=== PATIENT | female | born 1970 | race Caucasian/White ===

== ENCOUNTER 2023-04-10 09:03 | Outpatient (OUT) | payer MEDICAID, SELFPAY ==
[2023-04-10 12:31] LABS: Basophils Percent Auto 0.4 % (0.2-2.0); Eosinophils Absolute Auto 0.3 10^3/uL (0.0-0.7); Eosinophils Percent Auto 3.5 % (0.9-7.0); Hematocrit 39.8 % (36.0-48.0); Hemoglobin 13.4 g/dL (12.0-16.0); Immature Granulocytes Abs Auto 0.01 10^3/uL (0.00-0.03); Immature Granulocytes Pct Auto 0.1 % (0.0-0.5); Lymphocytes Absolute Auto 2.8 10^3/uL (1.2-3.8); Lymphocytes Percent Auto 34.2 % (20.5-60.0); Mean Corpuscular HGB Conc 33.7 g/dL (29.9-35.2); Mean Corpuscular Hemoglobin 29.6 pg (26.7-34.0); Mean Corpuscular Volume 88.1 fL (81.0-99.0); Mean Platelet Volume 9.5 fL (9.5-13.5); Monocytes Absolute Auto 0.5 10^3/uL (0.3-0.8); Monocytes Percent Auto 6.1 % (1.7-12.0); Neutrophils Absolute Auto 4.5 10^3/uL (1.4-6.5); Neutrophils Percent Auto 55.7 % (43.0-75.0); Platelet Count 262 10^3/uL (150-450); Red Blood Count 4.52 10^6/uL (4.20-5.40); Red Cell Distribution Width 13.5 % (11.0-15.0)
[2023-04-10 12:53] LABS: Bilirubin Urine NEGATIVE (NEGATIVE); Blood Urine NEGATIVE (NEGATIVE); Clarity Urine CLEAR (CLEAR); Color Urine LT. YELLOW (YELLOW); Glucose Urine UA NEGATIVE (NEGATIVE); Ketones Urine NEGATIVE (NEGATIVE); Leukocyte Esterase Urine NEGATIVE (NEGATIVE); Nitrite Urine NEGATIVE (NEGATIVE); Protein Urine NEGATIVE (NEG/TRACE); Urobilinogen Urine 0.2 EU/dL (0.2-1.0); pH Urine 6.5 (5.0-9.0)
[2023-04-10 13:17] LABS: Bacteria Urine TRACE #/HPF (NONE SEEN); Cast Seen? NONE SEEN #/LPF (NONE SEEN); Crystals Seen? None Seen #/HPF (None Seen); Mucus Urine NONE SEEN (NONE SEEN); RBC Urine NONE SEEN #/HPF (0-2); Squamous Epithelial Cell Urine MODERATE #/LPF (NONE/RARE); WBC Urine 0-2 #/HPF (NONE SEEN)
[2023-04-10 13:37] LABS: Alanine Aminotransferase 39 U/L (14-59); Albumin Globulin Ratio 1.3; Albumin Level 4.3 g/dL (3.4-5.0); Alkaline Phosphatase 61 U/L (46-116); Anion Gap 10.5; Aspartate Amino Transferase 38 U/L (15-37); BUN Creatinine Ratio 13.5; Bilirubin Total 0.4 mg/dL (0.2-1.0); Calcium 9.9 mg/dL (8.5-10.1); Carbon Dioxide 29.9 mmol/L (21.0-32.0); Chloride 101 mmol/L (98-107); Chol HDL Ratio 1.7; Cholesterol 148 mg/dL (<=200); Estimated GFR (African America >60 (>=60); Estimated GFR (Non-African Ame >60 (>=60); Globulin 3.2 g/dL; Glucose 84 mg/dL (74-106); HDL Cholesterol 87 mg/dL (40-60); Potassium 3.4 mmol/L (3.5-5.1); Sodium 138 mmol/L (136-145); Total Protein 7.5 g/dL (6.4-8.2); Triglycerides 92 mg/dL (<=150); VLDL CHOLESTEROL 18.4 mg/dL
[2023-04-11 04:07] LABS: Vitamin B12 564 pg/mL (232-1245)
== END 2023-04-10 09:04 ==
LOC: LAB 04-16 09:04
PROVIDERS: PCP Family Medicine; Visit Provider Family Medicine
DX: E55.9 Vitamin D deficiency, unspecified (principal); D72.829 Elevated white blood cell count, unspecified; E83.52 Hypercalcemia; E53.8 Deficiency of other specified B group vitamins; R35.1 Nocturia; K76.0 Fatty (change of) liver, not elsewhere classified
CPT/HCPCS: 36415; 80053; 80061; 81001; 82306; 82607; 82746; 85025; 87086

== ENCOUNTER 2023-04-17 13:48 | Outpatient (OUT) | payer MEDICAID, SELFPAY ==
[2023-04-17 14:17] LABS: BUN Creatinine Ratio 15.5; Calcium 9.3 mg/dL (8.5-10.1); Carbon Dioxide 31.5 mmol/L (21.0-32.0); Chloride 102 mmol/L (98-107); Estimated GFR (African America >60 (>=60); Estimated GFR (Non-African Ame >60 (>=60); Glucose 89 mg/dL (74-106); Potassium 3.5 mmol/L (3.5-5.1); Sodium 140 mmol/L (136-145)
== END 2023-04-17 13:49 | disposition home or self-care (01) ==
LOC: LAB 13:49
PROVIDERS: PCP Family Medicine; Visit Provider Family Medicine
DX: E87.6 Hypokalemia (principal)
CPT/HCPCS: 36415; 80048

== ENCOUNTER 2023-05-29 17:00 | Emergency (ER) | payer MEDICAID, SELFPAY ==
[2023-05-29 17:06] VITALS: BP 149/93; PULSE 74; RESP 18; TEMP 36.4; O2SAT 97; BMI 20.8
--- NOTE | 2023-05-29 17:14 | ED.LOWEXI1 ---
HPI - Extremity Injury (Lower) General Chief Complaint: Extremity Injury, Lower Stated Complaint: Lower Extremity Pain Time Seen by Provider: 05/29/23 17:14 Source: patient Mode of arrival: walk-in Limitations: no limitations History of Present Illness HPI Narrative: Patient process the emergency department complaining of left foot pain. Patient states the last couple of days having pain over the dorsum of the foot. She states at times feels hot and at times feels cold. She states when she put her foot down to notice it becoming swollen. She describes her primary care doctor and since she had a blood clot in the past concerned about it. She does not take blood thinners currently. She denies any trauma. She denies any recent surgery. The patient is a smoker. She denies any chest pain, or shortness of breath. Eyes any fever, chills, or cough. She denies mila calf pain or cramping. She has not taken anything at home for pain. Related Data Allergies Allergy/AdvReac Type Severity Reaction Status Date / Time No Known Drug Allergies Allergy Verified 05/29/23 17:12 Review of Systems ROS Status of ROS 10 or more systems reviewed and unremarkable except as noted in history and below Exam Narrative Exam Narrative: Nurses notes and vital signs reviewed and patient is not hypoxic. General: Nontoxic, Well-appearing and in no apparent distress. Skin: Warm, dry, no pallor noted. No Rash Head: Normocephalic, atraumatic. Neck: Supple, non-tender. Eye: Pupils are equal, round and EOMI. No scleral icterus. Ears, Nose, Mouth, and Throat: TM clear, no posterior oropharynx erythema or nasal mucosal hypertrophy, uvula is mid-line Oral mucosa is moist Cardiovascular: Regular Rate and Rhythm without murmur, gallop or rub. Respiratory: No accessory muscle use or respiratory distress. Lungs are clear to auscultation, no wheezing, rales or rhonchi Chest Wall: no tenderness Back: No midline thoracic or lumbar vertebral tenderness. No CVA tenderness Musculoskeletal: normal ROM, no calf or popliteal tenderness, no lower extremity edema/swelling, No calf asymmetry, DP +2, PT +2, capillary refill is brisk. Negative Homans sign. No erythema or ecchymosis, signs of trauma, or infection. There are no hyperesthesias. No cooling, cyanosis or pale discoloration of the foot. GI: Abdomen is soft, non-distended. Normal bowel sounds. No tenderness to palpation. No rebound, guarding, or rigidity noted. Neurological: A&O x4. No cranial nerve dysfunction observed. No truncal ataxia. Moves all extremities. Sensation intact. Psychiatric: Cooperative and interactive. Normal mood and affect. Constitutional Vital Signs, click to edit/add: Last Vital Signs Temp 97.6 F 05/29/23 17:06 Pulse 74 05/29/23 17:06 Resp 18 05/29/23 17:06 BP 149/93 H 05/29/23 17:06 Pulse Ox 97 05/29/23 17:06 O2 Del Method Room Air 05/29/23 17:06 Course Vital Signs Vital signs: Vital Signs Temperature 97.6 F 05/29/23 17:06 Pulse Rate 74 05/29/23 17:06 Respiratory Rate 18 05/29/23 17:06 Blood Pressure 149/93 H 05/29/23 17:06 Pulse Oximetry 97 05/29/23 17:06 Oxygen Delivery Method Room Air 05/29/23 17:06 Temperature 97.6 F 05/29/23 17:06 Pulse Rate 74 05/29/23 17:06 Respiratory Rate 18 05/29/23 17:06 Blood Pressure 149/93 H 05/29/23 17:06 Pulse Oximetry 97 05/29/23 17:06 Oxygen Delivery Method Room Air 05/29/23 17:06 MDM - Extremity Injury (Lower) MDM Narrative Medical decision making narrative: Venous Doppler of lower extremity was done which does not show any deep vein thrombosis. Results discussed with patient. Patient advised to stop smoking. She is advised follow-up with primary care doctor for further testing. There are no signs of acute vascular occlusion. pt is advised to take Tylenol Motrin in the meantime. At this time the patient is without objective evidence of an acute process requiring hospitalization or inpatient management. The patient has remained hemodynamically stable. No additional indication for emergent studies at this time. I answered all questions. Discussed discharge instructions including standard anticipatory guidance and what should prompt a return to the emergency department, including if they get worse are not getting better or develops any new or concerning symptoms. I've given them specific time frame in which to follow-up, and who to follow-up with. The patient demonstrates understanding. Patient is nontoxic and stable for discharge with outpatient follow-up. This note was created with the assistance of a speech recognition program. Although the intention is to generate documents that actually reflects the content of the visit, no guarantees can be provided that every mistake has been identified and corrected by editing. Discharge Plan Discharge Chief Complaint: Extremity Injury, Lower Clinical Impression: Foot pain, left Patient Disposition: Home, Self-Care Time of Disposition Decision: 18:22 Condition: Good Mode of Transportation: Private Vehicle Additional Instructions: Follow-up with Dr. Cruz in the morning. Return to emergency department with a possible source discussed. cut down on smoking Stand Alone Forms: Portal Instructions Referrals: PAULINE ROMERO [Primary Care Provider] - 1 week
--- NOTE | 2023-05-29 17:18 | US_ITS ---
The [address] [address] Patient Name: JOSSY GUZMÁN MRN: [id number] date: 1970 Sex: F Assigned Patient Location: ER Current Patient Location: ER Accession/Order Number: [id number] Exam Date: 05/29/2023 17:20 Report Date: 05/29/2023 17:52 At the request of: ROBB FOX Procedure: US venous doppler LE LT EXAM: US venous doppler LE LT HISTORY: foot pain the past 3 days per COMPARISON: None. TECHNIQUE: Multiple sonographic images of the deep veins of the left lower extremity were obtained, supplemented with Doppler. FINDINGS: The deep veins of the left lower extremity are fairly well-visualized the groin to the mid calf. No filling defect is identified to indicate a thrombus. There is normal compression augmentation of flow throughout. US/US venous doppler LE LT IMPRESSION: There is no direct or indirect evidence of deep vein thrombosis in the left lower extremity at this time. Electronically authenticated by: DEVON HORTON Date: 05/29/2023 17:52
== END 2023-05-29 18:38 | disposition home or self-care (01) ==
PROVIDERS: Emergency Provider Emergency Medicine; PCP Family Medicine
DX: M79.672 Pain in left foot (principal)
CPT/HCPCS: 93971; 99284

== ENCOUNTER 2023-05-31 10:07 | Outpatient (OUT) | payer MEDICAID, SELFPAY ==
--- NOTE | 2023-05-31 10:10 | XR_ITS ---
The [address] [address] Patient Name: JOSSY GUZMÁN MRN: [id number] date: 1970 Sex: F Assigned Patient Location: [facility] Current Patient Location: [facility] Accession/Order Number: [id number] Exam Date: 05/31/2023 10:18 Report Date: 05/31/2023 10:49 At the request of: PAULINE ROMERO Procedure: XR foot LT min 3V PROCEDURE: XR foot LT min 3V HISTORY: Pain In Left Foot M79.672 COMPARISON: None. FINDINGS: BONES:No fracture, acute abnormality, or significant arthropathy. SOFT TISSUES:No visible soft tissue swelling. EFFUSION:None visible. OTHER: Negative. XR/XR foot LT min 3V IMPRESSION: 1. No acute bone abnormality or significant degenerative joint disease. 2. No suspicious soft tissue findings. Electronically authenticated by: LORRAINE MORIN Date: 05/31/2023 10:49
== END 2023-05-31 10:08 | disposition home or self-care (01) ==
PROVIDERS: PCP Family Medicine; Visit Provider Family Medicine
DX: M79.672 Pain in left foot (principal)
CPT/HCPCS: 73630

== ENCOUNTER 2023-08-06 14:55 | Outpatient (OUT) | payer MEDICAID, SELFPAY ==
--- NOTE | 2023-08-06 15:04 | MM_ITS ---
Patient: JOSSY GUZMÁN Exam Date: 08/06/2023 : 1970 Gender:F Ordering : DR CHINTAN ROMERO Admission #: [id number] Family : Order #: [id number] CLICK HERE TO VIEW EXAM RADIOLOGY REPORT PROCEDURE: MM TOMOSYNTHESIS SCREENING BI COMPARISON: MG MAMM SCREEN 3D TROY CAD, 12/27/2021. MG MAMM DX 3D LT CAD, 09/13/2022. MAMMO POST BIOPSY LEFT, 01/15/2022. INDICATIONS: Screening Calculator Name NCI Breast Cancer Risk Assessment Tool 5 Year Breast Cancer Risk 1.80% Lifetime Breast Cancer Risk 13.80% Personal Breast Cancer No Personal Ovarian Cancer No Treatments None Family Cancers None LOCATION: [facility] BREAST COMPOSITION: Heterogeneously dense,which may obscure small masses. FINDINGS: DIAGNOSTIC CATEGORY 2--BENIGN FINDING. NO CHANGE FROM COMPARISON. Scattered benign-appearing calcifications are present. Scattered benign-appearing lymph nodes are present. RIGHT BREAST: No significant suspicious finding. LEFT BREAST: No significant suspicious finding. Stable micro clip marker upper outer quadrant RECOMMENDATIONS: ROUTINE MAMMOGRAM AND CLINICAL EVALUATION IN 12 MONTHS. PLEASE NOTE: A NORMAL MAMMOGRAM DOES NOT EXCLUDE THE POSSIBILITY OF BREAST CANCER. A CLINICALLY SUSPICIOUS PALPABLE LUMP SHOULD BE BIOPSIED. Dictated by: Chintan Casanova MD on 08/07/2023 at 09:51 Approved by: Chintan Casanova MD on 08/07/2023 at 09:53
== END 2023-08-06 14:56 | disposition home or self-care (01) ==
LOC: MAMMO 14:55
PROVIDERS: PCP Family Medicine; Visit Provider Family Medicine
DX: Z12.31 Encounter for screening mammogram for malignant neoplasm of breast (principal)
CPT/HCPCS: 77063; 77067

== ENCOUNTER 2023-08-06 14:56 | Outpatient (OUT) | payer MEDICAID, SELFPAY ==
--- NOTE | 2023-08-06 15:17 | XR_ITS ---
[address] [address] Patient Name: JOSSY GUZMÁN MRN: [id number] date: 1970 Sex: F Assigned Patient Location: [facility] Current Patient Location: [facility] Accession/Order Number: [id number] Exam Date: 08/06/2023 15:08 Report Date: 08/06/2023 20:59 At the request of: NINA Gambino APLFABRICIO Procedure: XR DEXA axial skeleton EXAMINATION: XR DEXA axial skeleton, 08/06/2023 3:08 PM EDT HISTORY: Osteopenia M85.80 COMPARISON: 2020 TECHNIQUE: Dual-energy X-ray absorptiometry (DEXA) bone density study performed for the axial skeleton. HISTORY: Osteopenia M85.80 FINDINGS: Bone mineral density of the distal femurs is 0.803 g percent meters squared. T score -1.6. WHO classification: Osteopenia Lowest bone mineral density left femoral trochanter measures 0.613 g/sq cm. T score -2.1. WHO classification: Osteopenia XR/XR DEXA axial skeleton IMPRESSION: Osteopenia. Moderate fracture risk Electronically authenticated by: PAULINE NEGRETE Date: 08/06/2023 20:59
== END 2023-08-06 14:57 | disposition home or self-care (01) ==
LOC: RAD 14:56
PROVIDERS: PCP Family Medicine; Visit Provider Nurse Practitioner Family
DX: M85.80 Other specified disorders of bone density and structure, unspecified site (principal); M85.89 Other specified disorders of bone density and structure, multiple sites; Z12.31 Encounter for screening mammogram for malignant neoplasm of breast
CPT/HCPCS: 77063; 77067; 77080

== ENCOUNTER 2023-08-14 12:45 | Outpatient (OUT) | payer MEDICAID, SELFPAY ==
[2023-08-14 13:22] LABS: Basophils Percent Auto 0.4 % (0.2-2.0); Eosinophils Absolute Auto 0.1 10^3/uL (0.0-0.7); Eosinophils Percent Auto 1.4 % (0.9-7.0); Hematocrit 38.8 % (36.0-48.0); Hemoglobin 13.2 g/dL (12.0-16.0); Immature Granulocytes Abs Auto 0.03 10^3/uL (0.00-0.03); Immature Granulocytes Pct Auto 0.3 % (0.0-0.5); Lymphocytes Absolute Auto 3.2 10^3/uL (1.2-3.8); Lymphocytes Percent Auto 33.8 % (20.5-60.0); Mean Corpuscular Hemoglobin 29.7 pg (26.7-34.0); Mean Corpuscular Volume 87.4 fL (81.0-99.0); Mean Platelet Volume 9.6 fL (9.5-13.5); Monocytes Absolute Auto 0.6 10^3/uL (0.3-0.8); Monocytes Percent Auto 6.6 % (1.7-12.0); Neutrophils Absolute Auto 5.5 10^3/uL (1.4-6.5); Neutrophils Percent Auto 57.5 % (43.0-75.0); Platelet Count 307 10^3/uL (150-450); Red Blood Count 4.44 10^6/uL (4.20-5.40); Red Cell Distribution Width 13.5 % (11.0-15.0); White Blood Count 9.5 10^3/uL (4.0-11.0)
[2023-08-14 13:41] LABS: Alanine Aminotransferase 52 U/L (14-59); Albumin Globulin Ratio 1.3; Alkaline Phosphatase 64 U/L (46-116); Anion Gap 8.4; Aspartate Amino Transferase 52 U/L (15-37); Bilirubin Total 0.5 mg/dL (0.2-1.0); Calcium 9.3 mg/dL (8.5-10.1); Carbon Dioxide 30.3 mmol/L (21.0-32.0); Chloride 100 mmol/L (98-107); Estimated GFR (African America >60 (>=60); Estimated GFR (Non-African Ame >60 (>=60); Globulin 3.1 g/dL; Glucose 78 mg/dL (74-106); Potassium 3.7 mmol/L (3.5-5.1); Sodium 135 mmol/L (136-145); Thyroid Stimulating Hormone 1.365 uIU/mL (0.358-3.740); Total Protein 7.1 g/dL (6.4-8.2)
[2023-08-15 12:12] LABS: PTH, Intact 23 pg/mL (15-65)
--- OUTSIDE RECORDS SUMMARY | 2023-09-24 14:25 | XMS_ITS | CCD ---
Author Name Unknown Address [address] [place] [address] Organization [facility] Care Team Providers Care Dope Pourer Name Role Phone PHYSICIAN, DEFAULT Unavailable Unavailable PHYSICIAN, DEFAULT Unavailable Unavailable EBRAHEIM, HEBERT Unavailable Unavailable EBRAHEIM, HEBERT Unavailable Unavailable SELF, REFERRED Unavailable Unavailable SELF, REFERRED Unavailable Unavailable DEXTER, JONAH Unavailable Unavailable DEXTER, JONAH Unavailable Unavailable UNKNOWN, PHYSICIAN Unavailable Unavailable UNKNOWN, PHYSICIAN Unavailable Unavailable DEXTER, JONAH Unavailable Unavailable DEXTER, JONAH Unavailable Unavailable UNKNOWN, PHYSICIAN Unavailable Unavailable UNKNOWN, PHYSICIAN Unavailable Unavailable DEXTER, JONAH Unavailable Unavailable DEXTER, JONAH Unavailable Unavailable UNKNOWN, PHYSICIAN Unavailable Unavailable UNKNOWN, PHYSICIAN Unavailable Unavailable Pauline Romero Unavailable Lia Oswald Unavailable DO Pauline Romero Primary Care Provider [phone] JOSE Guidry Attending Provider Araceli Joseph Unavailable DR PAULINE ROMERO Consulting Unavailable NICK, DR CARPENTER Primary Care Unavailable NICK, DR CARPENTER Admitting Unavailable NICK, DR CARPENTER Attending Unavailable SAMSA ., PONCE Admitting Unavailable SAMSA ., PONCE Attending Unavailable SAMSA ., PONCE Consulting Unavailable NICK, DR CARPENTER Primary Care Unavailable NICK, DR CARPENTER Attending Unavailable NICK, DR CARPENTER Consulting Unavailable NICK, DR CARPENTER Primary Care Unavailable NICK, DR CARPENTER Admitting Unavailable ELIESER DILLON Consulting Unavailable DIAB ., ALTAGRACIA Admitting Unavailable DIAB ., ALTAGRACIA Attending Unavailable NICK, DR CARPENTER Primary Care Unavailable DIAB ., ALTAGRACIA Consulting Unavailable DOMINIQUE ., ROBB Admitting Unavailable DOMINIQUE ., ROBB Attending Unavailable DOMINIQUE ., ROBB Consulting Unavailable NICK, DR CARPENTER Primary Care Unavailable WALTER RAMOS Consulting Unavailable NETTIE MARTÍNEZ Consulting Unavailable DR BLAISE MACK Admitting Unavailmisael MACK, DR BLAISE Mohamud Attending Unavailabl e MARTINA, DR BLAISE Mohamud Consulting Unavailmisael ROMERO, DR CARPENTER Primary Care Unavailable GIRVIN, DR CARPENTER Attending Unavailable GIRVIN, DR CARPENTER Consulting Unavailable GIRVIN, DR CARPENTER Primary Care Unavailable GIRVIN, DR CARPENTER Admitting Unavailable GIRVIN, DR CARPENTER Attending Unavailable GIRVIN, DR CARPENTER Consulting Unavailable GIRVIN, DR CARPENTER Primary Care Unavailable GIRVIN, DR CARPENTER Admitting Unavailable ZIEBER, DR LORRAINE Mace Consulting Unavailable GIRVIN, DR CARPENTER Primary Care Unavailable GIRVIN, DR CARPENTER Consulting Unavailable GIRVIN, DR CARPENTER Admitting Unavailable GIRVIN, DR CARPENTER Attending Unavailable DO Pauline Romero Primary Care Provider MD Elieser Rowe II Attending Provider [phone] Pauline Romero Primary Care Unavailable Elieser Rowe II Attending UnavailElieser De La Rosa II Admitting UnavailAntonina Finch Admitting Unavailable Nick, Pauline Primary Care Unavailable Antonina Guidry Attending Unavailable Elieser Rowe II Unavailable [phone] Pauline Romero Primary Care Physician Tobi Borrego Unavailable Princess Sibley Unavailable LORI BRIONES Attending Unavailable PAULINE ROMERO Primary Care Unavailable Devon Garcia Attending Unavailable Devon Garcia Referring Unavailable DO Devon Garcia Admitting UnavailMabel Mccall Attending Unavailable Pauline Romero Referring Unavailable JOSE Berumen Admitting UnavailDevon Joyner Attending Unavailable DO Devon Garcia Admitting UnavailOSVALDO Cortez Referring Unavailable Allergies Allergy Classification Reported Allergen(s) Allergy Type Date of Onset Reaction(s) Facility (20 sources) Lisinopril Drug Allergy 07-30-2018 [facility] (1 source) Lisinopril Drug Allergy 07-30-2018 [facility] Repository Medications Current Medications Medication Drug Class(es) Dates Sig (Normalized) Sig (Original) acetaminophen 500 mg oral tablet (20 sources) Start: 03-13-2023 take 2 tablets by mouth every eight hours as needed for pain Tylenol Extra Strength 500 mg oral tablet 1,000 mg = 2 tab(s), Oral, q8hr, PRN as needed for pain, Refills(s) 0 Start Date: 07/04/23 Status: Ordered Start: 11-24-2020 take 2 tablets by mo [facility] three times daily Acetaminophen 500 MG 2 tablets Orally up to three times a day Nov, Active acetaminophen 325 mg / HYDROcodone bitartrate 5 mg oral tablet (2 sources) Opioid Agonist Start: 11-27-2017 take 1 tablet by mouth twice daily Hydrocodone-Acetaminophen Active 1 TAB PO Twice daily November 27, 2017 1:00am [id number] actuat albuterol 0.09 mg/actuat metered dose inhaler (20 sources) beta2-Adrene rgic Agonist Start: 11-19-2022 Albuterol Sulfate HFA 108 (9 0 Base) MCG/ACT 2 inhalations Inhalation every 4 hrs Nov, Active Start: 11-19-2022 Albuterol Sulf ate HFA 108 (90 Base) MCG/ACT 2 inhalations Inhalation every 4 hrs Nov, Active Start: 11-19-2022 Albuterol Sulf ate HFA 108 (90 Base) MCG/ACT 2 inhalations Inhalation every 4 hrs Nov, Active alendronic acid 70 mg effervescent oral tablet (20 sources) Bisphosphonate Start: 07-04-2023 take 1 tablet by mouth once daily alendronate 70 mg oral tablet, effervescent See Instructions, 1 tablet 30 mintues prior to any food, drink or medicine with plain water once a day, Refills(s) 0 Start Date: 07/04/23 Status: Ordered take 1 tablet by mouth every wee k Fosamax 70 MG 1 tablet Orally once a week for 28 Active ALPRAZolam 0.25 mg oral tablet (20 sources) Benzodiazepine Start: 07-04-2023 take 1 tablet by mouth twice daily alprazolam 0.25 mg Tab 0.25 mg = 1 tab(s), Oral, BID, Refills(s) 0 Start Date: 07/04/23 Status: Ordered Start: 09-25-2021 [facility] Xanax 0.25 MG 1 tablet Orally every day as needed for 24 days Sep, Active ascorbic acid 500 mg oral capsule (1 source) Vitamin C take 1 capsule by mouth every twenty-four hours Vitamin C 500 MG 1 Capsule Once a day Active B-12 1000 MCG (20 sources) B-12 1000 MCG 1 tablet under the tongue and allow to dissolve Sublingual Sat, Sat and Saturday Active Calcium (20 sources) Phosphate Binder, Calcium Calcium Active calcium carbonate 1250 mg oral tablet (2 sources) Start: 11-27-19 Calcium Carbonate (Calcium 500) 500 mg calcium (1,250 mg) Tablet Active 1 TAB PO As Directed November 27, 2017 1:00am diclofenac sodium 0.01 mg/mg topical gel (10 sources) Nonsteroidal Anti-inflammatory Drug Start: 07-04-20 Voltaren Gel 1% Gel 1 [place], Topical, QID for pain, 100 gram, Refill(s) 0 Start Date: 07/04/23 Status: Ordered Start: 03-13-2023 Voltaren 1 % A pply 1-2 grams to the affected area Externally 4-5 times a day Mar, Active DULoxetine 30 mg oral tablet (14 sources) Serotonin and Norepinephrine Reuptake Inhibitor take 1 capsule by mouth once daily DULoxetine HCl 30 MG 1 capsule Orally Once a day Active take 1 capsule by mouth once haris ly DULoxetine HCl 60 MG 1 capsule Orally Once a day Active ergocalciferol 1.25 mg oral capsule (20 sources) Provitamin D2 Compound take 1 capsule by mouth every twelve hours Vitamin D (Ergocalciferol) 14932 UNIT 1 capsule Orally twice a day Active take 1 capsule by mo uth every twelve hours Vitamin D (Ergocalciferol) 89452 UNIT 1 capsule Orally twice a day Active formoterol / glycopyrronium (20 sources) beta2-Adrenergic Agonist Bevespi Active gabapentin 600 mg oral tablet (20 sources) Anti-epileptic Agent Start: 11-27-19 take 1 capsule by mouth three times daily Gabapentin Active 1 CAP PO Three times daily November 27, 2017 1:00am take 1 tablet by mouth three alvino es daily Gabapentin 800 MG take 1 tablet by mouth three times a day Active ibuprofen 800 mg oral tablet (20 sources) Nonsteroidal Anti-inflammatory Drug Start: 07-04-2023 take 1 tablet by mouth twice daily as needed for pain ibuprofen 800 mg Tab 800 mg = 1 tab(s), Oral, BID, PRN as needed for pain, Refills(s) 0 Start Date: 07/04/23 Status: Ordered irbesartan 300 mg oral tablet (20 sources) Angiotensin 2 Receptor Dona Start: 07-04-2023 take 1 tablet by mouth once daily irbesartan 300 mg Tab 300 mg = 1 tab(s), Oral, Daily, # 30 tab(s), Refills(s) 0 Start Date: 07/04/23 Status: Ordered Start: 05-28-2018 End: 07-30-2018 take 1 tablet by mouth once daily Irbesartan (Avapro) 300 mg Tablet Discontinued 1 MG PO Daily July 30, 2018 12:00am July 30, 2018 9:30am take 1 tablet by evonne th once daily Irbesartan 150 MG take 1 tablet by mouth once daily Active 1 ml medroxyPROGESTERone acetate 150 mg/ml injection (4 sources) Progestin Start: 07-30-2018 Medroxyprogest erone (Depo-Provera) 150 mg/mL Suspension Active 1 MG IM EVERY 12 WEEKS July 30, 2018 12:00am Start: 11-27-2017 End: 09-02-2018 Medroxyprogesterone Disconti nued 1 UNIT IM As Directed November 27, 2017 1:00am September 02, 2018 4:45pm meloxicam 7.5 mg oral tablet (2 sources) Nonsteroidal Anti-inflammatory Drug Start: 11-27-2017 take 1 tablet by mouth once daily Meloxicam Active 1 TAB PO Daily November 27, 2017 1:00am Multivitamin-Iro n-Folic Acid (Centrum Women) 18-400 mg-mcg Tablet (2 sources) Start: 11-27-2017 take 1 tablet by mouth once daily Multivitamin-Ir on-Folic Acid (Centrum Women) 18-400 mg-mcg Tablet Active 1 TAB PO Daily November 27, 2017 1:00am Start: 11-27-2017 take 1 tablet by evonne th once daily Dnbsvoceeepr-Yqof-Wkfkw Acid (Centrum Women) 18-400 mg-mcg Tablet Active 1 TAB PO Daily November 27, 2017 12:00am ofloxacin 3 mg/ml ophthalmic solution (20 sources) Quinolone Antimicrobial Start: 01-31-2023 Ofloxa ariana 0.3 % 10 drops into affected ear Otic Once a day for 7 day(s) Jan, Active Start: 01-20-2021 Ofloxacin 0.3 % 10 drops into affected ear Otic Once a day for 7 day(s) Jan, Not-Taking Start: 01-20-2021 Ofloxacin 0.3 % 10 drops into affected ear Otic Once a day for 7 day(s) Jan, Not-Taking 24 hr oxybutynin chloride 15 mg extended release oral tablet (20 sources) Cholinergic Muscarinic Antagonist Start: 11-27-2017 take 1 tablet by mouth once daily oxybutynin 15 mg ER Tab 15 mg = 1 tab(s), Oral, Daily, # 30 tab(s), Refills(s) 0 Start Date: 07/04/23 Status: Ordered pregabalin 225 mg oral capsule (20 sources) Start: 09-13-2023 take 1 capsule by mouth twice daily pregabalin 225 mg oral capsule 225 mg = 1 cap(s), Oral, BID, # 60 cap(s), Refills(s) 1, Pharmacy: [facility] [id number], 180, cm, 09/13/23 12:45:00 EST, Height/Length Dosing, 67.1, kg, 09/13/23 12:45:00 EST, Weight Dosing Start Date: 09/13/23 Status: Ordered Start: 07-08-2023 End: 10-06-2023 take 1 capsule by mouth twice daily Lyrica 150 mg Cap 150 mg = 1 cap(s), Oral, BID, X 30 day(s), # 60 cap(s), Refills(s) 2, Pharmacy: [facility] #[id number], 180.3, cm, 07/04/23 8:41:00 EDT, Height/Length Dosing, 69, kg, 07/04/23 14:13:00 EDT, Weight Dosing Start Date: 07/08/23 Stop Date: 10/06/23 Status: Ordered take 1 capsule by [facility] every twenty-four hours Pregabalin 150 MG 1 capsule Orally Once a day Not-Taking traZODone hydrochloride 50 mg oral tablet (20 sources) Serotonin Reuptake Inhibitor Start: 07-04-2023 take 1 tablet by mouth once daily at bedtime traZODONE 50 mg Tab 50 mg = 1 tab(s), Oral, Once a day (at bedtime), # 30 tab(s), Refills(s) 0 Start Date: 07/04/23 Status: Ordered Start: 10-12-2022 take 0.5 tablet by [facility] once daily at bedtime traZODone HCl 50 MG 1/2 tablet Orally qd hs Oct, Active Trelegy Ellipta (20 sources) Trelegy Ellipta Active Trelegy Ellipta 200 mcg-62.5 mcg-25 mcg/inh inhalation powder (3 sources) Start: 07-04-20 take 1 puff(s) by inhalation once daily Trelegy Ellipta 200 mcg-62.5 mcg-25 mcg/inh inhalation powder 1 puff(s), Inhalation, Daily, Refill(s) 0 Start Date: 07/04/23 Status: Ordered 7 actuat umeclidinium 0.0625 mg/actuat / vilanterol 0.025 mg/actuat dry powder inhaler (19 sources) Anticholinergic, beta2-Adrenergic Agonist Start: 11-30-19 take 1 puff(s) by inhalation once daily Anoro Ellipta 62.5-25 MCG/ACT 1 puff Inhalation Once a day Nov, Active 24 hr venlafaxine 150 mg extended release oral capsule (20 sources) Serotonin and Norepinephrine Reuptake Inhibitor Start: 07-04-20 take 1 capsule by mouth once daily venlafaxine 150 mg Cap-ER 150 mg = 1 cap(s), Oral, Daily, # 30 cap(s), Refills(s) 0 Start Date: 07/04/23 Status: Ordered Start: 11-24-2020 take 1 capsule by [facility] every twenty-four hours Effexor XR 75 MG 1 capsule with food Orally Once a day for 30 day(s) Nov, Active Start: 11-24-2020 take 1 capsule by [facility] every twenty-four hours Effexor XR 37.5 MG 1 capsule with food Orally Once a day Nov, Active Vitamin B-12 5000 mcg sublingual tablet (3 sources) Start: 07-04-2023 take 1 tablet under the tongue once daily Vitamin B-12 5000 mcg sublingual tablet 5,000 mcg = 1 tab(s), SubLingual, Daily, Refills(s) 0 Start Date: 07/04/23 Status: Ordered vitamin b12 0.1 mg oral tablet (3 sources) Vitamin B12 Start: 11-27-2017 Cyanocobalamin (Vitamin B-12) Active 1 TAB PO As Directed November 27, 2017 1:00am B-12 1000 MCG 1 tablet under the tongue and allow to dissolve Sublingual Sat, Sat and Saturday Active Vitamin B12 1000 MCG (13 sources) take 1 tablet by evonne th once daily, then take 2 tablets by mouth once daily Vitamin B12 1000 MCG 1 tab on odd days of the month Orally and take 2 tabs on even days of the month Active Vitamin C 500 MG (20 sources) Vitamin C 500 MG 1 Capsule Once a day Active Vitamin D (Ergocalciferol) 11872 UNIT (12 sources) take 1 capsule by mo uth twice daily Vitamin D (Ergocalciferol) 99749 UNIT 1 capsule Orally twice a day Active take 1 capsule by mouth twice da kyung Vitamin D-3 1000 UNIT (20 sources) take 1 capsule by mo uth once daily Vitamin D-3 1000 UNIT 1 capsule Orally Once a day Active Zinc (20 sources) Start: 07-04-2023 Zinc See Instructions, with Vitamin C Daily, Refills(s) 0 Start Date: 07/04/23 Status: Ordered take 1 tablet by mouth once tomás y Zinc 30 MG 1 tablet Orally Once a day for 30 day(s) Active zinc gluconate 30 mg oral tablet (1 source) take 1 tablet by evonne th every twenty-four hours Zinc 30 MG 1 tablet Orally Once a day for 30 day(s) Active Completed/Discontinued Medications Medication Drug Class(es) Dates Sig (Normalized) Sig (Original) amoxicillin 875 mg / clavulanate 125 mg oral tablet (17 sources) Penicillin-class Antibacterial Start: 09-07-2022 take 1 tablet by mouth twice daily at mealtime Amoxicillin-Pot Clavulanate 875-125 MG 1 tablet Orally bid with food for 10 day(s) Sep, Not-Taking B-12 - up to 1000 mcg (20 sources) Start: 06-10-2014 B-12 - up to 1000 mcg Jun, 1 mL Start: 05-12-2014 B-12 - up to 1 000 mcg May, 1 mL Start: 04-06-2014 B-12 - up to 1 000 mcg Apr, 1 mL Start: 01-05-2014 B-12 - up to 1 000 mcg Jan, 1 cc Start: 12-04-2013 B-12 - up to 1 000 mcg Nov, 1 cc Start: 11-05-2013 B-12 - up to 1 000 mcg Oct, 1 mL Start: 10-06-2013 B-12 - up to 1 000 mcg Sep, 1 cc hydroCHLOROthiazide 25 mg / valsartan 320 mg oral tablet (2 sources) Thiazide Diuretic, Angiotensin 2 Receptor Dona Start: 11-27-2017 End: 05-28-2018 Valsartan-Hydrochlorothiazid e Discontinued TABLET November 27, 2017 1:00am May 28, 2018 7:57am Ketorolac (20 sources) Nonsteroidal Anti-inflammatory Drug, Cyclooxygenase Inhibitor Start: 02-11-2014 Toradol per 15 mg February, 14 60 mg methylPREDNISolone 4 mg oral tablet (20 sources) Corticosteroid Start: 07-03-2022 methylPREDNISolone 4 MG as directed Orally Once a day for 6 days Jun, Not-Taking Start: 10-14-2018 Depo-Medrol 40 mg Oct, 1 mL Start: 09-26-2016 Depo-Medrol 40 mg Sep, 1 mL mupirocin 0.02 mg/mg topical ointment (3 sources) RNA Synthetase Inhibitor Antibacterial Start: 07-03-2022 Mupirocin 2 % 1 application to affected area Externally once per day for 7 days Jun, Not-Taking Nicotine (13 sources) Cholinergic Nicotinic Agonist Nicorette Not-Taking Nicorette Active triamcinolone acetonide 40 mg/ml injectable suspension (4 sources) Corticosteroid Start: 07-25-2023 Kenalog-40 Jul, 120 mg Problems Active Problems Problem Classification Problem Date Documented Date Episodic/Chronic Abdominal pain (4 sources) Pelvic and perineal pain; Translations: [PELVIC AND PERINEAL PAIN] Onset: 11-11-2017 Administrative/social admission (2 sources) Disappearance and of family member; Translations: [Encounter for issue of repeat prescription] Onset: 09-25-2021 Resolved: 09-25-2021 Episodic Anxiety disorders (20 sources) Anxiety; Translations: [Anxiety disorder, unspecified] Onset: 09-25-2021 Resolved: 06-14-2022 Chronic Chronic obstructive pulmonary disease and bronchiectasis (20 sources) Acute exacerbation of chronic obstructive airways disease; Translations: [Chronic obstructive pulmonary disease with (acute) exacerbation] Onset: 06-12-2022 Chronic Diseases of white blood cells (20 sources) Increased blood leukocyte number; Translations: [Elevated white blood cell count, unspecified] Onset: 10-18-2022 Chronic Essential hypertension (20 sources) Hypertensive disorder; Translations: [Essential (primary) hypertension] Onset: 09-05-2021 Resolved: 06-14-2022 Chronic Fluid and electrolyte disorders (2 sources) Hypo-osmolality and hyponatremia; Translations: [Hypokalemia] Onset: 09-05-2021 Resolved: 09-05-2021 Episodic Genitourinary symptoms and ill-defined conditions (20 sources) Urinary incontinence; Translations: [Unspecified urinary incontinence] Chronic Genitourinary symptoms and ill-defined conditions (6 sources) Frequency of micturition; Translations: [Hematuria, unspecified] Onset: 09-05-2021 Resolved: 06-14-2022 Episodic Headache; including migraine (1 source) Headache; including migraine; Translations: [Headache, unspecified] Onset: 09-13-2023 Hepatitis (20 sources) Nonalcoholic steatohepatitis; Translations: [Nonalcoholic steatohepatitis (GAXIOLA)] Chronic Malaise and fatigue (8 sources) Other fatigue; Translations: [Fatigue] Onset: 11-19-2022 Episodic Mood disorders (20 sources) Major depressive disorder, single episode, unspecified; Translations: [Depression] Onset: 09-05-2021 Resolved: 06-14-2022 Chronic Nonspecific chest pain (2 sources) Other chest pain; Translations: [OTHER CHEST PAIN] Onset: 11-23-2022 Episodic Nutritional deficiencies (20 sources) Vitamin D deficiency; Translations: [Vitamin D deficiency, unspecified] Onset: 09-05-2021 Resolved: 03-12-2022 Chronic Nutritional deficiencies (9 sources) Deficiency of other specified B group vitamins; Translations: [DEFICIENCY SPEC B GROUP VITAMINS] Onset: 09-05-2021 Resolved: 06-14-2022 Episodic Osteoarthritis (20 sources) Arthropathy of left hip joint; Translations: [Unilateral primary osteoarthritis, left hip] Chronic Osteoporosis (1 source) Age-related osteoporosis without current pathological fracture; Translations: [AGE-RELATED OSTEOPOROSIS W/O CURRENT PATHOLOGICAL FRACTURE] Onset: 12-23-2017 Chronic Other aftercare (9 sources) Other half-way (current) drug therapy; Translations: [OTH COMMERCIAL ACCOUNT OFFICER CURRENT DRUG THERAPY] Onset: 09-05-2021 Resolved: 03-12-2022 Episodic Other bone disease and musculoskeletal deformities (1 source) Other specified disorders of bone density and structure, unspecified site Episodic Other bone disease and musculoskeletal deformities (1 source) Other specified disorders of bone density and structure, multiple sites Episodic Other connective tissue disease (20 sources) Bursitis of hip; Translations: [Other bursitis of hip, left hip] Episodic Other connective tissue disease (20 sources) Enthesopathy of hip region; Translations: [Trochanteric bursitis, left hip] Episodic Other connective tissue disease (20 sources) Trochanteric bursitis of left hip; Translations: [Trochanteric bursitis, left hip] Episodic Other connective tissue disease (3 sources) Pain in left foot Episodic Other ear and sense organ disorders (20 sources) Malignant otitis externa; Translations: [Malignant otitis externa, left ear] Chronic Other ear and sense organ disorders (2 sources) Impacted cerumen, left ear Episodic Other ear and sense organ disorders (1 source) Unspecified acute noninfective otitis externa, left ear Episodic Other fractures (1 source) Fracture of other parts of pelvis, subsequent encounter for fracture with routine healing; Translations: [FRACTURE OF OTH PARTS OF PELVIS, SUBS FOR FX W ROUTN HEAL] Onset: 06-03-2018 Episodic Other fractures (20 sources) Fracture of pelvis; Translations: [Fracture of unspecified parts of lumbosacral spine and pelvis, initial encounter for closed fracture] Episodic Other liver diseases (20 sources) Liver cyst; Translations: [Other specified diseases of liver] Chronic Other liver diseases (20 sources) Non-alcoholic fatty liver; Translations: [Fatty (change of) liver, not elsewhere classified] Chronic Other liver diseases (4 sources) Fatty (change of) liver, not elsewhere classified; Translations: [FATTY CHANGE LIVER NEC] Onset: 09-05-2021 Resolved: 03-12-2022 Chronic Other liver diseases (20 sources) Steatosis of liver; Translations: [Fatty (change of) liver, not elsewhere classified] Chronic Other lower respiratory disease (4 sources) Shortness of breath; Translations: [SHORTNESS OF BREATH] Onset: 01-17-2023 Episodic Other lower respiratory disease (3 sources) Dyspnea, unspecified; Translations: [DYSPNEA UNSPECIFIED] Onset: 11-10-2022 Episodic Other nervous system disorders (20 sources) Chronic pain; Translations: [Other chronic pain] Chronic Other non-traumatic joint disorders (20 sources) Pain in right hip joint; Translations: [Pain in right hip] Episodic Other non-traumatic joint disorders (20 sources) Hip pain; Translations: [Pain in left hip] Episodic Other non-traumatic joint disorders (2 sources) Pain in left knee Episodic Other nutritional; endocrine; and metabolic disorders (20 sources) Hypercalcemia; Translations: [Hypercalcemia] Onset: 10-16-2022 Chronic Other nutritional; endocrine; and metabolic disorders (3 sources) Hypercalcemia; Translations: [HYPERCALCEMIA] Onset: 10-18-2022 Chronic Other nutritional; endocrine; and metabolic disorders (4 sources) Abnormal weight gain; Translations: [ABNORMAL WEIGHT GAIN] Onset: 09-05-2021 Resolved: 03-12-2022 Episodic Other screening for suspected conditions (not mental disorders or infectious disease) (20 sources) Encounter for screening mammogram for malignant neoplasm of breast; Translations: [Encounter for screening for malignant neoplasm of colon] Onset: 09-05-2021 Resolved: 03-12-2022 Episodic Other upper respiratory infections (1 source) Acute sinusitis, unspecified Episodic Poisoning by nonmedicinal substances (1 source) Toxic effect of venom of bees, undetermined, initial encounter Episodic Residual codes; unclassified (20 sources) Insomnia; Translations: [Insomnia, unspecified] Episodic Residual codes; unclassified (4 sources) Insomnia, unspecified Episodic Residual codes; unclassified (1 source) Asymptomatic menopausal state Episodic Spondylosis; intervertebral disc disorders; other back problems (20 sources) Post-laminectomy syndrome; Translations: [Postlaminectomy syndrome, not elsewhere classified] Onset: 09-05-2021 Resolved: 03-27-2022 Chronic Spondylosis; intervertebral disc disorders; other back problems (20 sources) Low back pain; Translations: [Low back pain] Onset: 12-01-2022 07-04-2023 Episodic Substance-related disorders (20 sources) Procedure needed; Translations: [Nicotine dependence, unspecified, uncomplicated] Onset: 01-21-2023 07-04-2023 Chronic Comment on above: Added secondary to d ocumentation in Social History. Unclassified (2 sources) Unknown / UNK(Unknown) Onset: 11-11-2017 Unclassified (1 source) CONTACT W/AND (SUSP) EXPOS COVID-19; Translations: [CONTACT W/AND (SUSP) EXPOS COVID-19] Onset: 11-13-2022 Unclassified (1 source) Pain in left knee; Translations: [Pain i n left knee] Onset: 03-13-2023 Past or Other Problems Problem Classification Problem Date Documented Date Episodic/Chronic E Codes: Fall (1 source) Unspecified fall, initial encounter; Translations: [UNSPECIFIED FALL INITIAL ENCOUNTER] Onset: 06-12-2022 Episodic Fracture of upper limb (1 source) Displaced fracture of head of right radius, initial encounter for closed fracture; Translations: [DSPL FX HEAD RT RADIUS INIT CLOS FX] Onset: 06-12-2022 Episodic Nonmalignant breast conditions (1 source) Mammographic calcification found on diagnostic imaging of breast Onset: 01-02-2022 Resolved: 01-02-2022 Episodic Other fractures (4 sources) Fracture of other parts of pelvis, subsequent encounter for fracture with nonunion; Translations: [FRACTURE OF OTH PARTS OF PELVIS, SUBS FOR FX W NONUNION] Onset: 12-23-2017 Episodic Other fractures (4 sources) Fracture of superior rim of left pubis, subsequent encounter for fracture with nonunion; Translations: [FX SUPERIOR RIM OF LEFT PUBIS, SUBS FOR FX W NONUNION] Onset: 03-04-2018 Episodic Other fractures (1 source) Other specified fracture of left pubis, subsequent encounter for fracture with nonunion; Translations: [OTH FRACTURE OF LEFT PUBIS, SUBS FOR FX W NONUNION] Onset: 03-04-2018 Episodic Other non-traumatic joint disorders (3 sources) Pain in right elbow; Translations: [PAIN IN RIGHT ELBOW] Onset: 06-10-2022 Episodic Unclassified (1 source) Cough R05.9 Results Test Name Value Interpretation Reference Range Facil ity Insurance Correspondence Off iceon 09-19-2023 Insurance Correspondence Office [id number]#[id number] Normal [facility] Basic Metabolic Panel w/ Ref rory Mgon 09-13-2023 Calcium [Mass/Vol] 9.0 mg/dL Normal 8.4-10.2 [facility] Comment on above: Performed By: #### B MPWR, TNI #### [address] [address] Ph. [phone] Chloride [Moles/Vol] 102 mmol/L Normal 98-107 [facility] Comment on above: Performed By: #### B MPWR, TNI #### [address] [address] Ph. [phone] CO2 [Moles/Vol] 29 mmol/L Normal 22-32 [facility] Comment on above: Performed By: #### B MPWR, TNI #### [place] [id number] Ph. [phone] Creatinine [Mass/Vol] 0.55 mg/dL Normal 0.52-1.04 [facility] Comment on above: Performed By: #### B MPWR, TNI #### [place] [id number] Ph. [phone] GFR/1.73 sq M.predicted among non-blacks MDRD (S/P/Bld) [Vol rate/Area] 109 mL/min/{1.73_m2} Normal >60 [facility] Comment on above: Result Comment: GFR calculated using CKD-EPI (2020) formula.\X0D0A\Stage 1 Kidney damage (e.g., protein in the urine) with normal GFR >=90\X0D0A\Stage 2 Kidney damage with mild decrease in GFR 60-89\X0D0A\Stage 3a Moderate decrease in GFR 45-59\X0D0A\Stage 3b Moderate decrease in GFR 30-44\X0D0A\Stage 4 Severe reduction in GFR 15-29\X0D0A\Stage 5 Kidney failure <15 Performed By: #### B MPWR, TNI #### [address] [address] Ph. [phone] Glucose [Mass/Vol] 83 mg/dL Normal 65-100 [facility] Comment on above: Performed By: #### B MPWR, TNI #### [place] [id number] Ph. [phone] Potassium [Moles/Vol] 3.7 mmol/L Normal 3.6-5.0 [facility] Comment on above: Performed By: #### B MPWR, TNI #### [place] [address] Ph. [phone] Sodium [Moles/Vol] 137 mmol/L Normal 135-145 [facility] Comment on above: Performed By: #### B MPWR, TNI #### [address] [address] Ph. [phone] Urea nitrogen [Mass/Vol] 13 mg/dL Normal 7-17 [facility] Comment on above: Performed By: #### B MPWR, TNI #### [place] [address] Ph. [phone] CT HEAD WO CONTRASTon 2022 CT HEAD WO CONTRAST RADRPT EXAMINATION: CT HEAD WO CONTRAST STROKE HISTORY: Headache for one week, unlike the past headache. TECHNIQUE: Axial CT scans through the head were obtained without IV contrast administration. Dose reduction techniques were achieved by using: automated exposure control and/or adjustment of mA and /or kV according to patient size and/or use of iterative reconstruction technique. COMPARISON: None. FINDINGS: The cerebral hemispheres have normal white and guan matter and corticomedullary differentiation. Likely prominent perivascular spaces in the bases of the basal ganglia bilaterally. To the limit of CT, the posterior fossa appears unremarkable. The ventricular system and cortical sulci are normal for the patient's age. No area of abnormal mass-effect or edema or intracranial hemorrhage. The visualized orbits show no abnormal mass. The visualized paranasal sinuses show no air-fluid level. Mastoid air cells are clear. Report electronically signed by: Dr. Dudley Muñoz IMPRESSION: No acute intracranial process. headache x1 week worse on left, unlike past headaches Interpreted by: Dudley Muñoz MD Signed by: Dudley Muñoz MD 09/13/23 Final result Normal [facility] Complete Blood Count with Au to Diffon 09-13-2023 Basophils (Bld) [#/Vol] 0.1 10*3/uL Normal 0.0-0.1 [facility] Comment on above: Performed By: #### C BCAD #### [place] [address] Ph. [phone] Basophils/100 WBC (Bld) 1 % Normal 0-1 [facility] Comment on above: Performed By: #### C BCAD #### [place] [address] Ph. [phone] Eosinophils (Bld) [#/Vol] 0.1 10*3/uL Normal 0.0-0.5 [facility] Comment on above: Performed By: #### C BCAD #### [place] [address] Ph. [phone] Eosinophils/100 WBC (Bld) 2 % Normal 0-5 [facility] Comment on above: Performed By: #### C BCAD #### [place] [address] Ph. [phone] Erythrocyte distribution wid th (RBC) [Ratio] 14.3 % Normal 11.5-14.5 [facility] Comment on above: Performed By: #### C BCAD #### [place] [address] Ph. [phone] Hematocrit (Bld) [Volume fraction] 42.6 % Normal 3 6.0-47.0 [facility] Comment on above: Performed By: #### C BCAD #### [place] [address] Ph. [phone] Hemoglobin (Bld) [Mass/Vol] 14.3 g/dL Normal 12.0-16. 0 [facility] Comment on above: Performed By: #### C BCAD #### [address] [address] Ph. [phone] Lymphocytes (Bld) [#/Vol] 3.1 10*3/uL Normal 1.0-4.0 [facility] Comment on above: Performed By: #### C BCAD #### [address] [address] Ph. [phone] Lymphocytes/100 WBC (Bld) 45 % High 20-40 [facility] Comment on above: Performed By: #### C BCAD #### [place] [id number] Ph. [phone] MCH (RBC) [Entitic mass] 29.8 pg Normal 27.0-35.0 [facility] Comment on above: Performed By: #### C BCAD #### [address] [address] Ph. [phone] MCHC (RBC) [Mass/Vol] 33.6 g/dL Normal 32.0-36.0 [facility] Comment on above: Performed By: #### C BCAD #### [address] [address] Ph. [phone] MCV (RBC) [Entitic vol] 88.8 fL Normal 80.0-100.0 [facility] Comment on above: Performed By: #### C BCAD #### [address] [address] Ph. [phone] Monocytes (Bld) [#/Vol] 0.4 10*3/uL Normal 0.3-1.0 [facility] Comment on above: Performed By: #### C BCAD #### [address] [address] Ph. [phone] Monocytes/100 WBC (Bld) 6 % Normal 1-15 [facility] Comment on above: Performed By: #### C BCAD #### [address] [address] Ph. [phone] Neutrophils (Bld) [#/Vol] 3.2 10*3/uL Normal 1.8-7.7 [facility] Comment on above: Performed By: #### C BCAD #### [address] [address] Ph. [phone] Neutrophils/100 WBC (Bld) 46 % Low 50-70 [facility] Comment on above: Performed By: #### C BCAD #### [address] [address] Ph. [phone] Platelet mean volume (Bld) [ Entitic vol] 9.7 fL Normal 9.4-12.3 [facility] Comment on above: Performed By: #### C BCAD #### [address] [address] Ph. [phone] Platelets (Bld) [#/Vol] 286 10*3/uL Normal 150-450 [facility] Comment on above: Performed By: #### C BCAD #### [address] [address] Ph. [phone] RBC (Bld) [#/Vol] 4.8 10*6/uL Normal 4.20-5.40 [facility] Comment on above: Performed By: #### C BCAD #### [address] [address] Ph. [phone] WBC (Bld) [#/Vol] 6.8 10*3/uL Normal 3.7-11.0 [facility] Comment on above: Performed By: #### C BCAD #### [address] [address] Ph. [phone] Consent for Treatmenton 120 Consent for Treatment [id number]#1.00TIFF Normal [facility] Consultation Noteon 09-13-20 Consultation Note Patient: ZACARIAS GUZMÁN Age: 53 years Sex: Female : 1970 Associated Diagnoses: None Author: Mabel Berumen PA-C Subjective Chief complaint 09/13/2023 12:39 EST low back pain . Patient is a 53-year-old female. She presents today after undergoing a caudal epidural steroid injection. This was done on 08/21/2023 and she states unfortunate, has not given her any relief. She continues have lower back pain with left radiating leg pain that goes down to her foot. She rates it a 10/10. She is using Lyrica 150 mg twice daily and states that it does help her but unfortunate, she does not feel that it is enough. She wonders if there is something else she can take for the pain. She states that her quality of life and her activities are significantly diminished because of the pain and she just wants to get feeling better. She also able to walk further and stand longer. She cannot do either of these things because of the discomfort that she is experiencing Previous physical therapy did not help. Anti-inflammatory medications do not give her any long-term relief. The Lyrica does help but not enough. Health Status Allergies: Allergic Reactions (Selected) No Known Allergies, Allergies (1) Active Reaction No Known Allergies None Documented Current medications: (Selected) Prescriptions Prescribed Lyrica 150 mg Cap: 150 mg = 1 cap(s), Oral, BID, X 30 day(s), # 60 cap(s), Refills(s) 2, Pharmacy: [facility] #[id number], 180.3, cm, 07/04/23 8:41:00 EDT, Height/Length Dosing, 69, kg, 07/04/23 14:13:00 EDT, Weight Dosing pregabalin 225 mg oral capsule: 225 mg = 1 cap(s), Oral, BID, # 60 cap(s), Refills(s) 1, Pharmacy: [id number], 180, cm, 09/13/23 12:45:00 EST, Height/Length Dosing, 67.1, kg, 09/13/23 12:45:00 EST, Weight Dosing Documented Medications Documented Trelegy Ellipta 200 mcg-62.5 mcg-25 mcg/inh inhalation powder: 1 puff(s), Inhalation, Daily, Refill(s) 0 Tylenol Extra Strength 500 mg oral tablet: 1,000 mg = 2 tab(s), Oral, q8hr, PRN as needed for pain, Refills(s) 0 Vitamin B-12 5000 mcg sublingual tablet: 5,000 mcg = 1 tab(s), SubLingual, Daily, Refills(s) 0 Voltaren Gel 1% Gel: 1 winston, Topical, QID for pain, 100 gram, Refill(s) 0 Zinc: See Instructions, with Vitamin C Daily, Refills(s) 0 alprazolam 0.25 mg Tab: 0.25 mg = 1 tab(s), Oral, BID, Refills(s) 0 ibuprofen 800 mg Tab: 800 mg = 1 tab(s), Oral, BID, PRN as needed for pain, Refills(s) 0 irbesartan 300 mg Tab: 300 mg = 1 tab(s), Oral, Daily, # 30 tab(s), Refills(s) 0 oxybutynin 15 mg ER Tab: 15 mg = 1 tab(s), Oral, Daily, # 30 tab(s), Refills(s) 0 traZODONE 50 mg Tab: 50 mg = 1 tab(s), Oral, Once a day (at bedtime), # 30 tab(s), Refills(s) 0 venlafaxine 150 mg Cap-ER: 150 mg = 1 cap(s), Oral, Daily, # 30 cap(s), Refills(s) 0 Problem list: All Problems Degenerative disc disease, lumbar / SNOMED CT 83060063 / Confirmed COPD (chronic obstructive pulmonary disease) / SNOMED CT 21408353 / Confirmed Depression / SNOMED CT 0930336688 / Confirmed Radiculopathy of lumbosacral region / SNOMED CT 5500399 / Confirmed Fatigue / SNOMED CT 246761458 / Confirmed Smoker / SNOMED CT 688568219 / Confirmed Added secondary to documentation in Social History. Objective Vital Signs 09/13/2023 12:39 EST Peripheral Pulse Rate 86 bpm Respiratory Rate 16 br/min Systolic Blood Pressure 139 mmHg Diastolic Blood Pressure 90 mmHg HI Mean Arterial Pressure, Cuff 106 mmHg General: Alert and oriented, No acute distress. Thin Eye: Normal conjunctiva. HENT: Normocephalic, Normal hearing. Cardiovascular: No edema. Musculoskeletal Normal range of motion. Normal strength. 5/5 lower extremity strength other than left hip flexion, ADF and EHL 5 -/5 Integumentary: Warm, Dry, [place]. Neurologic: Alert, Oriented. Psychiatric: Cooperative, Appropriate mood & affect. Results Review Lumbar MRI. 12/02/2022. L3-4 disc bulge with facet hypertrophy. L4-5 disc bulge with facet hypertrophy. L5-S1 disc bulge with facet hypertrophy and left-sided neuroforaminal narrowing. Moderate. Impression and Plan Patient is a 53-year-old female with a past medical history significant for lumbar stenosis and lumbar neuritis. Unfortunate, recent caudal epidural steroid injection did not give her the relief she was looking for. She continues to have lower back pain with left radiating leg pain. This affects her ambulatory status. This affects her quality life. This affects her activities and affects her ability to do things she wants to do. We once again reviewed her MRI. Based on her MRI findings, her pain pattern and her failure to improve with previous conservative treatments as well as the significant pain that she is experiencing I recommended to patient a left-sided L5-S1 transforaminal epidural steroid injection under fluoroscopy. Procedure was discussed. Risk and benefits were discussed. Patient is agreeable. She will follow-up 2 weeks after the injection for (more content not included)... Normal [facility] Comment on above: Result Comment: Elec tronically Signed By: Mabel Berumen PA-C\.br\Date and Time Signed: 09/13/23 12:54 EST\.br\Electronically Co-Signed By: Devon Garcia DO.br\Date and Time Co-Signed: 09/19/23 21:42 EST Office/Clinic Note-Physician on 09-13-2023 Office/Clinic Note-Physician [id number]#1.00TIFF Valerie [facility] Patient Correspondenceon Patient Correspondence [id number]#1.00TIFF Normal [facility] Patient Correspondence [id number]#1.00TIFF Normal [facility] Patient History Officeon Patient History Office [id number]#1.00TIFF Normal [facility] Troponin Ion 09-13-2023 TNI <0.012 Normal 0.000-0.034 [facility] Comment on above: Result Comment: Limi t of Detection: <0.012 ng/mL\X0D0A\At Risk of Myocardial Damage: 0.012-0.034 ng/mL\X0D0A\Probable Myocardial Damage: >0.034 ng/mL Performed By: #### B MPWR, TNI #### [address] [phone] Consent for Procedure/Surger yon 08-21-2023 Consent for Procedure/Surgery [id number]#1.00TIFF Normal [facility] Consent for Treatmenton 08-07 Consent for Treatment [id number]#1.00TIFF Normal [facility] Discharge Instructionson Discharge Instructions [id number]#1.00TIFF Normal [facility] IntraOperative Documentson 1 10-21-2022 IntraOperative Documents [id number]#1.00TIFF Normal [facility] Main OR Intraoperative Recor don 08-21-2023 Main OR Intraoperative Record IntraOp Document Type [facility] Summary Primary Physician: Devon Garcia DO Finalized Date/Time: 08/21/23 15:54:17 Pt. Name: NAYE GUZMÁN/Sex: 1970 Female Med Rec #: [id number] Physician: Devon Garcia DO Financial #: [id number] Pt. Type: P Room/Bed: / Admit/Disch: 08/21/23 14:08:31 - Institution: Case Times FTPM Entry 1 Patient Times In Room 08/21/23 15:47:00 Out Room 08/21/23 15:55:00 Procedure Times Start 08/21/23 15:50:00 Stop 08/21/23 15:54:00 Anesthesia Times Last Modified By: Paradise Bermeo RN 08/21/23 15:54:12 Case Attendance FTPM Entry 1 Entry 2 Entry 3 Case Attendee Devon Garcia DO, RN, Paradise Mazariegos RN, Yuki Lindsay Role Performed Surgeon - Primary Envelope Sealer - Primary Scrub - Primary Time In 08/21/23 15:47:00 08/21/23 15:47:00 08/21/23 15:47:00 Time Out 08/21/23 15:55:00 08/21/23 15:55:00 08/21/23 15:55:00 Procedure CAUDAL EPIDURAL STEROID CAUDAL EPIDURAL STEROID CAUDAL EPIDURAL STEROID INJECTION(.) INJECTION(.) INJECTION(.) Comments Last Modified By: Jean-Claude BRANTLEY, Paradise Bermeo RN, Paradise Quesada RN 08/21/23 15:54:13 08/21/23 15:54:13 08/21/23 15:54:13 Entry 4 Case Attendee Domenica Welch Role Performed Human Resources Assistant Time In 08/21/23 15:47:00 Time Out 08/21/23 15:55:00 Procedure CAUDAL EPIDURAL STEROID INJECTION(.) Comments Last Modified By: Paradise Bermeo RN 08/21/23 15:54:13 Perioperative Protocols FTPM Pre-Care Text: Implements protective measures prior to operative or invasive procedure, confirms identity before the operative or invasive procedure, verifies operative procedure, surgical site, and laterality Entry 1 Procedure(s) CAUDAL EPIDURAL STEROID Patient Identity Birthday, ID Band INJECTION(.) Verified (select at Check, Patient least 2): Participation Consents / H and P HandP, Surgery/Procedure Operative Site Present Verified Consent Marking Verified Surgical Site Yes Laterality Verified Yes Verified Procedure Verified Yes Correct Patient Yes Position Verified Availability Equipment, Medication, Prep Dry Yes Verified (If X-ray Applicable) PreOp Antibiotic No Time Out Paradise Bermeo RN, Nitesh Mazariegos RN, Yuki Lindsay, Devon Garcia DO, Domenica Welch Time Out Complete 08/21/23 15:47:00 Outcomes Met? Yes Last Modified By: Paradise Bermeo RN 08/21/23 15:48:09 Post-Care Text: The patient is free from signs and symptoms of injury caused by extraneous objects Allergy Information FTPM Pre-Care Text: Verifies allergies Entry 1 Allergies Reviewed? Yes Allergies Reviewed Self/Patient With Outcomes Met? Yes Last Modified By: Paradise Bermeo RN 08/21/23 15:47:07 Post-Care Text: The patient received appropriate medication(s) safely administered during the perioperative period Surgical Procedures FTPM Entry 1 Procedure Description Procedure CAUDAL EPIDURAL STEROID Modifiers . INJECTION Surgeon Description CAUDAL BETZAIDA W/ FLUORO Primary Procedure Yes Primary Surgeon Devon Garcia DO Start 08/21/23 15:50:00 Stop 08/21/23 15:54:00 Anesthesia Type None Surgical Service Pain Management Wound Class 1 - Clean Last Modified By: Paradise Bermeo RN 08/21/23 15:54:15 General Case Data FTPM Pre-Care Text: Classifies surgical wound, implements aseptic technique, initiates traffic control Entry 1 Case Information OR Pain Proc Room Case Level Level 2 Wound Class 1 - Clean Specialty Pain Management Preop Diagnosis M96.1 Postop Same As Preop Yes Postop Diagnosis M96.1 Outcomes Met? Yes Last Modified By: Paradise Bermeo RN 08/21/23 15:48:22 Post-Care Text: The patient is free from signs and symptoms of infection Skin Assessment (Pre Procedure) FTPM Pre-Care Text: Implements protective measures to prevent skin/ tissue injury due to thermal or mechanical sources Evaluates for signs and symptoms of physical injury to skin and tissue Entry 1 Skin Integrity Intact, [place]an[place], Warm, and Skin Abnormality No Dry Outcomes Met? Yes Last Modified By: Paradise Bermeo RN 08/21/23 15:47:13 Post-Care Text: The patient is free from signs and symptoms of injury caused by extraneous objects Patient Positioning FTPM Pre-Care Text: Identifies physical alterations that require additional precautions for procedure-specific positioning, verifies presence of prosthetics or corrective devices, positions the patient, evaluates the patient for signs and symptoms of injury as a result of positioning Entry 1 Procedure CAUDAL EPIDURAL STEROID Body Position Prone INJECTION(.) Feet Uncrossed? Yes Left Arm Position Resting at Side Right Arm Position Resting at Side Left Leg Position Extended Right Leg Position Extended Positioning Device Pillow Under Head Large, Safety Strap, Pillow Large Under Knees Press Points Checked Yes By Paradise Bermeo RN Outcomes Met? Yes Last Modified By: Paradise Bermeo RN 08/07 (more content not included)... Normal [facility] Main OR Preoperative Recordo n 08-21-2023 Main OR Preoperative Record Holding Area Document Type FTPM Summary Primary Physician: Devon Garcia DO Finalized Date/Time: 08/21/23 14:45:55 Pt. Name: NAYE GUZMÁN.O.B./Sex: 1970 Female Med Rec #: [id number] Physician: Devon Garcia DO Financial #: [id number] Pt. Type: P Room/Bed: / Admit/Disch: 08/21/23 14:08:31 - Institution: Case Times Holding FTPM Pre-Care Text: Verifies consent for planned procedure, identifies individual values and wishes concerning care, includes family members in perioperative teaching Secures patient's records' belongings, and valuables, maintains patient's dignity and privacy, and maintains patient confidentiality Entry 1 In Holding 08/21/23 14:42:00 Outcomes Met? Yes Last Modified By: Carla Mena RN 08/21/23 14:42:55 Post-Care Text: The patient participates in decisions affecting his or her perioperative plan of care The patient's right to privacy is maintained Surgery Checklist FTPM Entry 1 Patient Birthday, ID Band Procedure History and Physical, Identification: Check, Patient Verification: Surgical Consent, With Participation Patient NPO after Midnight: No Date/Time: 08/21/23 14:43:00 Results Reviewed 0900 2 cups of coffee Personal Items: Jewelry Comments: Personal Items Pt. wearing a necklace Complaints of Pain: Yes Comment: Pain Comment: 07/16 lower back pain Operative Site Yes Marking: Marked By: Dr. Garcia Location: caudal Availability Equipment, X-Ray Verified: Does Patient Smoke Yes If Yes to Smoking. 7 cigarettes per day Cigars or Cigarettes. How much per day? Patient states Yes Comment - Adult Rambo-boyfriend postop adult Supervision supervision available Case Cancelled in No Holding Area see comments below for reason Last Modified By: Carla Mena RN 08/21/23 14:45:53 Finalized By: Carla Mena RN Document Signatures Signed By: Carla Mena RN 08/21/23 14:[address] [facility] Patient Correspondenceon Patient Correspondence [id number]#1.00TIFF [facility] Insurance Correspondence Off iceon 07-24-2023 Insurance Correspondence Office [id number]#2.00TIFF [facility] Consent for Treatmenton 06-08 Consent for Treatment [id number]#[id number]:127 [facility] Consultation Noteon 07-04-20 Consultation Note Patient: ZACARIAS GUZMÁN Age: 53 years Sex: Female : 1970 Associated Diagnoses: None Author: Devon Garcia DO Chief Complaint 07/04/2023 8:23 EDT low back pain, radiated down left leg History of Present Illness Patient is presenting with complaints of pain that is rated as a 10 out of 10 in nature. She states that her low back pain radiates down the left leg/thigh into the left foot. The pain radiates anteriorly and posteriorly to her foot and to the bottom of her foot. She states that she has had this pain for several years and had a recent MRI. We will work on obtaining this MRI. She states that the pain is worse with any standing or walking or ambulation. Tried home stretching and strengthening exercise without any significant relief. She also gets slight weakness in her leg when she walks for greater than 10 to 15 minutes. She states that she has also had surgery back [place] [address] Zavala. She has been taking Lyrica in the past and feels that this is significantly helpful for her pain. GLADYS Score: 54% PHQ-2: 4 Patient denies any symptoms of progressively worsening upper/lower extremity weakness, progressively worsening gait abnormality, new onset bowel/bladder incontinence/ urinary retention, or saddle anesthesia. No new or worsening symptoms of fever, chills, night sweats. Health Status Allergies: Allergic Reactions (All) No Known Allergies, Allergies (1) Active Reaction No Known Allergies None Documented Current medications: Home Medications (13) Active alendronate 70 mg oral tablet, effervescent See Instructions alprazolam 0.25 mg Tab 0.25 mg = 1 tab(s), Oral, BID ibuprofen 800 mg Tab 800 mg = 1 tab(s), PRN, Oral, BID irbesartan 300 mg Tab 300 mg = 1 tab(s), Oral, Daily Lyrica 150 mg Cap 150 mg = 1 cap(s), Oral, BID oxybutynin 15 mg ER Tab 15 mg = 1 tab(s), Oral, Daily traZODONE 50 mg Tab 50 mg = 1 tab(s), Oral, Once a day (at bedtime) Trelegy Ellipta 200 mcg-62.5 mcg-25 mcg/inh inhalation powder 1 puff(s), Inhalation, Daily Tylenol Extra Strength 500 mg oral tablet 1,000 mg = 2 tab(s), PRN, Oral, q8hr venlafaxine 150 mg Cap-ER 150 mg = 1 cap(s), Oral, Daily Vitamin B-12 5000 mcg sublingual tablet 5,000 mcg = 1 tab(s), SubLingual, Daily Voltaren Gel 1% Gel 1 [place], PRN, Topical, QID Zinc See Instructions , No qualifying data available Histories Past Medical History: No active or resolved past medical history items have been selected or recorded. Family History: No family history items have been selected or recorded. Procedure history: None ([id number]). History of lumbar spine surgery ([id number]). Comments: 07/04/2023 13:54 JENNYT - Jean-Claude BRANTLEY, [place] Harry [address] Dr. Haque Social History Social & Psychosocial Habits Alcohol 07/04/2023 Use: Current Frequency: 1-2 times per week 07/04/2023 Risk Assessment: Low Risk Substance Abuse 07/04/2023 Risk Assessment: Denies Substance Abuse Tobacco 07/04/2023 Tobacco Use: 4 or less cigarettes(less 07/04/2023 Risk Assessment: Low Risk . Physical Examination Vital Signs (last 24 hrs) Last Charted Heart Rate Peripheral 86 bpm (JUL 04 08:23) SBP 126 mmHg (JUL 04:) DBP H 90mmHg (JUL 04 08:) Weight 68.95 kg (JUL 04:) BMI 21.2 (JUL 04:) General: No acute distress. Patient appears well-nourished. HEENT: Head is normocephalic and external ears are normal in appearance. Cardiovascular: No signs of poor perfusion and no peripheral edema Pulmonary: Nonlabored breathing, symmetric chest movement. GI: Abdomen nondistended Integumentary: No lesions Musculoskeletal: Mild tenderness palpation lumbar paraspinal musculature predominantly on the left side. Neurologic: Alert, oriented x3. 5/5 strength grossly in the bilateral upper extremities. 5/5 strength grossly in the bilateral lower extremities. Sensation intact to light touch in the bilateral lower extremities. Special Testing: Negative Celso sign bilaterally, seated straight leg raise test did reproduce mild radicular symptoms on the left only, 2+ patellar reflexes bilaterally. Impression and Plan History, physical examination, and personal review of pertinent imaging results indicate a diagnosis of: -Lumbar radiculopathy -Lumbar postlaminectomy pain syndrome Plan: -Based on the patient's history of previous spine surgery we will plan for caudal epidural steroid injection under fluoroscopic guidance we discussed that we will work on obtaining her MRI and if we need to adjust location of the injection based on her symptomatology and imaging we can do so prior to the procedure -We also discussed that we can continue her Lyrica prescription if we are managing her care, we discussed obtaining a urine drug screen as well as regular scheduled follow-up and patient was agreeable to this plan Patient was counseled on the above diagnosis and treatment, all questions were answered and pa (more content not included)... Normal [facility] Comment on above: Result Comment: Elec tronically Signed By: Devon Garcia DO.br\Date and Time Signed: 07/04/23 14:59 EDT HIPAA Forms Officeon 023 HIPAA Forms Office [id number]#1.00CD:[address] [facility] Legal Correspondence Officeo n 07-04-2023 Legal Correspondence Office [id number]#1.00CD:[address] [facility] Legal Correspondence Office [id number]#1.00CD:[address] [facility] Office/Clinic Note-Physician on 07-04-2023 Office/Clinic Note-Physician [id number]#1.00CD:[address] [facility] Patient Correspondenceon Patient Correspondence [id number]#1.00CD:[address] [facility] Patient Correspondence [id number]#1.00CD:[address] [facility] Patient Correspondence [id number]#1.00CD:[address] [facility] Patient Correspondence [id number]#1.00CD:[address] [facility] Patient Correspondence [id number]#1.00CD:[address] [facility] Patient Correspondence [id number]#1.00CD:[address] [facility] Patient History Officeon Patient History Office [id number]#1.00CD:[address] [facility] Radiology Outside Office On Air Announcer yon 07-04-2023 Radiology Outside Office Copy [id number]#1.00CD:[address] [facility] Outside Records Officeon Outside Records Office [id number]#1.00CD:[address] [facility] Referrals Officeon 3 Referrals Office [id number]#1.00CD:[address] [facility] XR knee LT 4V*on 03-13-2023 XR knee LT 4V* [facility] [place] [address] XRay Report Signed Patient: Naye Guzmán MR#: [id number] 3 : 1970 Acct:[id number] Age/Sex: 52 / F ADM Date: 03/13/23 [place] [facility]: Type: [facility] Attending Dr: Elieser Rowe II, MD Copies to: Elieser Rowe MD Ordering Provider: Elieser Rowe MD Date of Service: 03/13/23 XR/XR knee LT 4V*: Acute pain of left knee ([id number]) XR/XR pelvis 1-2V: Acute pain of left knee CLINICAL DATA: Generalized left knee pain. No injury. AP WEIGHTBEARING PELVIS COMPARISON: None There is subtle deformity at the right pubic rami right could relate to old fracture. No acute fracture, dislocation or bony destruction is seen. The hip joint spaces are symmetric. There is no significant arthritic change. The SI joints are intact. There are no soft tissue abnormalities. XR/XR pelvis 1-2V IMPRESSION: NO DEFINITE ACUTE BONY FINDINGS. LEFT KNEE - 4 views COMPARISON: 02/11/2014 Standing AP, lateral, skiers and patellar views were obtained. There is no acute fracture or dislocation. No patellar subluxation is seen. There is minimal narrowing of the tibiofemoral joint compartments. There is minor marginal spurring. A tiny enthesophyte is seen at the insertion of the quadriceps tendon. There is a small knee effusion. No focal soft tissue swelling is noted. IMPRESSION: MILD DEGENERATIVE CHANGE. Impression dictated by: Nettie Anaya M.D.03/13/2023 5:40 PM Dictation Location: [place] [address] Transcribed By: [facility] 03/13/23 5998 Dictated By: Nettie Anaya MD 03/13/23 1735 Signed By: 03/13/23 1740 Normal [facility] XR knee LT 4V* [facility] [employer] Other XR knee LT 4V* [facility] [employer] Other XR knee LT 4V* [address] [facility] [employer] Other XR knee LT 4V* [place] [address] No rt [employer] Other XR knee LT 4V* XRay Report [employer] Other XR knee LT 4V* Signed [employer] Other XR knee LT 4V* Patient: Naye Guzmán MR#: [id number] [facility] [employer] Other XR knee LT 4V* 3 [employer] Other XR knee LT 4V* : 1970 Acct:[id number] [place] [employer] Other XR knee LT 4V* Age/Sex: 52 / F ADM Date: 03/13/23 [place] [employer] Other XR knee LT 4V* [place] [facility]: Type: [facility] [employer] Other XR knee LT 4V* Attending Dr: Elieser Rowe II, MD [facility] [employer] Other XR knee LT 4V* Copies to: Elieser Rowe MD [employer] Other XR knee LT 4V* Ordering Provider: Rodri Rowe MD [place] [employer] Other XR knee LT 4V* Date of Service: 03/13/23 [employer] Other XR knee LT 4V* [id number]) XR/XR knee LT 4V*: Acute pain of left knee [facility] [employer] Other XR knee LT 4V* ([id number]) XR/XR pelvis 1-2V: Acute pain of left knee [facility] [employer] [id number] Other XR knee LT 4V* CLINICAL DATA: Gener alized left knee pain. No injury. [facility] [employer] consuel[employer]gen[employer] Other XR knee LT 4V* AP WEIGHTBEARING PELVIS [place] [employer] Other XR knee LT 4V* COMPARISON: None [place] [employer] Other XR knee LT 4V* There is subtle defo rmity at the right pubic rami right could relate to old fracture. No acute [facility] [employer] Other XR knee LT 4V* fracture, dislocatio n or bony destruction is seen. The hip joint spaces are symmetric. There is no [place] [employer] Other XR knee LT 4V* significant arthriti c change. The SI joints are intact. There are no soft tissue abnormalities. [place] [employer] Other XR knee LT 4V* X R/XR pelvis 1-2V [place] [employer] Other XR knee LT 4V* IMPRESSION: [employer] Other XR knee LT 4V* NO DEFINITE ACUTE BONY FINDINGS. [employer] Other XR knee LT 4V* LEFT KNEE - 4 views N [facility] [employer] Other XR knee LT 4V* COMPARISON: 02/11/2014 [employer] Other XR knee LT 4V* Standing AP, lateral , skiers and patellar views were obtained. There is no acute fracture or [employer] Other XR knee LT 4V* dislocation. No hubbard llar subluxation is seen. There is minimal narrowing of the tibiofemoral joint [employer] Other XR knee LT 4V* compartments. There is minor marginal spurring. A tiny enthesophyte is seen at the insertion of [employer] Other XR knee LT 4V* the quadriceps tendo n. There is a small knee effusion. No focal soft tissue swelling is noted. [employer] Other XR knee LT 4V* MILD DEGENERATIVE CHANGE. [employer] Other XR knee LT 4V* Impression dictated by: Nettie Anaya M.D.03/13/2023 5:40 PM [employer] Other XR knee LT 4V* Dictation Location: [place] [address] [employer] Other XR knee LT 4V* Transcribed By: ZOHRA 03/13/23 1740 [employer] Other XR knee LT 4V* Dictated By: Nettie Anaya MD 03/13/23 1735 [employer] Other XR knee LT 4V* Signed By: [employer] Other XR knee LT 4V* 03/13/23 1740 [employer] Other BNPon 01-17-2023 Natriuretic peptide B (Bld) [Mass/Vol] 27.0 pg/mL Normal <=900.0 [facility] pital Comment on above: Performed By: #### B BRICK HANDLER, HSTROPN #### [facility] [address] [place] [address] Dr. Paige Ovalle CBC AUTO DIFFon 01-17-2023 BASO # 0.1 103/ul Normal 0.0-0.1 [facility] ospital Comment on above: Performed By: #### V ITAD, VITB12 #### [facility] [address] [place] [address] Dr. Paige Ovalle Basophils/100 WBC (Bld) 0.8 % Normal 0.2-2.0 [facility] Comment on above: Performed By: #### V ITAD, VITB12 #### [facility] [address] [place] [address] Dr. Paige Ovalle EO # 0.4 103/ul Normal 0.0-0.7 [facility] ospital Comment on above: Performed By: #### V ITAD, VITB12 #### [facility] [address] [place] [address] Dr. Paige Ovalle Eosinophils/100 WBC (Bld) 3.8 % Normal 0.9-7.0 [facility] Comment on above: Performed By: #### V ITAD, VITB12 #### [facility] [address] [place] [address] Dr. Paige Ovalle Erythrocyte distribution wid th (RBC) [Ratio] 13.5 % Normal 11.0-15.0 [facility] Comment on above: Performed By: #### V ITAD, VITB12 #### [facility] [address] [place] [address] Dr. Paige Ovalle Hematocrit (Bld) [Volume fraction] 39.4 % Normal 3 6.0-48.0 [facility] Comment on above: Performed By: #### V ITAD, VITB12 #### [facility] [address] [place] [address] Dr. Paige Ovalle Hemoglobin (Bld) [Mass/Vol] 13.3 g/dL Normal 12.0-16. 0 [facility] Comment on above: Performed By: #### V ITAD, VITB12 #### [facility] [address] [place] [address] Dr. Paige Ovalle IG # 0.05 10e3/ul Critically high 0.00-0.03 [facility] Comment on above: Performed By: #### V ITAD, VITB12 #### [facility] [address] [place] [address] Dr. Paige Ovalle IG % 0.5 % Normal 0.0-0.5 [facility] ospital Comment on above: Performed By: #### V ITAD, VITB12 #### [facility] [address] [place] [address] Dr. Paige Ovalle LYMPH # 3.9 103/ul Critically high 1.2-3.8 [facility] Comment on above: Performed By: #### V ITAD, VITB12 #### [facility] [address] [place] [address] Dr. Paige Ovalle Lymphocytes/100 WBC (Bld) 38.7 % Normal 20.5-60.0 [facility] Comment on above: Performed By: #### V ITAD, VITB12 #### [facility] [address] [place] [address] Dr. aPige Ovalle MANUAL DIFF REQ NO Normal [facility] Comment on above: Performed By: #### V ITAD, VITB12 #### [facility] [address] [place] [address] Dr. Paige Ovalle MCH (RBC) [Entitic mass] 29.9 pg Normal 26.7-34.0 [facility] Comment on above: Performed By: #### V ITAD, VITB12 #### [facility] [address] [place] [address] Dr. Paige Ovalle MCHC (RBC) [Mass/Vol] 33.8 g/dL Normal 29.9-35.2 [facility] Comment on above: Performed By: #### V ITAD, VITB12 #### [facility] [address] [place] [address] Dr. Paige Ovalle MCV (RBC) [Entitic vol] 88.5 fL Normal 81.0-99.0 [facility] Comment on above: Performed By: #### V ITAD, VITB12 #### [facility] [address] [place] [address] Dr. Paige Ovalle MONO # 0.7 103/ul Normal 0.3-0.8 [facility] Comment on above: Performed By: #### V ITAD, VITB12 #### [facility] [address] [place] [address] Dr. Paige Ovalle Monocytes/100 WBC (Bld) 6.8 % Normal 1.7-12.0 [facility] Comment on above: Performed By: #### V ITAD, VITB12 #### [facility] [address] [place] [address] Dr. Paige Ovalle NEUT # 4.9 103/ul Normal 1.4-6.5 [facility] ospital Comment on above: Performed By: #### V ITAD, VITB12 #### [facility] [address] [place] [address] Dr. Paige Ovalle Neutrophils/100 WBC (Bld) 49.4 % Normal 43.0-75.0 [facility] Comment on above: Performed By: #### V ITAD, VITB12 #### [facility] [address] [place] [address] Dr. Paige Ovalle Platelet mean volume (Bld) [Entitic vol] 9.1 fL Critically low 9.5-13.5 [facility] Comment on above: Performed By: #### V ITAD, VITB12 #### [facility] [address] [place] [address] Dr. Paige Ovalle PLT 298 103/ul Normal 150-450 [facility] ospital Comment on above: Performed By: #### V ITAD, VITB12 #### [facility] [address] [place] [address] Dr. Paige Ovalle RBC 4.45 106/ul Normal 4.20-5.40 [facility] Comment on above: Performed By: #### V ITAD, VITB12 #### [facility] [address] [place] [address] Dr. Paige Ovalle WBC 10.0 103/ul Normal 4.0-11.0 [facility] Comment on above: Performed By: #### V ITAD, VITB12 #### [facility] [address] [place] [address] Dr. Paige Ovalle TROPONIN, HIGH SENSITIVITYon 01-17-2023 HSTROP 5.3 pg/mL Normal 4.0-51.3 [facility] Comment on above: Result Comment: CUT- OFF POINTS HAVE BEEN ESTABLISHED BASED ON THE FOURTH UNIVERSAL DEFINITIONS OF MYOCARDIAL INFARCTION. THE UPPER REFERENCE LIMIT (URL) OF TROPONIN, DEFINED THE 99TH PERCENTILE OF cTnI DISTRIBUTION IN A REFERENCE POPULATION, HAS BEEN CONFIRMED THE DECISION THRESHOLD FOR ND DIAGNOSIS. Performed By: #### B BRICK HANDLER, HSTROPN #### [facility] [address] [place] [address] [address] Paige Ovalle XR pre/post mri xrayon 12-02 XR pre/post mri xray [facility] Main [place] [address] [place] [address] MRI Report Signed Patient: Naye Guzmán MR#: [id number] 3 : 1970 Acct:[id number] Age/Sex: 52 / F ADM Date: 12/01/22 Loc: MR Room: Type: [facility] Attending Dr: Antonina Guidry PA-C Copies to: Antonina Guidry PA-C Ordering Provider: Antonina Guidry PA-C Date of Service: 12/01/22 MR/MR lumbar spine wo con: M54.17 ([id number]) XR/XR pre/post mri xray: M54.17 MR lumbar spine wo con, XR pre/post mri xray 12/01/2022 10:57 AM SIGNS AND SYMPTOMS: Low back pain with radiculopathy. S.br S.br S.br S.br S.br S.br M54.17 PROTOCOL: Multiplanar multisequence MR images of the lumbar spine were obtained without IV contrast. Frontal and lateral radiographs of the lumbar spine. COMPARISON: 08/17/2021 FINDINGS: Radiographs of the lumbar spine: There is a mild levoconvex curvature. There is preservation of vertebral body heights. There is minimal disc height loss at L3-L4, L4-5, and L5-S1. Facet hypertrophy is present in the lower lumbar spine. Atherosclerotic changes are noted in the abdominal aorta. MRI lumbar spine: Disc height loss and alignment is as noted above. This preservation of vertebral body heights. The marrow signal is within normal limits. The conus terminates at the mid L1 vertebral body level. No epidural or paraspinous fluid collection is appreciated. At T12-L1: There is a normal disc, central canal, and neural foramen. At L1-L2: There is a normal disc, central canal, and neural foramen. At L2-L3: There is a normal disc, central canal, and neural foramen. At L3-L4: There is a broad-based disc bulge with facet hypertrophy contributing to mild spinal canal narrowing and mild left neural foraminal narrowing. This is unchanged. At L4-L5: There is a broad-based disc bulge with facet hypertrophy and evidence of prior left hemilaminotomy. There is no significant spinal canal stenosis. There is mild bilateral neural foraminal narrowing. This is unchanged. At L5-S1: There is a broad-based disc bulge with facet hypertrophy. There is moderate left and mild right neural foraminal narrowing without significant spinal canal stenosis. This is unchanged. MR/MR lumbar spine wo con IMPRESSION: There is a mild levoconvex curvature of the lumbar spine. At L3-L4: There is a broad-based disc bulge with facet hypertrophy contributing to mild spinal canal narrowing and mild left neural foraminal narrowing. This is unchanged. At L4-L5: There is a broad-based disc bulge with facet hypertrophy and evidence of prior left hemilaminotomy. There is no significant spinal canal stenosis. There is mild bilateral neural foraminal narrowing. This is unchanged. At L5-S1: There is a broad-based disc bulge with facet hypertrophy. There is moderate left and mild right neural foraminal narrowing without significant spinal canal stenosis. This is unchanged. Impression dictated by: Néstor Gerard M.D.12/02/2022 8:03 AM Dictation Location: [place] [address] Transcribed By: [facility] 12/02/22802 Dictated By: Néstor Gerard II, MD 12/02/22 0727 Signed By: 12/02/22802 [facility] SEROTONINon 11-29-2022 Serotonin, Serum 6 ng/mL Critically low 31-207 [facility] Comment on above: Performed By: #### V ITAD, VITB12 #### [facility] [address] [place] [address] Dr. Paige Ovalle SEROTONINon 11-19-2022 SEROTONIN 6 ng/mL Critically low 31-207 ng/mL [facility] [employer] Other SEROTONIN see note [facility] Pr [employer] Other CBC AUTO DIFFon 11-10-2022 BASO # 0.1 103/ul Normal 0.0-0.1 [facility] ospital Comment on above: Performed By: #### C BC #### [facility] [address] [place] [address] Dr. Paige Ovalle Basophils/100 WBC (Bld) 0.5 % Normal 0.2-2.0 [facility] Comment on above: Performed By: #### C BC #### [facility] [address] [place] [address] Dr. Paige Ovalle EO # 0.1 103/ul Normal 0.0-0.7 [facility] Comment on above: Performed By: #### C BC #### [facility] [address] [place] [address] Dr. Paige Ovalle Eosinophils/100 WBC (Bld) 1.5 % Normal 0.9-7.0 [facility] Comment on above: Performed By: #### C BC #### [facility] [address] [place] [address] Dr. Paige Ovalle Erythrocyte distribution wid th (RBC) [Ratio] 13.2 % Normal 11.0-15.0 [facility] Comment on above: Performed By: #### C BC #### [facility] [address] [place] [address] Dr. Paige Ovalle Hematocrit (Bld) [Volume fraction] 43.1 % Normal 3 6.0-48.0 [facility] Comment on above: Performed By: #### C BC #### [facility] [address] [place] [address] Dr. Paige Ovalle Hemoglobin (Bld) [Mass/Vol] 14.0 g/dL Normal 12.0-16. 0 [facility] Comment on above: Performed By: #### C BC #### [facility] [address] [place] [address] Dr. Paige Ovalle IG # 0.02 10e3/ul Normal 0.00-0.03 [facility] Comment on above: Performed By: #### C BC #### [facility] [address] [place] [address] Dr. Paige Ovalle IG % 0.2 % Normal 0.0-0.5 [facility] Comment on above: Performed By: #### C BC #### [facility] [address] [place] [address] Dr. Paige Ovalle LYMPH # 2.8 103/ul Normal 1.2-3.8 [facility] Comment on above: Performed By: #### C BC #### [facility] [address] [place] [address] Dr. Paige Ovalle Lymphocytes/100 WBC (Bld) 30.2 % Normal 20.5-60.0 [facility] Comment on above: Performed By: #### C BC #### [facility] [address] [place] [address] Dr. Paige Ovalle MANUAL DIFF REQ NO Normal [facility] Comment on above: Performed By: #### C BC #### [facility] [address] [place] [address] Dr. Paige Ovalle MCH (RBC) [Entitic mass] 30.8 pg Normal 26.7-34.0 [facility] Comment on above: Performed By: #### C BC #### [facility] [address] [place] [address] Dr. Paige Ovalle MCHC (RBC) [Mass/Vol] 32.5 g/dL Normal 29.9-35.2 [facility] Comment on above: Performed By: #### C BC #### [facility] [address] [place] [address] Dr. Paige Ovalle MCV (RBC) [Entitic vol] 94.7 fL Normal 81.0-99.0 [facility] Comment on above: Performed By: #### C BC #### [facility] [address] [place] [address] Dr. Paige Ovalle MONO # 0.6 103/ul Normal 0.3-0.8 [facility] ospital Comment on above: Performed By: #### C BC #### [facility] [address] [place] [address] Dr. Paige Ovalle Monocytes/100 WBC (Bld) 5.9 % Normal 1.7-12.0 [facility] Comment on above: Performed By: #### C BC #### [facility] [address] [place] [address] Dr. Paige Ovalle NEUT # 5.7 103/ul Normal 1.4-6.5 [facility]spital Comment on above: Performed By: #### C BC #### [facility] [address] [place] [address] Dr. Paige Ovalle Neutrophils/100 WBC (Bld) 61.7 % Normal 43.0-75.0 [facility] Comment on above: Performed By: #### C BC #### [facility] [address] [place] [address] Dr. Paige Ovalle Platelet mean volume (Bld) [Entitic vol] 9.3 fL Critically low 9.5-13.5 [facility] pital Comment on above: Performed By: #### C BC #### [facility] [address] [place] [address] Dr. Paige Ovalle PLT 275 103/ul Normal 150-450 [facility] Comment on above: Performed By: #### C BC #### [facility] [address] [place] [address] Dr. Paige Ovalle RBC 4.55 106/ul Normal 4.20-5.40 [facility] Comment on above: Performed By: #### C BC #### [facility] [address] [place] [address] Dr. Paige Ovalle WBC 9.3 103/ul Normal 4.0-11.0 [facility] Comment on above: Performed By: #### C BC #### [facility] [address] [place] [address] Dr. Paige Ovalle Covid-19 PCR (CVDTBH)on SARS-CoV-2 (COVID-19) RNA MUNDO+probe Ql (Unsp spec) Not detected Normal NOT DETECTED [facility] Comment on above: Result Comment: When diagnostic testing is negative, the possibility of a false negative should be considered in the context of a patient's recent exposures and the presence of clinical signs and symptoms consistent with SARS-CoV-2. This test is not yet approved or cleared by the [place] FDA. When there are no FDA-approved or cleared tests available, and other criteria are met, FDA can make tests available under an emergency access mechanism called an Emergency Use Authorization (EUA). The EUA for this test is supported by the Warehouse Trainer of Health and Human Service's declaration that circumstances exist to justify the emergency use of in vitro diagnostics for the detection and/or diagnosis of the virus that causes COVID-19. This EUA will remain in effect for the duration of the COVID-19 declaration justifying emergency of IVDs, unless it is terminated or revoked by the FDA (after which the test may no longer be used). Performed By: #### V ITAD, VITB12 #### [facility] [address] [place] [address] Dr. Paige Ovalle PROF CHEM 8 (BAS METB)on Anion gap [Moles/Vol] 10.9 mmol/L Normal [facility] Comment on above: Performed By: #### B MP #### [facility] [address] [place] [address] Dr. Paige Ovalle Calcium [Mass/Vol] 9.5 mg/dL Normal 8.5-10.1 [facility] Comment on above: Performed By: #### B MP #### [facility] [address] [place] [address] Dr. Paige Ovalle Chloride [Moles/Vol] 99 mmol/L Normal 98-107 [facility] Comment on above: Performed By: #### B MP #### [facility] [address] [place] [address] Dr. Paige Ovalle CO2 [Moles/Vol] 29.7 mmol/L Normal 21.0-32.0 [facility] Comment on above: Performed By: #### B MP #### [facility] [address] [address] [address] Paige Ovalle Creatinine [Mass/Vol] 0.76 mg/dL Normal 0.55-1.02 [facility] Comment on above: Performed By: #### B MP #### [facility] [address] [address] [address] Paige Ovalle EGFR-AF PALESTINIAN >60 Normal >=60 [facility] Comment on above: Performed By: #### B MP #### [facility] [address] [address] [address] Paige Ovalle EGFR-NON AF PALESTINIAN >60 Normal >=60 [facility] Comment on above: Performed By: #### B MP #### [facility] [address] [address] [address] Paige Ovalle Glucose [Mass/Vol] 130 mg/dL Critically high 74-106 [facility] Comment on above: Performed By: #### B MP #### [facility] [address] [address] [address] Paige Ovalle Potassium [Moles/Vol] 3.6 mmol/L Normal 3.5-5.1 [facility] Comment on above: Performed By: #### B MP #### [facility] [address] [address] [address] Paige Ovalle Sodium [Moles/Vol] 136 mmol/L Normal 136-145 [facility] Comment on above: Performed By: #### B MP #### [facility] [address] [address] [address] Paige Ovalle Urea nitrogen [Mass/Vol] 8.0 mg/dL Normal 7.0-18.0 [facility] Comment on above: Performed By: #### B MP #### [facility] [address] [address] [address] Paige Ovalle Urea nitrogen/Creatinine [Mass ratio] 10.5 mg/mg Normal [facility] Comment on above: Performed By: #### B MP #### [facility] [address] [place] [address] Dr. Paige Ovalle CALCIUM IONIZEDon 10-17-2022 Calcium, Ionized, Serum 5.5 mg/dL Normal 4.5-5.6 [facility] Comment on above: Performed By: #### C AIONZ #### [facility] [address] [place] [address] Dr. Paige Ovalle PTH INTACTon 10-17-2022 PTH, Intact 18 pg/mL Normal 15-65 [facility] Comment on above: Performed By: #### V ITAD, VITB12 #### [facility] [address] [place] [address] Dr. Paige Ovalle CBC AUTO DIFFon 10-16-2022 BASO # 0.1 103/ul Normal 0.0-0.1 [facility] Comment on above: Performed By: #### C BC #### [facility] [address] [place] [address] Dr. Paige Ovalle Basophils/100 WBC (Bld) 0.7 % Normal 0.2-2.0 [facility] Comment on above: Performed By: #### C BC #### [facility] [address] [place] [address] Dr. Paige Ovalle EO # 0.2 103/ul Normal 0.0-0.7 [facility] Comment on above: Performed By: #### C BC #### [facility] [address] [place] [address] Dr. Piage Ovalle Eosinophils/100 WBC (Bld) 2.8 % Normal 0.9-7.0 [facility] Comment on above: Performed By: #### C BC #### [facility] [address] [place] [address] Dr. Paige Ovalle Erythrocyte distribution wid th (RBC) [Ratio] 13.9 % Normal 11.0-15.0 [facility] Comment on above: Performed By: #### C BC #### [facility] [address] [place] [address] Dr. Paige Ovalle Hematocrit (Bld) [Volume fraction] 41.5 % Normal 3 6.0-48.0 [facility] Comment on above: Performed By: #### C BC #### [facility] [address] [place] [address] Dr. Paige Ovalle Hemoglobin (Bld) [Mass/Vol] 14.4 g/dL Normal 12.0-16. 0 [facility] Comment on above: Performed By: #### C BC #### [facility] [address] [place] [address] Dr. Paige Ovalle IG # 0.03 10e3/ul Normal 0.00-0.03 [facility] Comment on above: Performed By: #### C BC #### [facility] [address] [place] [address] Dr. Paige Ovalle IG % 0.4 % Normal 0.0-0.5 [facility] Comment on above: Performed By: #### C BC #### [facility] [address] [place] [address] Dr. Paige Ovalle LYMPH # 2.4 103/ul Normal 1.2-3.8 [facility] Comment on above: Performed By: #### C BC #### [facility] [address] [place] [address] Dr. Paieg Ovalle Lymphocytes/100 WBC (Bld) 32.9 % Normal 20.5-60.0 [facility] Comment on above: Performed By: #### C BC #### [facility] [address] [place] [address] Dr. Paige Ovalle MANUAL DIFF REQ NO Normal [facility] Comment on above: Performed By: #### C BC #### [facility] [address] [place] [address] Dr. Paige Ovalle MCH (RBC) [Entitic mass] 30.7 pg Normal 26.7-34.0 [facility] Comment on above: Performed By: #### C BC #### [facility] [address] [place] [address] Dr. Paige Ovalle MCHC (RBC) [Mass/Vol] 34.7 g/dL Normal 29.9-35.2 [facility] Comment on above: Performed By: #### C BC #### [facility] [address] [place] [address] Dr. Paige Ovalle MCV (RBC) [Entitic vol] 88.5 fL Normal 81.0-99.0 [facility] Comment on above: Performed By: #### C BC #### [facility] [address] [place] [address] Dr. Paige Ovalle MONO # 0.5 103/ul Normal 0.3-0.8 [facility] Comment on above: Performed By: #### C BC #### [facility] [address] [place] [address] Dr. Paige Ovalle Monocytes/100 WBC (Bld) 7.2 % Normal 1.7-12.0 [facility] Comment on above: Performed By: #### C BC #### [facility] [address] [place] [address] Dr. Paige Ovalle NEUT # 4.1 103/ul Normal 1.4-6.5 [facility] Comment on above: Performed By: #### C BC #### [facility] [address] [place] [address] Dr. Paige Ovalle Neutrophils/100 WBC (Bld) 56.0 % Normal 43.0-75.0 [facility] Comment on above: Performed By: #### C BC #### [facility] [address] [place] [address] Dr. Paige Ovalle Platelet mean volume (Bld) [Entitic vol] 9.0 fL Critically low 9.5-13.5 [facility] Comment on above: Performed By: #### C BC #### [facility] [address] [place] [address] Dr. Paige Ovalle PLT 331 103/ul Normal 150-450 [facility] Comment on above: Performed By: #### C BC #### [facility] [address] [place] [address] Dr. Paige Ovalle RBC 4.69 106/ul Normal 4.20-5.40 [facility] Comment on above: Performed By: #### C BC #### [facility] [address] [place] [address] Dr. Paige Ovalle WBC 7.3 103/ul Normal 4.0-11.0 [facility] Comment on above: Performed By: #### C BC #### [facility] [address] [place] [address] Dr. Paige Ovalle PHOSPHORUSon 10-16-2022 Phosphate [Mass/Vol] 4.2 mg/dL Normal 2.6-4.7 [facility] Comment on above: Performed By: #### V ITAD, VITB12 #### [facility] [address] [place] [address] Dr. Paige Ovalle CBC AUTO DIFFon 09-13-2022 BASO # 0.1 103/ul Normal 0.0-0.1 [facility] Comment on above: Performed By: #### C BC #### [facility] [address] [place] [address] Dr. Paige Ovalle Basophils/100 WBC (Bld) 0.5 % Normal 0.2-2.0 [facility] Comment on above: Performed By: #### C BC #### [facility] [address] [place] [address] Dr. Paige Ovalle EO # 0.2 103/ul Normal 0.0-0.7 [facility] Comment on above: Performed By: #### C BC #### [facility] [address] [place] [address] Dr. Paige Ovalle Eosinophils/100 WBC (Bld) 1.7 % Normal 0.9-7.0 [facility] Comment on above: Performed By: #### C BC #### [facility] [address] [place] [address] Dr. Paige Ovalle Erythrocyte distribution wid th (RBC) [Ratio] 13.3 % Normal 11.0-15.0 [facility] Comment on above: Performed By: #### C BC #### [facility] [address] [place] [address] Dr. Paige Ovalle Hematocrit (Bld) [Volume fraction] 43.9 % Normal 3 6.0-48.0 [facility] Comment on above: Performed By: #### C BC #### [facility] [address] [place] [address] Dr. Paige Ovalle Hemoglobin (Bld) [Mass/Vol] 14.9 g/dL Normal 12.0-16. 0 [facility] Comment on above: Performed By: #### C BC #### [facility] [address] [address] [address] Paige Ovalle IG # 0.05 10e3/ul Critically high 0.00-0.03 [facility] Comment on above: Performed By: #### C BC #### [facility] [address] [place] [address] Dr. Paige Ovalle IG % 0.4 % Normal 0.0-0.5 [facility] Comment on above: Performed By: #### C BC #### [facility] [address] [place] [address] Dr. Paige Ovalle LYMPH # 3.2 103/ul Normal 1.2-3.8 [facility] Comment on above: Performed By: #### C BC #### [facility] [address] [place] [address] Dr. Paige Ovalle Lymphocytes/100 WBC (Bld) 27.5 % Normal 20.5-60.0 [facility] Comment on above: Performed By: #### C BC #### [facility] [address] [place] [address] Dr. Paige Ovalle MANUAL DIFF REQ NO Normal [facility] Comment on above: Performed By: #### C BC #### [facility] [address] [place] [address] Dr. Paige Ovalle MCH (RBC) [Entitic mass] 30.9 pg Normal 26.7-34.0 [facility] Comment on above: Performed By: #### C BC #### [facility] [address] [place] [address] Dr. Paige Ovalle MCHC (RBC) [Mass/Vol] 33.9 g/dL Normal 29.9-35.2 [facility] Comment on above: Performed By: #### C BC #### [facility] [address] [address] [address] Paige Ovalle MCV (RBC) [Entitic vol] 91.1 fL Normal 81.0-99.0 [facility] Comment on above: Performed By: #### C BC #### [facility] [address] [address] [address] Paige Ovalle MONO # 0.7 103/ul Normal 0.3-0.8 [facility] Comment on above: Performed By: #### C BC #### [facility] [address] [place] [address] Dr. Paige Ovalle Monocytes/100 WBC (Bld) 5.9 % Normal 1.7-12.0 [facility] Comment on above: Performed By: #### C BC #### [facility] [address] [place] [address] Dr. Paige Ovalle NEUT # 7.3 103/ul Critically high 1.4-6.5 [facility] Comment on above: Performed By: #### C BC #### [facility] [address] [place] [address] Dr. Paige Ovalle Neutrophils/100 WBC (Bld) 64.0 % Normal 43.0-75.0 [facility] Comment on above: Performed By: #### C BC #### [facility] [address] [place] [address] Dr. Paige Ovalle Platelet mean volume (Bld) [Entitic vol] 8.8 fL Critically low 9.5-13.5 [facility] Comment on above: Performed By: #### C BC #### [facility] [address] [place] [address] Dr. Paige Ovalle PLT 433 103/ul Normal 150-450 [facility] Comment on above: Performed By: #### C BC #### [facility] [address] [place], [place] [id number] Dr. Paige Ovalle RBC 4.82 106/ul Normal 4.20-5.40 [facility] Comment on above: Performed By: #### C BC #### [facility] [address] [address] [address] Paige Ovalle WBC 11.4 103/ul Critically high 4.0-11.0 [facility] Comment on above: Performed By: #### C BC #### [facility] [address] [address] [address] Paige Ovalle MG MAMM DX 3D LT CADon 09-13 MG MAMM DX 3D LT CAD Patient: YANET GUZMÁN Exam Date: 09/13/2022 : 1970 Gender:F Ordering : DR PAULINE ROMERO Admission #: [id number] Family : Order #: [id number] CLICK HERE TO VIEW EXAM RADIOLOGY REPORT PROCEDURE: MAMMOGRAM DIAGNOSTIC 3D LEFT CAD COMPARISON: MG STEREO CORE NDL W CLIP LT, 01/15/2022. US BREAST LEFT LIMITED, 01/02/2022. MG MAMM LT DIAG FU, 01/02/2022. MAMMO POST BIOPSY LEFT, 01/15/2022. INDICATIONS: Abnormal findings on diagnostic imaging of breast Calculator Name NCI Breast Cancer Risk Assessment Tool 5 Year Breast Cancer Risk 1.80% Lifetime Breast Cancer Risk 14.00% Personal Breast Cancer No Personal Ovarian Cancer No Treatments None Family Cancers None LOCATION: [facility] BREAST COMPOSITION: Heterogeneously dense,which may obscure small masses. FINDINGS: DIAGNOSTIC CATEGORY 2--BENIGN FINDING: LEFT BREAST: No significant suspicious finding. Stable biopsy marker clip within upper-outer quadrant. RECOMMENDATIONS: ROUTINE MAMMOGRAM AND CLINICAL EVALUATION IN 12 MONTHS. PLEASE NOTE: A NORMAL MAMMOGRAM DOES NOT EXCLUDE THE POSSIBILITY OF BREAST CANCER. A CLINICALLY SUSPICIOUS PALPABLE LUMP SHOULD BE BIOPSIED. Dictated by: Lorraine Huynh M.D. on 09/13/2022 at 10:49 Approved by: Lorraine Huynh M.D. on 09/13/2022 at 10:53 Normal [facility] ital PROF 14(COMP METB)on 022 Albumin [Mass/Vol] 4.2 g/dL Normal 3.4-5.0 [facility] Comment on above: Performed By: #### V ITAD, VITB12 #### [facility] [address] [place] [address] Dr. Paige Ovalle Albumin/Globulin [Mass ratio] 1.2 {ratio} Normal [facility] Comment on above: Performed By: #### V ITAD, VITB12 #### [facility] [address] [place] [address] Dr. Paige Ovalle ALP [Catalytic activity/Vol] 83 U/L Normal 46-116 [facility] Comment on above: Performed By: #### V ITAD, VITB12 #### [facility] [address] [place] [address] Dr. Paige Ovalle ALT [Catalytic activity/Vol] 45 U/L Normal 14-59 [facility] Comment on above: Performed By: #### V ITAD, VITB12 #### [facility] [address] [place] [address] Dr. Paige Ovalle Anion gap [Moles/Vol] 10.0 mmol/L Normal [facility] Comment on above: Performed By: #### V ITAD, VITB12 #### [facility] [address] [place] [address] Dr. Paige Ovalle AST [Catalytic activity/Vol] 42 U/L Critically high 15 -37 [facility] Comment on above: Performed By: #### V ITAD, VITB12 #### [facility] [address] [place] [address] Dr. Paige Ovalle Bilirubin [Mass/Vol] 0.2 mg/dL Normal 0.2-1.0 [facility] Comment on above: Performed By: #### V ITAD, VITB12 #### [facility] [address] [place] [address] Dr. Paige Ovalle Calcium [Mass/Vol] 10.2 mg/dL Critically high 8.5-10.1 [facility] Comment on above: Performed By: #### V ITAD, VITB12 #### [facility] [address] [place] [address] Dr. Paige Ovalle Chloride [Moles/Vol] 97 mmol/L Critically low 98-107 [facility] Comment on above: Performed By: #### V ITTAMARA, VITB12 #### [facility] [address] [place] [address] Dr. Paige Ovalle CO2 [Moles/Vol] 34.0 mmol/L Critically high 21.0-32.0 [facility] Comment on above: Performed By: #### V ITTAMARA, VITB12 #### [facility] [address] [place] [address] Dr. Paige Ovalle Creatinine [Mass/Vol] 0.62 mg/dL Normal 0.55-1.02 [facility] Comment on above: Performed By: #### V ITTAMARA, VITB12 #### [facility] [address] [place] [address] Dr. Paige Ovalle EGFR-AF PALESTINIAN >60 Normal >=60 [facility] Comment on above: Performed By: #### V ITTAMARA, VITB12 #### [facility] [address] [place] [address] Dr. Paige Ovalle EGFR-NON AF PALESTINIAN >60 Normal >=60 [facility] Comment on above: Performed By: #### V ITTAMARA, VITB12 #### [facility] [address] [place] [address] Dr. Paige Ovalle Globulin (S) [Mass/Vol] 3.6 g/dL Normal [facility] Comment on above: Performed By: #### V ITTAMARA, VITB12 #### [facility] [address] [place] [address] Dr. Paige Ovalle Glucose [Mass/Vol] 89 mg/dL Normal 74-106 [facility] Comment on above: Performed By: #### V ITAD, VITB12 #### [facility] [address] [place] [address] Dr. Paige Ovalle Potassium [Moles/Vol] 4.0 mmol/L Normal 3.5-5.1 [facility] Comment on above: Performed By: #### V ITAD, VITB12 #### [facility] [address] [place] [address] Dr. Paige Ovalle Protein [Mass/Vol] 7.8 g/dL Normal 6.4-8.2 [facility] Comment on above: Performed By: #### V ITAD, VITB12 #### [facility] [address] [place] [address] Dr. Paige Ovalle Sodium [Moles/Vol] 137 mmol/L Normal 136-145 [facility] Comment on above: Performed By: #### V ITAD, VITB12 #### [facility] [address] [place] [address] Dr. Paige Ovalle Urea nitrogen [Mass/Vol] 9.0 mg/dL Normal 7.0-18.0 [facility] Comment on above: Performed By: #### V ITAD, VITB12 #### [facility] [address] [place] [address] Dr. Paige Ovalle Urea nitrogen/Creatinine [Mass ratio] 14.5 mg/mg Normal [facility] Comment on above: Performed By: #### V ITAD, VITB12 #### [facility] [address] [place] [address] Dr. Paige Ovalle TSHon 09-13-2022 TSH 0.857 uIU/mL Normal 0.358-3.740 [facility] Comment on above: Performed By: #### V ITAD, VITB12 #### [facility] [address] [place] [address] Dr. Paige Ovalle VIT B12 AND FOLATEon 022 Cobalamin (Vitamin B12) [Mass/Vol] 779.0 pg/mL Normal 193.0-986.0 [facility] Comment on above: Performed By: #### V ITAD, VITB12 #### [facility] [address] [place] [address] Dr. Paige Ovalle FOLATE 27.10 ng/mL Normal 8.60-58.90 [facility] Comment on above: Performed By: #### V ITAD, VITB12 #### [facility] [address] [place] [address] Dr. Paige Ovalle VITAMIN D 25 OHon 09-13-2022 VIT D 25-OH 58.8 ng/mL Normal [facility] Comment on above: Performed By: #### V ITAD, VITB12 #### [facility] [address] [address] [address] Paige Ovalle VIT D RANGES SEE BELOW Normal [facility] Comment on above: Result Comment: <20 ng/mL Vit D deficient 20 - <30 ng/mL Vit D insufficient 30 - 100 ng/mL Vit D sufficient >100 ng/mL Potential Toxicity Performed By: #### V ITAD, VITB12 #### [facility] [address] [address] [address] Paige Ovalle XR ELBOW RT MIN 3 VIEWSon XR ELBOW RT MIN 3 VIEWS EXAM: XR ELBOW RT MIN 3 VIEWS INDICATION: Pain. COMPARISON: None. TECHNIQUE: Right elbow, 3 views FINDINGS: There is an elbow joint effusion. No fracture identified. Elbow joint is well seated. Diffuse soft tissue swelling. IMPRESSION: No fracture identified. However, there is an elbow joint effusion concerning for an occult fracture. Electronically authenticated by: NETTIE MARTÍNEZ Date: 2022-06-10 13:00 Normal [facility] l XR FOREARM RT 2Von 2 XR FOREARM RT 2V EXAM: XR WRIST RT ND N 3 V, XR FOREARM RT 2V, XR HUMERUS RT MIN 2 V DATE: 06/10/2022 10:45 AM EDT INDICATION: Pain COMPARISON: None. TECHNIQUE: 3 views right wrist, 2 views right forearm, 2 views right humerus. FINDINGS: Right wrist: No acute fracture. Normal osseous alignment. 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 Soft tissues are unremarkable. Right forearm: No acute fracture. Normal osseous alignment. Forearm soft tissues are unremarkable. 2 views right humerus. No acute fracture of the right humerus. Small 5 mm patchy sclerotic density in the right proximal humeral metaphyseal intramedullary region, potentially low-grade chondroid lesion. Probable elbow joint effusion. Soft tissues are otherwise IMPRESSION: 1. No definite acute osseous abnormality. Probable elbow joint effusion; recommend dedicated 3 views of the elbow for further evaluation. 2. Probable 5 mm low-grade chondroid lesion proximal humerus. Electronically authenticated by: WALTER RAMOS Date: 2022-06-10 12:02 Normal [facility] VIT B12 AND FOLATEon 022 Cobalamin (Vitamin B12) [Mass/Vol] 730.0 pg/mL Normal 193.0-986.0 The [facility] pital Comment on above: Performed By: #### B 12FOL #### [facility] [address] [place] [address] Dr. Paige Ovalle FOLATE 21.80 ng/mL Normal 8.60-58.90 [facility] Comment on above: Performed By: #### B 12FOL #### [facility] [address] [place] [address] Dr. Paige Ovalle FOLATE ([facility])on 2 Folate >20.0 Normal >3.0 [facility] Comment on above: Result Comment: A se rum folate concentration of less than 3.1 ng/mL is considered to represent clinical deficiency. Performed By: #### V ITAD, VITB12 #### [facility] [address] [place] [address] Dr. Paige Ovalle CBC AUTO DIFFon 03-08-2022 BASO # 0.0 103/ul Normal 0.0-0.1 [facility] Comment on above: Performed By: #### V ITAD, VITB12 #### [facility] [address] [place] [address] Dr. Paige Ovalle Basophils/100 WBC (Bld) 0.5 % Normal 0.2-2.0 T [facility] Comment on above: Performed By: #### V ITAD, VITB12 #### [facility] [address] [place] [address] Dr. Paige Ovalle EO # 0.2 103/ul Normal 0.0-0.7 [facility] Comment on above: Performed By: #### V ITAD, VITB12 #### [facility] [address] [place] [address] Dr. Paige Ovalle Eosinophils/100 WBC (Bld) 2.1 % Normal 0.9-7.0 [facility] Comment on above: Performed By: #### V ITAD, VITB12 #### [facility] [address] [place] [address] Dr. Paige Ovalle Erythrocyte distribution wid th (RBC) [Ratio] 13.6 % Normal 11.0-15.0 [facility] Comment on above: Performed By: #### V ITAD, VITB12 #### [facility] [address] [place] [address] Dr. Paige Ovalle Hematocrit (Bld) [Volume fraction] 40.8 % Normal 3 6.0-48.0 [facility] Comment on above: Performed By: #### V ITAD, VITB12 #### [facility] [address] [place] [address] Dr. Paige Ovalle Hemoglobin (Bld) [Mass/Vol] 13.8 g/dL Normal 12.0-16. 0 [facility] Comment on above: Performed By: #### V ITAD, VITB12 #### [facility] [address] [place] [address] Dr. Paige Ovalle IG # 0.04 10e3/ul Critically high 0.00-0.03 The [facility] Comment on above: Performed By: #### V ITAD, VITB12 #### [facility] [address] [place] [address] Dr. Paige Ovalle IG % 0.5 % Normal 0.0-0.5 The [facility] ospital Comment on above: Performed By: #### V ITAD, VITB12 #### [facility] [address] [place] [address] Dr. Paige Ovalle LYMPH # 2.3 103/ul Normal 1.2-3.8 [facility] Comment on above: Performed By: #### V ITAD, VITB12 #### [facility] [address] [place] [address] Dr. Paige Ovalle Lymphocytes/100 WBC (Bld) 26.6 % Normal 20.5-60.0 [facility] Comment on above: Performed By: #### V ITAD, VITB12 #### [facility] [address] [place] [address] Dr. Paige Ovalle MANUAL DIFF REQ NO Normal [facility] Comment on above: Performed By: #### V ITAD, VITB12 #### [facility] [address] [place] [address] Dr. Paige Ovalle MCH (RBC) [Entitic mass] 31.1 pg Normal 26.7-34.0 [facility] Comment on above: Performed By: #### V ITAD, VITB12 #### [facility] [address] [place] [address] Dr. Paige Ovalle MCHC (RBC) [Mass/Vol] 33.8 g/dL Normal 29.9-35.2 [facility] Comment on above: Performed By: #### V ITAD, VITB12 #### [facility] [address] [place] [address] Dr. Paige Ovalle MCV (RBC) [Entitic vol] 91.9 fL Normal 81.0-99.0 [facility] Comment on above: Performed By: #### V ITAD, VITB12 #### [facility] [address] [place] [address] Dr. Paige Ovalle MONO # 0.5 103/ul Normal 0.3-0.8 [facility] ospital Comment on above: Performed By: #### V ITAD, VITB12 #### [facility] [address] [place] [address] Dr. Paige Ovalle Monocytes/100 WBC (Bld) 5.7 % Normal 1.7-12.0 [facility] Comment on above: Performed By: #### V ITAD, VITB12 #### [facility] [address] [place] [address] Dr. Paige Ovalle NEUT # 5.7 103/ul Normal 1.4-6.5 [facility] ospital Comment on above: Performed By: #### V ITAD, VITB12 #### [facility] [address] [place] [address] Dr. Paige Ovalle Neutrophils/100 WBC (Bld) 64.6 % Normal 43.0-75.0 [facility] Comment on above: Performed By: #### V ITAD, VITB12 #### [facility] [address] [place] [address] Dr. Paige Ovalle Platelet mean volume (Bld) [Entitic vol] 8.4 fL Critically low 9.5-13.5 The [facility] pital Comment on above: Performed By: #### V ITAD, VITB12 #### [facility] [address] [place] [address] Dr. Paige Ovalle PLT 321 103/ul Normal 150-450 [facility] Comment on above: Performed By: #### V ITAD, VITB12 #### [facility] [address] [place] [address] Dr. Paige Ovalle RBC 4.44 106/ul Normal 4.20-5.40 [facility] Comment on above: Performed By: #### V ITAD, VITB12 #### [facility] [address] [place] [address] Dr. Paige Ovalle WBC 8.8 103/ul Normal 4.0-11.0 [facility] Comment on above: Performed By: #### V ITAD, VITB12 #### [facility] [address] [place] [address] Dr. Paige Ovalle CULTURE URINEon 03-08-2022 CULTURE URINE Culture Observations : No growth Normal [facility] l Comment on above: Performed By: #### V ITAD, VITB12 #### [facility] [address] [place] [address] Dr. Paige Ovalle LIPID PROFILEon 03-08-2022 CHOL-HDL RATIO NORM SEE BELOW Normal [facility] Comment on above: Result Comment: 3.3 - 4.4 LOW RISK 4.4 - 7.1 AVERAGE RISK 7.1 - 11.0 MODERATE RISK >11.0 HIGH RISK Performed By: #### V ITAD, VITB12 #### [facility] [address] [place] [address] Dr. Paige Ovalle Cholesterol [Mass/Vol] 147 mg/dL Normal <=200 Th [facility] Comment on above: Performed By: #### V ITAD, VITB12 #### [facility] [address] [address] [address] Paige Ovalle Cholesterol in HDL [Mass/Vol] 97 mg/dL Critically high 4 0-60 [facility] Comment on above: Performed By: #### V ITAD, VITB12 #### [facility] [address] [address] [address] Paige Ovalle Cholesterol in LDL [Mass/Vol] 42.2 mg/dL Normal [facility] Comment on above: Performed By: #### V ITAD, VITB12 #### [facility] [address] [place] [address] Dr. Paige Ovalle Cholesterol.total/Cholestero l in HDL [Mass ratio] 1.5 {ratio} Normal [facility] Comment on above: Performed By: #### V ITAD, VITB12 #### [facility] [address] [place] [address] Dr. Paige Ovalle HDL NORMAL > or = 60 mg/dl - LO W CARDIOVASCULAR RISK <40 mg/dl - HIGH CARDIOVASCULAR RISK Normal [facility] Comment on above: Performed By: #### V ITAD, VITB12 #### [facility] [address] [place] [address] Dr. Paige Ovalle LDL CALC NORMAL SEE BELOW Normal The [facility] Comment on above: Result Comment: <100 mg/dl OPTIMAL 100 - 129 mg/dl NEAR OR ABOVE OPTIMAL 130 - 159 mg/dl BORDERLINE HIGH 160 - 189 mg/dl HIGH >190 mg/dl VERY HIGH Performed By: #### V ITAD, VITB12 #### [facility] [address] [address] [address] Paige Ovalle Triglyceride [Mass/Vol] 39 mg/dL Normal <=150 T [facility] Comment on above: Performed By: #### V ITAD, VITB12 #### [facility] [address] [address] [address] Paige Ovalle VLDL CALC 7.8 mg/dL Normal [facility] ospital Comment on above: Performed By: #### V ITTAMARA, VITB12 #### [facility] [address] [place] [address] Dr. Paige Ovalle PROF 14(COMP METB)on 022 Albumin [Mass/Vol] 4.3 g/dL Normal 3.4-5.0 [facility] Comment on above: Performed By: #### V ITTAMARA, VITB12 #### [facility] [address] [place] [address] Dr. Paige Ovalle Albumin/Globulin [Mass ratio] 1.3 {ratio} Normal [facility] Comment on above: Performed By: #### V ITTAMARA, VITB12 #### [facility] [address] [place] [address] Dr. Paige Ovalle ALP [Catalytic activity/Vol] 79 U/L Normal 46-116 [facility] Comment on above: Performed By: #### V EFRA, VITB12 #### [facility] [address] [place] [address] Dr. Paige Ovalle ALT [Catalytic activity/Vol] 89 U/L Critically high 14 -59 [facility] Comment on above: Performed By: #### V ITTAMARA, VITB12 #### [facility] [address] [place] [address] Dr. Paige Ovalle Anion gap [Moles/Vol] 12.2 mmol/L Normal [facility] Comment on above: Performed By: #### V ITTAMARA, VITB12 #### [facility] [address] [place] [address] Dr. Paige Ovalle AST [Catalytic activity/Vol] 65 U/L Critically high 15 -37 [facility] Comment on above: Performed By: #### V ITTAMARA, VITB12 #### [facility] [address] [place] [address] Dr. Paige Ovalle Bilirubin [Mass/Vol] 0.4 mg/dL Normal 0.2-1.0 [facility] Comment on above: Performed By: #### V ITTAMARA, VITB12 #### [facility] [address] [address] [address] Paige Ovalle Calcium [Mass/Vol] 9.6 mg/dL Normal 8.5-10.1 [facility] Comment on above: Performed By: #### V ITAD, VITB12 #### [facility] [address] [address] [address] Paige Ovalle Chloride [Moles/Vol] 96 mmol/L Critically low 98-107 [facility] Comment on above: Performed By: #### V ITAD, VITB12 #### [facility] [address] [address] [address] Paige Ovalle CO2 [Moles/Vol] 30.4 mmol/L Normal 21.0-32.0 [facility] Comment on above: Performed By: #### V ITAD, VITB12 #### [facility] [address] [place] [address] Dr. Paige Ovalle Creatinine [Mass/Vol] 0.70 mg/dL Normal 0.55-1.02 [facility] Comment on above: Performed By: #### V ITAD, VITB12 #### [facility] [address] [place] [address] Dr. Paige Ovalle EGFR-AF PALESTINIAN >60 Normal >=60 [facility] Comment on above: Performed By: #### V ITAD, VITB12 #### [facility] [address] [place] [address] Dr. Paige Ovalle EGFR-NON AF PALESTINIAN >60 Normal >=60 [facility] Comment on above: Performed By: #### V ITAD, VITB12 #### [facility] [address] [place] [address] Dr. Paige Ovalle Globulin (S) [Mass/Vol] 3.2 g/dL Normal T [facility] Comment on above: Performed By: #### V ITAD, VITB12 #### [facility] [address] [place] [address] Dr. Paige Ovalle Glucose [Mass/Vol] 91 mg/dL Normal 74-106 [facility] Comment on above: Performed By: #### V ITAD, VITB12 #### [facility] [address] [place] [address] Dr. Paige Ovalle Potassium [Moles/Vol] 3.6 mmol/L Normal 3.5-5.1 [facility] Comment on above: Performed By: #### V ITAD, VITB12 #### [facility] [address] [place] [address] Dr. Paige Ovalle Protein [Mass/Vol] 7.5 g/dL Normal 6.4-8.2 [facility] Comment on above: Performed By: #### V ITAD, VITB12 #### [facility] [address] [place] [address] Dr. Paige Ovalle Sodium [Moles/Vol] 135 mmol/L Critically low 136-145 Th [facility] Comment on above: Performed By: #### V ITAD, VITB12 #### [facility] [address] [place] [address] Dr. Paige Ovalle Urea nitrogen [Mass/Vol] 9.0 mg/dL Normal 7.0-18.0 [facility] Comment on above: Performed By: #### V ITAD, VITB12 #### [facility] [address] [place] [address] Dr. Paige Ovalle Urea nitrogen/Creatinine [Mass ratio] 12.9 mg/mg Normal [facility] Comment on above: Performed By: #### V ITAD, VITB12 #### [facility] [address] [place] [address] Dr. Paige Ovalle UA RANDOMon 03-08-2022 Bilirubin Ql (U) Negative Normal NEGATIVE [facility] Comment on above: Performed By: #### U A #### [facility] [address] [place] [address] Dr. Paige Ovalle Clarity (U) CLEAR Normal CLEAR [facility] Comment on above: Performed By: #### U A #### [facility] [address] [place] [address] Dr. Paige Ovalle Color (U) LT. YELLOW Normal YELLOW [facility] ospital Comment on above: Performed By: #### U A #### [facility] [address] [place] [address] Dr. Paige Ovalle Glucose Ql (U) Negative Normal NEGATIVE [facility] Comment on above: Performed By: #### U A #### [facility] [address] [place] [address] Dr. Paige Ovalle Hemoglobin Ql (U) Negative Normal NEGATIVE [facility] Comment on above: Performed By: #### U A #### [facility] [address] [place] [address] Dr. Paige Ovalle Ketones Ql (U) Negative Normal NEGATIVE [facility] Comment on above: Performed By: #### U A #### [facility] [address] [place] [address] Dr. Paige Ovalle LEUKOCYTES Negative Normal NEGATIVE [facility] Comment on above: Performed By: #### U A #### [facility] [address] [place] [address] Dr. Paige Ovalle Nitrite Ql (U) Negative Normal NEGATIVE [facility] Comment on above: Performed By: #### U A #### [facility] [address] [place] [address] Dr. Paige Ovalle pH (U) 6.5 [pH] Normal 5-9 [facility] Comment on above: Performed By: #### U A #### [facility] [address] [place] [address] Dr. Paige Ovalle SPEC GRAVITY <=1.005 Abnormal 1.005-<=1.025 [facility] Comment on above: Performed By: #### U A #### [facility] [address] [place] [address] Dr. Paige Ovalle UA PROTEIN Negative Normal NEGATIVE/ TRACE [facility] Comment on above: Performed By: #### U A #### [facility] [address] [place] [address] Dr. Paige Ovalle Urobilinogen Qn (U) 0.2 {Toy'U}/dL Normal 0.2 - 1. 0 [facility] Comment on above: Performed By: #### U A #### [facility] [address] [address] [address] Paige Ovalle VITAMIN B12on 03-08-2022 Cobalamin (Vitamin B12) [Mass/Vol] 3521.0 pg/mL Critically high 193.0-986.0 [facility] pital Comment on above: Performed By: #### V ITAD, VITB12 #### [facility] [address] [place] [address] Dr. Paige Ovalle VITAMIN D 25 OHon 03-08-2022 VIT D 25-OH 72.0 ng/mL Normal [facility] Comment on above: Performed By: #### V ITAD, VITB12 #### [facility] [address] [place] [address] Dr. Paige Ovalle VIT D RANGES SEE BELOW Normal [facility] Comment on above: Result Comment: <20 ng/mL Vit D deficient 20 - <30 ng/mL Vit D insufficient 30 - 100 ng/mL Vit D sufficient >100 ng/mL Potential Toxicity Performed By: #### V ITAD, VITB12 #### [facility] [address] [place] [address] Dr. Paige Ovalle PELVIS 1 OR 2 [facility] 06-03-20 18 PELVIS 1 OR 2 [facility] [address] [place] [id number] Patien t Name: NAYE GUZMÁN : 1970ex: FAge: Race: WhiteMRN: [id number]. Location: 84Patient Status: OVisit #: [id number] Date: 06/03/2018 9:10:00 AMCompleted Date: 06/03/2018 09:14 AMRequesting Provider: JONAH ARELLANO Attending Provider: JONAH ARELLANO Report Copy To: Signs & Symptoms: S32.89XK Fracture of oth parts of pelvis, subs for fx w nonunion [id number]: AthenaComments: , , , Ordering Provider - JONAH ARELLANO PA-C , Exam: PELVIS 1 OR 2 VWSAccession #: [id number] =PELVIS 1 OR 2 S 06/03/2018 9:14 AM EDT SIGNS AND SYMPTOMS: S32.89XK Fracture of oth parts of pelvis, subs for fx w nonunion I10 TECHNOLOGIST COMMENTS: pelvic pain QUESTION FOR THE RADIOLOGIST: , , , Ordering Provider - JONAH ARELLANO PA-C , PROTOCOL: AP(PA) view was obtained. COMPARISON: March 04 FINDINGS: There is a healed left hemipelvic fracture with mild elevation of the left pelvic floor. SI joints are symmetrical and unremarkable. Hips are unremarkable. IMPRESSION:Healed left pelvic fracture. No interval change. No evidence of nonunion Electronically signed by:Anurag Bernstein. Transcribed by: [email or web address], User Resident: Electronically Signed by: ANURAG BERNSTEIN @ 06/03/2018 09:19 AM Normal [facility] Comment on above: Order Comment: , , = ========= , Ordering Provider - JONAH ARELLANO PA-C , PELVIS 1 OR 2 Son 03-04-20 18 PELVIS 1 OR 2 [facility] [id number] [place] [id number] Patien t Name: NAYE GUZMÁN : 1970ex: FAge: Race: WhiteMRN: [id number]. Location: 84Patient Status: Date: 03/04/2018 10:25:00 AMCompleted Date: 03/04/2018 10:34 AMRequesting Provider: JONAH ARELLANO Attending Provider: Report Copy To: Signs & Symptoms: S32.9XXK Fx unsp parts of lumbosacr spin \EANDE\ pelv, 7thK [id number]: AthenaComments: , , , Ordering Provider - JONAH ARELLANO PA-C , Exam: PELVIS 1 OR 2 VWSAccession #: [id number] =PELVIS 1 OR 2 VWS 03/04/2018 10:34 AM EDT SIGNS AND SYMPTOMS: S32.9XXK Fx unsp parts of lumbosacr spin \EANDE\ pelv, 7thK I10 TECHNOLOGIST COMMENTS: pelvis fx f/u QUESTION FOR THE RADIOLOGIST: , , , Ordering Provider - JONAH ARELLANO PA-C , PROTOCOL: AP(PA) view was obtained. COMPARISON: December 23, 2017 FINDINGS: Soft tissues:Unchanged Bones:Continued healing Joints:Unchanged IMPRESSION: Continued healing of left superior and inferior pubic rami superimposed upon osteoporotic bone Electronically signed by:Patrick Tipton. Transcribed by: [email or web address], User Resident: Electronically Signed by: PATRICK TIPTON @ 03/04/2018 03:48 PM Normal [facility] Comment on above: Order Comment: , , = ========= , Ordering Provider - JONAH ARELLANO PA-C , PELVIS 3 VWSon 12-23-2017 PELVIS 3 [facility] [address] [place] [address] Patien t Name: NAYE GUZMÁN : 1970ex: FAge: Race: WhiteMRN: [id number]. Location: 84Patient Status: OVisit #: [id number] Date: 12/23/2017 12:50:00 PMCompleted Date: 12/23/2017 12:55 PMRequesting Provider: JONAH ARELLANO Attending Provider: JONAH ARELLANO Report Copy To: Signs & Symptoms: S32.89XK Fracture of oth parts of pelvis, subs for fx w nonunion [id number]: AthenaComments: , , Views (X-RAY, PELVIS): AP , Weight Bearing?: y , special views standing on each leg , , Ordering Provider - JONAH ARELLANO PA-C , Exam: PELVIS 3 VWSAccession #: [id number] =P JALEESA 3 [facility] 12/23/2017 12:55 PM EDT SIGNS AND SYMPTOMS: S32.89XK Fracture of oth parts of pelvis, subs for fx w nonunion I10 TECHNOLOGIST COMMENTS: pt states pain in pelvis specific views ordered by dr arellano QUESTION FOR THE RADIOLOGIST: , , Views (X-RAY, PELVIS): AP , Weight Bearing?: y , special views standing on each leg , , Ordering Provider - JONAH ARELLANO PA-C , PROTOCOL: AP(PA) view was obtained. COMPARISON: None FINDINGS: Soft tissues:No acute findings Bones:Subacute slightly displaced fractures along the left superior and inferior rami with sclerotic response and partial healing along the ischium Joints:Minimal osteoarthritis but can bump particularly on the left side Osteoporosis for age IMPRESSION: Slightly displaced superior pubic ramus and ischial ramus fractures with partial healing along the ischium but relative lack of healing along the pubis Electronically signed by:Patrick Tipton. Transcribed by: [email or web address], User Resident: Electronically Signed by: PATRICK TIPTON @ 12/23/2017 02:12 PM Normal [facility] Comment on above: Order Comment: , , V iews (X-RAY, PELVIS): AP , Weight Bearing?: y , special views standing on each leg , , Ordering Provider - JONAH ARELLANO PA-C , CALCIUMon 11-11-2017 Calcium mass conc 9.7 mg/dL Normal 8.6-10.3 [facility] Comment on above: Performed By: #### 4 1000, [id number], [id number] ####[facility] [address] [place] [address], [facility] PHOSPHORUS BLOODon 8 Phosphate mass conc 3.5 mg/dL Normal 2.5-5.0 [facility] Comment on above: Performed By: #### 4 1000, [id number], [id number] ####[facility] [address] [place] [address], [facility] VITAMIN D 25-HYDROXYon 11-11 VITAMIN D 25-OH 31.3 ng/mL Normal 30.0-80.0 [facility] Comment on above: Result Comment: >80. 0 Toxicity possible Performed By: #### 4 1000, [id number], [id number] ####[facility] [address] [place] [address], [place] Vital Signs Date Time Vital Sign Value Performing Clinician Facility 09-13-2023 12:39-0500 Diastolic blood pressure 90 mm[Hg] Mabel Berumen [facility] 09-13-2023 12:39-0500 Heart rate 86 /min Mabel Berumen [facility] 09-13-2023 12:39-0500 Mean blood pressure 106 mm[Hg] Mabel Berumen [facility] 09-13-2023 12:39-0500 Respiratory rate 16 /min Mabel Berumen [facility] 09-13-2023 12:39-0500 Systolic blood pressure 139 mm[Hg] Mabel Berumen [facility] 08-21-2023 15:57-0500 Heart rate 72 /min Devon Garcia [facility] 08-21-2023 15:57-0500 SaO2% (BldA) [Mass fraction] 98 % Devon Garcia [facility] 08-21-2023 15:56-0500 Diastolic blood pressure 92 mm[Hg] Devon Garcia [facility] 08-21-2023 15:56-0500 Mean blood pressure 112 mm[Hg] Devon Garcia [facility] 08-21-2023 15:56-0500 Systolic blood pressure 151 mm[Hg] Devon Garcia [facility] 08-21-2023 15:56-0500 Respiratory rate 16 /min Devon Garcia [facility] 08-21-2023 15:50-0500 Diastolic blood pressure 94 mm[Hg] Devon Garcia [facility] 08-21-2023 15:50-0500 Heart rate 68 /min Devon Garcia [facility] 08-21-2023 15:50-0500 SaO2% (BldA) [Mass fraction] 97 % Devon Garcia [facility] 08-21-2023 15:50-0500 Systolic blood pressure 153 mm[Hg] Devon Garcia [facility] 08-21-2023 14:44-0500 Heart rate 68 /min Devon Garcia [facility] 08-21-2023 14:44-0500 SaO2% (BldA) [Mass fraction] 98 % Devon Garcia [facility] 08-21-2023 14:44-0500 Body temperature 97.52 [degF] Devon Garcia [facility] 08-21-2023 14:44-0500 Diastolic blood pressure 92 mm[Hg] Devon Garcia [facility] 08-21-2023 14:44-0500 Mean blood pressure 109 mm[Hg] Devon Garcia [facility] 08-21-2023 14:44-0500 Systolic blood pressure 141 mm[Hg] Devon Garcia [facility] 08-21-2023 14:43-0500 Respiratory rate 14 /min Devon Garcia [facility] 07-25-2023 13:45-0400 Body height 177.8 cm Elieser Rowe II Other [employer] Other 07-25-2023 13:45-0400 Body mass index (BMI) [Ratio] 22.24 kg/m2 Elieser Rowe II Other [employer] Other 07-25-2023 13:45-0400 Body weight 70.31 kg Elieser Rowe II Other [employer] Other 07-17-2023 11:10-0400 Body height 177.8 cm Pauline Garciaemily Other [employer] Other 07-17-2023 11:10-0400 Body mass index (BMI) [Ratio] 22.24 kg/m2 Pauline Romero Other [employer] Other 07-17-2023 11:10-0400 Body temperature 98.2 [degF] Pauline Garciaemily Other [employer] Other 07-17-2023 11:10-0400 Body weight 70.31 kg Pauline Garciaemily Other [employer] Other 07-17-2023 11:10-0400 Diastolic blood pressure 98 mm[Hg] Pauline Romero Other [employer] Other 07-17-2023 11:10-0400 Respiratory rate 18 /min Pauline Romero Other [employer] Other 07-17-2023 11:10-0400 SaO2% (BldA) [Mass fraction] 97 % Pauline Garciaemily Other [employer] Other 07-17-2023 11:10-0400 Systolic blood pressure 138 mm[Hg] Pauline Romero Other [employer] Other 07-04-2023 08:23-0400 Diastolic blood pressure 90 mm[Hg] Devon Garcia [facility] 07-04-2023 08:23-0400 Heart rate 86 /min Devon Garcia [facility] 07-04-2023 08:23-0400 Mean blood pressure 102 mm[Hg] Devon Garcia [facility] 07-04-2023 08:23-0400 Respiratory rate 16 /min Devon Garcia [facility] 07-04-2023 08:23-0400 Systolic blood pressure 126 mm[Hg] Devon Garcia [facility] 07-03-2023 13:30-0400 Body height 177.8 cm Tobi Borrego Other [facility] [employer] Other 07-03-2023 13:30-0400 Body mass index (BMI) [Ratio] 21.81 kg/m2 Tobi Borrego Other [employer] Other 07-03-2023 13:30-0400 Body temperature 97.4 [degF] Tobi Borrego Other [employer] Other 07-03-2023 13:30-0400 Body weight 68.95 kg Tobi Borrego Other [employer] Other 07-03-2023 13:30-0400 Diastolic blood pressure 78 mm[Hg] Tobi Borrego Other [employer] Other 07-03-2023 13:30-0400 SaO2% (BldA) [Mass fraction] 97 % Tobi Borrego Other [employer] Other 07-03-2023 13:30-0400 Systolic blood pressure 110 mm[Hg] Tobi Borrego Other [employer] Other 06-03-2023 09:50-0400 Body height 177.8 cm Pauline Romero Other [employer] Other 06-03-2023 09:50-0400 Body mass index (BMI) [Ratio] 21.81 kg/m2 Pauline Romero Other [employer] Other 06-03-2023 09:50-0400 Body weight 68.95 kg Pauline Nick Other [employer] Other 06-03-2023 09:50-0400 Diastolic blood pressure 82 mm[Hg] Pauline Romero Other [employer] Other 06-03-2023 09:50-0400 Respiratory rate 16 /min Pauline Nick Other [employer] Other 06-03-2023 09:50-0400 SaO2% (BldA) [Mass fraction] 96 % Pauline Garciaemily Other [employer] Other 06-03-2023 09:50-0400 Systolic blood pressure 118 mm[Hg] Pauline Romero Other [employer] Other 04-15-2023 11:10-0400 Body height 177.8 cm Pauline Romero Other [employer] Other 04-15-2023 11:10-0400 Body mass index (BMI) [Ratio] 21.38 kg/m2 Pauline Romero Other [employer] Other 04-15-2023 11:10-0400 Body temperature 99.1 [degF] Pauline Romero Other [employer] Other 04-15-2023 11:10-0400 Body weight 67.59 kg Pauline Garciaemily Other [employer] Other 04-15-2023 11:10-0400 Diastolic blood pressure 78 mm[Hg] Pauline Romero Other [employer] Other 04-15-2023 11:10-0400 Respiratory rate 18 /min Pauline Romero Other [employer] Other 04-15-2023 11:10-0400 SaO2% (BldA) [Mass fraction] 96 % Pauline Romero Other [employer] Other 04-15-2023 11:10-0400 Systolic blood pressure 128 mm[Hg] Pauline Romero Other [employer] Other 03-13-2023 13:30-0400 Body height 177.8 cm Guanri Other [employer] Other 03-13-2023 13:30-0400 Body mass index (BMI) [Ratio] 21.23 kg/m2 Elieser [employer] II Other [employer] Other 03-13-2023 13:30-0400 Body weight 67.13 kg Elieser [employer] Other [employer] Other 02-04-2023 15:40-0400 Body height 177.8 cm Pauline Romero Other [employer] Other 02-04-2023 15:40-0400 Body mass index (BMI) [Ratio] 21.31 kg/m2 Pauline Romero Other [employer] Other 02-04-2023 15:40-0400 Body temperature Pauline Romero Other [employer] Other 02-04-2023 15:40-0400 Body weight 67.36 kg Pauline Romero Other [employer] Other 02-04-2023 15:40-0400 Diastolic blood pressure 84 mm[Hg] Pauline Romero Other [employer] Other 02-04-2023 15:40-0400 Respiratory rate 18 /min Pauline Romero Other [employer] Other 02-04-2023 15:40-0400 SaO2% (BldA) [Mass fraction] 96 % Pauline Romero Other [employer] Other 02-04-2023 15:40-0400 Systolic blood pressure 118 mm[Hg] Pauline Romero Other [employer] Other 01-31-2023 12:25-0400 Body height 177.8 cm Araceli Joseph Other [employer] Other 01-31-2023 12:25-0400 Body mass index (BMI) [Ratio] 20.8 kg/m2 Araceli Joseph Other [employer] Other 01-31-2023 12:25-0400 Body temperature 97.9 [degF] Araceli Joseph Other [employer] Other 01-31-2023 12:25-0400 Body weight 65.77 kg Araceli Joseph Other [employer] Other 01-31-2023 12:25-0400 Respiratory rate 18 /min Araceli Joseph Other [employer] Other 01-31-2023 12:25-0400 SaO2% (BldA) [Mass fraction] 96 % Araceli Joseph Other [employer] Other 11-19-2022 12:10-0500 Body height 177.8 cm Pauline Romero Other [employer] Other 11-19-2022 12:10-0500 Body mass index (BMI) [Ratio] 20.8 kg/m2 Pauline Romero Other [employer] Other 11-19-2022 12:10-0500 Body temperature 98.2 [degF] Pauline Nick Other [employer] Other 11-19-2022 12:10-0500 Body weight 65.77 kg Pauline Romero Other [employer] Other 11-19-2022 12:10-0500 Diastolic blood pressure 86 mm[Hg] Pauline Romero Other [employer] Other 11-19-2022 12:10-0500 SaO2% (BldA) [Mass fraction] 95 % Pauline Romero Other [employer] Other 11-19-2022 12:10-0500 Systolic blood pressure 122 mm[Hg] Pauline Nick Other [employer] Other 09-07-2022 12:30-0500 Body height 177.8 cm Pauline Nick Other [employer] Other 07-03-2022 12:50-0400 Body height 177.8 cm Lia Oswald Other [employer] Other 07-03-2022 12:50-0400 Body mass index (BMI) [Ratio] 20.52 kg/m2 Lia Oswald Other [employer] Other 07-03-2022 12:50-0400 Body temperature 97.8 [degF] Lia Oswald Other [employer] Other 07-03-2022 12:50-0400 Body weight 64.86 kg Lia Oswald Other [employer] Other 07-03-2022 12:50-0400 Diastolic blood pressure 82 mm[Hg] Lia Oswald Other [employer] Other 07-03-2022 12:50-0400 Respiratory rate 18 /min Lia Oswald Other [employer] Other 07-03-2022 12:50-0400 SaO2% (BldA) [Mass fraction] 96 % Lia Oswald Other [employer] Other 07-03-2022 12:50-0400 Systolic blood pressure 125 mm[Hg] Lia Oswald Other [employer] Other 06-14-2022 11:30-0400 Body height 177.8 cm Pauline Romero Other [employer] Other 06-14-2022 11:30-0400 Body mass index (BMI) [Ratio] 21.09 kg/m2 Pauline Romero Other [employer] Other 06-14-2022 11:30-0400 Body temperature 97.7 [degF] Pauline Romero Other [employer] Other 06-14-2022 11:30-0400 Body weight 66.68 kg Pauline Romero Other [employer] Other 06-14-2022 11:30-0400 Diastolic blood pressure 88 mm[Hg] Pauline Romero Other [employer] Other 06-14-2022 11:30-0400 Respiratory rate 18 /min Pauline Romero Other [employer] Other 06-14-2022 11:30-0400 SaO2% (BldA) [Mass fraction] 98 % Pauline Romero Other [employer] Other 06-14-2022 11:30-0400 Systolic blood pressure 138 mm[Hg] Pauline Romero Other [employer] Other 03-12-2022 11:30-0400 Body height 177.8 cm Pauline Romero Other [employer] Other 03-12-2022 11:30-0400 Body mass index (BMI) [Ratio] 21.09 kg/m2 Pauline Romero Other [employer] Other 03-12-2022 11:30-0400 Body temperature 98.2 [degF] Pauline Romero Other [employer] Other 03-12-2022 11:30-0400 Body weight 66.68 kg Pauline Romero Other [employer] Other 03-12-2022 11:30-0400 Diastolic blood pressure 86 mm[Hg] Pauline Romero Other [employer] Other 03-12-2022 11:30-0400 Respiratory rate 16 /min Pauline Romero Other [employer] Other 03-12-2022 11:30-0400 SaO2% (BldA) [Mass fraction] 95 % Pauline Romero Other [employer] Other 03-12-2022 11:30-0400 Systolic blood pressure 126 mm[Hg] Pauline Zelayaemily Other [employer] Other 12-21-2021 12:10-0400 Body height 177.8 cm Pauline Romero Other [employer] Other 12-21-2021 12:10-0400 Body mass index (BMI) [Ratio] 20.66 kg/m2 Pauline Romero Other [employer] Other 12-21-2021 12:10-0400 Body temperature 97.9 [degF] Pauline Romero Other [employer] Other 12-21-2021 12:10-0400 Body weight 65.32 kg Pauline Romero Other [employer] Other 12-21-2021 12:10-0400 Diastolic blood pressure 82 mm[Hg] Pauline Romero Other [employer] Other 12-21-2021 12:10-0400 Respiratory rate 18 /min Pauline Romero Other [employer] Other 12-21-2021 12:10-0400 SaO2% (BldA) [Mass fraction] 99 % Pauline Romero Other [employer] Other 12-21-2021 12:10-0400 Systolic blood pressure 126 mm[Hg] Pauline Romero Other [employer] Other 09-25-2021 14:00-0500 Body height 177.8 cm Pauline Romero Other [employer] Other 09-25-2021 14:00-0500 Body mass index (BMI) [Ratio] 20.37 kg/m2 Pauline Romero Other [employer] Other 09-25-2021 14:00-0500 Body temperature 98.1 [degF] Pauline Romero Other [employer] Other 09-25-2021 14:00-0500 Body weight 64.41 kg Pauline Romero Other [employer] Other 09-25-2021 14:00-0500 Diastolic blood pressure 80 mm[Hg] Pauline Nick Other [employer] Other 09-25-2021 14:00-0500 Respiratory rate 18 /min Pauline Nick Other [employer] Other 09-25-2021 14:00-0500 SaO2% (BldA) [Mass fraction] 98 % Pauline Nick Other [employer] Other 09-25-2021 14:00-0500 Systolic blood pressure 126 mm[Hg] Pauline Nick Other [employer] Other 09-05-2021 11:30-0500 Body height 177.8 cm Pauline Romero Other [employer] Other 09-05-2021 11:30-0500 Body mass index (BMI) [Ratio] 20.23 kg/m2 Pauline Nick Other [employer] Other 09-05-2021 11:30-0500 Body temperature 98.3 [degF] Pauline Garciaemily Other [employer] Other 09-05-2021 11:30-0500 Body weight 63.96 kg Pauline Romero Other [employer] Other 09-05-2021 11:30-0500 Diastolic blood pressure 70 mm[Hg] Pauline Nick Other [employer] Other 09-05-2021 11:30-0500 Respiratory rate 18 /min Pauline Romero Other [employer] Other 09-05-2021 11:30-0500 SaO2% (BldA) [Mass fraction] 97 % Pauline iNck Other [employer] Other 09-05-2021 11:30-0500 Systolic blood pressure 104 mm[Hg] Pauline Nick Other [employer] Other Encounters Encounter Date Encounter Type Care Provider Facility Start: 09-13-2023 End: 09-13-2023 Emergency department patient visit [facility] Start: 09-13-2023 End: 09-14-2023 ambulatory Mabel Berumen [employer] Other Start: 09-13-2023 Telephone encounter Pauline Romero [facility] [place] Start: 09-13-2023 End: 09-13-2023 Pain Management Mabel Beruemn [facility] Start: 08-21-2023 End: 08-22-2023 ambulatory Devon Garcia [place] [place]: 08-21-2023 End: 08-21-2023 Pain Management Devon Garcia [facility] Start: 08-14-2023 End: 08-14-2023 ambulatory Princess Sibley Other [employer] Other Start: 08-14-2023 Telephone encounter Princess Sibley [facility] Start: 08-08-2023 End: 08-08-2023 ambulatory Princess Sibley Other [employer] Other Start: 08-08-2023 Office outpatient visit 25 minutes Princess Sibley [facility] [place] [facility] Start: 07-25-2023 End: 07-25-2023 ambulatory Elieser Rowe II Other [employer] Other Start: 07-25-2023 Office outpatient visit 25 minutes Elieser Rowe II [facility] Start: 07-17-2023 End: 07-17-2023 ambulatory Pauline Romero Other [employer] Other Start: 07-17-2023 Office outpatient visit 15 minutes Pauline Romero [facility] [place] Start: 07-17-2023 Telephone encounter Pauline Romero [facility] [place] Start: 07-04-2023 End: 07-05-2023 ambulatory Devon Garcia [place] [place] Start: 07-04-2023 End: 07-04-2023 Pain Management Devon Garcia [facility] Start: 07-03-2023 End: 07-03-2023 ambulatory Tobi Borrego Other [facility] Other Start: 07-03-2023 Office outpatient ne w 30 minutes Tobi Borrego [facility] Vascular Surgery Start: 07-03-2023 Telephone encounter Tobi Barillas [facility] Start: 06-03-2023 End: 06-03-2023 ambulatory Pauline Romero Other [facility] Other Start: 06-03-2023 Office outpatient visit 15 minutes Pauline Romero [facility] [place] Start: 05-30-2023 End: 05-30-2023 ambulatory Pauline Romero Other [employer] Other Start: 05-30-2023 Telephone encounter Pauline Romero [facility] [place] Start: 05-29-2023 End: 05-29-2023 ambulatory Pauline Romero Other [facility] Other Start: 05-29-2023 Telephone encounter Pauline Nick [facility] [place] Start: 04-17-2023 End: 04-17-2023 ambulatory Pauline Romero Other [employer] Other Start: 04-17-2023 Telephone encounter Pauline Zelayaemily [facility] [place] Start: 04-15-2023 End: 04-15-2023 ambulatory Pauline Romero Other [facility] Other Start: 04-15-2023 Office outpatient visit 25 minutes Pauline Romero [facility] [place] Start: 04-12-2023 End: 04-12-2023 ambulatory Pauline Romero Other [employer] Other Start: 04-12-2023 Telephone encounter Pauline Zelayaemily [facility] [place] Start: 03-28-2023 End: 03-28-2023 ambulatory Pauline Romero Other [employer] Other Start: 03-28-2023 Telephone encounter Pauline Romero [facility] [place] Start: 03-13-2023 End: 03-13-2023 ambulatory Pauline Romero Facility:[facility] Start: 03-13-2023 Office outpatient ne w 45 minutes Elieser Rowe II [facility] [place] [facility] Start: 03-13-2023 End: 03-13-2023 ambulatory DO Pauline Romero Work Phone: [facility] Work Phone: Start: 03-13-2023 End: 03-13-2023 Patient encounter procedure DO Pauline Romero Work Phone: [facility] Start: 02-08-2023 End: 02-08-2023 ambulatory Pauline Romero Other [employer] Other Start: 02-08-2023 Telephone encounter Pauline Romero [facility] [place] Start: 02-04-2023 End: 02-04-2023 ambulatory Pauline Romero Other [employer] Other Start: 02-04-2023 Office outpatient visit 10 minutes Pauline Romero [facility] [place] Start: 01-31-2023 End: 01-31-2023 ambulatory Pauline Romero Other [facility] Other Start: 01-31-2023 Office outpatient visit 15 minutes Araceli Joseph [facility] [place] Start: 01-31-2023 Telephone encounter Pauline Romero [facility] [place] Start: 01-17-2023 End: 01-17-[address] BLAISE MACK Facility:[facility] Start: 01-10-2023 End: 01-10-2023 ambulatory Pauline Romero Other [facility] Other Start: 01-10-2023 Telephone encounter Pauline Romero [facility] [place] Start: 01-01-2023 End: 01-01-2023 ambulatory Pauline Romero Other [facility] Other Start: 01-01-2023 Telephone encounter Pauline Romero [facility] [place] Start: 12-04-2022 End: 12-05-2022 ambulatory PONCEFRANSISCA HERNANDEZ . Facility:[facility] Start: 12-01-2022 End: 12-01-2022 ambulatory Antonina Beena Facility:[facility] Start: 12-01-2022 End: 12-01-2022 ambulatory DO Pauline Garciaemily Work Phone: [facility] Work Phone: Start: 12-01-2022 End: 12-01-2022 Patient encounter procedure DO Pauline Romero Work Phone: [facility] [place] Work Phone: Start: 11-30-2022 End: 11-30-2022 ambulatory Pauline Romero Other [facility] Other Start: 11-30-2022 Telephone encounter Pauline Romero [facility] [place] Start: 11-19-2022 End: 11-20-[address] PAULINE ROMERO [place] [employer] Other Start: 11-19-2022 Office outpatient visit 25 minutes Pauline Romero [facility] [place] Start: 11-13-2022 End: 11-13-2022 ambulatory Pauline Romero Other [facility] Other Start: 11-13-2022 Telephone encounter Pauline Romero [facility] [place] Start: 11-10-2022 End: 11-10-2022 ambulatory ELIESER DILLON Facility:[facility] Start: 10-23-2022 End: 10-23-2022 ambulatory Pauline Romero Other [facility] Other Start: 10-23-2022 Telephone encounter Pauline Romero [facility] [place] Start: 10-18-2022 End: 10-18-2022 ambulatory Pauline Romero Other [facility] Other Start: 10-18-2022 Telephone encounter Pauline Romero [facility] [place] Start: 10-16-2022 End: 10-17-[address] PAULINE ROMERO Facility:[facility] Start: 10-12-2022 End: 10-12-2022 ambulatory Pauline Romero Other [facility] Other Start: 10-12-2022 Telephone encounter Pauline Romero [facility] [place] Start: 09-13-2022 End: 09-14-[address] PAULINE ROMERO Facility:[facility] Start: 09-07-2022 End: 09-07-2022 ambulatory Pauline Romero Other [facility] Other Start: 09-07-2022 Telephone encounter Pauline Romero [facility] [place] Start: 07-03-2022 End: 07-03-2022 ambulatory Pauline Romero Other [facility] [employer] Other Start: 07-03-2022 Office outpatient visit 15 minutes Lia Oswald [facility] Start: 07-03-2022 Telephone encounter Pauline Romero [facility] Start: 06-14-2022 End: 06-14-2022 ambulatory Pauline Romero Other [facility] [employer] Other Start: 06-14-2022 Office outpatient visit 15 minutes Pauline Romero [facility] [place] Start: 06-10-2022 End: 06-10-2022 ambulatory ROBB FOX . Facility:[facility] Start: 06-09-2022 End: 06-10-[address] PAULINE ROMERO Facility:[facility] Start: 03-27-2022 End: 03-27-2022 ambulatory Pauline Romero Other [facility] Other Start: 03-27-2022 Telephone encounter Pauline Romero [facility] [place] Start: 03-12-2022 End: 03-12-2022 ambulatory Pauline Romero Other [facility] Other Start: 03-12-2022 Office outpatient visit 25 minutes Pauline Romero [facility] [place] Start: 03-08-2022 Telephone encounter Pauline Romero [facility] [place] Start: 03-08-2022 End: 03-09-[address] PAULINE ROMERO [facility] Other Start: 01-23-2022 End: 01-23-2022 ambulatory Pauline Romero Other [facility] [employer] Other Start: 01-23-2022 Telephone encounter Pauline Romero [facility] [place] Start: 01-18-2022 End: 01-18-2022 ambulatory Pauline Romero Other [facility] Other Start: 01-18-2022 Telephone encounter Pauline Romero [facility] [place] Start: 01-02-2022 End: 01-02-2022 ambulatory Pauline Romero Other [facility] Other Start: 01-02-2022 Telephone encounter Pauline Romero [facility] [place] Start: 12-27-2021 End: 12-27-2021 ambulatory Pauline Romero Other [facility] Other Start: 12-27-2021 Telephone encounter Pauline Garciaemily [facility] [place] Start: 12-21-2021 End: 12-21-2021 ambulatory Pauline Romero Other [facility] Other Start: 12-21-2021 Office outpatient visit 15 minutes Pauline Romero [facility] [place] Start: 12-04-2021 End: 12-04-2021 ambulatory Pauline Romero Other [facility] Other Start: 12-04-2021 Telephone encounter Pauline Garciaemily [facility] [place] Start: 10-30-2021 End: 10-30-2021 ambulatory Pauline Romero Other [facility] Other Start: 10-30-2021 Telephone encounter Pauline Romero [facility] [place] Start: 10-10-2021 End: 10-10-2021 ambulatory Pauline Romero Other [facility] [employer] Other Start: 10-10-2021 Telephone encounter Pauline Garciaemily [facility] [place] Start: 10-02-2021 End: 10-02-2021 ambulatory Pauline Romero Other [facility] Other Start: 10-02-2021 Telephone encounter Pauline Romero [facility] [place] Start: 09-25-2021 End: 09-25-2021 ambulatory Pauline Romero Other [facility] [employer] Other Start: 09-25-2021 Office outpatient visit 15 minutes Pauline Romero [facility] [place] Start: 09-05-2021 End: 09-05-2021 ambulatory Pauline Romero Other [facility] Other Start: 09-05-2021 Office outpatient visit 25 minutes Pauline Romero [facility] [place] Start: 06-03-2018 End: 06-04-2018 Patient encounter JONAH ARELLANO Facility:[facility] Start: 03-04-2018 End: 03-05-2018 Patient encounter JONAH ARELLANO Facility:[facility] Start: 12-23-2017 End: 12-24-2017 Patient encounter JONAH ARELLANO Facility:[facility] Start: 11-11-2017 End: 11-12-2017 Patient encounter HEBERT BHATT Facility:[facility] Start: 11-06-2017 End: 11-07-2017 Patient encounter DEFAULT PHYSICIAN Facility:[facility] Procedures Date Procedure Procedure Detail Performing Clinician Start: 08-21-2023 Local anesthetic sac ral epidural block Mabel Berumen Comment on above: Caudal BETZAIDA- no relie f Start: 03-13-2023 Pelvis X-ray DO Pauline mead Work Phone: Start: 03-13-2023 Radiologic examination of knee DO Pauline Romero Work Phone: History of operative procedure on lumbar spinal structure Devon Garcia Comment on above: 2010 Dr. Haque None (qualifier value) Leesa Garcia Plan of Treatment Date Care Activity Detail Author Start: 12-01-2022 MR lumbar spine wo con MR lumb ar spine wo con [facility] Start: 12-01-2022 MR Lumbar spine WO contrast [facility] Start: 12-01-2022 XR pre/post mri xray XR pre/post mri xray [facility] Start: 12-01-2022 [facility] Payers Date Payer Category Payer Medicaid [id number] 2. [id number] 2022 Self-pay [id number] 2018 Unknown [id number] 1970 Unknown [id number] 2.16.84 [id number] 1970 Unknown [id number] 2.16.84 0.1.949156.3.579.2.593 1970 Unknown [id number] 2.16.84 0.1.695082.3.579.2.593 1970 Unknown [id number] 2.16.84 0.1.924258.3.579.2.593 1970 Unknown [id number] 2.16.84 0.1.515857.3.579.2.593 1970 Unknown [id number] 2.16.84 0.1.669569.3.579.2.593 1970 Unknown [id number] 2.16.84 0.1.688120.3.579.2.593 1970 Unknown [id number] 2.16.84 0.1.944838.3.579.2.593 1970 Unknown [id number] 2.16.84 0.1.862320.3.579.2.593 1970 Unknown [id number] 2.16.8 40.1.514115.3.579.2.754 1970 Unknown [id number] 2.16.8 40.1.853593.3.579.2.727 1970 Unknown [id number] 2.16.8 40.1.419333.3.579.2.727 1970 Unknown [id number] 2.16.8 40.1.327859.3.579.2.727 1959 Unknown [id number] 2.1 [id number] Unknown Unknown [id number] 2.16.8 40.1.919532.3.579.2.531 Unknown [id number] 2.16.8 40.1.548486.3.579.2.531 Social History Date Type Detail Facility Unknown if ever smoked [employer] Other Sex Assigned At [facility] Start: 1970 Sex Assigned At Female F [facility] Start: 07-04-2023 End: 09-13-2023 Tobacco smoking status Light tobacco smoker (finding) [facility] Functional Status Date Assessment Result Facility 09-13-2023 Functional Status N/A [facility] 08-21-2023 Functional Status N/A [facility] 07-04-2023 Functional Status N/A [facility] Clinical Notes 05-07-2012 to 09-13-2023 Note Date & Type Note Facility 09-13-2023 Evaluation + Plan note Extrac seth from: Title:Pain Managment Follow up Author:Mabel Hernandez Date:09/13/23 Impression and Plan Patient is a 53-year-old female with a past medical history significant for lumbar stenosis and lumbar neuritis. Unfortunate, recent caudal epidural steroid injection did not give her the relief she was looking for. She continues to have lower back pain with left radiating leg pain. This affects her ambulatory status. This affects her quality life. This affects her activities and affects her ability to do things she wants to do. We once again reviewed her MRI. Based on her MRI findings, her pain pattern and her failure to improve with previous conservative treatments as well as the significant pain that she is experiencing I recommended to patient a left- sided L5-S1 transforaminal epidural steroid injection under fluoroscopy. Procedure was discussed. Risk and benefits were discussed. Patient is agreeable. She will follow-up 2 weeks after the injection for reevaluation. Call clinic sooner if necessary. In the meantime we also discussed increasing her Lyrica. She is going to go to 225 mg twice daily. Potential side effects were discussed. OARRS reviewed. Follow-up as above mentioned GLADYS score: 64% [facility]12-08-2023 Evaluation note* Encounter Date Diagnosis Assessment Notes Treatment Notes Treatment Clinical Notes Sep, Anxiety (ICD-10 - F41.9) [facility] Other 12-08-2023 History general Narrative - Reported* Type Description Date Medical History Pap; Alejandro Barksdale 05-18 Medical History Mammogram; May 2012; [facility] Medical History Pelvic Ultrasound 05-18; Dr. Clay dixon Medical History No history of Colono scopy, Stress Test, EKG or CT of the Abdomen or Pelvis at this time Medical History No history of Chicken Pox, Measl es or Mumps Medical History Hard of Hearing Medical History hip fracture Surgical History Back Surgery, remove d disc on lower back; Dr. Haque 09-27-11 Surgical History UNKNOWN LUMBAR SURGERY - DR YOON LIU 09/27/2011 Surgical History LAPAROSCOPY - OVARIES 07/2013 Surgical History pain management - inj for back Surgical History (R) KNEE SCOPE - DR FLOOD Surgical History radio frequency burned nerve Surgical History Faucet injection 01/2016 Surgical History left hip and greater trochanter ic bursda 05/09/17 Surgical History left hip joint ST inj 05/30/17 Surgical History left sacral lat brach L5 Surgical History left sacral lateral branch L5 - Dr Anderson 09/05/17 Surgical History left hip and GT Bursa inj Dr Kathy woodruff 09/26/17 Surgical History left lumbar transforaminal L4 L 3 - Dr Anderson 12/04/17 Surgical History pain mgmt procedure DR Anderson 05/08 12/22 Surgical History Hip Inj- 07/2018 Hospitalization History see above surgical histo ry Hospitalization History Pneumonia - [place] 03/07 [employer] Other 11-15-2023 Note [id number] NoteDiagnosis: M96.1 Procedure: Caudal epidural steroid injection under fluoroscopic guidance Anesthesia: Local Complications: None After informed consent was obtained, the patient was brought back to the procedure room and placed in the prone position. Back areas prepped and draped in the usual sterile fashion using fluoroscopicguidance, the skin and subcutaneous tissues overlying the needle trajectory over the sacral hiatus was anesthetized with 2% lidocaine. The 22-gauge Quincke needle was then introduced in the lower aspect of the sacral hiatus. Injection of contrast under fluoroscopy revealed appropriate epidural spread in both the lateral and AP views. Thereafter, 9 mL of normal saline with 40 mg of methylprednisolone was injected into the epidural space the needle was then removed. The patient tolerated procedure well. Patient was then transferred to the recovery room in stable condition. Follow-up: The patient will update us on the response to this procedure, and agrees to continue currently prescribed/recommended therapies.[facility] Comment on above:Result Comment: Electronically Signed By: Devon Garcia DO\.br\Date and Time Signed: 08/21/23 15:54 [id number] Evaluation + Plan note Extracted from: Title:Caudal epidural Author:Devon Garcia DO Date:08/21/23 Diagnosis: M96.1 Procedure: Caudal epidural steroid injection under fluoroscopic guidance Anesthesia: Local Complications: None After informed consent was obtained, the patient was brought back to the procedure room and placed in the prone position. Back areas prepped and draped in the usual sterile fashion using fluoroscopic guidance, the skin and subcutaneous tissues overlying the needle trajectory over the sacral hiatus was anesthetized with 2% lidocaine. The 22-gauge Quincke needle was then introduced in the lower aspect of the sacral hiatus. Injection of contrast under fluoroscopy revealed appropriate epidural spread in both the lateral and AP views. Thereafter, 9 mL of normal saline with 40 mg of methylprednisolone was injected into the epidural space the needle was then removed. The patient tolerated procedure well. Patient was then transferred to the recovery room in stable condition. Follow-up: The patient will update us on the response to this procedure, and agrees to continue currently prescribed/recommended therapies. Future Appointments Appointment Date:09/13/2023 12:30:00 PM Scheduled Provider:Mabel Berumen PA-C Location:[facility] Appointment Type:Pain Management - Follow Up (FT) [facility]11-09-2023 History general Narrative - Reported* Type Description Date Medical History Pap; Dr. Ramirez [place] 05-18 Medical History Mammogram; May 2012; [facility] Medical History Pelvic Ultrasound 05-18; Dr. Clay dixon Medical History No history of Colono scopy, Stress Test, EKG or CT of the Abdomen or Pelvis at this time Medical History No history of Chicken Pox, Measl es or Mumps Medical History Hard of Hearing Medical History hip fracture Surgical History Back Surgery, remove d disc on lower back; Dr. Haque 09-27-11 Surgical History UNKNOWN LUMBAR SURGERY - DR YOON LIU 09/27/2011 Surgical History LAPAROSCOPY - OVARIES 07/2013 Surgical History pain management - inj for back Surgical History (R) KNEE SCOPE - DR FLOOD Surgical History radio frequency burned nerve Surgical History Faucet injection 01/2016 Surgical History left hip and greater trochanter ic bursda 05/09/17 Surgical History left hip joint ST inj 05/30/17 Surgical History left sacral lat brach L5 7 Surgical History left sacral lateral branch L5 - Dr Anderson 09/05/17 Surgical History left hip and GT Bursa inj Dr Kathy woodruff 09/26/17 Surgical History left lumbar transforaminal L4 L 3 - Dr Anderson 12/04/17 Surgical History pain mgmt procedure DR Anderson 05/08 12/22 Surgical History Hip Inj- 07/2018 Hospitalization History see above surgical histo ry Hospitalization History Pneumonia - [place] 03/07 [employer] Other 11-03-2023 History general Narrative - Reported* Type Description Date Medical History Pap; Dr. Ramirez, [place] 05-18 Medical History Mammogram; May 2012; [facility] Medical History Pelvic Ultrasound 05-18; Dr. Clay dixon Medical History No history of Colono scopy, Stress Test, EKG or CT of the Abdomen or Pelvis at this time Medical History No history of Chicken Pox, Measl es or Mumps Medical History Hard of Hearing Medical History hip fracture Surgical History Back Surgery, remove d disc on lower back; Dr. Haque 09-27-11 Surgical History UNKNOWN LUMBAR SURGERY - DR YOON LIU 09/27/2011 Surgical History LAPAROSCOPY - OVARIES 07/2013 Surgical History pain management - inj for back Surgical History (R) KNEE SCOPE - DR FLOOD Surgical History radio frequency burned nerve Surgical History Faucet injection 01/2016 Surgical History left hip and greater trochanter ic bursda 05/09/17 Surgical History left hip joint ST inj 05/30/17 Surgical History left sacral lat brach L5 7 Surgical History left sacral lateral branch L5 - Dr Anderson 09/05/17 Surgical History left hip and GT Bursa inj Dr Kathy woodruff 09/26/17 Surgical History left lumbar transforaminal L4 L 3 - Dr Anderson 12/04/17 Surgical History pain mgmt procedure DR Anderson 05/08 12/22 Surgical History Hip Inj- 07/2018 Hospitalization History see above surgical histo ry Hospitalization History Pneumonia - [place] 03/07 [employer] Other 11-02-2023 Evaluation note* Encounter Date Diagnosis Assessment Notes Treatment Notes Treatment Clinical Notes Aug, Other half-way (current) drug therapy (ICD-10 - Z79.899) Aug, Encounter for screening for osteoporosis (ICD-10 - Z13.820) Aug, Asymptomatic menopausal state (ICD-10 - Z78.0) Aug, Other specified disorders of bone density and structure, unspecified site (ICD-10 - M85.80) Aug, Osteopenia of multiple sites (ICD-10 - M85.89) DEXA scan reviewed with patient. Extensive discussion regarding osteopenia and available treatment options. Patient would like to proceed with Prolia injections, side effects and benefits discussed. Lab work ordered will call patient with any abnormal results. Counseled patient on fall precautions. Instructed patient to take calcium 1200 mg and vitamin D3 600 to 800 IU daily. Provided patient with educational sheets regarding treatment options, fall precautions, and available vitamin D3 and calcium supplements. All questions and concerns addressed. We will follow-up with patient in 6 months. Will repeat DEXA scan in 1 year from initiation of treatment. [employer] Other 10-20-2023 History general Narrative - Reported* Type Description Date Medical History Pap; Dr. Ramirez, [place] 05-18 Medical History Mammogram; May 2012; [facility] Medical History Pelvic Ultrasound 05-18; Dr. Clay dixon Medical History No history of Colono scopy, Stress Test, EKG or CT of the Abdomen or Pelvis at this time Medical History No history of Chicken Pox, Measl es or Mumps Medical History Hard of Hearing Medical History hip fracture Surgical History Back Surgery, remove d disc on lower back; Dr. Haque 09-27-11 Surgical History UNKNOWN LUMBAR SURGERY - DR YOON LIU 09/27/2011 Surgical History LAPAROSCOPY - OVARIES 07/2013 Surgical History pain management - inj for back Surgical History (R) KNEE SCOPE - DR FLOOD Surgical History radio frequency burned nerve Surgical History Faucet injection 01/2016 Surgical History left hip and greater trochanter ic bursda 05/09/17 Surgical History left hip joint ST inj 05/30/17 Surgical History left sacral lat brach L5 7 Surgical History left sacral lateral branch L5 - Dr Anderson 09/05/17 Surgical History left hip and GT Bursa inj Dr Kathy woodruff 09/26/17 Surgical History left lumbar transforaminal L4 L 3 - Dr Anderson 12/04/17 Surgical History pain mgmt procedure DR Anderson 05/08 12/22 Surgical History Hip Inj- 07/2018 Hospitalization History see above surgical histo ry Hospitalization History Pneumonia - [place] 03/07 [employer] Other 10-19-2023 Evaluation note* Encounter Date Diagnosis Assessment Notes Treatment Notes Treatment Clinical Notes Jul, Primary osteoarthritis of left knee (ICD-10 - M17.12) Jul, Other 1. We had a jeannie g discussion with the patient today concerning their left knee osteoarthritis. The x-rays do show arthritis but it is very mild. She has not responded to the medications as result I would recommend a steroid injection. 2. Tylenol: Discussed taking Tylenol (acetaminophen). Recommended adjusting their dosing to 1000mg by mouth up to 3 times a day. 3. NSAIDs: Commended continuing her ibuprofen 4. Physical therapy: Discussed formal physical therapy and home regimen. Patient preferred not to do any formal PT. 5. Injections: Discussed injections as a treatment option. After consent was obtained, the left knee was injected with 3cc Kenalog and 7cc bupivicaine using sterile technique. Patient tolerated the injection well. 6. Follow up 2 to 3 months. However if the patient calls back and she is not getting any relief from this injection then I recommend getting the MRI of the left knee without contrast to evaluate for meniscal pathology [employer] Other 10-11-2023 Evaluation note* Encounter Date Diagnosis Assessment Notes Treatment Notes Treatment Clinical Notes Jul, Anxiety (ICD-10 - F41.9) [employer] Other 10-11-2023 Evaluation note* Encounter Date Diagnosis Assessment Notes Treatment Notes Treatment Clinical Notes Jul, Post laminectomy syndrome (ICD-10 - M96.1) She voices that she has been in a great deal of pain. She is now following with pain management. Jul, Hypertension (ICD-10 - I10) Her blood pressure is elevated today at 138/98. She admits when she was seen at pain management her diastolic reading was elevated. She has been in a tremendous amount of pain. We discussed that pain can increase your blood pressure. She had previously stopped the Irbesartan and is willing to restart this. She has this medication on hand at home and will begin taking it. Jul, Anxiety (ICD-10 - F41.9) She does continue to use and benefit from the Xanax. I will provide her with a refill today. She does continue with the Venlafaxine. An OARRS report was printed and reviewed, no discrepancies noted. Frequent appointments needed due to addiction potential of medication. Pain inventory sheet completed and reviewed if opiod medication given. Pain contract is on file if pertinent. Patient will have office visits every three months for evaluation or sooner if needed. I discussed addiction potential of medication with the patient. Discussed with the patient and provided a treatment plan including the use of non-opiod analgesics and non-pharmacological intervention with patient if treated for pain. We have discussed realistic benefits and known risks of opiod/controlled therapy and the expected benefits for both pain and function. These benefits outweigh the risks. Patient has been counselled on the dangers of combining opiods/controlled prescriptions with alcohol or other sedatives and counseled on the safe storage and disposal of opiods/controlled prescriptions. Do not drive or operate heavy machinery after taking opiod/controlled medication. I have verified that no current substance abuse treatments are being prescribed. Jul, Breast cancer screening by mammogram (ICD-10 - Z12.31) I did provide her with an order to have a mammogram done. Jul, Encounter for screening fecal occult blood testing (ICD-10 - Z12.11) Guidance is given on how to collect the stool sample. Take sample to the lab within 2 hours of collection. Call for results 1-2 days after dropping off for development. She refuses a colonoscopy. Jul, Other She is seeing Dr. Rowe next week for evaluation of her left knee. [employer] Other 10-11-2023 History general Narrative - Reported* Type Description Date Medical History Pap; Dr. Ramirez [place] 05-18 Medical History Mammogram; May 2012; [facility] Medical History Pelvic Ultrasound 05-18; Dr. Clay dixon Medical History No history of Colono scopy, Stress Test, EKG or CT of the Abdomen or Pelvis at this time Medical History No history of Chicken Pox, Measl es or Mumps Medical History Hard of Hearing Medical History hip fracture Surgical History Back Surgery, remove d disc on lower back; Dr. Haque 09-27-11 Surgical History UNKNOWN LUMBAR SURGERY - DR YOON LIU 09/27/2011 Surgical History LAPAROSCOPY - OVARIES 07/2013 Surgical History pain management - inj for back Surgical History (R) KNEE SCOPE - DR FLOOD Surgical History radio frequency burned nerve Surgical History Faucet injection 01/2016 Surgical History left hip and greater trochanter ic bursda 05/09/17 Surgical History left hip joint ST inj 05/30/17 Surgical History left sacral lat brach L5 7 Surgical History left sacral lateral branch L5 - Dr Anderson 09/05/17 Surgical History left hip and GT Bursa inj Dr Kathy woodruff 09/26/17 Surgical History left lumbar transforaminal L4 L 3 - Dr Anderson 12/04/17 Surgical History pain mgmt procedure DR Anderson 05/08 12/22 Surgical History Hip Inj- 07/2018 Hospitalization History see above surgical histo ry Hospitalization History Pneumonia - [place] 03/07 [employer] Other 09-28-2023 Evaluation + Plan noteExtracted from: Title:Pain Management * Author:Modesto Garcia DO Date:07/04/23 Impression and Plan History, physical examination, and personal review of pertinent imaging results indicate a diagnosis of: -Lumbar radiculopathy -Lumbar postlaminectomy pain syndrome Plan: -Based on the patient's history of previous spine surgery we will plan for caudal epidural steroid injection under fluoroscopic guidance we discussed that we will work on obtaining her MRI and if we need to adjust location of the injection based on her symptomatology and imaging we can do so prior to the procedure -We also discussed that we can continue her Lyrica prescription if we are managing her care, we discussed obtaining a urine drug screen as well as regular scheduled follow-up and patient was agreeable to this plan Patient was counseled on the above diagnosis and treatment, all questions were answered and patient agrees to adhere to the plan above. Risk and benefits of appropriate procedures and medications were reviewed as well with patient, who voiced understanding and agreeance. Patient was counseled on smoking cessation and/or continuing to abstain from nicotine/tobacco products as appropriate based on history; as smoking/nicotine can contribute to increased pain overall and decreased wound healing. Patient counseled on maintaining a healthy BMI as part of the total treatment of their pain and to reduce stress/strain on joints. Patient invited to return or call with any questions or concerns that arise. [facility]09-27-2023 Evaluation note* Encounter Date Diagnosis Assessment Notes Treatment Notes Treatment Clinical Notes Jun, Foot pain, left (ICD-10 - M79.672) This patient has a normal vascular exam of her feet bilaterally. I do not believe that her symptoms are of a vascular etiology. I will see her as needed in the future. The patient is due to see a neurologist tomorrow for further work-up. [employer] Other 08-28-2023 Evaluation note* Encounter Date Diagnosis Assessment Notes Treatment Notes Treatment Clinical Notes May, Foot pain, left (ICD-10 - M79.672) She voices that the left top of her foot hurts and the left foot feels cold to her. She has to wear a sock due to the foot being cold. The sock helps the cold but not the pain. She has good pulse in the right foot but it is harder to feel in the left foot. Her left foot becomes darker in color and looks different than her left. Her blood flow is excellent, her capillary refill is good. I did review her left foot x-ray results from 05-31-23 with her today. Results showed no acute bony abnormality or significant degenerative joint disease. No suspicious soft tissue found. I suspect this is a nerve issue and not a vascular issue. She voices that she was recently referred to pain management through the [facility]. If this is nerve related then pain management can discuss options with her. She would like to see a vascular specialist to rule out any vascular issue with the foot. A referral is provided. She takes Vitamin B12 three times a week but this has not helped any of her symptoms. May, Post laminectomy syndrome (ICD-10 - M96.1) She was taken off Gabapentin and placed on Lyrica but continues to have pain. We discussed that there are other treatment options that can be discussed with pain management. [employer] Other 08-24-2023 Evaluation note* Encounter Date Diagnosis Assessment Notes Treatment Notes Treatment Clinical Notes May, Foot pain, left (ICD-10 - M79.672) [employer] Other 08-24-2023 History general Narrative - Reported* Type Description Date Medical History Pap; Dr. Ramirez [place] 05-18 Medical History Mammogram; May 2012; [facility] Medical History Pelvic Ultrasound 05-18; Dr. Clay dixon Medical History No history of Colono scopy, Stress Test, EKG or CT of the Abdomen or Pelvis at this time Medical History No history of Chicken Pox, Measl es or Mumps Medical History Hard of Hearing Medical History hip fracture Surgical History Back Surgery, remove d disc on lower back; Dr. Haque 09-27-11 Surgical History UNKNOWN LUMBAR SURGERY - DR YOON LIU 09/27/2011 Surgical History LAPAROSCOPY - OVARIES 07/2013 Surgical History pain management - inj for back Surgical History (R) KNEE SCOPE - DR FLOOD Surgical History radio frequency burned nerve Surgical History Faucet injection 01/2016 Surgical History left hip and greater trochanter ic bursda 05/09/17 Surgical History left hip joint ST inj 05/30/17 Surgical History left sacral lat brach L5 7 Surgical History left sacral lateral branch L5 - Dr Anderson 09/05/17 Surgical History left hip and GT Bursa inj Dr Kathy woodruff 09/26/17 Surgical History left lumbar transforaminal L4 L 3 - Dr Anderson 12/04/17 Surgical History pain mgmt procedure DR Anderson 05/08 12/22 Surgical History Hip Inj- 07/2018 Hospitalization History see above surgical histo ry Hospitalization History Pneumonia - Adolfo 03/07 [facility] Other 07-12-2023 History general Narrative - Reported* Type Description Date Medical History Pap; Dr. Ramirez [place] 05-18 Medical History Mammogram; May 2012; [facility] Medical History Pelvic Ultrasound 05-18; Dr. Clay dixon Medical History No history of Colono scopy, Stress Test, EKG or CT of the Abdomen or Pelvis at this time Medical History No history of Chicken Pox, Measl es or Mumps Medical History Hard of Hearing Medical History hip fracture Surgical History Back Surgery, remove d disc on lower back; Dr. Haque 09-27-11 Surgical History UNKNOWN LUMBAR SURGERY - DR YOON LIU 09/27/2011 Surgical History LAPAROSCOPY - OVARIES 07/2013 Surgical History pain management - inj for back Surgical History (R) KNEE SCOPE - DR FLOOD Surgical History radio frequency burned nerve Surgical History Faucet injection 01/2016 Surgical History left hip and greater trochanter ic bursda 05/09/17 Surgical History left hip joint ST inj 05/30/17 Surgical History left sacral lat brach L5 7 Surgical History left sacral lateral branch L5 - Dr Anderson 09/05/17 Surgical History left hip and GT Bursa inj Dr Kathy woodruff 09/26/17 Surgical History left lumbar transforaminal L4 L 3 - Dr Anderson 12/04/17 Surgical History pain mgmt procedure DR Anderson 05/08 12/22 Surgical History Hip Inj- 07/2018 Hospitalization History see above surgical histo ry Hospitalization History Pneumonia - [place] 03/07 [facility] Other 07-10-2023 Evaluation note* Encounter Date Diagnosis Assessment Notes Treatment Notes Treatment Clinical Notes Apr, Vitamin B12 deficiency (ICD-10 - E53.8) Her Vitamin B12 level is 564. Folate is 127. I would like her to continue with above medication as directed. Apr, Hypertension (ICD-10 - I10) She has been checking her blood pressure every morning and her readings have been good without the medication. She can continue without the medicine but if she finds her readings begin to go up she should let me know and we may have her return to taking the medicine. She is comfortable with this plan. If her readings are consistently in the 140/90's then she should let me know. Apr, Hypokalemia (ICD-10 - E87.6) I did advise her that her potassium is a little bit low at 3.4. I would like her to have this rechecked today or tomorrow. She does not have to fast for the blood draw. Apr, Anxiety (ICD-10 - F41.9) She does continue to use and benefit from the Xanax as needed. She is to call for refills when needed. An OARRS report was printed and reviewed, no discrepancies noted. Frequent appointments needed due to addiction potential of medication. Pain inventory sheet completed and reviewed if opiod medication given. Pain contract is on file if pertinent. Patient will have office visits every three months for evaluation or sooner if needed. I discussed addiction potential of medication with the patient. Discussed with the patient and provided a treatment plan including the use of non-opiod analgesics and non-pharmacologica l intervention with patient if treated for pain. We have discussed realistic benefits and known risks of opiod/controlled therapy and the expected benefits for both pain and function. These benefits outweigh the risks. Patient has been counselled on the dangers of combining opiods/controlled prescriptions with alcohol or other sedatives and counseled on the safe storage and disposal of opiods/controlled prescriptions. Do not drive or operate heavy machinery after taking opiod/controlled medication. I have verified that no current substance abuse treatments are being prescribed. Apr, Fatty liver (ICD-10 - K76.0) Her AST is 38. ALT is 39. Having fatty liver can cause liver enzymes to fluctuate. Her total cholesterol was 148. HDL is 87. LDL is 43. Her triglycerides are 92. VLDL is 18.4. I encouraged her to watch her intake of carbs and sugars. Stay active as tolerated. Apr, Vitamin D deficiency (ICD-10 - E55.9) Her Vitamin D level is 69.9. Continue with Vitamin D as directed. Apr, Weight gain (ICD-10 - R63.5) She has gained one pound since last seen. Apr, Post laminectomy syndrome (ICD-10 - M96.1) Continue to follow with the specialist as directed. Apr, Encounter for long-term (current) use of medications (ICD-10 - Z79.899) Apr, Insomnia (ICD-10 - G47.00) Continue with above medication daily as directed. Apr, COPD (chronic obstructive pulmonary disease) (ICD-10 - J44.9) Continue to follow with Dr. Hernandez as scheduled. Apr, Frequency of urination (ICD-10 - R35.0) Continue with above medication daily as directed. No urinary infection seen on exam of her urinalysis. Apr, Acute pain of left knee (ICD-10 - M25.562) She did see Dr. Rowe for evaluation of her left knee. Apr, Other At her visit in 3 months we will discuss ordering a mammogram to be done in Sep (2022). [facility] Other 07-07-2023 History general Narrative - Reported* Type Description Date Medical History Pap; Dr. Ramirez [place] 05-18 Medical History Mammogram; May 2012; [facility] Medical History Pelvic Ultrasound 05-18; Dr. Clay dixon Medical History No history of Colono scopy, Stress Test, EKG or CT of the Abdomen or Pelvis at this time Medical History No history of Chicken Pox, Measl es or Mumps Medical History Hard of Hearing Medical History hip fracture Surgical History Back Surgery, remove d disc on lower back; Dr. Haque 09-27-11 Surgical History UNKNOWN LUMBAR SURGERY - DR YOON LIU 09/27/2011 Surgical History LAPAROSCOPY - OVARIES 07/2013 Surgical History pain management - inj for back Surgical History (R) KNEE SCOPE - DR FLOOD Surgical History radio frequency burned nerve Surgical History Faucet injection 01/2016 Surgical History left hip and greater trochanter ic bursda 05/09/17 Surgical History left hip joint ST inj 05/30/17 Surgical History left sacral lat brach L5 7 Surgical History left sacral lateral branch L5 - Dr Anderson 09/05/17 Surgical History left hip and GT Bursa inj Dr Kathy woodruff 09/26/17 Surgical History left lumbar transforaminal L4 L 3 - Dr Anderson 12/04/17 Surgical History pain mgmt procedure DR Anderson 05/08 12/22 Surgical History Hip Inj- 07/2018 Hospitalization History see above surgical histo ry Hospitalization History Pneumonia - [place] 03/07 [facility] Other 06-23-2023 History general Narrative - Reported* Type Description Date Medical History Pap; Alejandro Barksdale 05-18 Medical History Mammogram; May 2012; [facility] Medical History Pelvic Ultrasound 05-18; Dr. Clay dixon Medical History No history of Colono scopy, Stress Test, EKG or CT of the Abdomen or Pelvis at this time Medical History No history of Chicken Pox, Measl es or Mumps Medical History Hard of Hearing Medical History hip fracture Surgical History Back Surgery, remove d disc on lower back; Dr. Haque 09-27-11 Surgical History UNKNOWN LUMBAR SURGERY - DR YOON LIU 09/27/2011 Surgical History LAPAROSCOPY - OVARIES 07/2013 Surgical History pain management - inj for back Surgical History (R) KNEE SCOPE - DR FLOOD Surgical History radio frequency burned nerve Surgical History Faucet injection 01/2016 Surgical History left hip and greater trochanter ic bursda 05/09/17 Surgical History left hip joint ST inj 05/30/17 Surgical History left sacral lat brach L5 7 Surgical History left sacral lateral branch L5 - Dr Anderson 09/05/17 Surgical History left hip and GT Bursa inj Dr Kathy woodruff 09/26/17 Surgical History left lumbar transforaminal L4 L 3 - Dr Anderson 12/04/17 Surgical History pain mgmt procedure DR Anderson 05/08 12/22 Surgical History Hip Inj- 07/2018 Hospitalization History see above surgical histo ry Hospitalization History Pneumonia - [place] 03/07 [facility] Other 06-22-2023 Evaluation note* Encounter Date Diagnosis Assessment Notes Treatment Notes Treatment Clinical Notes Mar, Anxiety (ICD-10 - F41.9) [facility] Other 06-16-2023 History general Narrative - Reported* Type Description Date Medical History Pap; Alejandro Barksdale 05-18 Medical History Mammogram; May 2012; [facility] Medical History Pelvic Ultrasound 05-18; Dr. Clay dixon Medical History No history of Colono scopy, Stress Test, EKG or CT of the Abdomen or Pelvis at this time Medical History No history of Chicken Pox, Measl es or Mumps Medical History Hard of Hearing Medical History hip fracture Surgical History Back Surgery, remove d disc on lower back; Dr. Haque 09-27-11 Surgical History UNKNOWN LUMBAR SURGERY - DR YOON LIU 09/27/2011 Surgical History LAPAROSCOPY - OVARIES 07/2013 Surgical History pain management - inj for back Surgical History (R) KNEE SCOPE - DR FLOOD Surgical History radio frequency burned nerve Surgical History Faucet injection 01/2016 Surgical History left hip and greater trochanter ic bursda 05/09/17 Surgical History left hip joint ST inj 05/30/17 Surgical History left sacral lat brach L5 7 Surgical History left sacral lateral branch L5 - Dr Anderson 09/05/17 Surgical History left hip and GT Bursa inj Dr Kathy woodruff 09/26/17 Surgical History left lumbar transforaminal L4 L 3 - Dr Anderson 12/04/17 Surgical History pain mgmt procedure DR Anderson 05/08 12/22 Surgical History Hip Inj- 07/2018 Hospitalization History see above surgical histo ry Hospitalization History Pneumonia - [place] 03/07 [facility] Other 06-07-2023 Evaluation note* Encounter Date Diagnosis Assessment Notes Treatment Notes Treatment Clinical Notes Mar, Acute pain of left knee (ICD-10 - M25.562) Mar, Primary osteoarthritis of left knee (ICD-10 - M17.12) Mar, Other 1. We had a jeannie g discussion with the patient today concerning their left knee osteoarthritis. The radiographs do show osteoarthritis of the knee. I explained that patient has very mild osteoarthritis on x-rays and I do not feel that a knee replacement surgery is warranted at this time. 2. Tylenol: Discussed taking Tylenol (acetaminophen). Recommended adjusting their dosing to 1000mg by mouth up to 3 times a day. 3. NSAIDs: Recommend using her ibuprofen twice a day and we prescribed her some Voltaren gel to use 4-5 times a day. 4. Physical therapy: Discussed formal physical therapy and home regimen. Patient preferred formal physical therapy which we provided a prescription for her to work on some quad strengthening.. 5. Injections: Discussed injections as a treatment option. We will forego injections at this time 6. Follow up 2 to 3 months [facility] Other 05-05-2023 Evaluation note* Encounter Date Diagnosis Assessment Notes Treatment Notes Treatment Clinical Notes February, Anxiety (ICD-10 - F41.9) February, Insomnia (ICD-10 - G47.00) [facility] Other 05-05-2023 History general Narrative - Reported* Type Description Date Medical History Pap; Dr. Ramirez, [place] 05-18 Medical History Mammogram; May 2012; [facility] Medical History Pelvic Ultrasound 05-18; Dr. Clay dixon Medical History No history of Colono scopy, Stress Test, EKG or CT of the Abdomen or Pelvis at this time Medical History No history of Chicken Pox, Measl es or Mumps Medical History Hard of Hearing Medical History hip fracture Surgical History Back Surgery, remove d disc on lower back; Dr. Haque 09-27-11 Surgical History UNKNOWN LUMBAR SURGERY - DR YOON LIU 09/27/2011 Surgical History LAPAROSCOPY - OVARIES 07/2013 Surgical History pain management - inj for back Surgical History (R) KNEE SCOPE - DR FLOOD Surgical History radio frequency burned nerve Surgical History Faucet injection 01/2016 Surgical History left hip and greater trochanter ic bursda 05/09/17 Surgical History left hip joint ST inj 05/30/17 Surgical History left sacral lat brach L5 7 Surgical History left sacral lateral branch L5 - Dr Anderson 09/05/17 Surgical History left hip and GT Bursa inj Dr Kathy woodruff 09/26/17 Surgical History left lumbar transforaminal L4 L 3 - Dr Anderson 12/04/17 Surgical History pain mgmt procedure DR Anderson 05/08 12/22 Surgical History Hip Inj- 07/2018 Hospitalization History see above surgical histo ry Hospitalization History Pneumonia - [place] 03/07 [facility] Other 05-01-2023 Evaluation note* Encounter Date Diagnosis Assessment Notes Treatment Notes Treatment Clinical Notes February, Impacted cerumen of left ear (ICD-10 - H61.22) Verbal consent obtained prior to ear irrigation. The left ear was irrigated with success, she tolerated the procedure well. She was asked to stop using the Ofloxacin drops. Avoid using q-tips and do not wear ear plugs as this could push the wax further into the ear. [facility] Other 04-28-2023 History general Narrative - Reported* Type Description Date Medical History Pap; Dr. Ramirez [place] 05-18 Medical History Mammogram; May 2012; [facility] Medical History Pelvic Ultrasound 05-18; Dr. Clay dixon Medical History No history of Colono scopy, Stress Test, EKG or CT of the Abdomen or Pelvis at this time Medical History No history of Chicken Pox, Measl es or Mumps Medical History Hard of Hearing Medical History hip fracture Surgical History Back Surgery, remove d disc on lower back; Dr. Haque 09-27-11 Surgical History UNKNOWN LUMBAR SURGERY - DR YOON LIU 09/27/2011 Surgical History LAPAROSCOPY - OVARIES 07/2013 Surgical History pain management - inj for back Surgical History (R) KNEE SCOPE - DR FLOOD Surgical History radio frequency burned nerve Surgical History Faucet injection 01/2016 Surgical History left hip and greater trochanter ic bursda 05/09/17 Surgical History left hip joint ST inj 05/30/17 Surgical History left sacral lat brach L5 7 Surgical History left sacral lateral branch L5 - Dr Anderson 09/05/17 Surgical History left hip and GT Bursa inj Dr Kathy woodruff 09/26/17 Surgical History left lumbar transforaminal L4 L 3 - Dr Anderson 12/04/17 Surgical History pain mgmt procedure DR Anderson 05/08 12/22 Surgical History Hip Inj- 07/2018 Hospitalization History see above surgical histo ry Hospitalization History Pneumonia - [place] 03/07 [facility] Other 04-27-2023 Evaluation note* Encounter Date Diagnosis Assessment Notes Treatment Notes Treatment Clinical Notes Jan, Left ear impacted cerumen (ICD-10 - H61.22) Left ear lavage performed in office today. Pt tolerated well. Procedure was successful. Large amount of cerumen removed from ear canals. TM was then visible. Pt advised to use otc debrox prn for issues with wax build up. Pt understood and agreed to treatment plan. Jan, Acute otitis externa of left ear, unspecified type (ICD-10 - H60.502) Meds as prescribed. No swimming or submerging head under water. No Q tips in ear. Otc tylenol or motrin prn for ear pain. Pt to f/u with pcp as needed for persistent or recurrent sx. Pt understood and agreed to treatment plan. [facility] Other 04-27-2023 History general Narrative - Reported* Type Description Date Medical History Pap; Alejandro Barksdale 05-18 Medical History Mammogram; May 2012; [facility] Medical History Pelvic Ultrasound 05-18; Dr. Clay dixon Medical History No history of Colono scopy, Stress Test, EKG or CT of the Abdomen or Pelvis at this time Medical History No history of Chicken Pox, Measl es or Mumps Medical History Hard of Hearing Medical History hip fracture Surgical History Back Surgery, remove d disc on lower back; Dr. Haque 09-27-11 Surgical History UNKNOWN LUMBAR SURGERY - DR YOON LIU 09/27/2011 Surgical History LAPAROSCOPY - OVARIES 07/2013 Surgical History pain management - inj for back Surgical History (R) KNEE SCOPE - DR FLOOD Surgical History radio frequency burned nerve Surgical History Faucet injection 01/2016 Surgical History left hip and greater trochanter ic bursda 05/09/17 Surgical History left hip joint ST inj 05/30/17 Surgical History left sacral lat brach L5 7 Surgical History left sacral lateral branch L5 - Dr Anderson 09/05/17 Surgical History left hip and GT Bursa inj Dr Kathy woodruff 09/26/17 Surgical History left lumbar transforaminal L4 L 3 - Dr Anderson 12/04/17 Surgical History pain mgmt procedure DR Anderson 05/08 12/22 Surgical History Hip Inj- 07/2018 Hospitalization History see above surgical histo ry Hospitalization History Pneumonia - [place] 03/07 [facility] Other 04-10-2023 History general Narrative - Reported* Type Description Date Medical History Pap; Alejandro Barksdale 05-18 Medical History Mammogram; May 2012; [facility] Medical History Pelvic Ultrasound 05-18; Dr. Clay dixon Medical History No history of Colono scopy, Stress Test, EKG or CT of the Abdomen or Pelvis at this time Medical History No history of Chicken Pox, Measl es or Mumps Medical History Hard of Hearing Medical History hip fracture Surgical History Back Surgery, remove d disc on lower back; Dr. Haque 09-27-11 Surgical History UNKNOWN LUMBAR SURGERY - DR YOON LIU 09/27/2011 Surgical History LAPAROSCOPY - OVARIES 07/2013 Surgical History pain management - inj for back Surgical History (R) KNEE SCOPE - DR FLOOD Surgical History radio frequency burned nerve Surgical History Faucet injection 01/2016 Surgical History left hip and greater trochanter ic bursda 05/09/17 Surgical History left hip joint ST inj 05/30/17 Surgical History left sacral lat brach L5 7 Surgical History left sacral lateral branch L5 - Dr Anderson 09/05/17 Surgical History left hip and GT Bursa inj Dr Kathy woodruff 09/26/17 Surgical History left lumbar transforaminal L4 L 3 - Dr Anderson 12/04/17 Surgical History pain mgmt procedure DR Anderson 05/08 12/22 Surgical History Hip Inj- 07/2018 Hospitalization History see above surgical histo ry Hospitalization History Pneumonia - [place] 03/07 [facility] Other 04-06-2023 Evaluation note* Encounter Date Diagnosis Assessment Notes Treatment Notes Treatment Clinical Notes Jan, Anxiety (ICD-10 - F41.9) She would like to increase her dose of Venlafaxine to help her anxiety symptoms. Guidance is given on how to take the higher dose. She is to call for refills on the Xanax in between her office visits. Frequent appointments needed due to addiction potential of medication. I will see her back in three months. Side effects/risks/benef its of medication were reviewed. Jan, Insomnia (ICD-10 - G47.00) She is now taking 1 Trazodone at night instead of 1/2 tablet and it is working well for her. Jan, COPD (chronic obstructive pulmonary disease) (ICD-10 - J44.9) She is not using the Albuterol inhaler any longer due to side effects. She is following with Dr. Hernandez. She is trying to stop smoking. Jan, Other 9:59 AM - 10:07 AM [facility] Other 03-28-2023 Evaluation note* Encounter Date Diagnosis Assessment Notes Treatment Notes Treatment Clinical Notes Dec, Anxiety (ICD-10 - F41.9) [facility] Other 03-10-2023 History general Narrative - Reported* Type Description Date Medical History Pap; Dr. Ramirez, [place] 05-18 Medical History Mammogram; May 2012; [facility] Medical History Pelvic Ultrasound 05-18; Dr. Clay dixon Medical History No history of Colono scopy, Stress Test, EKG or CT of the Abdomen or Pelvis at this time Medical History No history of Chicken Pox, Measl es or Mumps Medical History Hard of Hearing Medical History hip fracture Surgical History Back Surgery, remove d disc on lower back; Dr. Haque 09-27-11 Surgical History UNKNOWN LUMBAR SURGERY - DR YOON LIU 09/27/2011 Surgical History LAPAROSCOPY - OVARIES 07/2013 Surgical History pain management - inj for back Surgical History (R) KNEE SCOPE - DR FLOOD Surgical History radio frequency burned nerve Surgical History Faucet injection 01/2016 Surgical History left hip and greater trochanter ic bursda 05/09/17 Surgical History left hip joint ST inj 05/30/17 Surgical History left sacral lat brach L5 7 Surgical History left sacral lateral branch L5 - Dr Anderson 09/05/17 Surgical History left hip and GT Bursa inj Dr Kathy woodruff 09/26/17 Surgical History left lumbar transforaminal L4 L 3 - Dr Anderson 12/04/17 Surgical History pain mgmt procedure DR Anderson 05/08 12/22 Surgical History Hip Inj- 07/2018 Hospitalization History see above surgical histo ry Hospitalization History Pneumonia - [place] 03/07 [facility] Other 02-24-2023 Evaluation note* Encounter Date Diagnosis Assessment Notes Treatment Notes Treatment Clinical Notes Nov, COPD (chronic obstructive pulmonary disease) (ICD-10 - J44.9) [facility] Other 02-13-2023 Evaluation note* Encounter Date Diagnosis Assessment Notes Treatment Notes Treatment Clinical Notes Nov, Anxiety (ICD-10 - F41.9) She is taking Xanax once a day because her anxiety is elevated . She is not able to sleep. I did advise her that adding the Trazodone to the Venlafaxine can cause the serotonin level to go too high. She has shaking legs, feels weak, has a headache. We discussed that the Venlafaxine could be raising the serotonin level too high. She does not feel too hot. We discussed that the inhaler Bevespi could cause the symptoms she is having, shakiness and jittery, difficulty sleeping. I advised her that I was going to cut her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
== END 2023-08-14 12:46 | disposition home or self-care (01) ==
PROVIDERS: PCP Family Medicine
DX: Z79.899 Other long term (current) drug therapy (principal); Z13.820 Encounter for screening for osteoporosis; Z78.0 Asymptomatic menopausal state
CPT/HCPCS: 36415; 80053; 82306; 83970; 84443; 85025

== ENCOUNTER 2023-08-26 07:41 | Outpatient (RCR) | payer MEDICAID, SELFPAY ==
[2023-08-26] MEDS: DENOSUMAB 60 MG/ML SYRINGE SUBQ (11:57)
[2023-08-26 13:30] VITALS: BP 131/89; PULSE 79; RESP 16; TEMP 36.4; O2SAT 96
--- NOTE | 2023-08-26 13:32 | PC.NURSE ---
1134: Pt. to [facility] amb. Seated in recliner. Pt. given education regarding Prolia as this is her first injection. Denies questions. 1145: Pt medicated with Prolia IM to right upper arm. No bleeding to site. Pt. tolerated without c/o. 1205: Pt. without s&s of adverse reaction. No bleeding to injection site. Pt. d/c'd amb. to home.
== END 2023-09-05 23:59 | disposition home or self-care (01) ==
LOC: INF 07:41
PROVIDERS: PCP Family Medicine
DX: M85.89 Other specified disorders of bone density and structure, multiple sites (principal)
CPT/HCPCS: 96372; J0897

== ENCOUNTER 2023-10-03 11:45 | Outpatient (OUT) | payer MEDICAID, SELFPAY ==
--- OUTSIDE RECORDS SUMMARY | 2023-10-03 11:48 | XMS_ITS | CCD ---
Author Name Unknown Address [address] [place] [address] Organization [facility] Care Team Providers Care Machine Pan Greaser Name Role Phone PHYSICIAN, DEFAULT Unavailable Unavailable [...] Unavailable DO Pauline Romero Primary Care Provider JOSE Guidry Attending Provider Araceli Joseph Unavailable [...] Provider MD Elieser Rowe II Attending Provider Pauline Romero Primary Care Unavailable Elieser Rowe II Attending UnavailElieser De La Rosa II Admitting UnavailAntonina Finch Admitting Unavailable Nick, Pauline Primary Care Unavailable Antonina Guidry Attending Unavailable Elieser Rowe II Unavailable Pauline Romero Primary Care Physician Tobi Borrego Unavailable [phone] Princess Sibley Unavailable LORI BRIONES Attending Unavailable [...] Facility (20 sources) Lisinopril Drug Allergy 07-30-2018 [facility] (1 source) Lisinopril Drug Allergy 07-30-2018 [place] [facility] Medications Current Medications Medication Drug Class(es) [...] Start: 11-24-2020 take 2 tablets by mo [facility] three times daily Acetaminophen 500 MG 2 tablets Orally up to three times a day Nov, Active acetaminophen 325 mg / HYDROcodone bitartrate 5 mg oral tablet (2 sources) Opioid Agonist Start: 11-27-2017 take 1 tablet by mouth twice daily Hydrocodone-Acetaminophen Active 1 TAB PO Twice daily November 27, 2017 1:00am [id number] actuat albuterol 0.09 mg/actuat metered dose [...] Ordered Start: 09-25-2021 [facility] Xanax 0.25 MG [...] mouth every twelve hours Vitamin D (Ergocalciferol) 26090 UNIT 1 capsule Orally twice a day Active take 1 capsule by mo uth every twelve hours Vitamin D (Ergocalciferol) 23442 UNIT 1 capsule Orally twice a day [...] 1 tablet by evonne th once daily Yrqgaxahmxba-Lnoz-Bjzdz Acid (Centrum Women) 18-400 mg-mcg Tablet Active [...] BID, # 60 cap(s), Refills(s) 1, Pharmacy: [facility] [id number], 180, cm, 09/13/23 12:45:00 EST, Height/Length Dosing, 67.1, kg, 09/13/23 12:45:00 EST, Weight Dosing Start Date: 09/13/23 Status: Ordered Start: 07-08-2023 End: 10-06-2023 take 1 capsule by mouth twice daily Lyrica 150 mg Cap 150 mg = 1 cap(s), Oral, BID, X 30 day(s), # 60 cap(s), Refills(s) 2, Pharmacy: [facility] #[id number], 180.3, cm, 07/04/23 8:41:00 EDT, Height/Length Dosing, 69, kg, 07/04/23 14:13:00 EDT, Weight Dosing Start Date: 07/08/23 Stop Date: 10/06/23 Status: Ordered take 1 capsule by [facility] every twenty-four hours Pregabalin 150 MG 1 [...] Start: 10-12-2022 take 0.5 tablet by m [facility] once daily at bedtime traZODone HCl 50 [...] Ordered Start: 11-24-2020 take 1 capsule by [facility] every twenty-four hours Effexor XR 75 MG 1 capsule with food Orally Once a day for 30 day(s) Nov, Active Start: 11-24-2020 take 1 capsule by [facility] every twenty-four hours Effexor XR 37.5 MG [...] Once a day Active Vitamin D (Ergocalciferol) 73843 UNIT (12 sources) take 1 capsule by mo uth twice daily Vitamin D (Ergocalciferol) 61929 UNIT 1 capsule Orally twice a day [...] 12-23-2017 Chronic Other aftercare (9 sources) 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 therapy; Translations: [OTH HALF-WAY CURRENT DRUG THERAPY] Onset: 09-05-2021 Resolved: 03-12-2022 [...] source) Pain in left knee; Translations: [Pain in left knee] Onset: 03-13-2023 Past or Other [...] Results Test Name Value Interpretation Reference Range Facility Insurance Correspondence Off iceon 09-19-2023 Insurance Correspondence Office [id number] 4#1.00TIFF Normal [facility] Basic Metabolic Panel w/ Ref rory Mgon 09-13-2023 Calcium [Mass/Vol] 9.0 mg/dL Normal 8.4-10.2 [facility] Comment on above: Performed By: #### B MEGHNA, TNI #### [place] [id number] Ph. [phone] Chloride [Moles/Vol] 102 mmol/L Normal 98-107 [facility] Comment on above: Performed By: #### B GINAWR, TNI #### [place] [id number] Ph. [phone] CO2 [Moles/Vol] 29 mmol/L Normal 22-32 [facility] Comment on above: Performed By: #### B MEGHNA, TNI #### [place] [address] Ph. [phone] Creatinine [Mass/Vol] 0.55 mg/dL Normal 0.52-1.04 [facility] Comment on above: Performed By: #### B MEGHNA, TNI #### [place] [address] Ph. [phone] GFR/1.73 sq M.predicted among non-blacks MDRD (S/P/Bld) [Vol rate/Area] 109 mL/min/{1.73_m2} Normal >60 [facility] Comment on above: Result Comment: GFR calculated using CKD-EPI (2020) formula.\X0D0A\Stage 1 Kidney damage (e.g., protein in the urine) with normal GFR >=90\X0D0A\Stage 2 Kidney damage with mild decrease in GFR 60-89\X0D0A\Stage 3a Moderate decrease in GFR 45-59\X0D0A\Stage 3b Moderate decrease in GFR 30-44\X0D0A\Stage 4 Severe reduction in GFR 15-29\X0D0A\Stage 5 Kidney failure <15 Performed By: #### B MPWR, TNI #### [address] [address] Ph. [phone] Glucose [Mass/Vol] 83 mg/dL Normal 65-100 [facility] Comment on above: Performed By: #### B MPWR, TNI #### [place] [address] Ph. [phone] Potassium [Moles/Vol] 3.7 mmol/L Normal 3.6-5.0 [facility] Comment on above: Performed By: #### B MPWR, TNI #### [place] [address] Ph. [phone] Sodium [Moles/Vol] 137 mmol/L Normal 135-145 [facility] Comment on above: Performed By: #### B MPWR, TNI #### [address] [address] Ph. [phone] Urea nitrogen [Mass/Vol] 13 mg/dL Normal 7-17 [facility] Comment on above: Performed By: #### B MPWR, TNI #### [place] [address] Ph. [phone] CT HEAD WO CONTRASTon 2022 CT HEAD [...] Dudley Muñoz MD 09/13/23 Final result Normal [facility] Complete Blood Count with Au to Diffon 09-13-2023 Basophils (Bld) [#/Vol] 0.1 10*3/uL Normal 0.0-0.1 [facility] Comment on above: Performed By: #### C BCAD #### [place] [address] Ph. [phone] Basophils/100 WBC (Bld) 1 % Normal 0-1 [facility] Comment on above: Performed By: #### C BCAD #### [place] [address] Ph. [phone] Eosinophils (Bld) [#/Vol] 0.1 10*3/uL Normal 0.0-0.5 [facility] Comment on above: Performed By: #### C BCAD #### [place] [address] Ph. [phone] Eosinophils/100 WBC (Bld) 2 % Normal 0-5 [facility] Comment on above: Performed By: #### C BCAD #### [place] [address] Ph. [phone] Erythrocyte distribution width (RBC) [Ratio] 14.3 % Normal 11.5-14.5 [facility] Comment on above: Performed By: #### C BCAD #### [place] [address] Ph. [phone] Hematocrit (Bld) [Volume fraction] 42.6 % Normal 36.0-47.0 [facility] Comment on above: Performed By: #### C BCAD #### [place] [address] Ph. [phone] Hemoglobin (Bld) [Mass/Vol] 14.3 g/dL Normal 12.0-16.0 [facility] Comment on above: Performed By: #### C BCAD #### [place] [address] Ph. [phone] Lymphocytes (Bld) [#/Vol] 3.1 10*3/uL Normal 1.0-4.0 [facility] Comment on above: Performed By: #### C BCAD #### [place] [address] Ph. [phone] Lymphocytes/100 WBC (Bld) 45 % High 20-40 [facility] Comment on above: Performed By: #### C BCAD #### [place] [address] Ph. [phone] MCH (RBC) [Entitic mass] 29.8 pg Normal 27.0-35.0 [facility] Comment on above: Performed By: #### C BCAD #### [place] [address] Ph. [phone] MCHC (RBC) [Mass/Vol] 33.6 g/dL Normal 32.0-36.0 [facility] Comment on above: Performed By: #### C BCAD #### [address] [address] Ph. [phone] MCV (RBC) [Entitic vol] 88.8 fL Normal 80.0-100.0 [facility] Comment on above: Performed By: #### C BCAD #### [place] [address] Ph. [phone] Monocytes (Bld) [#/Vol] 0.4 10*3/uL Normal 0.3-1.0 [facility] Comment on above: Performed By: #### C BCAD #### [address] [address] Ph. [phone] Monocytes/100 WBC (Bld) 6 % Normal 1-15 [facility] Comment on above: Performed By: #### C BCAD #### [address] [address] Ph. [phone] Neutrophils (Bld) [#/Vol] 3.2 10*3/uL Normal 1.8-7.7 [facility] Comment on above: Performed By: #### C BCAD #### [address] [address] Ph. [phone] Neutrophils/100 WBC (Bld) 46 % Low 50-70 [facility] Comment on above: Performed By: #### C BCAD #### [address] [address] Ph. [phone] Platelet mean volume (Bld) [Entitic vol] 9.7 fL Normal 9.4-12.3 [facility] Comment on above: Performed By: #### C BCAD #### [address] [address] Ph. [phone] Platelets (Bld) [#/Vol] 286 10*3/uL Normal 150-450 [facility] Comment on above: Performed By: #### C BCAD #### [address] [address] Ph. [phone] RBC (Bld) [#/Vol] 4.8 10*6/uL Normal 4.20-5.40 [facility] Comment on above: Performed By: #### C BCAD #### [address] [address] Ph. [phone] WBC (Bld) [#/Vol] 6.8 10*3/uL Normal 3.7-11.0 [facility] Comment on above: Performed By: #### C BCAD #### [address] [address] Ph. [phone] Consent for Treatmenton 12 Consent for Treatment [id number] #1.00TIFF Normal [facility] Consultation Noteon 09-13-20 Consultation Note Patient: NAYE GUZMÁN Age: 53 years Sex: Female : [...] day(s), # 60 cap(s), Refills(s) 2, Pharmacy: [facility] #[id number], 180.3, cm, 07/04/23 8:41:00 EDT, Height/Length Dosing, 69, kg, 07/04/23 14:13:00 EDT, Weight Dosing pregabalin 225 mg oral capsule: 225 mg = 1 cap(s), Oral, BID, # 60 cap(s), Refills(s) 1, Pharmacy: [facility], 180, cm, 09/13/23 12:45:00 EST, Height/Length Dosing, 67.1, kg, 12/08/23 12:45:00 EST, Weight Dosing Documented Medications Documented [...] Degenerative disc disease, lumbar / SNOMED CT 90524244 / Confirmed COPD (chronic obstructive pulmonary disease) / SNOMED CT 04514439 / Confirmed Depression / SNOMED CT 1953652979 / Confirmed Radiculopathy of lumbosacral region / SNOMED CT 8614161 / Confirmed Fatigue / SNOMED CT 318034027 / Confirmed Smoker / SNOMED CT 870818298 / Confirmed Added secondary to documentation in [...] and EHL 5 -/5 Integumentary: Warm, Dry, [employer]. Neurologic: Alert, Oriented. Psychiatric: Cooperative, Appropriate mood [...] injection for (more content not included)... Normal [facility] Comment on above: Result Comment: Elec tronically Signed By: Mabel Berumen PA-C\.br\Date and Time Signed: 09/13/23 12:54 EST\.br\Electronically Co-Signed By: Devon Garcia DO.br\Date and Time Co-Signed: 09/19/23 21:42 EST Office/Clinic Note-Physician on 09-13-2023 Office/Clinic Note-Physician [id number] 8#1.00TIFF [facility] Patient Correspondenceon Patient Correspondence [id number] 3#1.00TIFF Normal [facility] Patient Correspondence [id number] 3#1.00TIFF Normal [facility] Patient History Officeon Patient History Office [id number] 8#1.00TIFF Normal [facility] Troponin Ion 09-13-2023 TNI <0.012 Normal 0.000-0.034 [facility] Comment on above: Result Comment: Limi t of Detection: <0.012 ng/mL\X0D0A\At Risk of Myocardial Damage: 0.012-0.034 ng/mL\X0D0A\Probable Myocardial Damage: >0.034 ng/mL Performed By: #### B MPWR, TNI #### [address] [phone] Consent for Procedure/Surger yon 08-21-2023 Consent for Procedure/Surgery [id number] 1#1.00TIFF Normal [facility] Consent for Treatmenton 08-07 Consent for Treatment [id number] 9#1.00TIFF Normal [facility] Discharge Instructionson Discharge Instructions [id number] 6#1.00TIFF Normal [facility] IntraOperative Documentson 10-21-2022 IntraOperative Documents [id number] 6#1.00TIFF Normal [facility] Main OR Intraoperative Recor don 08-21-2023 Main OR Intraoperative Record IntraOp Document Type FTPM Summary Primary Physician: Devon Garcia DO Finalized Date/Time: 08/21/23 15:54:17 Pt. Name: NAYE GUZMÁN/Sex: 1970 Female Med Rec #: [id number] Physician: Devon Garcia DO Financial #: [id number] Pt. Type: P Room/Bed: / Admit/Disch: 08/21/23 [...] Yuki Lindsay Role Performed Surgeon - Primary Coke Burner - Primary Scrub - Primary Time In 08/21/23 15:47:00 08/21/23 15:47:00 08/21/23 15:47:00 Time Out 08/21/23 15:55:00 08/21/23 15:55:00 08/21/23 15:55:00 Procedure CAUDAL EPIDURAL STEROID CAUDAL EPIDURAL STEROID CAUDAL EPIDURAL STEROID INJECTION(.) INJECTION(.) INJECTION(.) Comments Last Modified By: Jean-Claude BRANTLEY, Paradise Bermeo RN, Paradise Quesada RN 08/21/23 15:54:13 08/21/23 15:54:13 08/21/23 15:54:13 Entry 4 Case Attendee Domenica Welch Role Performed Power Barker Operator Time In 08/21/23 15:47:00 Time Out 08/21/23 [...] Mazariegos RN, Yuki Lindsay, Devon Garcia DO, Ott, Amy Time Out Complete 08/21/23 15:47:00 Outcomes Met? [...] and tissue Entry 1 Skin Integrity Intact, [employer], Warm, and Skin Abnormality No Dry Outcomes [...] RN 08/07 (more content not included)... Normal [facility] Main OR Preoperative Recordo n 08-21-2023 Main OR Preoperative Record Holding Area Document Type FTPM Summary Primary Physician: Devon Garcia DO Finalized Date/Time: 08/21/23 14:45:55 Pt. Name: NAYE GUZMÁN /Sex: 1970 Female Med Rec #: [id number] Physician: Devon Garcia DO Financial #: [id number] Pt. Type: P Room/Bed: / Admit/Disch: 08/21/23 [...] By: Carla Mena RN 08/21/23 14:45 Normal [facility] Patient Correspondenceon Patient Correspondence [id number] 8#1.00TIFF [facility] Insurance Correspondence Off iceon 07-24-2023 Insurance Correspondence Office [id number] #2.00TIFF [facility] Consent for Treatmenton 06-08 Consent for Treatment [id number] 0#1.00CD:127 Normal [facility] Consultation Noteon 07-04-20 Consultation Note Patient: NAYE GUZMÁN Age: 53 years Sex: Female : [...] been selected or recorded. Procedure history: None ([id number]). History of lumbar spine surgery ([id number]). Comments: 07/04/2023 13:54 ELOISA - Jean-Claude BRANTLEY, Paradise Harry 2011 Dr. Haque Social History Social & Psychosocial [...] (JUL 04 08:23) SBP 126 mmHg (JUL 04 08:23) DBP H 90mmHg (JUL 04:) Weight 68.95 kg (JUL 04:) BMI 21.2 (JUL 04 08:) General: No acute distress. Patient appears well-nourished. [...] and pa (more content not included)... Normal [facility] Comment on above: Result Comment: Elec tronically Signed By: Devon Garcia DO.br\Date and Time Signed: 07/04/23 14:59 EDT HIPAA Forms Officeon 023 HIPAA Forms Office [id number] #1.00CD:127 Normal [facility] Legal Correspondence Officeo n 07-04-2023 Legal Correspondence Office [id number] #1.00CD:127 Normal [facility] Legal Correspondence Office [id number] #1.00CD:127 Normal [facility] Office/Clinic Note-Physician on 07-04-2023 Office/Clinic Note-Physician [id number] #1.00CD:127 Normal [facility] Patient Correspondenceon Patient Correspondence [id number] #1.00CD:127 Normal [facility] Patient Correspondence [id number] #1.00CD:127 Normal [facility] Patient Correspondence [id number] #1.00CD:127 Normal [facility] Patient Correspondence [id number] #1.00CD:127 Normal [facility] Patient Correspondence [id number] #1.00CD:127 Normal [facility] Patient Correspondence [id number] #1.00CD:127 Normal [facility] Patient History Officeon Patient History Office [id number] #1.00CD:127 Normal [facility] Radiology Outside Office Order Picker yon 07-04-2023 Radiology Outside Office Copy [id number] 0#1.00CD:127 Normal [facility] Outside Records Officeon Outside Records Office [id number] 9#1.00CD:127 Normal [facility] Referrals Officeon 3 Referrals Office [id number] 1#1.00CD:127 Normal [facility] XR knee LT 4V*on 03-13-2023 XR knee LT 4V* [facility] Main [place] [address] [place] [address] XRay Report Signed Patient: Naye Guzmán MR#: [id number] 3 : 1970 Acct:[id number] Age/Sex: 52 / F ADM Date: 03/13/23 Loc: [facility] Room: Type: [facility] Attending Dr: Elieser Rowe II, MD Copies to: Elieser Rowe MD Ordering Provider: Elieser Rowe MD Date of Service: 03/13/23 XR/XR knee LT 4V*: Acute pain of left knee ([id number]) XR/XR pelvis 1-2V: Acute pain of left [...] Nettie Anaya M.D.03/13/2023 5:40 PM Dictation Location: [place] [address] Transcribed By: [facility] 03/13/23 2810 Dictated By: Nettie Anaya MD 03/13/23 1735 Signed By: 03/13/23 1740 Normal [place] XR knee LT 4V* [facility] [employer] Other XR knee LT 4V* [facility] Main [facility] [employer] Other XR knee LT 4V* [address] [place] [address] [employer] Other XR knee LT 4V* [place] [address] No rt [employer] Other XR knee LT 4V* XRay Report [employer] Other XR knee LT 4V* Signed [employer] Other XR knee LT 4V* Patient: Naye Guzmán MR#: [id number] [employer] Other XR knee LT 4V* 3 [employer] Other XR knee LT 4V* : 1970 Acct:[id number] [employer] Other XR knee LT 4V* Age/Sex: 52 / F ADM Date: 03/13/23 [employer] Other XR knee LT 4V* Loc: [facility] Room: Type: [facility] [employer] Other XR knee LT 4V* Attending Dr: Elieser Rowe II, MD [employer] Other XR knee LT 4V* Copies to: Elieser Rowe MD [employer] Other XR knee LT 4V* Ordering Provider: Elieser Rowe MD [employer] Other XR knee LT 4V* Date of Service: 03/13/23 [employer] Other XR knee LT 4V* XR/XR knee LT 4V*: Acute pain of left knee [employer] Other XR knee LT 4V* ([id number]) XR/XR pelvis 1-2V: Acute pain of left knee [employer] Other XR knee LT 4V* CLINICAL DATA: Generalized left knee pain. No injury. [employer] Other XR knee LT 4V* AP WEIGHTBEARING PELVIS [facility] [employer] Other XR knee LT 4V* COMPARISON: None [place] [employer] Other XR knee LT 4V* There is subtle deformity at the right pubic rami right could relate to old fracture. No acute [employer] Other XR knee LT 4V* fracture, dislocation or bony destruction is seen. The hip joint spaces are symmetric. There is no [employer] Other XR knee LT 4V* significant arthritic change. The SI joints are intact. There are no soft tissue abnormalities. [employer] Other XR knee LT 4V* XR/XR pelvis 1-2V [employer] Other XR knee LT 4V* IMPRESSION: [employer] [facility] [employer] Other XR knee LT 4V* NO DEFINITE ACUTE BONY FINDINGS. [employer] Other XR knee LT 4V* LEFT KNEE - 4 views N [facility] [employer] Other XR knee LT 4V* COMPARISON: 02/11/2014 [employer] Other XR knee LT 4V* Standing AP, lateral, skiers and patellar views were obtained. There is no acute fracture or [employer] Other XR knee LT 4V* dislocation. No patellar subluxation is seen. There is minimal narrowing of the tibiofemoral joint [employer] Other XR knee LT 4V* compartments. There is minor marginal spurring. A tiny enthesophyte is seen at the insertion of [employer] Other XR knee LT 4V* the quadriceps tendon. There is a small knee effusion. No focal soft tissue swelling is noted. [employer] Other XR knee LT 4V* MILD DEGENERATIVE CHANGE. [employer] Other XR knee LT 4V* Impression dictated by: Nettie Anaya M.D.03/13/2023 5:40 PM [employer] Other XR knee LT 4V* Dictation Location: RADIO-PC-14 [employer] Other XR knee LT 4V* Transcribed By: PWS 03/13/23 1740 [employer] Other XR knee LT 4V* Dictated By: Nettie Anaya MD 03/13/23 1735 [employer] Other XR knee LT 4V* Signed By: [employer] Other XR knee LT 4V* 03/13/23 1740 [employer] Other BNPon 01-17-2023 Natriuretic peptide B (Bld) [Mass/Vol] 27.0 pg/mL Normal <=900.0 [facility] Comment on above: Performed By: #### B MANA[address], HSTROPN #### [facility] [address] [place] [address] Dr. Paige Ovalle CBC AUTO DIFFon 01-17-2023 BASO # 0.1 103/ul Normal 0.0-0.1 [facility] Comment on above: Performed By: #### V ITAD, VITB12 #### [facility] [address] [place] [address] [address] Paige Ovalle Basophils/100 WBC (Bld) 0.8 % Normal 0.2-2.0 [facility] Comment on above: Performed By: #### V ITAD, VITB12 #### [facility] [address] [place] [address] Dr. Paige Ovalle EO # 0.4 103/ul Normal 0.0-0.7 [facility] Comment on above: Performed By: #### V ITAD, VITB12 #### [facility] [address] [place] [address] Dr. Paige Ovalle Eosinophils/100 WBC (Bld) 3.8 % Normal 0.9-7.0 [facility] Comment on above: Performed By: #### V ITAD, VITB12 #### [facility] [address] [place] [address] Dr. Paige Ovalle Erythrocyte distribution width (RBC) [Ratio] 13.5 % Normal 11.0-15.0 [facility] Comment on above: Performed By: #### V ITAD, VITB12 #### [facility] [address] [place] [address] Dr. Paige Ovalle Hematocrit (Bld) [Volume fraction] 39.4 % Normal 36.0-48.0 [facility] Comment on above: Performed By: #### V ITAD, VITB12 #### [facility] [address] [place] [address] Dr. Paige Ovalle Hemoglobin (Bld) [Mass/Vol] 13.3 g/dL Normal 12.0-16.0 [facility] Comment on above: Performed By: #### V ITAD, VITB12 #### [facility] [address] [place] [address] Dr. Paige Ovalle IG # 0.05 10e3/ul Critically high 0.00-0.03 [facility] Comment on above: Performed By: #### V ITAD, VITB12 #### [facility] [address] [place] [address] Dr. Paige Ovalle IG % 0.5 % Normal 0.0-0.5 [facility] Comment on above: Performed By: #### V ITAD, VITB12 #### [facility] [address] [place] [address] Dr. Paige Ovalle LYMPH # 3.9 103/ul Critically high 1.2-3.8 [facility] Comment on above: Performed By: #### V ITAD, VITB12 #### [facility] [address] [place] [address] Dr. Paige Ovalle Lymphocytes/100 WBC (Bld) 38.7 % Normal 20.5-60.0 [facility] Comment on above: Performed By: #### V ITAD, VITB12 #### [facility] [address] [place] [address] Dr. Paige Ovalle MANUAL DIFF REQ NO Normal [facility] Comment on above: Performed By: #### V ITAD, VITB12 #### [facility] [address] [place] [address] Dr. Paige Ovalle MCH (RBC) [Entitic mass] 29.9 pg Normal 26.7-34.0 [facility] Comment on above: Performed By: #### V ITAD, VITB12 #### [facility] [address] [place] [address] Dr. Paige Ovalle MCHC (RBC) [Mass/Vol] 33.8 g/dL Normal 29.9-35.2 [facility] Comment on above: Performed By: #### V ITAD, VITB12 #### [facility] [address] [place] [address] Dr. Paige Ovalle MCV (RBC) [Entitic vol] 88.5 fL Normal 81.0-99.0 [facility] Comment on above: Performed By: #### V ITAD, VITB12 #### [facility] [address] [place] [address] Dr. Paige Ovalle MONO # 0.7 103/ul Normal 0.3-0.8 [facility] Comment on above: Performed By: #### V ITAD, VITB12 #### [facility] [address] [place] [address] Dr. Paige Ovalle Monocytes/100 WBC (Bld) 6.8 % Normal 1.7-12.0 [facility] Comment on above: Performed By: #### V ITAD, VITB12 #### [facility] [address] [place] [address] Dr. Paige Ovalle NEUT # 4.9 103/ul Normal 1.4-6.5 [facility] Comment on above: Performed By: #### V ITAD, VITB12 #### [facility] [address] [place] [address] Dr. Paige Ovalle Neutrophils/100 WBC (Bld) 49.4 % Normal 43.0-75.0 [facility] Comment on above: Performed By: #### V ITAD, VITB12 #### [facility] [address] [place] [address] Dr. Paige Ovalle Platelet mean volume (Bld) [Entitic vol] 9.1 fL Critically low 9.5-13.5 [facility] Comment on above: Performed By: #### V ITAD, VITB12 #### [facility] [address] [place] [address] Dr. Paige Ovalle PLT 298 103/ul Normal 150-450 [facility] Comment on above: Performed By: #### V ITAD, VITB12 #### [facility] [address] [place] [address] Dr. Paige Ovalle RBC 4.45 106/ul Normal 4.20-5.40 [facility] Comment on above: Performed By: #### V ITAD, VITB12 #### [facility] [address] [place] [address] Dr. Paige Ovalle WBC 10.0 103/ul Normal 4.0-11.0 [facility] Comment on above: Performed By: #### V ITAD, VITB12 #### [facility] [address] [place] [address] Dr. Paige Ovalle TROPONIN, HIGH SENSITIVITYon 01-17-2023 HSTROP 5.3 pg/mL Normal 4.0-51.3 [facility] Comment on above: Result Comment: CUT- OFF POINTS HAVE BEEN ESTABLISHED BASED ON THE FOURTH UNIVERSAL DEFINITIONS OF MYOCARDIAL INFARCTION. THE UPPER REFERENCE LIMIT (URL) OF TROPONIN, DEFINED THE 99TH PERCENTILE OF cTnI DISTRIBUTION IN A REFERENCE POPULATION, HAS BEEN CONFIRMED THE DECISION THRESHOLD FOR NM DIAGNOSIS. Performed By: #### B MANA[address], HSTROPN #### [facility] [address] [place] [address] Dr. Paige Ovalle XR pre/post mri xrayon 12-02 XR pre/post mri xray [facility] [place] [address] [place], [place] [id number] MRI Report Signed Patient: Naye Guzmán MR#: [id number] 3 : 1970 Acct:[id number] Age/Sex: 52 / F ADM Date: 12/01/22 Loc: MR Room: [facility] Attending Dr: Antonina Guidry PA-C Copies to: Antonina Guidry PA-C Ordering Provider: Antonina Guidry PA-C Date of Service: 12/01/22 MR/MR lumbar spine wo con: M54.17 ([id number]) XR/XR pre/post mri xray: M54.17 MR lumbar [...] Néstor Gerard M.D.12/02/2022 8:03 AM Dictation Location: [place] [address] Transcribed By: [facility] 12/02/22802 Dictated By: Néstor Gerard II, MD 12/02/22726 Signed By: 12/02/22 08 [facility] SEROTONINon 11-29-2022 Serotonin, Serum 6 ng/mL Critically low 31-207 [facility] Comment on above: Performed By: #### V ITTAMARA, VITB12 #### [facility] [address] [place] [address] Dr. Paige Ovalle SEROTONINon 11-19-2022 SEROTONIN 6 ng/mL Critically low 31-207 ng/mL [employer] Other SEROTONIN see note Syncurity Other CBC AUTO DIFFon 11-10-2022 BASO # 0.1 103/ul Normal 0.0-0.1 [facility] Comment on above: Performed By: #### C BC #### [facility] [address] [place] [address] Dr. Paige Ovalle Basophils/100 WBC (Bld) 0.5 % Normal 0.2-2.0 [facility] Comment on above: Performed By: #### C BC #### [facility] [address] [place] [address] Dr. Paige Ovalle EO # 0.1 103/ul Normal 0.0-0.7 [facility] Comment on above: Performed By: #### C BC #### [facility] [address] [place] [address] Dr. Paige Ovalle Eosinophils/100 WBC (Bld) 1.5 % Normal 0.9-7.0 [facility] Comment on above: Performed By: #### C BC #### [facility] [address] [place] [address] Dr. Piage Ovalle Erythrocyte distribution width (RBC) [Ratio] 13.2 % Normal 11.0-15.0 [facility] Comment on above: Performed By: #### C BC #### [facility] [address] [place] [address] Dr. Paige Ovalle Hematocrit (Bld) [Volume fraction] 43.1 % Normal 36.0-48.0 [facility] Comment on above: Performed By: #### C BC #### [facility] [address] [place] [address] Dr. Paige Ovalle Hemoglobin (Bld) [Mass/Vol] 14.0 g/dL Normal 12.0-16.0 [facility] Comment on above: Performed By: #### C BC #### [facility] [address] [place] [address] Dr. Paige Ovalle IG # 0.02 10e3/ul Normal 0.00-0.03 [facility] Comment on above: Performed By: #### C BC #### [facility] [address] [place] [address] Dr. Paige Ovalle IG % 0.2 % Normal 0.0-0.5 [facility] Comment on above: Performed By: #### C BC #### [facility] [address] [place] [address] Dr. Paige Ovalle LYMPH # 2.8 103/ul Normal 1.2-3.8 [facility] Comment on above: Performed By: #### C BC #### [facility] [address] [place] [address] Dr. Paige Ovalle Lymphocytes/100 WBC (Bld) 30.2 % Normal 20.5-60.0 [facility] Comment on above: Performed By: #### C BC #### [facility] [address] [place] [address] Dr. Paige Ovalle MANUAL DIFF REQ NO Normal [facility] Comment on above: Performed By: #### C BC #### [facility] [address] [place] [address] Dr. Paige Ovalle MCH (RBC) [Entitic mass] 30.8 pg Normal 26.7-34.0 [facility] Comment on above: Performed By: #### C BC #### [facility] [address] [place] [address] Dr. Paige Ovalle MCHC (RBC) [Mass/Vol] 32.5 g/dL Normal 29.9-35.2 [facility] Comment on above: Performed By: #### C BC #### [facility] [address] [place] [address] Dr. Paige Ovalle MCV (RBC) [Entitic vol] 94.7 fL Normal 81.0-99.0 [facility] Comment on above: Performed By: #### C BC #### [facility] [address] [place] [address] Dr. Paige Ovalle MONO # 0.6 103/ul Normal 0.3-0.8 [facility] Comment on above: Performed By: #### C BC #### [facility] [address] [place] [address] Dr. Paige Ovalle Monocytes/100 WBC (Bld) 5.9 % Normal 1.7-12.0 [facility] Comment on above: Performed By: #### C BC #### [facility] [address] [place] [address] Dr. Paige Ovalle NEUT # 5.7 103/ul Normal 1.4-6.5 [facility] Comment on above: Performed By: #### C BC #### [facility] [address] [place] [address] Dr. Paige Ovalle Neutrophils/100 WBC (Bld) 61.7 % Normal 43.0-75.0 [facility] Comment on above: Performed By: #### C BC #### [facility] [address] [place] [address] Dr. Paige Ovalle Platelet mean volume (Bld) [Entitic vol] 9.3 fL Critically low 9.5-13.5 [facility] Comment on above: Performed By: #### C BC #### [facility] [address] [place] [address] Dr. Paige Ovalle PLT 275 103/ul Normal 150-450 [facility] Comment on above: Performed By: #### C BC #### [facility] [address] [place] [address] Dr. Paige Ovalle RBC 4.55 106/ul Normal 4.20-5.40 [facility] Comment on above: Performed By: #### C BC #### [facility] [address] [place] [address] Dr. Paige Ovalle WBC 9.3 103/ul Normal 4.0-11.0 [facility] Comment on above: Performed By: #### C BC #### [facility] [address] [place] [address] Dr. Paige Ovalle Covid-19 PCR ([facility])on SARS-CoV-2 (COVID-19) RNA MUNDO+probe Ql (Unsp spec) Not detected Normal NOT DETECTED [facility] Comment on above: Result Comment: When [...] for this test is supported by the [employer] of Health and Human Service's declaration that [...] longer be used). Performed By: #### V EFRA VITB12 #### [facility] [address] [place] [address] Dr. Paige Ovalle PROF CHEM 8 (BAS METB)on Anion gap [Moles/Vol] 10.9 mmol/L Normal [facility] Comment on above: Performed By: #### B MP #### [facility] [address] [place] [address] Dr. Paige Ovalle Calcium [Mass/Vol] 9.5 mg/dL Normal 8.5-10.1 [facility] Comment on above: Performed By: #### B MP #### [facility] [address] [place] [address] Dr. Paige Ovalle Chloride [Moles/Vol] 99 mmol/L Normal 98-107 [facility] Comment on above: Performed By: #### B MP #### [facility] [address] [place] [address] Dr. Paige Ovalle CO2 [Moles/Vol] 29.7 mmol/L Normal 21.0-32.0 [facility] Comment on above: Performed By: #### B MP #### [facility] [address] [place] [address] Dr. Paige Ovalle Creatinine [Mass/Vol] 0.76 mg/dL Normal 0.55-1.02 [facility] Comment on above: Performed By: #### B MP #### [facility] [address] [place] [address] Dr. Paige Ovalle EGFR-AF BRUNEIAN >60 Normal >=60 [facility] Comment on above: Performed By: #### B MP #### [facility] [address] [place] [address] Dr. Paige Ovalle EGFR-NON AF BRUNEIAN >60 Normal >=60 [facility] Comment on above: Performed By: #### B MP #### [facility] [address] [place] [address] [address] Paige Ovalle Glucose [Mass/Vol] 130 mg/dL Critically high 74-106 [facility] Comment on above: Performed By: #### B MP #### [facility] [address] [address] [address] Paige Ovalle Potassium [Moles/Vol] 3.6 mmol/L Normal 3.5-5.1 [facility] Comment on above: Performed By: #### B MP #### [facility] [address] [place] [address] [address] Paige Ovalle Sodium [Moles/Vol] 136 mmol/L Normal 136-145 [facility] Comment on above: Performed By: #### B MP #### [facility] [address] [place] [address] [address] Paige Ovalle Urea nitrogen [Mass/Vol] 8.0 mg/dL Normal 7.0-18.0 [facility] Comment on above: Performed By: #### B MP #### [facility] [address] [place] [address] Dr. Paige Ovalle Urea nitrogen/Creatinine [Mass ratio] 10.5 mg/mg Normal [facility] Comment on above: Performed By: #### B MP #### [facility] [address] [place] [address] Dr. Paige Ovalle CALCIUM IONIZEDon 10-17-2022 Calcium, Ionized, Serum 5.5 mg/dL Normal 4.5-5.6 [facility] Comment on above: Performed By: #### C AIONZ #### [facility] [address] [place] [address] Dr. Paige Ovalle PTH INTACTon 10-17-2022 PTH, Intact 18 pg/mL Normal 15-65 [facility] Comment on above: Performed By: #### V ITAD, VITB12 #### [facility] [address] [place] [address] Dr. Paige Ovalle CBC AUTO DIFFon 10-16-2022 BASO # 0.1 103/ul Normal 0.0-0.1 [facility] Comment on above: Performed By: #### C BC #### [facility] [address] [place] [address] Dr. Paige Ovalle Basophils/100 WBC (Bld) 0.7 % Normal 0.2-2.0 [facility] Comment on above: Performed By: #### C BC #### [facility] [address] [place] [address] Dr. Paige Ovalle EO # 0.2 103/ul Normal 0.0-0.7 [facility] Comment on above: Performed By: #### C BC #### [facility] [address] [place] [address] Dr. Paige Ovalle Eosinophils/100 WBC (Bld) 2.8 % Normal 0.9-7.0 [facility] Comment on above: Performed By: #### C BC #### [facility] [address] [place] [address] Dr. Paige Ovalle Erythrocyte distribution width (RBC) [Ratio] 13.9 % Normal 11.0-15.0 [facility] Comment on above: Performed By: #### C BC #### [facility] [address] [place] [address] Dr. Paige Ovalle Hematocrit (Bld) [Volume fraction] 41.5 % Normal 36.0-48.0 [facility] Comment on above: Performed By: #### C BC #### [facility] [address] [place] [address] Dr. Paige Ovalle Hemoglobin (Bld) [Mass/Vol] 14.4 g/dL Normal 12.0-16.0 [facility] Comment on above: Performed By: #### C BC #### [facility] [address] [place] [address] Dr. Paige Ovalle IG # 0.03 10e3/ul Normal 0.00-0.03 [facility] Comment on above: Performed By: #### C BC #### [facility] [address] [place] [address] Dr. Paige Ovalle IG % 0.4 % Normal 0.0-0.5 [facility] Comment on above: Performed By: #### C BC #### [facility] [address] [place] [address] Dr. Paige Ovalle LYMPH # 2.4 103/ul Normal 1.2-3.8 [facility] Comment on above: Performed By: #### C BC #### [facility] [address] [place] [address] Dr. Paige Ovalle Lymphocytes/100 WBC (Bld) 32.9 % Normal 20.5-60.0 [facility] Comment on above: Performed By: #### C BC #### [facility] [address] [place] [address] Dr. Paige Ovalle MANUAL DIFF REQ NO Normal [facility] Comment on above: Performed By: #### C BC #### [facility] [address] [place] [address] Dr. Paige Ovalle MCH (RBC) [Entitic mass] 30.7 pg Normal 26.7-34.0 [facility] Comment on above: Performed By: #### C BC #### [facility] [address] [place] [address] Dr. Paige Ovalle MCHC (RBC) [Mass/Vol] 34.7 g/dL Normal 29.9-35.2 [facility] Comment on above: Performed By: #### C BC #### [facility] [address] [place] [address] Dr. Paige Ovalle MCV (RBC) [Entitic vol] 88.5 fL Normal 81.0-99.0 [facility] Comment on above: Performed By: #### C BC #### [facility] [address] [place] [address] Dr. Paige Ovalle MONO # 0.5 103/ul Normal 0.3-0.8 [facility] Comment on above: Performed By: #### C BC #### [facility] [address] [place] [address] Dr. Paige Ovalle Monocytes/100 WBC (Bld) 7.2 % Normal 1.7-12.0 [facility] Comment on above: Performed By: #### C BC #### [facility] [address] [place] [address] Dr. Paige Ovalle NEUT # 4.1 103/ul Normal 1.4-6.5 [facility] Comment on above: Performed By: #### C BC #### [facility] [address] [place] [address] Dr. Paige Ovalle Neutrophils/100 WBC (Bld) 56.0 % Normal 43.0-75.0 [facility] Comment on above: Performed By: #### C BC #### [facility] [address] [place] [address] Dr. Paige Ovalle Platelet mean volume (Bld) [Entitic vol] 9.0 fL Critically low 9.5-13.5 [facility] Comment on above: Performed By: #### C BC #### [facility] [address] [place] [address] Dr. Paige Ovalle PLT 331 103/ul Normal 150-450 [facility] Comment on above: Performed By: #### C BC #### [facility] [address] [place] [address] Dr. Paige Ovalle RBC 4.69 106/ul Normal 4.20-5.40 [facility] Comment on above: Performed By: #### C BC #### [facility] [address] [place] [address] Dr. Paige Ovalle WBC 7.3 103/ul Normal 4.0-11.0 [facility] Comment on above: Performed By: #### C BC #### [facility] [address] [place] [address] Dr. Paige Ovalle PHOSPHORUSon 10-16-2022 Phosphate [Mass/Vol] 4.2 mg/dL Normal 2.6-4.7 [facility] Comment on above: Performed By: #### V ITAD, VITB12 #### [facility] [address] [place] [address] Dr. Paige Ovalle CBC AUTO DIFFon 09-13-2022 BASO # 0.1 103/ul Normal 0.0-0.1 [facility] Comment on above: Performed By: #### C BC #### [facility] [address] [address] [address] Paige Ovalle Basophils/100 WBC (Bld) 0.5 % Normal 0.2-2.0 [facility] Comment on above: Performed By: #### C BC #### [facility] [address] [address] [address] Paige Ovalle EO # 0.2 103/ul Normal 0.0-0.7 [facility] Comment on above: Performed By: #### C BC #### [facility] [address] [place] [address] Dr. Paige Ovalle Eosinophils/100 WBC (Bld) 1.7 % Normal 0.9-7.0 [facility] Comment on above: Performed By: #### C BC #### [facility] [address] [place] [address] Dr. Paige Ovalle Erythrocyte distribution width (RBC) [Ratio] 13.3 % Normal 11.0-15.0 [facility] Comment on above: Performed By: #### C BC #### [facility] [address] [place] [address] Dr. Paige Ovalle Hematocrit (Bld) [Volume fraction] 43.9 % Normal 36.0-48.0 [facility] Comment on above: Performed By: #### C BC #### [facility] [address] [place] [address] Dr. Paige Ovalle Hemoglobin (Bld) [Mass/Vol] 14.9 g/dL Normal 12.0-16.0 [facility] Comment on above: Performed By: #### C BC #### [facility] [address] [place] [address] Dr. Paige Ovalle IG # 0.05 10e3/ul Critically high 0.00-0.03 [facility] Comment on above: Performed By: #### C BC #### [facility] [address] [place] [address] Dr. Paige Ovalle IG % 0.4 % Normal 0.0-0.5 [facility] Comment on above: Performed By: #### C BC #### [facility] [address] [place] [address] Dr. Paige Ovalle LYMPH # 3.2 103/ul Normal 1.2-3.8 [facility] Comment on above: Performed By: #### C BC #### [facility] [address] [place] [address] Dr. Paige Ovalle Lymphocytes/100 WBC (Bld) 27.5 % Normal 20.5-60.0 [facility] Comment on above: Performed By: #### C BC #### [facility] [address] [place] [address] Dr. Paige Ovalle MANUAL DIFF REQ NO Normal [facility] Comment on above: Performed By: #### C BC #### [facility] [address] [place] [address] Dr. Paige Ovalle MCH (RBC) [Entitic mass] 30.9 pg Normal 26.7-34.0 [facility] Comment on above: Performed By: #### C BC #### [facility] [address] [place] [address] Dr. Paige Ovalle MCHC (RBC) [Mass/Vol] 33.9 g/dL Normal 29.9-35.2 [facility] Comment on above: Performed By: #### C BC #### [facility] [address] [place] [address] Dr. Paige Ovalle MCV (RBC) [Entitic vol] 91.1 fL Normal 81.0-99.0 [facility] Comment on above: Performed By: #### C BC #### [facility] [address] [place] [address] Dr. Paige Ovalle MONO # 0.7 103/ul Normal 0.3-0.8 [facility] Comment on above: Performed By: #### C BC #### [facility] [address] [place] [address] Dr. Paige Ovalle Monocytes/100 WBC (Bld) 5.9 % Normal 1.7-12.0 [facility] Comment on above: Performed By: #### C BC #### [facility] [address] [place] [address] Dr. Paige Ovalle NEUT # 7.3 103/ul Critically high 1.4-6.[address] [facility] Comment on above: Performed By: #### C BC #### [facility] [address] [place] [address] Dr. Paige Ovalle Neutrophils/100 WBC (Bld) 64.0 % Normal 43.0-75.0 [facility] Comment on above: Performed By: #### C BC #### [facility] [address] [place] [address] Dr. Paige Ovalle Platelet mean volume (Bld) [Entitic vol] 8.8 fL Critically low 9.5-13.5 [facility] Comment on above: Performed By: #### C BC #### [facility] [address] [place] [address] Dr. Paige Ovalle PLT 433 103/ul Normal 150-450 [facility] Comment on above: Performed By: #### C BC #### [facility] [address] [place] [address] Dr. Paige Ovalle RBC 4.82 106/ul Normal 4.20-5.40 [facility] Comment on above: Performed By: #### C BC #### [facility] [address] [place] [address] Dr. Paige Ovalle WBC 11.4 103/ul Critically high 4.0-11.0 [facility] Comment on above: Performed By: #### C BC #### [facility] [address] [place] [address] Dr. Paige Ovalle MG MAMM DX 3D LT CADon 09-13 MG MAMM DX 3D LT CAD Patient: NAYE GUZMÁN Exam Date: 09/13/2022 : 1970 Gender:F Ordering : DR PAULINE ROMERO Admission #: [id number] Family : Order #: [id number] CLICK HERE TO VIEW EXAM RADIOLOGY REPORT [...] No Treatments None Family Cancers None LOCATION: [facility] BREAST COMPOSITION: Heterogeneously dense,which may obscure [...] Huynh M.D. on 09/13/2022 at 10:53 Normal [facility] PROF 14(COMP METB)on 022 Albumin [Mass/Vol] 4.2 g/dL Normal 3.4-5.0 [facility] Comment on above: Performed By: #### V EFRA, VITB12 #### [facility] [address] [place] [address] Dr. Paige Ovalle Albumin/Globulin [Mass ratio] 1.2 {ratio} Normal [facility] Comment on above: Performed By: #### V EFRA, VITB12 #### [facility] [address] [address] [address] Paige Ovalle ALP [Catalytic activity/Vol] 83 U/L Normal 46-116 [facility] Comment on above: Performed By: #### V ITTAMARA, VITB12 #### [facility] [address] [address] [address] Paige Ovalle ALT [Catalytic activity/Vol] 45 U/L Normal 14-59 [facility] Comment on above: Performed By: #### V ITTAMARA, VITB12 #### [facility] [address] [address] [address] Paige Ovalle Anion gap [Moles/Vol] 10.0 mmol/L Normal [facility] Comment on above: Performed By: #### V ITAD, VITB12 #### [facility] [address] [address] [address] Paige Ovalle AST [Catalytic activity/Vol] 42 U/L Critically high 15-37 [facility] [facility] Comment on above: Performed By: #### V ITAD, VITB12 #### [facility] [address] [address] [address] Paige Ovalle Bilirubin [Mass/Vol] 0.2 mg/dL Normal 0.2-1.0 [facility] Comment on above: Performed By: #### V ITAD, VITB12 #### [facility] [address] [address] [address] Paige Ovalle Calcium [Mass/Vol] 10.2 mg/dL Critically high 8.5-10.1 [facility] Comment on above: Performed By: #### V ITAD, VITB12 #### [facility] [address] [address] [address] Paige Ovalle Chloride [Moles/Vol] 97 mmol/L Critically low 98-107 [facility] Comment on above: Performed By: #### V ITAD, VITB12 #### [facility] [address] [address] [address] Paige Ovalle CO2 [Moles/Vol] 34.0 mmol/L Critically high 21.0-32.0 [facility] Comment on above: Performed By: #### V ITAD, VITB12 #### [facility] [address] [address] [address] Paige Ovalle Creatinine [Mass/Vol] 0.62 mg/dL Normal 0.55-1.02 [facility] Comment on above: Performed By: #### V ITAD, VITB12 #### [facility] [address] [address] [address] Paige Ovalle EGFR-AF BRUNEIAN >60 Normal >=60 [facility] Comment on above: Performed By: #### V ITAD, VITB12 #### [facility] [address] [place] [address] Dr. Paige Ovalle EGFR-NON AF BRUNEIAN >60 Normal >=60 [facility] Comment on above: Performed By: #### V ITAD, VITB12 #### [facility] [address] [place] [address] Dr. Paige Ovalle Globulin (S) [Mass/Vol] 3.6 g/dL Normal [facility] Comment on above: Performed By: #### V ITAD, VITB12 #### [facility] [address] [place] [address] Dr. Paige Ovalle Glucose [Mass/Vol] 89 mg/dL Normal 74-106 [facility] Comment on above: Performed By: #### V ITAD, VITB12 #### [facility] [address] [place] [address] Dr. Paige Ovalle Potassium [Moles/Vol] 4.0 mmol/L Normal 3.5-5.1 [facility] Comment on above: Performed By: #### V ITAD, VITB12 #### [facility] [address] [place] [address] Dr. Paige Ovalle Protein [Mass/Vol] 7.8 g/dL Normal 6.4-8.2 [facility] Comment on above: Performed By: #### V ITAD, VITB12 #### [facility] [address] [place] [address] Dr. Paige Ovalle Sodium [Moles/Vol] 137 mmol/L Normal 136-145 [facility] Comment on above: Performed By: #### V ITAD, VITB12 #### [facility] [address] [place] [address] Dr. Paige Ovalle Urea nitrogen [Mass/Vol] 9.0 mg/dL Normal 7.0-18.0 [facility] Comment on above: Performed By: #### V ITAD, VITB12 #### [facility] [address] [place] [address] Dr. Paige Ovalle Urea nitrogen/Creatinine [Mass ratio] 14.5 mg/mg Normal [facility] Comment on above: Performed By: #### V ITAD, VITB12 #### [facility] [address] [place] [address] Dr. Paige Ovalle TSHon 09-13-2022 TSH 0.857 uIU/mL Normal 0.358-3.740 [facility] Comment on above: Performed By: #### V ITAD, VITB12 #### [facility] [address] [place] [address] Dr. Paige Ovalle VIT B12 AND FOLATEon 022 Cobalamin (Vitamin B12) [Mass/Vol] 779.0 pg/mL Normal 193.0-986.0 [facility] Comment on above: Performed By: #### V ITAD, VITB12 #### [facility] [address] [place] [address] Dr. Paige Ovalle FOLATE 27.10 ng/mL Normal 8.60-58.90 [facility] Comment on above: Performed By: #### V ITAD, VITB12 #### [facility] [address] [place] [address] Dr. Paige Ovalle VITAMIN D 25 OHon 09-13-2022 VIT D 25-OH 58.8 ng/mL Normal [facility] Comment on above: Performed By: #### V ITAD, VITB12 #### [facility] [address] [place] [address] Dr. Paige Ovalle VIT D RANGES SEE BELOW Normal [facility] Comment on above: Result Comment: <20 ng/mL Vit D deficient 20 - <30 ng/mL Vit D insufficient 30 - 100 ng/mL Vit D sufficient >100 ng/mL Potential Toxicity Performed By: #### V ITAD, VITB12 #### [facility] [address] [place] [address] Dr. Paige Ovalle XR ELBOW RT MIN [...] by: NETTIE MARTÍNEZ Date: 2022-06-10 13:00 Normal [facility] XR FOREARM RT 2Von 2 XR FOREARM RT 2V EXAM: XR WRIST RT MIN 3 V, XR FOREARM RT 2V, XR [...] WALTER RAMOS Date: 2022-06-10 12:02 Normal [facility] VIT B12 AND FOLATEon 022 Cobalamin (Vitamin B12) [Mass/Vol] 730.0 pg/mL Normal 193.0-986.0 [facility] Comment on above: Performed By: #### B 12FOL #### [facility] [address] [address] [address] Paige Ovalle FOLATE 21.80 ng/mL Normal 8.60-58.90 [facility] Comment on above: Performed By: #### B 12FOL #### [facility] [address] [address] [address] Paige Ovalle FOLATE ([facility])on 2 Folate >20.0 Normal >3.0 [facility] Comment on above: Result Comment: A se rum folate concentration of less than 3.1 ng/mL is considered to represent clinical deficiency. Performed By: #### V ITAD, VITB12 #### [facility] [address] [place] [address] Dr. Paige Ovalle CBC AUTO DIFFon 03-08-2022 BASO # 0.0 103/ul Normal 0.0-0.1 [facility] Comment on above: Performed By: #### V ITAD, VITB12 #### [facility] [address] [place] [address] Dr. Paige Ovalle Basophils/100 WBC (Bld) 0.5 % Normal 0.2-2.0 [facility] Comment on above: Performed By: #### V ITAD, VITB12 #### [facility] [address] [place] [address] Dr. Paige Ovalle EO # 0.2 103/ul Normal 0.0-0.7 [facility] Comment on above: Performed By: #### V ITAD, VITB12 #### [facility] [address] [place] [address] Dr. Paige Ovalle Eosinophils/100 WBC (Bld) 2.1 % Normal 0.9-7.0 [facility] Comment on above: Performed By: #### V ITAD, VITB12 #### [facility] [address] [place] [address] Dr. Paige Ovalle Erythrocyte distribution width (RBC) [Ratio] 13.6 % Normal 11.0-15.0 [facility] Comment on above: Performed By: #### V ITAD, VITB12 #### [facility] [address] [place] [address] Dr. Paige Ovalle Hematocrit (Bld) [Volume fraction] 40.8 % Normal 36.0-48.0 [facility] Comment on above: Performed By: #### V ITAD, VITB12 #### [facility] [address] [place] [address] Dr. Paige Ovalle Hemoglobin (Bld) [Mass/Vol] 13.8 g/dL Normal 12.0-16.0 [facility] Comment on above: Performed By: #### V ITAD, VITB12 #### [facility] [address] [place] [address] Dr. Paige Ovalle IG # 0.04 10e3/ul Critically high 0.00-0.03 [facility] Comment on above: Performed By: #### V ITAD, VITB12 #### [facility] [address] [place] [address] Dr. Paige Ovalle IG % 0.5 % Normal 0.0-0.5 [facility] Comment on above: Performed By: #### V ITAD, VITB12 #### [facility] [address] [place] [address] Dr. Paige Ovalle LYMPH # 2.3 103/ul Normal 1.2-3.8 [facility] Comment on above: Performed By: #### V ITAD, VITB12 #### [facility] [address] [place] [address] Dr. Paige Ovalle Lymphocytes/100 WBC (Bld) 26.6 % Normal 20.5-60.0 [facility] Comment on above: Performed By: #### V ITAD, VITB12 #### [facility] [address] [place] [address] Dr. Paige Ovalle MANUAL DIFF REQ NO Normal [facility] Comment on above: Performed By: #### V ITAD, VITB12 #### [facility] [address] [place] [address] Dr. Paige Ovalle MCH (RBC) [Entitic mass] 31.1 pg Normal 26.7-34.0 [facility] Comment on above: Performed By: #### V ITAD, VITB12 #### [facility] [address] [place] [address] Dr. Paige Ovalle MCHC (RBC) [Mass/Vol] 33.8 g/dL Normal 29.9-35.2 [facility] Comment on above: Performed By: #### V ITAD, VITB12 #### [facility] [address] [place] [address] Dr. Paige Ovalle MCV (RBC) [Entitic vol] 91.9 fL Normal 81.0-99.0 [facility] Comment on above: Performed By: #### V ITAD, VITB12 #### [facility] [address] [place] [address] Dr. Paige Ovalle MONO # 0.5 103/ul Normal 0.3-0.8 [facility] Comment on above: Performed By: #### V ITAD, VITB12 #### [facility] [address] [place] [address] Dr. Paige Ovalle Monocytes/100 WBC (Bld) 5.7 % Normal 1.7-12.0 [facility] Comment on above: Performed By: #### V ITAD, VITB12 #### [facility] [address] [place] [address] Dr. Paige Ovalle NEUT # 5.7 103/ul Normal 1.4-6.5 [facility] Comment on above: Performed By: #### V ITAD, VITB12 #### [facility] [address] [place] [address] Dr. Paige Ovalle Neutrophils/100 WBC (Bld) 64.6 % Normal 43.0-75.0 [facility] Comment on above: Performed By: #### V ITAD, VITB12 #### [facility] [address] [place] [address] Dr. Paige Ovalle Platelet mean volume (Bld) [Entitic vol] 8.4 fL Critically low 9.5-13.5 [facility] Comment on above: Performed By: #### V ITAD, VITB12 #### [facility] [address] [place] [address] Dr. Paige Ovalle PLT 321 103/ul Normal 150-450 [facility] Comment on above: Performed By: #### V ITAD, VITB12 #### [facility] [address] [place] [address] Dr. Paige Ovalle RBC 4.44 106/ul Normal 4.20-5.40 [facility] Comment on above: Performed By: #### V ITAD, VITB12 #### [facility] [address] [place] [address] Dr. Paige Ovalle WBC 8.8 103/ul Normal 4.0-11.0 [facility] Comment on above: Performed By: #### V ITAD, VITB12 #### [facility] [address] [place] [address] Dr. Paige Ovalle CULTURE URINEon 03-08-2022 CULTURE URINE Culture Observations: No growth Normal [facility] Comment on above: Performed By: #### V ITAD, VITB12 #### [facility] [address] [place] [address] Dr. Paige Ovalle LIPID PROFILEon 03-08-2022 CHOL-HDL RATIO NORM SEE BELOW Normal [facility] Comment on above: Result Comment: 3.3 - 4.4 LOW RISK 4.4 - 7.1 AVERAGE RISK 7.1 - 11.0 MODERATE RISK >11.0 HIGH RISK Performed By: #### V ITAD, VITB12 #### [facility] [address] [place] [address] Dr. Paige Ovalle Cholesterol [Mass/Vol] 147 mg/dL Normal <=200 [facility] Comment on above: Performed By: #### V ITAD, VITB12 #### [facility] [address] [place] [address] Dr. Paige Ovalle Cholesterol in HDL [Mass/Vol] 97 mg/dL Critically high 40-60 [facility] Comment on above: Performed By: #### V ITAD, VITB12 #### [facility] [address] [place] [address] Dr. Paige Ovalle Cholesterol in LDL [Mass/Vol] 42.2 mg/dL Normal [facility] Comment on above: Performed By: #### V ITAD, VITB12 #### [facility] [address] [place] [address] Dr. Paige Ovalle Cholesterol.total/Ch olesterol in HDL [Mass ratio] 1.5 {ratio} Normal [facility] Comment on above: Performed By: #### V ITAD, VITB12 #### [facility] [address] [place] [address] Dr. Paige Ovalle HDL NORMAL > or = 60 mg/dl - LOW CARDIOVASCULAR RISK <40 mg/dl - HIGH CARDIOVASCULAR RISK Normal [facility] Comment on above: Performed By: #### V ITAD, VITB12 #### [facility] [address] [address] [address] Paige Ovalle LDL CALC NORMAL SEE BELOW Normal [facility] Comment on above: Result Comment: <100 mg/dl OPTIMAL 100 - 129 mg/dl NEAR OR ABOVE OPTIMAL 130 - 159 mg/dl BORDERLINE HIGH 160 - 189 mg/dl HIGH >190 mg/dl VERY HIGH Performed By: #### V ITAD, VITB12 #### [facility] [address] [address] [address] Paige Ovalle Triglyceride [Mass/Vol] 39 mg/dL Normal <=150 [facility] Comment on above: Performed By: #### V ITAD, VITB12 #### [facility] [address] [place] [address] Dr. Paige Ovalle VLDL CALC 7.8 mg/dL Normal [facility] Comment on above: Performed By: #### V ITAD, VITB12 #### [facility] [address] [place] [address] Dr. Paige Ovalle PROF 14(COMP METB)on 022 Albumin [Mass/Vol] 4.3 g/dL Normal 3.4-5.0 [facility] Comment on above: Performed By: #### V ITAD, VITB12 #### [facility] [address] [place] [address] Dr. Paige Ovalle Albumin/Globulin [Mass ratio] 1.3 {ratio} Normal [facility] Comment on above: Performed By: #### V ITAD, VITB12 #### [facility] [address] [place] [address] Dr. Paige Ovalle ALP [Catalytic activity/Vol] 79 U/L Normal 46-116 [facility] Comment on above: Performed By: #### V ITAD, VITB12 #### [facility] [address] [address] [address] Paige Ovalle ALT [Catalytic activity/Vol] 89 U/L Critically high 14-59 [facility] Comment on above: Performed By: #### V ITAD, VITB12 #### [facility] [address] [place] [address] Dr. Paige Ovalle Anion gap [Moles/Vol] 12.2 mmol/L Normal [facility] Comment on above: Performed By: #### V ITAD, VITB12 #### [facility] [address] [place] [address] Dr. Paige Ovalle AST [Catalytic activity/Vol] 65 U/L Critically high 15-37 [facility] Comment on above: Performed By: #### V ITAD, VITB12 #### [facility] [address] [place] [address] Dr. Paige Ovalle Bilirubin [Mass/Vol] 0.4 mg/dL Normal 0.2-1.0 [facility] Comment on above: Performed By: #### V ITAD, VITB12 #### [facility] [address] [place] [address] Dr. Paige Ovalle Calcium [Mass/Vol] 9.6 mg/dL Normal 8.5-10.1 [facility] Comment on above: Performed By: #### V ITAD, VITB12 #### [facility] [address] [place] [address] Dr. Paige Ovalle Chloride [Moles/Vol] 96 mmol/L Critically low 98-107 [facility] Comment on above: Performed By: #### V ITAD, VITB12 #### [facility] [address] [place] [address] Dr. Paige Ovalle CO2 [Moles/Vol] 30.4 mmol/L Normal 21.0-32.0 [facility] Comment on above: Performed By: #### V ITAD, VITB12 #### [facility] [address] [place] [address] Dr. Paige Ovalle Creatinine [Mass/Vol] 0.70 mg/dL Normal 0.55-1.02 [facility] Comment on above: Performed By: #### V ITAD, VITB12 #### [facility] [address] [address] [address] Paige Ovalle EGFR-AF BRUNEIAN >60 Normal >=60 [facility] Comment on above: Performed By: #### V ITTAMARA, VITB12 #### [facility] [address] [place] [address] Dr. Paige Ovalle EGFR-NON AF BRUNEIAN >60 Normal >=60 [facility] Comment on above: Performed By: #### V ITAD, VITB12 #### [facility] [address] [place] [address] Dr. Paige Ovalle Globulin (S) [Mass/Vol] 3.2 g/dL Normal [facility] Comment on above: Performed By: #### V ITAD, VITB12 #### [facility] [address] [place] [address] Dr. Paige Ovalle Glucose [Mass/Vol] 91 mg/dL Normal 74-106 [facility] Comment on above: Performed By: #### V ITAD, VITB12 #### [facility] [address] [place] [address] Dr. Paige Ovalle Potassium [Moles/Vol] 3.6 mmol/L Normal 3.5-5.1 [facility] Comment on above: Performed By: #### V ITAD, VITB12 #### [facility] [address] [place] [address] Dr. Paige Ovalle Protein [Mass/Vol] 7.5 g/dL Normal 6.4-8.2 [facility] Comment on above: Performed By: #### V ITAD, VITB12 #### [facility] [address] [place] [address] Dr. Paige Ovalle Sodium [Moles/Vol] 135 mmol/L Critically low 136-145 [facility] Comment on above: Performed By: #### V ITAD, VITB12 #### [facility] [address] [place] [address] Dr. Paige Ovalle Urea nitrogen [Mass/Vol] 9.0 mg/dL Normal 7.0-18.0 [facility] Comment on above: Performed By: #### V ITAD, VITB12 #### [facility] [address] [place] [address] Dr. Paige Ovalle Urea nitrogen/Creatinine [Mass ratio] 12.9 mg/mg Normal [facility] Comment on above: Performed By: #### V ITAD, VITB12 #### [facility] [address] [place] [address] Dr. Paige Ovalle UA RANDOMon 03-08-2022 Bilirubin Ql (U) Negative Normal NEGATIVE [facility] Comment on above: Performed By: #### U A #### [facility] [address] [place] [address] Dr. Paige Ovalle Clarity (U) CLEAR Normal CLEAR [facility] Comment on above: Performed By: #### U A #### [facility] [address] [place] [address] Dr. Paige Ovalle Color (U) LT. YELLOW Normal YELLOW [facility] Comment on above: Performed By: #### U A #### [facility] [address] [place] [address] Dr. Paige Ovalle Glucose Ql (U) Negative Normal NEGATIVE [facility] Comment on above: Performed By: #### U A #### [facility] [address] [place] [address] Dr. Paige Ovalle Hemoglobin Ql (U) Negative Normal NEGATIVE [facility] Comment on above: Performed By: #### U A #### [facility] [address] [place] [address] Dr. Paige Ovalle Ketones Ql (U) Negative Normal NEGATIVE [facility] Comment on above: Performed By: #### U A #### [facility] [address] [place] [address] Dr. Paige Ovalle LEUKOCYTES Negative Normal NEGATIVE [facility] Comment on above: Performed By: #### U A #### [facility] [address] [place] [address] Dr. Paige Ovalle Nitrite Ql (U) Negative Normal NEGATIVE [facility] Comment on above: Performed By: #### U A #### [facility] [address] [place] [address] Dr. Paige Ovalle pH (U) 6.5 [pH] Normal 5-9 [facility] Comment on above: Performed By: #### U A #### [facility] [address] [place] [address] Dr. Paige Ovalle SPEC GRAVITY <=1.005 Abnormal 1.005-<=1.025 [facility] Comment on above: Performed By: #### U A #### [facility] [address] [place] [address] Dr. Paige Ovalle UA PROTEIN Negative Normal NEGATIVE/ TRACE [facility] Comment on above: Performed By: #### U A #### [facility] [address] [place] [address] Dr. Paige Ovalle Urobilinogen Qn (U) 0.2 {Toy'U}/dL Normal 0.2 - 1. 0 [facility] Comment on above: Performed By: #### U A #### [facility] [address] [place] [address] Dr. Paige Ovalle VITAMIN B12on 03-08-2022 Cobalamin (Vitamin B12) [Mass/Vol] 3521.0 pg/mL Critically high 193.0-986.0 [facility] Comment on above: Performed By: #### V ITAD, VITB12 #### [facility] [address] [place] [address] Dr. Paige Ovalle VITAMIN D 25 OHon 03-08-2022 VIT D 25-OH 72.0 ng/mL Normal [facility] Comment on above: Performed By: #### V ITAD, VITB12 #### [facility] [address] [place] [address] Dr. Paige Ovalle VIT D RANGES SEE BELOW Normal [facility] Comment on above: Result Comment: <20 ng/mL Vit D deficient 20 - <30 ng/mL Vit D insufficient 30 - 100 ng/mL Vit D sufficient >100 ng/mL Potential Toxicity Performed By: #### V ITAD, VITB12 #### [facility] [address] [place] [address] Dr. Paige Ovalle PELVIS 1 OR 2 VWSon 06-03-20 18 PELVIS 1 OR 2 VWS [facility] [id number] [place] [address] Patien t Name: NAYE GUZMÁN : 1970ex: FAge: Race: WhiteMRN: [id number]. Location: 84Patient Status: OVisit #: [id number] Date: 06/03/2018 9:10:00 AMCompleted Date: 06/03/2018 09:14 AMRequesting Provider: JONAH ARELLANO Attending Provider: JONAH ARELLANO Report Copy To: Signs & Symptoms: S32.89XK Fracture of oth parts of pelvis, subs for fx w nonunion [id number]: AthenaComments: , , , Ordering Provider - JONAH ARELLANO PA-C , Exam: PELVIS 1 OR 2 VWSAccession #: [id number] =PELVIS 1 OR 2 VWS 06/03/2018 9:14 AM EDT SIGNS AND SYMPTOMS: [...] nonunion Electronically signed by:Anurag Bernstein. Transcribed by: [email or web address], User Resident: Electronically Signed by: ANURAG BERNSTEIN @ 06/03/2018 09:19 AM Normal [facility] Comment on above: Order Comment: , , = ========= , Ordering Provider - JONAH ARELLANO PA-C , PELVIS 1 OR 2 VWSon 03-04-20 18 PELVIS 1 OR 2 S [facility] [id number] [place] [address] Patien t Name: NYAE GUZMÁN : 1970ex: FAge: Race: WhiteMRN: [id number]. Location: 84Patient Status: Date: 03/04/2018 10:25:00 AMCompleted Date: 03/04/2018 10:34 AMRequesting Provider: JONAH ARELLANO Attending Provider: Report Copy To: Signs & Symptoms: S32.9XXK Fx unsp parts of lumbosacr spin \EANDE\ pelv, 7thK [id number]: AthenaComments: , , , Ordering Provider - JONAH ARELLANO PA-C , Exam: PELVIS 1 OR 2 VWSAccession #: [id number] =PELVIS 1 OR 2 VWS 03/04/2018 10:34 [...] bone Electronically signed by:Patrick Tipton. Transcribed by: [email or web address], User Resident: Electronically Signed by: PATRICK TIPTON @ 03/04/2018 03:48 PM Normal [facility] Comment on above: Order Comment: , , = ========= , Ordering Provider - JONAH ARELLANO PA-C , PELVIS 3 VWSon 12-23-2017 PELVIS 3 S [facility] [address] [place] [address] Patien t Name: NAYE GUZMÁN : 1970ex: FAge: Race: WhiteMRN: [id number]. Location: 84Patient Status: OVisit #: [id number] Date: 12/23/2017 12:50:00 PMCompleted Date: 12/23/2017 12:55 PMRequesting Provider: JONAH ARELLANO Attending Provider: JONAH ARELLANO Report Copy To: Signs & Symptoms: S32.89XK Fracture of oth parts of pelvis, subs for fx w nonunion [id number]: AthenaComments: , , Views (X-RAY, PELVIS): AP , Weight Bearing?: y , special views standing on each leg , , Ordering Provider - JONAH ARELLANO PA-C , Exam: PELVIS 3 VWSAccession #: [id number] =PELVIS 3 VWS 12/23/2017 12:55 PM EDT SIGNS AND SYMPTOMS: [...] pubis Electronically signed by:Patrick Tipton. Transcribed by: [email or web address], User Resident: Electronically Signed by: PATRICK TIPTON @ 12/23/2017 02:12 PM Normal [facility] Comment on above: Order Comment: , , V iews (X-RAY, PELVIS): AP , Weight Bearing?: y , special views standing on each leg , , Ordering Provider - JONAH ARELLANO PA-C , CALCIUMon 11-11-2017 Calcium mass conc 9.7 mg/dL Normal 8.6-10.3 [facility] Comment on above: Performed By: #### 4 1000, [id number], [id number] ####[facility] [place] [address], [facility] PHOSPHORUS BLOODon 8 Phosphate mass conc 3.5 mg/dL Normal 2.5-5.0 [facility] Comment on above: Performed By: #### 4 1000, [id number], [id number] ####[facility] [place], [place] [id number] [place] [address] VITAMIN D 25-HYDROXYon 11-11 VITAMIN D 25-OH 31.3 ng/mL Normal 30.0-80.0 [facility] Comment on above: Result Comment: >80. 0 Toxicity possible Performed By: #### 4 1000, 76062, 92542 ####[facility] [address] Vital Signs Date Time Vital Sign Value Performing Clinician Facility 09-13-2023 12:39-0500 Diastolic blood pressure 90 mm[Hg] Mabel [employer] [place] [employer] [place] [facility] 09-13-2023 12:39-0500 Heart rate 86 /min Mabel [place] [employer] [place] [facility] 09-13-2023 12:39-0500 Mean blood pressure 106 mm[Hg] Mabel [place] [facility] 09-13-2023 12:39-0500 Respiratory rate 16 /min Mabel [place] [facility] 09-13-2023 12:39-0500 Systolic blood pressure 139 mm[Hg] Mabel [place] [employer] [place] [facility] 08-21-2023 15:57-0500 Heart rate 72 /min Devon Garcia [facility] 08-21-2023 15:57-0500 SaO2% (BldA) [Mass fraction] 98 % Devon Garcia [facility] 08-21-2023 15:56-0500 Diastolic blood pressure 92 mm[Hg] Devon Garcia [facility] 08-21-2023 15:56-0500 Mean blood pressure 112 mm[Hg] Devon Garcia [facility] 08-21-2023 15:56-0500 Systolic blood pressure 151 mm[Hg] Devon Garcia [facility] 08-21-2023 15:56-0500 Respiratory rate 16 /min Devon Garcia [facility] 08-21-2023 15:50-0500 Diastolic blood pressure 94 mm[Hg] Devon Garcia [facility] 08-21-2023 15:50-0500 Heart rate 68 /min Devon Garcia [facility] 08-21-2023 15:50-0500 SaO2% (BldA) [Mass fraction] 97 % Devon Garcia [facility] 08-21-2023 15:50-0500 Systolic blood pressure 153 mm[Hg] Devon Garcia [facility] 08-21-2023 14:44-0500 Heart rate 68 /min Devon Garcia [facility] 08-21-2023 14:44-0500 SaO2% (BldA) [Mass fraction] 98 % Devon Garcia [facility] 08-21-2023 14:44-0500 Body temperature 97.52 [degF] Devon Garcia [facility] 08-21-2023 14:44-0500 Diastolic blood pressure 92 mm[Hg] Osorio Jose [facility] 08-21-2023 14:44-0500 Mean blood pressure 109 mm[Hg] Devon Garcia [facility] 08-21-2023 14:44-0500 Systolic blood pressure 141 mm[Hg] Devon Garcia [facility] 08-21-2023 14:43-0500 Respiratory rate 14 /min Devon Garcia [facility] 07-25-2023 13:45-0400 Body height 177.8 cm Elieser [employer] Other [facility] Other 07-25-2023 13:45-0400 Body mass index (BMI) [Ratio] 22.24 kg/m2 [employer] Other [facility] Other 07-25-2023 13:45-0400 Body weight 70.31 kg Jigsee II Other [facility] Other 07-17-2023 11:10-0400 Body height 177.8 cm Pauline Romero Other [facility] Other 07-17-2023 11:10-0400 Body mass index (BMI) [Ratio] 22.24 kg/m2 Pauline Romero Other [facility] Other 07-17-2023 11:10-0400 Body temperature 98.2 [degF] Pauline Romero Other [facility] Other 07-17-2023 11:10-0400 Body weight 70.31 kg Pauline Romero Other [facility] Other 07-17-2023 11:10-0400 Diastolic blood pressure 98 mm[Hg] Pauline Romero Other [facility] Other 07-17-2023 11:10-0400 Respiratory rate 18 /min Pauline Romero Other [facility] Other 07-17-2023 11:10-0400 SaO2% (BldA) [Mass fraction] 97 % Pauline Romero Other [facility] Other 07-17-2023 11:10-0400 Systolic blood pressure 138 mm[Hg] Pauline Romero Other [facility] Other 07-04-2023 08:23-0400 Diastolic blood pressure 90 mm[Hg] Devon Garcia [facility] 07-04-2023 08:23-0400 Heart rate 86 /min Devon Garcia [facility] 07-04-2023 08:23-0400 Mean blood pressure 102 mm[Hg] Devon Garcia [facility] 07-04-2023 08:23-0400 Respiratory rate 16 /min Devon Garcia [facility] 07-04-2023 08:23-0400 Systolic blood pressure 126 mm[Hg] Devon Garcia [facility] 07-03-2023 13:30-0400 Body height 177.8 cm Tobi Borrego Other [facility] Other 07-03-2023 13:30-0400 Body mass index (BMI) [Ratio] 21.81 kg/m2 Tobi Borrego Other [facility] Other 07-03-2023 13:30-0400 Body temperature 97.4 [degF] Tobi Borrego Other [facility] Other 07-03-2023 13:30-0400 Body weight 68.95 kg Tobi Borrego Other [facility] Other 07-03-2023 13:30-0400 Diastolic blood pressure 78 mm[Hg] Tobi Elmo Other [facility] Other 07-03-2023 13:30-0400 SaO2% (BldA) [Mass fraction] 97 % Tobi Fraserjavier Other [facility] Other 07-03-2023 13:30-0400 Systolic blood pressure 110 mm[Hg] Tobi Elmo Other [facility] Other 06-03-2023 09:50-0400 Body height 177.8 cm Pauline Romero Other [facility] Other 06-03-2023 09:50-0400 Body mass index (BMI) [Ratio] 21.81 kg/m2 Pauline Romero Other [facility] Other 06-03-2023 09:50-0400 Body weight 68.95 kg Pauline Romero Other [facility] Other 06-03-2023 09:50-0400 Diastolic blood pressure 82 mm[Hg] Pauline Romero Other [facility] Other 06-03-2023 09:50-0400 Respiratory rate 16 /min Pauline Romero Other [facility] Other 06-03-2023 09:50-0400 SaO2% (BldA) [Mass fraction] 96 % Pauline Romero Other [facility] Other 06-03-2023 09:50-0400 Systolic blood pressure 118 mm[Hg] Pauline Romero Other [facility] Other 04-15-2023 11:10-0400 Body height 177.8 cm Pauline Romero Other [facility] Other 04-15-2023 11:10-0400 Body mass index (BMI) [Ratio] 21.38 kg/m2 Pauline Garciaemily Other [facility] Other 04-15-2023 11:10-0400 Body temperature 99.1 [degF] Pauline Romero Other [facility] Other 04-15-2023 11:10-0400 Body weight 67.59 kg Apuline Garciaemily Other [facility] Other 04-15-2023 11:10-0400 Diastolic blood pressure 78 mm[Hg] Pauline Garciaemily Other [facility] Other 04-15-2023 11:10-0400 Respiratory rate 18 /min Pauline Garciaemily Other [facility] Other 04-15-2023 11:10-0400 SaO2% (BldA) [Mass fraction] 96 % Pauline Zelayaemily Other [facility] Other 04-15-2023 11:10-0400 Systolic blood pressure 128 mm[Hg] Pauline Garciaemily Other [facility] Other 03-13-2023 13:30-0400 Body height 177.8 cm Elieser Zavala II Other [employer] Other 03-13-2023 13:30-0400 Body mass index (BMI) [Ratio] 21.23 kg/m2 Elieser Guero II Other [facility] Other 03-13-2023 13:30-0400 Body weight 67.13 kg Elieser Zavala II Other [facility] Other 02-04-2023 15:40-0400 Body height 177.8 cm Pauline Romero Other [facility] Other 02-04-2023 15:40-0400 Body mass index (BMI) [Ratio] 21.31 kg/m2 Pauline Romero Other [facility] Other 02-04-2023 15:40-0400 Body temperature Pauline Romero Other [facility] Other 02-04-2023 15:40-0400 Body weight 67.36 kg Pauline Romero Other [facility] Other 02-04-2023 15:40-0400 Diastolic blood pressure 84 mm[Hg] Pauline Romero Other [facility] Other 02-04-2023 15:40-0400 Respiratory rate 18 /min Pauline Romero Other [facility] Other 02-04-2023 15:40-0400 SaO2% (BldA) [Mass fraction] 96 % Pauline Romero Other [facility] Other 02-04-2023 15:40-0400 Systolic blood pressure 118 mm[Hg] Pauline Romero Other [facility] Other 01-31-2023 12:25-0400 Body height 177.8 cm Araceli Joseph Other [facility] Other 01-31-2023 12:25-0400 Body mass index (BMI) [Ratio] 20.8 kg/m2 Araceli Joseph Other [facility] Other 01-31-2023 12:25-0400 Body temperature 97.9 [degF] Araceli Joseph Other [facility] Other 01-31-2023 12:25-0400 Body weight 65.77 kg Araceli Joseph Other [facility] Other 01-31-2023 12:25-0400 Respiratory rate 18 /min Araceli Joseph Other [facility] Other 01-31-2023 12:25-0400 SaO2% (BldA) [Mass fraction] 96 % Araceli Joseph Other [facility] Other 11-19-2022 12:10-0500 Body height 177.8 cm Pauline Romero Other [facility] Other 11-19-2022 12:10-0500 Body mass index (BMI) [Ratio] 20.8 kg/m2 Pauline Romero Other [facility] Other 11-19-2022 12:10-0500 Body temperature 98.2 [degF] Pauline Romero Other [facility] Other 11-19-2022 12:10-0500 Body weight 65.77 kg Pauline Romero Other [facility] Other 11-19-2022 12:10-0500 Diastolic blood pressure 86 mm[Hg] Pauline Romero Other [facility] Other 11-19-2022 12:10-0500 SaO2% (BldA) [Mass fraction] 95 % Pauline Romero Other [facility] Other 11-19-2022 12:10-0500 Systolic blood pressure 122 mm[Hg] Pauline Romero Other [facility] Other 09-07-2022 12:30-0500 Body height 177.8 cm Pauline Rmoero Other [facility] Other 07-03-2022 12:50-0400 Body height 177.8 cm Lia Darek Other [facility] Other 07-03-2022 12:50-0400 Body mass index (BMI) [Ratio] 20.52 kg/m2 Lia Darek Other [facility] Other 07-03-2022 12:50-0400 Body temperature 97.8 [degF] Lia Darek Other [facility] Other 07-03-2022 12:50-0400 Body weight 64.86 kg Lia Goodmanault Other [facility] Other 07-03-2022 12:50-0400 Diastolic blood pressure 82 mm[Hg] Lia Darek Other [facility] Other 07-03-2022 12:50-0400 Respiratory rate 18 /min Lia Darek Other [facility] Other 07-03-2022 12:50-0400 SaO2% (BldA) [Mass fraction] 96 % Lia Darek Other [facility] Other 07-03-2022 12:50-0400 Systolic blood pressure 125 mm[Hg] Lia Darek Other [facility] Other 06-14-2022 11:30-0400 Body height 177.8 cm Pauline Romero Other [facility] Other 06-14-2022 11:30-0400 Body mass index (BMI) [Ratio] 21.09 kg/m2 Pauline Romero Other [facility] Other 06-14-2022 11:30-0400 Body temperature 97.7 [degF] Pauline Romero Other [facility] Other 06-14-2022 11:30-0400 Body weight 66.68 kg Pauline Romero Other [facility] Other 06-14-2022 11:30-0400 Diastolic blood pressure 88 mm[Hg] Pauline Romero Other [facility] Other 06-14-2022 11:30-0400 Respiratory rate 18 /min Pauline Romero Other [facility] Other 06-14-2022 11:30-0400 SaO2% (BldA) [Mass fraction] 98 % Pauline Romero Other [facility] Other 06-14-2022 11:30-0400 Systolic blood pressure 138 mm[Hg] Pauline Romero Other [facility] Other 03-12-2022 11:30-0400 Body height 177.8 cm Pauline Romero Other [facility] Other 03-12-2022 11:30-0400 Body mass index (BMI) [Ratio] 21.09 kg/m2 Pauline Romero Other [facility] Other 03-12-2022 11:30-0400 Body temperature 98.2 [degF] Pauline Romero Other [facility] Other 03-12-2022 11:30-0400 Body weight 66.68 kg Pauline Romero Other [facility] Other 03-12-2022 11:30-0400 Diastolic blood pressure 86 mm[Hg] Pauline Romero Other [facility] Other 03-12-2022 11:30-0400 Respiratory rate 16 /min Pauline Romero Other [facility] Other 03-12-2022 11:30-0400 SaO2% (BldA) [Mass fraction] 95 % Pauline Romero Other [facility] Other 03-12-2022 11:30-0400 Systolic blood pressure 126 mm[Hg] Pauline Romero Other [facility] Other 12-21-2021 12:10-0400 Body height 177.8 cm Pauline Romero Other [facility] Other 12-21-2021 12:10-0400 Body mass index (BMI) [Ratio] 20.66 kg/m2 Pauline Romero Other [facility] Other 12-21-2021 12:10-0400 Body temperature 97.9 [degF] Pauline Romero Other [facility] Other 12-21-2021 12:10-0400 Body weight 65.32 kg Pauline Romero Other [facility] Other 12-21-2021 12:10-0400 Diastolic blood pressure 82 mm[Hg] Pauline Romero Other [facility] Other 12-21-2021 12:10-0400 Respiratory rate 18 /min Pauline Romero Other [facility] Other 12-21-2021 12:10-0400 SaO2% (BldA) [Mass fraction] 99 % Pauline Romero Other [facility] Other 12-21-2021 12:10-0400 Systolic blood pressure 126 mm[Hg] Pauline Romero Other [facility] Other 09-25-2021 14:00-0500 Body height 177.8 cm Pauline Romero Other [facility] Other 09-25-2021 14:00-0500 Body mass index (BMI) [Ratio] 20.37 kg/m2 Pauline Romero Other [facility] Other 09-25-2021 14:00-0500 Body temperature 98.1 [degF] Pauline Romero Other [facility] Other 09-25-2021 14:00-0500 Body weight 64.41 kg Pauline Romero Other [facility] Other 09-25-2021 14:00-0500 Diastolic blood pressure 80 mm[Hg] Pauline Romero Other [facility] Other 09-25-2021 14:00-0500 Respiratory rate 18 /min Pauline Romero Other [facility] Other 09-25-2021 14:00-0500 SaO2% (BldA) [Mass fraction] 98 % Pauline Romero Other [facility] Other 09-25-2021 14:00-0500 Systolic blood pressure 126 mm[Hg] Pauline Romero Other [facility] Other 09-05-2021 11:30-0500 Body height 177.8 cm Pauline Romero Other [facility] Other 09-05-2021 11:30-0500 Body mass index (BMI) [Ratio] 20.23 kg/m2 Pauline Romero Other [facility] Other 09-05-2021 11:30-0500 Body temperature 98.3 [degF] Pauline Romero Other [facility] Other 09-05-2021 11:30-0500 Body weight 63.96 kg Pauline Romero Other [facility] Other 09-05-2021 11:30-0500 Diastolic blood pressure 70 mm[Hg] Pauline Romero Other [facility] Other 09-05-2021 11:30-0500 Respiratory rate 18 /min Pauline Romero Other [facility] Other 09-05-2021 11:30-0500 SaO2% (BldA) [Mass fraction] 97 % Pauline Romero Other [facility] Other 09-05-2021 11:30-0500 Systolic blood pressure 104 mm[Hg] Pauline Romero Other [facility] Other Encounters Encounter Date Encounter Type Care Provider Facility Start: 09-13-2023 End: 09-13-2023 Emergency department patient visit [facility] Start: 09-13-2023 End: 09-14-2023 ambulatory Mabel [employer] Other Start: 09-13-2023 Telephone encounter Pauline Romero [facility] Start: 09-13-2023 End: 09-13-2023 Pain Management Mabel Berumen [facility] Start: 08-21-2023 End: 08-22-2023 ambulatory Devon Garcia Facility:[facility] Start: 08-21-2023 End: 08-21-2023 Pain Management Devon Garcia [facility] Start: 08-14-2023 End: 08-14-2023 ambulatory Princess Taylorarney Other [facility] Other Start: 08-14-2023 Telephone encounter Princess Taylorarney [facility] Start: 08-08-2023 End: 08-08-2023 ambulatory Princess Taylorarney Other [facility] Other Start: 08-08-2023 Office outpatient visit 25 minutes Princess Taylorarney [facility] Start: 07-25-2023 End: 07-25-2023 ambulatory Elieser Guero II Other [facility] Other Start: 07-25-2023 Office outpatient visit 25 minutes Elieser Zavala II [facility] Start: 07-17-2023 End: 07-17-2023 ambulatory Pauline Romero Other [facility] Other Start: 07-17-2023 Office outpatient visit 15 minutes Pauline Romero [facility] Start: 07-17-2023 Telephone encounter Pauline Romero [facility] Start: 07-04-2023 End: 07-05-2023 ambulatory Devon Garcia Facility:[facility] Start: 07-04-2023 End: 07-04-2023 Pain Management Devon Garcia [facility] Start: 07-03-2023 End: 07-03-2023 ambulatory Tobi Borrego Other [facility] Other Start: 07-03-2023 Office outpatient ne w 30 minutes Tobi Borrego [facility] V[facility] Start: 07-03-2023 Telephone encounter Tobi Barillas [facility] Start: 06-03-2023 End: 06-03-2023 ambulatory Pauline Romero Other [facility] Other Start: 06-03-2023 Office outpatient visit 15 minutes Pauline Romero [facility] Start: 05-30-2023 End: 05-30-2023 ambulatory Pauline Romero Other [facility] Other Start: 05-30-2023 Telephone encounter Pauline Romero [facility] Start: 05-29-2023 End: 05-29-2023 ambulatory Pauline Romero Other [facility] Other Start: 05-29-2023 Telephone encounter Pauline Romero [facility] Start: 04-17-2023 End: 04-17-2023 ambulatory Pauline Romero Other [facility] Other Start: 04-17-2023 Telephone encounter Pauline Romero [facility] Start: 04-15-2023 End: 04-15-2023 ambulatory Pauline Romero Other [facility] Other Start: 04-15-2023 Office outpatient visit 25 minutes Pauline Romero [facility] Start: 04-12-2023 End: 04-12-2023 ambulatory Pauline Romero Other [facility] Other Start: 04-12-2023 Telephone encounter Pauline Romero [facility] Start: 03-28-2023 End: 03-28-2023 ambulatory Pauline Romero Other [facility] Other Start: 03-28-2023 Telephone encounter Pauline Romero [facility] Start: 03-13-2023 End: 03-13-2023 ambulatory Pauline Romero Facility:[place] Start: 03-13-2023 Office outpatient ne w 45 minutes Elieser Rowe II [facility] Start: 03-13-2023 End: 03-13-2023 ambulatory DO Pauline Romero Work Phone: [facility] Work Phone: Start: 03-13-2023 End: 03-13-2023 Patient encounter procedure DO Pauline Romero Work Phone: [facility] Start: 02-08-2023 End: 02-08-2023 ambulatory Pauline Romero Other [facility] Other Start: 02-08-2023 Telephone encounter Pauline Romero [facility] Start: 02-04-2023 End: 02-04-2023 ambulatory Pauline Romero Other [facility] Other Start: 02-04-2023 Office outpatient visit 10 minutes Pauline Romero [facility] Start: 01-31-2023 End: 01-31-2023 ambulatory Pauline Romero Other [facility] Other Start: 01-31-2023 Office outpatient visit 15 minutes Araceli Joseph [facility] Start: 01-31-2023 Telephone encounter Pauline Romero [facility] Start: 01-17-2023 End: 01-17-[address] BLAISE MACK Facility:[facility] Start: 01-10-2023 End: 01-10-2023 ambulatory Pauline Romero Other [facility] Other Start: 01-10-2023 Telephone encounter Pauline Romero [facility] Start: 01-01-2023 End: 01-01-2023 ambulatory Pauline Romero Other [facility] Other Start: 01-01-2023 Telephone encounter Pauline Romero [facility] Start: 12-04-2022 End: 12-05-2022 ambulatory PONCE HERNANDEZ . Facility:[facility] Start: 12-01-2022 End: 12-01-2022 ambulatory Antonina Beena Facility:[place] Start: 12-01-2022 End: 12-01-2022 ambulatory DO Pauline Romero Work Phone: [facility] Work Phone: Start: 12-01-2022 End: 12-01-2022 Patient encounter procedure DO Pauline Romero Work Phone: [facility] [place] Work Phone: Start: 11-30-2022 End: 11-30-2022 ambulatory Pauline Romero Other [facility] Other Start: 11-30-2022 Telephone encounter Pauline Romero [facility] Start: 11-19-2022 End: 11-20-[address] PAULINE ROMERO [facility] Other Start: 11-19-2022 Office outpatient visit 25 minutes Pauline Romero [facility] Start: 11-13-2022 End: 11-13-2022 ambulatory Pauline Romero Other [facility] Other Start: 11-13-2022 Telephone encounter Pauline Romero [facility] Start: 11-10-2022 End: 11-10-2022 ambulatory ELIESER DILLON Facility:[facility] Start: 10-23-2022 End: 10-23-2022 ambulatory Pauline Romero Other [facility] Other Start: 10-23-2022 Telephone encounter Pauline Romero [facility] Start: 10-18-2022 End: 10-18-2022 ambulatory Pauline Romero Other [facility] Other Start: 10-18-2022 Telephone encounter Pauline Romero [facility] Start: 10-16-2022 End: 10-17-[address] PAULINE ROMERO Facility:[facility] Start: 10-12-2022 End: 10-12-2022 ambulatory Pauline Romero Other [facility] Other Start: 10-12-2022 Telephone encounter Pauline Romero [facility] Start: 09-13-2022 End: 09-14-[address] PAULINE ROMERO Facility:[facility] Start: 09-07-2022 End: 09-07-2022 ambulatory Pauline Romero Other [facility] Other Start: 09-07-2022 Telephone encounter Pauline Romero [facility] Start: 07-03-2022 End: 07-03-2022 ambulatory Pauline Romero Other [facility] Other Start: 07-03-2022 Office outpatient visit 15 minutes Lia Oswald [facility] Start: 07-03-2022 Telephone encounter Pauline Romero [facility] Start: 06-14-2022 End: 06-14-2022 ambulatory Pauline Romero Other [facility] Other Start: 06-14-2022 Office outpatient visit 15 minutes Pauline Romero [facility] Start: 06-10-2022 End: 06-10-2022 ambulatory ROBB FOX . Facility:[facility] Start: 06-09-2022 End: 06-10-[address] PAULINE ROMERO Facility:[facility] Start: 03-27-2022 End: 03-27-2022 ambulatory Pauline Romero Other [facility] Other Start: 03-27-2022 Telephone encounter Pauline Romero [facility] Start: 03-12-2022 End: 03-12-2022 ambulatory Pauline Romero Other [facility] Other Start: 03-12-2022 Office outpatient visit 25 minutes Pauline Romero [facility] Start: 03-08-2022 Telephone encounter Pauline Romero [facility] Start: 03-08-2022 End: 03-09-[address] PAULINE ROMERO [facility] Other Start: 01-23-2022 End: 01-23-2022 ambulatory Pauline Romero Other [facility] Other Start: 01-23-2022 Telephone encounter Pauline Romero [facility] Start: 01-18-2022 End: 01-18-2022 ambulatory Pauline Romero Other [facility] Other Start: 01-18-2022 Telephone encounter Pauline Romero [facility] Start: 01-02-2022 End: 01-02-2022 ambulatory Pauline Romero Other [facility] Other Start: 01-02-2022 Telephone encounter Pauline Romero [facility] Start: 12-27-2021 End: 12-27-2021 ambulatory Pauline Romero Other [facility] Other Start: 12-27-2021 Telephone encounter Pauline Romero [facility] Start: 12-21-2021 End: 12-21-2021 ambulatory Pauline Romero Other [facility] Other Start: 12-21-2021 Office outpatient visit 15 minutes Pauline Romero [facility] Start: 12-04-2021 End: 12-04-2021 ambulatory Pauline Romero Other [facility] Other Start: 12-04-2021 Telephone encounter Pauline Romero [facility] Start: 10-30-2021 End: 10-30-2021 ambulatory Pauline Romero Other [facility] Other Start: 10-30-2021 Telephone encounter Pauline Romero [facility] Start: 10-10-2021 End: 10-10-2021 ambulatory Pauline Romero Other [facility] Other Start: 10-10-2021 Telephone encounter Pauline Romero [facility] Start: 10-02-2021 End: 10-02-2021 ambulatory Pauline Romero Other [facility] Other Start: 10-02-2021 Telephone encounter Pauline Romero [facility] Start: 09-25-2021 End: 09-25-2021 ambulatory Pauline Romero Other [facility] Other Start: 09-25-2021 Office outpatient visit 15 minutes Pauline Romero [facility] Start: 09-05-2021 End: 09-05-2021 ambulatory Pauline Romero Other [facility] Other Start: 09-05-2021 Office outpatient visit 25 minutes Pauline Romero [facility] Start: 06-03-2018 End: 06-04-2018 Patient encounter JONAH DEXTER Facility:[facility] Start: 03-04-2018 End: 03-05-2018 Patient encounter JONAH WELCHO Facility:[facility] Start: 12-23-2017 End: 12-24-2017 Patient encounter JONAH DEXTER Facility:[facility] Start: 11-11-2017 End: 11-12-2017 Patient encounter HEBERT BHATT Facility:[facility] Start: 11-06-2017 End: 11-07-2017 Patient encounter DEFAULT PHYSICIAN Facility:[facility] Procedures Date Procedure Procedure Detail Performing Clinician Start: 08-21-2023 Local anesthetic sac ral epidural block Mabel Berumen Comment on above: Caudal BETZAIDA- no relie f Start: 03-13-2023 Pelvis X-ray DO Pauline mead Work Phone: Start: 03-13-2023 Radiologic examinati on of knee DO Pauline Romero Work Phone: History of operative procedure on lumbar spinal structure Devon Garcia Comment on above: 2010 Dr. Haque None (qualifier value) Leesa Garcia Plan of Treatment Date Care Activity Detail Author Start: 12-01-2022 MR lumbar spine wo con MR lumb ar spine wo con [place] Start: 12-01-2022 MR Lumbar spine WO contrast [place] Start: 12-01-2022 XR pre/post mri xray XR pre/post mri xray [place] Start: 12-01-2022 [place] Payers Date Payer Category Payer Medicaid [id number] 2022 Self-pay [id number] 2018 Unknown [id number] 1970 Unknown [id number] 2.16.84 0.1.267280.3.579.2.593 1970 Unknown [id number] 2.16.84 0.1.432943.3.579.2.593 1970 Unknown [id number] 2.16.84 0.1.539778.3.579.2.593 1970 Unknown [id number] 2.16.84 0.1.288377.3.579.2.593 1970 Unknown [id number] 2.16.84 0.1.018398.3.579.2.593 1970 Unknown [id number] 2.16.84 0.1.604497.3.579.2.593 1970 Unknown [id number] 2.16.84 0.1.031584.3.579.2.593 1970 Unknown [id number] 2.16.84 0.1.641515.3.579.2.593 1970 Unknown [id number] 2.16.84 0.1.620205.3.579.2.593 1970 Unknown [id number] 2.16.8 40.1.996668.3.579.2.754 1970 Unknown [id number] 2.16.8 40.1.999391.3.579.2.727 1970 Unknown [id number] 2.16.8 40.1.701482.3.579.2.727 1970 Unknown [id number] 2.16.8 40.1.860279.3.579.2.727 1959 Unknown [id number] 2.1 6.840.1.656776.19 Unknown Unknown [id number] 2.16.8 40.1.970790.3.579.2.531 Unknown [id number] 2.16.8 40.1.623391.3.579.2.531 Social History Date Type Detail Facility Unknown if ever smoked [facility] Other Sex Assigned At [facility] Start: 1970 Sex Assigned At Female F [facility] Start: 07-04-2023 End: 09-13-2023 Tobacco smoking status Light tobacco smoker (finding) [facility] Functional Status Date Assessment Result Facility 09-13-2023 Functional Status N/A [facility] 08-21-2023 Functional Status N/A [facility] 07-04-2023 Functional Status N/A [facility] Clinical Notes 05-07-2012 to 09-13-2023 Note Date [...] Follow-up as above mentioned GLADYS score: 64% [facility]12-08-2023 Evaluation note* Encounter Date Diagnosis Assessment Notes Treatment Notes Treatment Clinical Notes Sep, Anxiety (ICD-10 - F41.9) [facility] Other 12-08-2023 History general Narrative - Reported* Type Description Date Medical History Pap; Dr. Ramirez [place] 05-18 Medical History Mammogram; May 2012; [facility] Medical History Pelvic Ultrasound 05-18; Dr. Clay [...] surgical histo ry Hospitalization History Pneumonia - [place] 03/07 [facility] Other 11-15-2023 Note [id number] [facility] 08-21-2023 NoteDiagnosis: M96.1 Procedure: Caudal epidural [...] procedure, and agrees to continue currently prescribed/recommended therapies.[facility] Comment on above:Result Comment: Electronically Signed By: Devon Garcia DO\.br\Date and Time Signed: 08/21/23 15:54 [id number] Evaluation + Plan note Extracted from: Title:Caudal [...] Date:09/13/2023 12:30:00 PM Scheduled Provider:Mabel Berumen PA-C [facility] Appointment Type:Pain Management - Follow Up (FT) [facility]11-09-2023 History general Narrative - Reported* Type Description Date Medical History Pap; Dr. Ramirez [place] 05-18 Medical History Mammogram; May 2012; [facility] Medical History Pelvic Ultrasound 05-18; Dr. Clay idxon Medical History No history of Colono scopy, [...] surgical histo ry Hospitalization History Pneumonia - [place] 03/07 [facility] Other 11-03-2023 History general Narrative - Reported* Type Description Date Medical History Pap; Alejandro Barksdale 05-18 Medical History Mammogram; May 2012; [facility] Medical History Pelvic Ultrasound 05-18; Dr. Clay [...] surgical histo ry Hospitalization History Pneumonia - [place] 03/07 [facility] Other 11-02-2023 Evaluation note* Encounter Date Diagnosis Assessment Notes Treatment Notes Treatment Clinical Notes Aug, Other care home (current) drug therapy (ICD-10 - Z79.899) Aug, [...] in 1 year from initiation of treatment. [facility] Other 10-20-2023 History general Narrative - Reported* Type Description Date Medical History Pap; Dr. Ramirez [place] 05-18 Medical History Mammogram; May 2012; [facility] Medical History Pelvic Ultrasound 05-18; Dr. Clay [...] surgical histo ry Hospitalization History Pneumonia - [place] 03/07 [facility] Other 10-19-2023 Evaluation note* Encounter Date Diagnosis [...] without contrast to evaluate for meniscal pathology [facility] Other 10-11-2023 Evaluation note* Encounter Date Diagnosis Assessment Notes Treatment Notes Treatment Clinical Notes Jul, Anxiety (ICD-10 - F41.9) [facility] Other 10-11-2023 Evaluation note* Encounter Date Diagnosis [...] week for evaluation of her left knee. [facility] Other 10-11-2023 History general Narrative - Reported* Type Description Date Medical History Pap; Dr. Ramirez, [place] 05-18 Medical History Mammogram; May 2012; [facility] Medical History Pelvic Ultrasound 05-18; Dr. Clay [...] ry Hospitalization History Pneumonia - [place] 03/07 [facility] Other 09-28-2023 Evaluation + Plan noteExtracted from: [...] with any questions or concerns that arise. [facility]09-27-2023 Evaluation note* Encounter Date Diagnosis Assessment [...] see a neurologist tomorrow for further work-up. [facility] Other 08-28-2023 Evaluation note* Encounter Date Diagnosis [...] recently referred to pain management through the [facility]. If this is nerve related then pain [...] that can be discussed with pain management. [facility] Other 08-24-2023 Evaluation note* Encounter Date Diagnosis Assessment Notes Treatment Notes Treatment Clinical Notes May, Foot pain, left (ICD-10 - M79.672) [facility] Other 08-24-2023 History general Narrative - Reported* Type Description Date Medical History Pap; Dr. Ramirez [place] 05-18 Medical History Mammogram; May 2012; [facility] Medical History Pelvic Ultrasound 05-18; Dr. Clay [...] ry Hospitalization History Pneumonia - [place] 03/07 [facility] Other 07-12-2023 History general Narrative - Reported* Type Description Date Medical History Pap; Dr. Ramirez, [place] 05-18 Medical History Mammogram; May 2012; [facility] Medical History Pelvic Ultrasound 05-18; Dr. Clay [...] ry Hospitalization History Pneumonia - [place] 03/07 [facility] Other 07-10-2023 Evaluation note* Encounter Date Diagnosis [...] mammogram to be done in Sep (2022). [facility] Other 07-07-2023 History general Narrative - Reported* Type Description Date Medical History Pap; Dr. Ramirez [place] 05-18 Medical History Mammogram; May 2012; [facility] Medical History Pelvic Ultrasound 05-18; Dr. Clay [...] ry Hospitalization History Pneumonia - [place] 03/07 [facility] Other 06-23-2023 History general Narrative - Reported* Type Description Date Medical History Pap; Dr. Ramirez, [place] 05-18 Medical History Mammogram; May 2012; [facility] Medical History Pelvic Ultrasound 05-18; Dr. Clay [...] ry Hospitalization History Pneumonia - [place] 03/07 [facility] Other 06-22-2023 Evaluation note* Encounter Date Diagnosis Assessment Notes Treatment Notes Treatment Clinical Notes Mar, Anxiety (ICD-10 - F41.9) [facility] Other 06-16-2023 History general Narrative - Reported* Type Description Date Medical History Pap; Dr. Ramirez, [place] 05-18 Medical History Mammogram; May 2012; [facility] Medical History Pelvic Ultrasound 05-18; Dr. Clay [...] surgical histo ry Hospitalization History Pneumonia - [place] 03/07 [facility] Other 06-07-2023 Evaluation note* Encounter Date Diagnosis [...] 6. Follow up 2 to 3 months [facility] Other 05-05-2023 Evaluation note* Encounter Date Diagnosis Assessment Notes Treatment Notes Treatment Clinical Notes February, Anxiety (ICD-10 - F41.9) February, Insomnia (ICD-10 - G47.00) [facility] [employer] Other 05-05-2023 History general Narrative - Reported* Type Description Date Medical History Pap; Dr. Ramirez [place] 05-18 Medical History Mammogram; May 2012; [facility] Medical History Pelvic Ultrasound 05-18; Dr. Clay [...] FLOOD Surgical History radio frequency burned nerve 04 /04/16 Surgical History Faucet injection 01/2016 Surgical History [...] ry Hospitalization History Pneumonia - [place] 03/07 [facility] Other 05-01-2023 Evaluation note* Encounter Date Diagnosis [...] push the wax further into the ear. [facility] Other 04-28-2023 History general Narrative - Reported* Type Description Date Medical History Pap; Dr. Ramirez, [place] 05-18 Medical History Mammogram; May 2012; [facility] Medical History Pelvic Ultrasound 05-18; Dr. Clay [...] ry Hospitalization History Pneumonia - [place] 03/07 [facility] Other 04-27-2023 Evaluation note* Encounter Date Diagnosis [...] Pt understood and agreed to treatment plan. [facility] Other 04-27-2023 History general Narrative - Reported* Type Description Date Medical History Pap; Dr. Ramirez [place] 05-18 Medical History Mammogram; May 2012; [facility] Medical History Pelvic Ultrasound 05-18; Dr. Clay [...] ry Hospitalization History Pneumonia - [place] 03/07 [facility] Other 04-10-2023 History general Narrative - Reported* Type Description Date Medical History Pap; Dr. Ramirez, [place] 05-18 Medical History Mammogram; May 2012; [facility] Medical History Pelvic Ultrasound 05-18; Dr. Clay [...] surgical histo ry Hospitalization History Pneumonia - [place] 03/07 [facility] Other 04-06-2023 Evaluation note* Encounter Date Diagnosis [...] Jan, Other 9:59 AM - 10:07 AM [facility] Other 03-28-2023 Evaluation note* Encounter Date Diagnosis Assessment Notes Treatment Notes Treatment Clinical Notes Dec, Anxiety (ICD-10 - F41.9) [facility] Other 03-10-2023 History general Narrative - Reported* Type Description Date Medical History Pap; Dr. Ramirez, [place] 05-18 Medical History Mammogram; May 2012; [facility] Medical History Pelvic Ultrasound 05-18; Dr. Clay [...] surgical histo ry Hospitalization History Pneumonia - [place] 03/07 [facility] Other 02-24-2023 Evaluation note* Encounter Date Diagnosis Assessment Notes Treatment Notes Treatment Clinical Notes Nov, COPD (chronic obstructive pulmonary disease) (ICD-10 - J44.9) [facility] Other 02-13-2023 Evaluation note* Encounter Date Diagnosis [...] out because of her left leg pain. [facility] Other 02-04-2023 NotePROCEDURE: XR CHEST 1 V, [...] by: ELIESER DILLON Date: 2022-11-10 15:02[facility]01-06-2023 Evaluation note* Encounter Date Diagnosis Assessment Notes Treatment Notes Treatment Clinical Notes Oct, Anxiety (ICD-10 - F41.9) [facility] Other 12-02-2022 Evaluation note* Encounter Date Diagnosis [...] next week. 11:43 AM - 11:48 AM [facility] Other 09-27-2022 Evaluation note* Encounter Date Diagnosis [...] verbalized understanding and agreement with tx plan. [facility] Other 09-13-2022 History general Narrative - Reported* Type Description Date Medical History Pap; Dr. Ramirez, [place] 05-18 Medical History Mammogram; May 2012; [facility] Medical History Pelvic Ultrasound 05-18; Dr. Clay [...] surgical histo ry Hospitalization History Pneumonia - [place] 03/07 [facility] Other 09-08-2022 Evaluation note* Encounter Date Diagnosis [...] her in a cast. She saw her medical education specialist and he took the cast off [...] is. She is to continue to monitor. [facility] Other 06-21-2022 Evaluation note* Encounter Date Diagnosis Assessment Notes Treatment Notes Treatment Clinical Notes Mar, Post laminectomy syndrome (ICD-10 - M96.1) Mar, Anxiety (ICD-10 - F41.9) [facility] Other 06-06-2022 Evaluation note* Encounter Date Diagnosis [...] Cymbalta (generic) she has an appointment at [facility] on 03-26-22 and will discuss [...] Continue to follow with specialist as directed. [facility] Other 04-19-2022 Evaluation note* Encounter Date Diagnosis Assessment Notes Treatment Notes Treatment Clinical Notes Jan, Abnormal mammogram (ICD-10 - R92.8) left breast [facility] Other 04-14-2022 Evaluation note* Encounter Date Diagnosis Assessment Notes Treatment Notes Treatment Clinical Notes Jan, Anxiety (ICD-10 - F41.9) [facility] Other 03-29-2022 Evaluation note* Encounter Date Diagnosis Assessment Notes Treatment Notes Treatment Clinical Notes Dec, Abnormal mammogram o f left breast (ICD-10 - R92.8) Dec, Calcification of lef t breast on mammography (ICD-10 - R92.1) [facility] Other 03-23-2022 Evaluation note* Encounter Date Diagnosis Assessment Notes Treatment Notes Treatment Clinical Notes Dec, Abnormal mammogram (ICD-10 - R92.8) left breast [facility] Other 03-17-2022 Evaluation note* Encounter Date Diagnosis [...] in February because she if flying to [place] and has never flown before. I did [...] the supplies and will do this soon. [facility] Other 02-28-2022 Evaluation note* Encounter Date Diagnosis Assessment Notes Treatment Notes Treatment Clinical Notes Nov, Anxiety (ICD-10 - F41.9) Nov, Encounter for screening mammogram for breast cancer (ICD-10 - Z12.31) [facility] Other 01-24-2022 Evaluation note* Encounter Date Diagnosis Assessment Notes Treatment Notes Treatment Clinical Notes Oct, Anxiety (ICD-10 - F41.9) [facility] Other 01-04-2022 Evaluation note* Encounter Date Diagnosis Assessment Notes Treatment Notes Treatment Clinical Notes Oct, Depression (ICD-10 - F32.9) [facility] Other 12-27-2021 Evaluation note* Encounter Date Diagnosis Assessment Notes Treatment Notes Treatment Clinical Notes Sep, Anxiety (ICD-10 - F41.9) [facility] Other 12-20-2021 Evaluation note* Encounter Date Diagnosis [...] today. I did recommend that she contact [facility] about this. Sep, Hypertension (ICD-10 - I10) [...] we will see her back in December. [facility] Other 11-30-2021 Evaluation note* Encounter Date Diagnosis [...] to collect the sample. Take to main campus lab within 1-2 hours of collection. Call for results 1-2 days after dropping off for development. Aug, Hematuria (ICD-10 - R31.9) Aug, Weight gain (ICD-10 - R63.5) Her TSH is normal at 1.497. [facility] Other 08-01-2012 History general Narrative - Reported* Type Description Date Medical History Pap; Dr. Ramirez, [place] 05-18 Medical History Mammogram; May 2012; [facility] Medical History Pelvic Ultrasound 05-18; Dr. Clay [...] surgical histo ry Hospitalization History Pneumonia - [place] 03/07 [facility] [employer] Other Evaluation noteNo InformationNortGeisinger [facility] [employer] Other Evaluation noteNo assessment information available [facility] Work Phone: Hospital course Narrative No data available for this section [facility] No data available for this section [facility] note No data available for this section [facility] Summary Purpose Family History No Family [...] Foot pain, left (M79 .672) Referral Organization [facility] [place] Referring Provider First Name Pauline Referring Provider Last Name Nick Referring Provider Specialty Family Prac gabby Referred Organization [facility] Referred Provider Dequan Lenz Referred Address [address] [facility],[address],[place], [place],[address] Referred Provider Specialty Vascular Gilda eboni Referral Priority Routine General Notes Frances Murphy 06/03/2023 05:05:55 PM > referral sent p2p. pt understands she will be contacted to schedule this appt. Additional Source Comments INFORMATION SOURCE (unrecogn ized section and content) DATE CREATED AUTHOR 06/09/2018 [facility] DATE CREATED AUTHOR AUTHOR'S ORGANIZ ATION 02/07/2023 [facility] DATE CREATED AUTHOR AUTHOR'S ORGANIZ ATION 03/19/2023 [facility] DATE CREATED AUTHOR AUTHOR'S ORGANIZ ATION 09/16/2023 [facility] DATE CREATED AUTHOR AUTHOR'S ORGANIZ ATION 09/21/2023 [facility] REASON FOR VISIT (unrecogniz ed section and content) review labsanxietyREFILLmed dosagerefillclinicalmed refillclinicalclinicalrefillclinicalclinicalNo Informationreview labsClinicalreview labs/med refillNo InformationBEE STING ON RIGHT HANDchest/nasal congestion/cough/fatigueRefillsClinicalfyiClinicalDiscuss STAUFFER, Chest Tightness, Shaky Legs; [facility] 11/10/22ClinicalRefillsmed refillappt request/ear painEAR INFECTION LEFTNo Informationcontinued ear painRefillsCONSULT ANTONINA BEENA LT KNEE PAIN NX PREV FXRefillsClinical / labreview lab/ med refillClinicalClinical Acute IllnessClinicalER f/uVascular surgery office noteReferred by Dr. Romero for left foot pain to rule out vascular sourceRefillsmed refillOP SP LT KNEE PAINCONSULT DR ROWE OWN [facility] PT HAVING DEXA SCAN AT [place] 08/01/23, called to have it sent to [facility] P[facility], report in [facility]. - KKLAB ORDERrefill Care Teams (unrecognized sec tion and content) Team Status: Inactive Member Role Status Dates Pauline Romero DO Primary Care Provider Active Antonina Guidry PA-C Attending Provider Active Team Status: Active Member Role Status Dates Pauline Romero , Primary Care Provider Active Team Status: Inactive [...] BE BASED ON THE PRIMARY CLINICAL RECORDS. [employer] provides no warranty or guarantee of the accuracy or completeness of information in this document.
[2023-10-03 11:59] LABS: Basophils Percent Auto 0.4 % (0.2-2.0); Eosinophils Absolute Auto 0.1 10^3/uL (0.0-0.7); Eosinophils Percent Auto 1.8 % (0.9-7.0); Hematocrit 42.5 % (36.0-48.0); Hemoglobin 13.3 g/dL (12.0-16.0); Immature Granulocytes Abs Auto 0.02 10^3/uL (0.00-0.03); Immature Granulocytes Pct Auto 0.3 % (0.0-0.5); Lymphocytes Absolute Auto 2.9 10^3/uL (1.2-3.8); Lymphocytes Percent Auto 39.5 % (20.5-60.0); Mean Corpuscular HGB Conc 31.3 g/dL (29.9-35.2); Mean Corpuscular Hemoglobin 29.4 pg (26.7-34.0); Mean Corpuscular Volume 93.8 fL (81.0-99.0); Mean Platelet Volume 9.9 fL (9.5-13.5); Monocytes Absolute Auto 0.4 10^3/uL (0.3-0.8); Monocytes Percent Auto 5.9 % (1.7-12.0); Neutrophils Absolute Auto 3.9 10^3/uL (1.4-6.5); Neutrophils Percent Auto 52.1 % (43.0-75.0); Platelet Count 236 10^3/uL (150-450); Red Blood Count 4.53 10^6/uL (4.20-5.40); Red Cell Distribution Width 14.7 % (11.0-15.0); White Blood Count 7.4 10^3/uL (4.0-11.0)
[2023-10-03 13:06] LABS: Alanine Aminotransferase 26 U/L (14-59); Albumin Globulin Ratio 1.2; Albumin Level 3.8 g/dL (3.4-5.0); Alkaline Phosphatase 55 U/L (46-116); Anion Gap 11.1; Aspartate Amino Transferase 20 U/L (15-37); BUN Creatinine Ratio 19.4; Bilirubin Total 0.4 mg/dL (0.2-1.0); Calcium 9.3 mg/dL (8.5-10.1); Carbon Dioxide 30.7 mmol/L (21.0-32.0); Chloride 102 mmol/L (98-107); Chol HDL Ratio 1.9; Cholesterol 162 mg/dL (<=200); Estimated GFR (African America >60 (>=60); Estimated GFR (Non-African Ame >60 (>=60); Globulin 3.2 g/dL; Glucose 88 mg/dL (74-106); HDL Cholesterol 87 mg/dL (40-60); Potassium 3.8 mmol/L (3.5-5.1); Sodium 140 mmol/L (136-145); Triglycerides 72 mg/dL (<=150); VLDL CHOLESTEROL 14.4 mg/dL
== END 2023-10-03 11:46 | disposition home or self-care (01) ==
LOC: LAB 11:45
PROVIDERS: PCP Family Medicine; Visit Provider Family Medicine
DX: E53.8 Deficiency of other specified B group vitamins (principal); Z79.899 Other long term (current) drug therapy; E55.9 Vitamin D deficiency, unspecified; R63.5 Abnormal weight gain; K76.0 Fatty (change of) liver, not elsewhere classified
CPT/HCPCS: 36415; 80053; 80061; 82306; 82607; 82746; 84443; 85025

== ENCOUNTER 2023-10-10 13:40 | Outpatient (OUT) | payer MEDICAID, SELFPAY ==
--- NOTE | 2023-10-10 14:07 | XR_ITS ---
The [address] [address] Patient Name: JOSSY GUZMÁN MRN: [id number] date: 1970 Sex: F Assigned Patient Location: LAB Current Patient Location: Accession/Order Number: [id number] Exam Date: 10/10/2023 14:16 Report Date: 10/11/2023 07:25 At the request of: PAULINE ROMERO Procedure: XR abdomen min 2V EXAMINATION: XR abdomen min 2V HISTORY: abdominal distension R14.0 COMPARISON: No relevant comparison available. FINDINGS: BOWEL GAS PATTERN: Large amount of stool throughout the colon. Overall nonobstructive bowel gas pattern CALCIFICATIONS: None significant. OTHER: Negative. No abnormal gaseous collections. XR/XR abdomen min 2V IMPRESSION: Large amount of stool throughout the colon Electronically authenticated by: PAULINE NEGRETE Date: 10/11/2023 07:25
== END 2023-10-10 13:41 | disposition home or self-care (01) ==
LOC: LAB 13:41
PROVIDERS: PCP Family Medicine; Visit Provider Family Medicine
DX: R14.0 Abdominal distension (gaseous) (principal); I25.10 Atherosclerotic heart disease of native coronary artery without angina pectoris
CPT/HCPCS: 36415; 74019; 82172

== ENCOUNTER 2023-11-04 09:27 | Outpatient (OUT) | payer MEDICAID, SELFPAY ==
--- OUTSIDE RECORDS SUMMARY | 2023-11-04 09:30 | XMS_ITS | CCD ---
Author Name Unknown Address [address] [place] [address] Organization [facility] Care Team Providers Care Joint Runner Name Role Phone PHYSICIAN, DEFAULT Unavailable Unavailable [...] Unavailable DO Pauline Romero Primary Care Provider [phone] JOSE Guidry Attending Provider Araceli Joseph Unavailable [...] MARTÍNEZ Consulting Unavailable DR BLAISE MACK Admitting Unavailabl e REINDAMON, DR BLAISE Mohamud Attending Unavailabl e REINECK, DR BLAISE Mohamud Consulting Unavailabl e NICK, DR CARPENTER Primary Care Unavailable GIRVIN, DR [...] Admitting Unavailable GIRVIN, DR CARPENTER Attending Unavailable Nick, DO Carpenter Primary Care Provider MD Elieser Jack II Attending Provider Pauline Romero Primary Care Unavailable Elieser Jack II Attending UnavailElieser De La Rosa II Admitting UnavailAntonina Finch Admitting Unavailable Nick, Pauline Primary Care Unavailable Antonina Guidry Attending Unavailable Elieser Jack II Unavailable Pauline Romero Primary Care Physician [phone] Tobi Borrego Unavailable [phone] Princess Sibley Unavailable Devon Garcia Attending Unavailable Devon Garcia Referring Unavailable DO Devon Garcia Admitting UnavailMabel Mccall Attending Unavailable Pauline Romero Referring Unavailable JOSE Berumen Admitting UnavailDevon Joyner Attending Unavailable DO Devon Garcia Admitting UnavailOSVALDO Cortez Referring Unavailable PONCE HERNANDEZ P Referring Unavailable PAULINE ROMERO Primary Care Unavailable PAULINE ORMERO Primary Care Unavailable LORI BRIONES Attending Unavailable PAULINE ROMERO Primary Care Unavailable JOCELYN KAT Attending Unavailable Allergies Allergy Classification Reported Allergen(s) Allergy Type Date of Onset Reaction(s) Facility (20 sources) Lisinopril Drug Allergy 07-30-2018 [facility] (1 source) Lisinopril Drug Allergy 07-30-2018 [facility] Repository Medications Current Medications Medication Drug Class(es) [...] Start: 11-24-2020 take 2 tablets by [facility] three times daily Acetaminophen 500 MG 2 tablets Orally up to three times a day Nov, Active acetaminophen 325 mg / HYDROcodone bitartrate 5 mg oral tablet (2 sources) Opioid Agonist Start: 11-27-2017 take 1 tablet by mouth twice daily Hydrocodone-Acetaminophen Active 1 TAB PO Twice daily November 27, 2017 1:00am [id number] actuat albuterol 0.09 mg/actuat metered dose [...] 07/04/23 Status: Ordered take 1 tablet by evonne every week as needed Fosamax 70 MG 1 tablet Orally once a wee k for 28 Not-Taking/PRN ALPRAZolam 0.25 mg oral tablet (20 sources) Benzodiazepine Start: 07-04-2023 take 1 tablet by mouth twice daily alprazolam 0.25 mg Tab 0.25 mg = 1 tab(s), Oral, BID, Refills(s) 0 Start Date: 07/04/23 Status: Ordered Start: 09-25-2021 take 1 tablet by evonne th once daily as needed Xanax 0.25 MG 1 tablet Orally every day as needed Sep, Active ascorbic acid 500 mg oral capsule (5 sources) Vitamin C take 1 capsule by mouth [...] PO As Directed November 27, 2017 1:00am 1 ml denosumab 60 mg/ml prefilled syringe (4 sources) RANK Ligand Inhibitor Prolia 60 MG/ML as directed Subcutaneous Active diclofenac sodium 0.01 mg/mg topical gel (10 [...] mouth every twelve hours Vitamin D (Ergocalciferol) 28656 UNIT 1 capsule Orally twice a day Active take 1 capsule by [facility] every twelve hours Vitamin D (Ergocalciferol) 17490 UNIT 1 capsule Orally twice a day [...] 1 tablet by evonne th once daily Nfkyfdmxsbmz-Euar-Ioeve Acid (Centrum Women) 18-400 mg-mcg Tablet Active [...] BID, # 60 cap(s), Refills(s) 1, Pharmacy: [id number], 180, cm, 09/13/23 12:45:00 EST, Height/Length Dosing, 67.1, kg, 09/13/23 12:45:00 EST, Weight Dosing Start Date: 09/13/23 Status: Ordered Start: 07-08-2023 End: 10-06-2023 take 1 capsule by mouth twice daily Lyrica 150 mg Cap 150 mg = 1 cap(s), Oral, BID, X 30 day(s), # 60 cap(s), Refills(s) 2, Pharmacy: [id number] #[id number], 180.3, cm, 07/04/23 8:41:00 EDT, Height/Length Dosing, 69, kg, 07/04/23 14:13:00 EDT, Weight Dosing Start Date: 07/08/23 Stop Date: 10/06/23 Status: Ordered take 1 capsule by [facility] every twenty-four hours Pregabalin 150 MG [...] Start: 10-12-2022 take 0.5 tablet by m outh once daily at bedtime traZODone HCl 50 [...] Ordered Start: 11-24-2020 take 1 capsule by [facility] every twenty-four hours Effexor XR 75 MG 1 capsule with food Orally Once a day for 30 day(s) Nov, Active Start: 11-24-2020 take 1 capsule by [facility] every twenty-four hours Effexor XR 37.5 MG 1 capsule with food Orally Once a day Nov, Active Vitamin B-12 5000 mcg sublingual tablet (3 sources) Start: 07-04-2023 take 1 tablet under the tongue once daily Vitamin B-12 5000 mcg sublingual tablet 5,000 mcg = 1 tab(s), SubLingual, Daily, Refills(s) 0 Start Date: 07/04/23 Status: Ordered vitamin b12 0.1 mg oral tablet (7 sources) Vitamin B12 Start: 11-27-2017 Cyanocobalamin (Vitamin [...] Once a day Active Vitamin D (Ergocalciferol) 50414 UNIT (12 sources) take 1 capsule by mo ut twice daily Vitamin D (Ergocalciferol) 44530 UNIT 1 capsule Orally twice a day [...] Active zinc gluconate 30 mg oral tablet (5 sources) take 1 tablet by evonne th every [...] Active triamcinolone acetonide 40 mg/ml injectable suspension (8 sources) Corticosteroid Start: 07-25-2023 Kenalog-40 Jul, 120 mg Problems Active Problems Problem Classification Problem Date Documented Da te Episodic/Chronic Abdominal pain (1 source) Generalized abdominal pain; Translations: [Generalized abdominal pain] Onset: 10-31-2023 Episodic Abdominal pain (4 sources) Pelvic and perineal [...] disease with (acute) exacerbation] Onset: 06-12-2022 Chronic Coronary atherosclerosis and other heart disease (5 sources) Coronary arteriosclerosis; Translations: [Atherosclerotic heart disease of [place] coronary artery without angina pectoris] Chronic Diseases of white blood cells (20 [...] incontinence] Chronic Genitourinary symptoms and ill-defined conditions (7 sources) Frequency of micturition; Translations: [Hematuria, unspecified] Onset: 09-05-2021 Resolved: 06-14-2022 Episodic Headache; including migraine (1 source) Headache; including migraine; Translations: [Headache, unspecified] Onset: 09-13-2023 Hepatitis (20 sources) Nonalcoholic steatohepatitis; Translations: [Nonalcoholic steatohepatitis (GAXIOLA)] Chronic Joint disorders and dislocations; trauma-related (3 sources) Derangement of left knee; Translations: [Unspecified internal derangement of left knee] Chronic Malaise and fatigue (8 sources) Other [...] Onset: 09-05-2021 Resolved: 03-12-2022 Chronic Nutritional deficiencies (10 sources) Deficiency of other specified B group vitamins; Translations: [DEFICIENCY SPEC B GROUP VITAMINS] Onset: 09-05-2021 Resolved: 06-14-2022 Episodic Osteoarthritis (20 sources) Arthropathy of left hip joint; Translations: [Unilateral primary osteoarthritis, left hip] Chronic Osteoporosis (1 source) Age-related osteoporosis without current pathological fracture; Translations: [AGE-RELATED OSTEOPOROSIS W/O CURRENT PATHOLOGICAL FRACTURE] Onset: 12-23-2017 Chronic Other aftercare (10 sources) 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; Translations: [OTH NURSING HOME CURRENT DRUG THERAPY] Onset: 09-05-2021 Resolved: 03-12-2022 [...] initial encounter for closed fracture] Episodic Other gastrointestinal disorders (4 sources) Dysphagia; Translations: [Dysphagia, unspecified] Episodic Other gastrointestinal disorders (1 source) Abdominal distension (gaseous) Episodic Other gastrointestinal disorders (1 source) Dysphagia, unspecified Episodic Other gastrointestinal disorders (1 source) Constipation, unspecified; Translations: [Constipation, unspecified] Onset: 10-31-2023 Episodic Other liver diseases (20 sources) Liver cyst; Translations: [Other specified diseases of liver] Chronic Other liver diseases (20 sources) Non-alcoholic fatty liver; Translations: [Fatty (change of) liver, not elsewhere classified] Chronic Other liver diseases (5 sources) Fatty (change of) liver, not elsewhere [...] Chronic Other nutritional; endocrine; and metabolic disorders (5 sources) Abnormal weight gain; Translations: [ABNORMAL WEIGHT [...] Translations: [Insomnia, unspecified] Episodic Residual codes; unclassified (5 sources) Insomnia, unspecified Episodic Residual codes; unclassified [...] Test Name Value Interpretation Reference Range Facility CT ABDOMEN PELVIS WO CONTRAS Ton 10-31-2023 CT ABDOMEN PELVIS WO CONTRAST RADRPT EXAMINATION: CT ABDOMEN PELVIS WO CONTRAST, 10/31/2023 12:26 PM EST HISTORY: Abdominal Pain COMPARISON: CT abdomen pelvis, [place], 02/11/2019. TECHNIQUE: CT scan of the abdomen and pelvis was performed without IV contrast. CT dose reduction technique was used, including Automated Exposure Control. POSITIVES related to history: A very large amount of stool in the colon, particularly the transverse and ascending colon. NEGATIVES related to history: No mechanical bowel obstruction, mass, free fluid or free air. COINCIDENTAL, unrelated to history: Minimal atelectasis posterior lung bases. ROUTINE: No acute surgical change. Normal liver, spleen, pancreas, adrenal glands, kidneys, gallbladder, liver and bone windows. Normal female pelvis. Report electronically signed by: Dr. Ruddy Horn IMPRESSION: Large amount of stool in the colon. Abdominal Pain; Constipation. History of back surgery. Interpreted by: Amaury Horn Jr., MD Signed by: Amaury Horn Jr., MD 10/31/23 Final result Normal [facility] Complete Blood Count with Au to Diffon 10-31-2023 BASO# BASO#: 0.0 Normal 0.0-0.1 [facility] Comment on above: Performed By: #### C BCAD #### [place] [address] Ph. [phone] BASO% BASO%: 0 Normal 0-1 [facility] Comment on above: Performed By: #### C BCAD #### [place] [address] Ph. [phone] Eosinophils (Bld) [#/Vol] 0.2 10*3/uL Normal 0.0-0.5 [facility] Comment on above: Performed By: #### C BCAD #### [place] [address] Ph. [phone] Eosinophils/100 WBC (Bld) 3 % Normal 0-5 [facility] Comment on above: Performed By: #### C BCAD #### [place] [address] Ph. [phone] Erythrocyte distribution width (RBC) [Ratio] 13.9 % Normal 11.5-14.5 [facility] Comment on above: Performed By: #### C BCAD #### [place] [address] Ph. [phone] Hematocrit (Bld) [Volume fraction] 41.2 % Normal 36.0-47.0 [facility] Comment on above: Performed By: #### C BCAD #### [place] [id number] Ph. [phone] Hemoglobin (Bld) [Mass/Vol] 13.7 g/dL Normal 12.0-16.0 [facility] Comment on above: Performed By: #### C BCAD #### [place] [id number] Ph. [phone] Lymphocytes (Bld) [#/Vol] 2.1 10*3/uL Normal 1.0-4.0 [facility] Comment on above: Performed By: #### C BCAD #### [place] [id number] Ph. [phone] Lymphocytes/100 WBC (Bld) 31 % Normal 20-40 [facility] Comment on above: Performed By: #### C BCAD #### [address] [address] Ph. [phone] MCH (RBC) [Entitic mass] 29.8 pg Normal 27.0-35.0 [facility] Comment on above: Performed By: #### C BCAD #### [address] [address] Ph. [phone] MCHC (RBC) [Mass/Vol] 33.3 g/dL Normal 32.0-36.0 [facility] Comment on above: Performed By: #### C BCAD #### [address] [address] Ph. [phone] MCV (RBC) [Entitic vol] 89.8 fL Normal 80.0-100.0 [facility] Comment on above: Performed By: #### C BCAD #### [address] [address] Ph. [phone] Monocytes (Bld) [#/Vol] 0.4 10*3/uL Normal 0.3-1.0 [facility] Comment on above: Performed By: #### C BCAD #### [address] [address] Ph. [phone] Monocytes/100 WBC (Bld) 6 % Normal 1-15 [facility] Comment on above: Performed By: #### C BCAD #### [address] [address] Ph. [phone] Neutrophils (Bld) [#/Vol] 4 10*3/uL Normal 1.8-7.7 [facility] Comment on above: Performed By: #### C BCAD #### [address] [address] Ph. [phone] Neutrophils/100 WBC (Bld) 59 % Normal 50-70 [facility] Comment on above: Performed By: #### C BCAD #### [address] [address] Ph. [phone] Platelet mean volume (Bld) [Entitic vol] 10 fL Normal 9.4-12.3 [facility] Comment on above: Performed By: #### C BCAD #### [address] [address] Ph. [phone] Platelets (Bld) [#/Vol] 222 10*3/uL Normal 150-450 [facility] Comment on above: Performed By: #### C BCAD #### [address] [address] Ph. [phone] RBC (Bld) [#/Vol] 4.59 10*6/uL Normal 4.20-5.40 [facility] Comment on above: Performed By: #### C BCAD #### [address] [address] Ph. [phone] WBC (Bld) [#/Vol] 6.8 10*3/uL Normal 3.7-11.0 [facility] Comment on above: Performed By: #### C BCAD #### [address] [address] Ph. [phone] Comprehensive Metabolic Pane l w/ Reflex to Mgon 10-31-2023 Albumin [Mass/Vol] 4.0 g/dL Normal 3.5-5.0 [facility] Comment on above: Performed By: #### C MPWR #### [address] [address] Ph. [phone] ALP [Catalytic activity/Vol] 55 U/L Normal 38-126 [facility] Comment on above: Performed By: #### C MPWR #### [address] [address] Ph. [phone] ALT [Catalytic activity/Vol] 23 U/L Normal 0-35 [facility] Comment on above: Performed By: #### C MPWR #### [address] [address] Ph. [phone] AST [Catalytic activity/Vol] 33 U/L Normal 14-36 [facility] Comment on above: Performed By: #### C MPWR #### [place] [id number] Ph. [phone] Bilirubin [Mass/Vol] 0.5 mg/dL Normal 0.2-1.3 [facility] Comment on above: Performed By: #### C MPWR #### [place] [id number] Ph. [phone] Calcium [Mass/Vol] 9.3 mg/dL Normal 8.4-10.2 [facility] Comment on above: Performed By: #### C MPWR #### [place] [id number] Ph. [phone] Chloride [Moles/Vol] 99 mmol/L Normal 98-107 [facility] Comment on above: Performed By: #### C MPWR #### [address] [address] Ph. [phone] CO2 [Moles/Vol] 31 mmol/L Normal 22-32 [facility] Comment on above: Performed By: #### C MPWR #### [address] [address] Ph. [phone] Creatinine [Mass/Vol] 0.67 mg/dL Normal 0.52-1.04 [facility] Comment on above: Performed By: #### C MPWR #### [address] [address] Ph. [phone] GFR/1.73 sq M.predicted among non-blacks MDRD (S/P/Bld) [Vol rate/Area] 104 mL/min/{1.73_m2} Normal >60 [facility] Comment on above: Result Comment: GFR calculated using CKD-EPI (2020) formula.\X0D0A\Stage 1 Kidney damage (e.g., protein in the urine) with normal GFR >=90\X0D0A\Stage 2 Kidney damage with mild decrease in GFR 60-89\X0D0A\Stage 3a Moderate decrease in GFR 45-59\X0D0A\Stage 3b Moderate decrease in GFR 30-44\X0D0A\Stage 4 Severe reduction in GFR 15-29\X0D0A\Stage 5 Kidney failure <15 Performed By: #### C MPWR #### [address] [address] Ph. [phone] Glucose [Mass/Vol] 81 mg/dL Normal 65-100 [facility] Comment on above: Performed By: #### C MPWR #### [address] [address] Ph. [phone] Potassium [Moles/Vol] 4.0 mmol/L Normal 3.6-5.0 [facility] Comment on above: Performed By: #### C MPWR #### [address] [address] Ph. [phone] Protein [Mass/Vol] 6.6 g/dL Normal 6.3-8.2 [facility] Comment on above: Performed By: #### C MPWR #### [address] [address] Ph. [phone] Sodium [Moles/Vol] 137 mmol/L Normal 135-145 [facility] Comment on above: Performed By: #### C MPWR #### [address] [address] Ph. [phone] Urea nitrogen [Mass/Vol] 11 mg/dL Normal 7-17 [facility] Comment on above: Performed By: #### C MPWR #### [phone] CT LUNG SCREENING (INITIAL/A NNUAL)on 10-09-2023 CT LUNG SCREENING (INITIAL/ANNUAL) EXAMINATION: LOW DOSE SCREENING CT OF THE CHEST WITHOUT CONTRAST 10/08/2023 1:43 pm TECHNIQUE: Low dose lung cancer screening CT of the chest was performed without the administration of intravenous contrast. Multiplanar reformatted images are provided for review. Automated exposure control, iterative reconstruction, and/or weight based adjustment of the mA/kV was utilized to reduce the radiation dose to as low as reasonably achievable. COMPARISON: None. HISTORY: Screening. History: ORDERING SYSTEM PROVIDED HISTORY: Encounter for special screening examination for neoplasm of respiratory organ TECHNOLOGIST PROVIDED HISTORY: Age: 53 y.o. Smoking History: Social History Tobacco Use Smoking status: Every Day Packs/day: .25 Types: Cigarettes Start date: 1982 Smokeless tobacco: Never Alcohol use: Yes Comment: occas Drug use: Never Pack years: [address] lung screen: No previous lung cancer screening exam Is there documentation of shared decision making?->Yes Does the patient show any signs or symptoms of lung cancer?->No Is this the first (baseline) CT or an annual exam?->Baseline Is this a low dose CT or a routine CT?->Low Dose CT Smoking Status?->Every Day Smoking packs per day?->1 Years smoking?->20 FINDINGS: Mediastinum: Thoracic aorta normal in course and caliber. No enlarged mediastinal or hilar lymph nodes by imaging size criteria. Heart size within normal limits. Coronary artery calcification present. Thyroid and esophagus unremarkable as visualized. Lungs/Pleura: No consolidation, pneumothorax or pleural effusion. Bibasilar atelectasis or scarring. Central airways are patent. 2 mm punctate right upper lobe noncalcified nodule. No suspicious nodule demonstrated. Upper Abdomen: Limited visualization upper abdomen demonstrates no acute findings. Soft Tissues/Bones: Spinal degenerative changes with no acute findings. IMPRESSION: 2 mm punctate right upper lung nodule. No suspicious nodule Coronary artery disease. LUNG RADS: Lung-RADS 2 - Benign (v2022) Management: 12 month screening LDCT RECOMMENDATIONS: If you would like to register your patient with the [facility] Lung Nodule/Lung Cancer Screening Program, please contact the Nurse Navigator at [phone] . Interpreted by: Altaf Arredondo DO Signed by: Altaf Arredondo DO 10/09/23 Final result Normal [facility] Patient Correspondenceon Patient Correspondence [id number] 5#1.00TIFF Normal [facility] Insurance Correspondence Off iceon 10-03-2023 Insurance Correspondence Office [id number] 4#2.00TIFF Normal [facility] Basic Metabolic Panel w/ Ref rory Mgon 09-13-2023 Calcium [Mass/Vol] 9.0 mg/dL Normal 8.4-10.2 [facility] Comment on above: Performed By: #### B MEGHNA, TNI #### [place] [address] Ph. [phone] Chloride [Moles/Vol] 102 mmol/L Normal 98-107 [facility] Comment on above: Performed By: #### B MEGHNA, TNI #### [address] [address] Ph. [phone] CO2 [Moles/Vol] 29 mmol/L Normal 22-32 [facility] Comment on above: Performed By: #### B MEGHNA, TNI #### [place] [address] Ph. [phone] Creatinine [Mass/Vol] 0.55 mg/dL Normal 0.52-1.04 [facility] Comment on above: Performed By: #### B MEGHNA, TNI #### [place] [address] Ph. [phone] GFR/1.73 sq M.predicted among non-blacks MDRD (S/P/Bld) [Vol rate/Area] 109 mL/min/{1.73_m2} Normal >60 [facility] Comment on above: Result Comment: GFR calculated using CKD-EPI (2020) formula.\X0D0A\Stage 1 Kidney damage (e.g., protein in the urine) with normal GFR >=90\X0D0A\Stage 2 Kidney damage with mild decrease in GFR 60-89\X0D0A\Stage 3a Moderate decrease in GFR 45-59\X0D0A\Stage 3b Moderate decrease in GFR 30-44\X0D0A\Stage 4 Severe reduction in GFR 15-29\X0D0A\Stage 5 Kidney failure <15 Performed By: #### B MPWR, TNI #### [place] [address] Ph. [phone] Glucose [Mass/Vol] 83 mg/dL Normal 65-100 [facility] Comment on above: Performed By: #### B MPWR, TNI #### [place] [address] Ph. [phone] Potassium [Moles/Vol] 3.7 mmol/L Normal 3.6-5.0 [facility] Comment on above: Performed By: #### B MPWR, TNI #### [place] [address] Ph. [phone] Sodium [Moles/Vol] 137 mmol/L Normal 135-145 [facility] Comment on above: Performed By: #### B MPWR, TNI #### [place] [address] Ph. [phone] Urea nitrogen [Mass/Vol] 13 mg/dL Normal 7-17 [facility] Comment on above: Performed By: #### B MPWR, TNI #### [place] [address] Ph. [phone] CT HEAD WO CONTRASTon 2022 CT HEAD [...] Dudley Muñoz MD 09/13/23 Final result Normal [facility] Complete Blood Count with Au to Diffon 09-13-2023 Basophils (Bld) [#/Vol] 0.1 10*3/uL Normal 0.0-0.1 [facility] Comment on above: Performed By: #### C BCAD #### [place] [address] Ph. [phone] Basophils/100 WBC (Bld) 1 % Normal 0-1 [facility] Comment on above: Performed By: #### C BCAD #### [place] [address] Ph. [phone] Eosinophils (Bld) [#/Vol] 0.1 10*3/uL Normal 0.0-0.5 [facility] Comment on above: Performed By: #### C BCAD #### [place] [address] Ph. [phone] Eosinophils/100 WBC (Bld) 2 % Normal 0-5 [facility] Comment on above: Performed By: #### C BCAD #### [place] [address] Ph. [phone] Erythrocyte distribution width (RBC) [Ratio] 14.3 % Normal 11.5-14.5 [facility] Comment on above: Performed By: #### C BCAD #### [address] [address] Ph. [phone] Hematocrit (Bld) [Volume fraction] 42.6 % Normal 36.0-47.0 [facility] Comment on above: Performed By: #### C BCAD #### [address] [address] Ph. [phone] Hemoglobin (Bld) [Mass/Vol] 14.3 g/dL Normal 12.0-16.0 [facility] Comment on above: Performed By: #### C BCAD #### [address] [address] Ph. [phone] Lymphocytes (Bld) [#/Vol] 3.1 10*3/uL Normal 1.0-4.0 [facility] Comment on above: Performed By: #### C BCAD #### [address] [address] Ph. [phone] Lymphocytes/100 WBC (Bld) 45 % High 20-40 [facility] Comment on above: Performed By: #### C BCAD #### [address] [address] Ph. [phone] MCH (RBC) [Entitic mass] 29.8 pg Normal 27.0-35.0 [facility] Comment on above: Performed By: #### C BCAD #### [address] [address] Ph. [phone] MCHC (RBC) [Mass/Vol] 33.6 g/dL Normal 32.0-36.0 [facility] Comment on above: Performed By: #### C BCAD #### [address] [address] Ph. [phone] MCV (RBC) [Entitic vol] 88.8 fL Normal 80.0-100.0 [facility] Comment on above: Performed By: #### C BCAD #### [address] [address] Ph. [phone] Monocytes (Bld) [#/Vol] 0.4 10*3/uL Normal 0.3-1.0 [facility] Comment on above: Performed By: #### C BCAD #### [place] [address] Ph. [phone] Monocytes/100 WBC (Bld) 6 % Normal 1-15 [facility] Comment on above: Performed By: #### C BCAD #### [place] [address] Ph. [phone] Neutrophils (Bld) [#/Vol] 3.2 10*3/uL Normal 1.8-7.7 [facility] Comment on above: Performed By: #### C BCAD #### [address] [address] Ph. [phone] Neutrophils/100 WBC (Bld) 46 % Low 50-70 [facility] Comment on above: Performed By: #### C BCAD #### [address] [address] Ph. [phone] Platelet mean volume (Bld) [Entitic vol] 9.7 fL Normal 9.4-12.3 [facility] Comment on above: Performed By: #### C BCAD #### [address] [address] Ph. [phone] Platelets (Bld) [#/Vol] 286 10*3/uL Normal 150-450 [facility] Comment on above: Performed By: #### C BCAD #### [place] [address] [address] Ph. [phone] RBC (Bld) [#/Vol] 4.8 10*6/uL Normal 4.20-5.40 [facility] Comment on above: Performed By: #### C BCAD #### [address] [address] Ph. [phone] WBC (Bld) [#/Vol] 6.8 10*3/uL Normal 3.7-11.0 [facility] Comment on above: Performed By: #### C BCAD #### [address] [address] Ph. [phone] Consent for Treatmenton Consent for Treatment [id number] #1.00TIFF Normal [facility] Consultation Noteon 09-13-20 Consultation Note Patient: NAYE [...] day(s), # 60 cap(s), Refills(s) 2, Pharmacy: [id number], 180.3, cm, 07/04/23 8:41:00 EDT, Height/Length Dosing, 69, kg, 07/04/23 14:13:00 EDT, Weight Dosing pregabalin 225 mg oral capsule: 225 mg = 1 cap(s), Oral, BID, # 60 cap(s), Refills(s) 1, Pharmacy: [facility] 3809, 180, cm, 09/13/23 12:45:00 [...] Degenerative disc disease, lumbar / SNOMED CT 64922013 / Confirmed COPD (chronic obstructive pulmonary disease) / SNOMED CT 13144282 / Confirmed Depression / SNOMED CT 8644770521 / Confirmed Radiculopathy of lumbosacral region / SNOMED CT 2412267 / Confirmed Fatigue / SNOMED CT 994738310 / Confirmed Smoker / SNOMED CT 806837917 / Confirmed Added secondary to documentation in [...] and EHL 5 -/5 Integumentary: Warm, Dry, [place]. Neurologic: Alert, Oriented. Psychiatric: Cooperative, Appropriate mood [...] injection for (more content not included)... Normal [facility] Comment on above: Result Comment: Elec tronically Signed By: Mabel Berumen PA-C\.br\Date and Time Signed: 09/13/23 12:54 EST\.br\Electronically Co-Signed By: Devon Garcia DO\.br\Date and Time Co-Signed: 09/19/23 21:42 EST Office/Clinic Note-Physician on 09-13-2023 Office/Clinic Note-Physician [id number] 8#1.00TIFF Normal [facility] Patient Correspondenceon Patient Correspondence [id number] 3#1.00TIFF Normal [facility] Patient Correspondence [id number] 3#1.00TIFF Normal [facility] Patient History Officeon Patient History Office [id number] 8#1.00TIFF [facility] Troponin Ion 09-13-2023 TNI <0.012 Normal 0.000-0.034 [facility] Comment on above: Result Comment: Limi t of Detection: <0.012 ng/mL\X0D0A\At Risk of Myocardial Damage: 0.012-0.034 ng/mL\X0D0A\Probable Myocardial Damage: >0.034 ng/mL Performed By: #### B MPWR, TNI #### [address] [phone] Consent for Procedure/Surger yon 08-21-2023 Consent for Procedure/Surgery [id number] 1#1.00TIFF [facility] Consent for Treatmenton 08-07 Consent for Treatment [id number] 9#1.00TIFF Normal [facility] Discharge Instructionson Discharge Instructions [id number] 6#1.00TIFF Normal [facility] IntraOperative Documentson 1 10-21-2022 IntraOperative Documents [id number] 6#1.00TIFF Normal [facility] Main OR Intraoperative Recor don 08-21-2023 Main OR Intraoperative Record IntraOp Document Type FTPM Summary Primary Physician: Devon Garcia DO Finalized Date/Time: 08/21/23 15:54:17 Pt. Name: ARIELLEYANETYA Sadie/Sex: 1970 Female Med Rec #: [id number] Physician: Devon Garcia DO Financial #: [id number] Pt. Type: P Room/Bed: / Admit/Disch: 08/21/23 14:08:31 - Institution: Case Times FTPM Entry 1 Patient Times In Room 08/21/23 15:47:00 Out Room 08/21/23 15:55:00 Procedure Times Start 08/21/23 15:50:00 Stop 08/21/23 15:54:00 Anesthesia Times Last Modified By: Jean-Claude BRANTLEY, Paradise Harry 08/21/23 15:54:12 Case Attendance FTPM Entry 1 Entry 2 Entry 3 Case Attendee Devon Garcia DO, RN, Paradise Mazariegos RN, Yuki Lindsay Role Performed Surgeon - Primary Numerical Control Tool Programmer - Primary Scrub - Primary Time In 08/21/23 15:47:00 08/21/23 15:47:00 08/21/23 15:47:00 Time Out 08/21/23 15:55:00 08/21/23 15:55:00 08/21/23 15:55:00 Procedure CAUDAL EPIDURAL STEROID CAUDAL EPIDURAL STEROID CAUDAL EPIDURAL STEROID INJECTION(.) INJECTION(.) INJECTION(.) Comments Last Modified By: Jean-Claude BRANTLEY, Paradise Bermeo RN, Paradise Quesada RN 08/21/23 15:54:13 08/21/23 15:54:13 08/21/23 15:54:13 Entry 4 Case Attendee Domenica Welch Role Performed Gauge And Weigh Machine Adjuster Time In 08/21/23 15:47:00 Time Out 08/21/23 [...] Out Paradise Bermeo RN, Nitesh Mazariegos RN, Jose Rowe DO, Bradford A., Ott, Amy Time Out Complete 08/21/23 15:47:00 [...] and tissue Entry 1 Skin Integrity Intact, [place], Warm, and Skin Abnormality No Dry Outcomes [...] RN 08/07 (more content not included)... Normal [facility] Main OR Preoperative Recordo n 08-21-2023 Main OR Preoperative Record Holding Area Document Type FTPM Summary Primary Physician: Devon Garcia DO Finalized Date/Time: 08/21/23 14:45:55 Pt. Name: NAYE GUZMÁN/Sex: 1970 Female Med Rec #: [id number] Physician: Devon Garcia DO Financial #: [id number] Pt. Type: P Room/Bed: / Admit/Disch: 08/21/23 [...] Signed By: Carla Mena RN 08/21/23 14:45 [facility] Patient Correspondenceon Patient Correspondence [id number] 8#1.00TIFF [facility] Insurance Correspondence Off iceon 07-24-2023 Insurance Correspondence Office [id number] #2.00TIFF [facility] Consent for Treatmenton 06-08 Consent for Treatment [id number] 0#1.00CD:127 [facility] Consultation Noteon 07-04-20 Consultation Note [...] been selected or recorded. Procedure history: None ([id number]). History of lumbar spine surgery ([id number]). Comments: 07/04/2023 13:54 ELOISA - Jean-Claude BRANTLEY, Paradise Harry 2010 Dr. [...] (JUL 04 08:23) DBP H 90mmHg (JUL 04 08:23) Weight 68.95 kg (JUL 04 08:23) BMI 21.2 (JUL 04 08:23) General: No acute distress. Patient appears well-nourished. [...] answered and pa (more content not included)... [facility] Comment on above: Result Comment: Elec tronically Signed By: Jose MORENO, Devon Dudley.br\Date and Time Signed: 07/04/23 14:59 EDT HIPAA Forms Officeon 023 HIPAA Forms Office [id number] #1.00CD:127 [facility] Legal Correspondence Officeo n 07-04-2023 Legal Correspondence Office [id number] #1.00CD:127 [facility] Legal Correspondence Office [id number] #1.00CD:127 [facility] Office/Clinic Note-Physician on 07-04-2023 Office/Clinic Note-Physician [id number] #1.00CD:127 [facility] Patient Correspondenceon Patient Correspondence [id number] #1.00CD:127 [facility] Patient Correspondence [id number] #1.00CD:127 [facility] Patient Correspondence [id number] #1.00CD:127 [facility] Patient Correspondence [id number] #1.00CD:127 [facility] Patient Correspondence [id number] #1.00CD:[address] [facility] Patient Correspondence [id number] #1.00CD:[address] [facility] Patient History Officeon Patient History Office [id number] #1.00CD:[address] [facility] Radiology Outside Office Product Development Coordinator yon 07-04-2023 Radiology Outside Office Copy [id number] 0#1.00CD:[address] [facility] Outside Records Officeon Outside Records Office [id number] 9#1.00CD:[address] [facility] Referrals Officeon Referrals Office [id number] 1#1.00CD:[address] [facility] XR knee LT 4V*on 03-13-2023 XR knee LT 4V* [facility] [place] [address] XRay Report Signed Patient: Naye Guzmán MR#: [id number] 3 : 1970 Acct:[id number] Age/Sex: 52 / F ADM Date: 03/13/23 Loc: [facility] Room: Type: [facility] Attending Dr: Elieser Jack II, MD Copies to: Elieser Jack MD Ordering Provider: Elieser Jack MD Date of Service: 03/13/23 XR/XR knee LT 4V*: Acute pain of left knee ([id number]) XR/XR pelvis 1-2V: Acute pain of left [...] Nettie Anaya M.D.03/13/2023 5:40 PM Dictation Location: [place] [address] Transcribed By: [facility] 03/13/23 1740 Dictated By: Nettie Anaya MD 03/13/23 1735 Signed By: 03/13/23 174 Normal [facility] XR knee LT 4V* [facility] [employer] Other XR knee LT 4V* [facility] Main [facility] [employer] Other XR knee LT 4V* [address] [place] [address] [employer] Other XR knee LT 4V* [place] [address] No [facility] [employer] Other XR knee LT 4V* XRay Report [employer] Other XR knee LT 4V* Signed [employer] Other XR knee LT 4V* Patient: Naye Guzmán MR#: [id number] [employer] Other XR knee LT 4V* 3 [employer] Other XR knee LT 4V* : 1970 Acct:[id number] [employer] Other XR knee LT 4V* Age/Sex: 52 / F ADM Date: 03/13/23 [employer] Other XR knee LT 4V* Loc: [facility] Room: Type: [facility] [employer] Other XR knee LT 4V* Attending Dr: Elieser Jack II, MD [employer] Other XR knee LT 4V* Copies to: Elieser Jack MD [employer] Other XR knee LT 4V* Ordering Provider: Elieser Jack MD [employer] Other XR knee LT 4V* Date of Service: 03/13/23 [employer] Other XR knee LT 4V* XR/XR knee LT 4V*: Acute pain of left knee [employer] Other XR knee LT 4V* ([id number]) XR/XR pelvis 1-2V: Acute pain of left knee [employer] Other XR knee LT 4V* CLINICAL DATA: Generalized left knee pain. No injury. [employer] Other XR knee LT 4V* AP WEIGHTBEARING PELVIS [employer] Other XR knee LT 4V* COMPARISON: None [facility] [employer] Other XR knee LT 4V* There is subtle deformity at the right pubic rami right could relate to old fracture. No acute [employer] Other XR knee LT 4V* fracture, dislocation or bony destruction is seen. The hip joint spaces are symmetric. There is no [employer] Other XR knee LT 4V* significant arthritic change. The SI joints are intact. There are no soft tissue abnormalities. [employer] Other XR knee LT 4V* XR/XR pelvis 1-2V [employer] Other XR knee LT 4V* IMPRESSION: [facility] [employer] Other XR knee LT 4V* NO DEFINITE ACUTE BONY FINDINGS. [employer] Other XR knee LT 4V* LEFT KNEE - 4 views N I Do Now I Don't Other XR knee LT 4V* COMPARISON: 02/11/2014 [employer] Other XR knee LT 4V* Standing AP, lateral, skiers and patellar views were obtained. There is no acute fracture or [employer] Other XR knee LT 4V* dislocation. No patellar subluxation is seen. There is minimal narrowing of the tibiofemoral joint [employer] Other XR knee LT 4V* compartments. There is minor marginal spurring. A tiny enthesophyte is seen at the insertion of [employer] Other XR knee LT 4V* the quadriceps tendon. There is a small knee effusion. No focal soft tissue swelling is noted. [employer] Other XR knee LT 4V* MILD DEGENERATIVE CHANGE. [employer] Other XR knee LT 4V* Impression dictated by: Nettie Anaya M.D.03/13/2023 5:40 PM [employer] Other XR knee LT 4V* Dictation Location: [place] [address] [employer] Other XR knee LT 4V* Transcribed By: ZOHRA 03/13/23 1740 [employer] Other XR knee LT 4V* Dictated By: Nettie Anaya MD 03/13/23 1735 [employer] Other XR knee LT 4V* Signed By: [employer] Other XR knee LT 4V* 03/13/23 1740 [employer] Other BNPon 01-17-2023 Natriuretic peptide B (Bld) [Mass/Vol] 27.0 pg/mL Normal <=900.0 [facility] Comment on above: Performed By: #### B TAX ASSOCIATE ATTORNEY, HSTROPN #### [facility] [address] [place] [address] Dr. Paige Ovalle CBC AUTO DIFFon 01-17-2023 BASO # 0.1 103/ul Normal 0.0-0.1 [facility] Comment on above: Performed By: #### V ITAD, VITB12 #### [facility] [address] [place] [address] Dr. Paige Ovalle Basophils/100 WBC (Bld) 0.8 % Normal 0.2-2.0 [facility] Comment on above: Performed By: #### V ITAD, VITB12 #### [facility] [address] [place] [address] Dr. Paige Ovalle EO # 0.4 103/ul Normal 0.0-0.7 [facility] Comment on above: Performed By: #### V ITAD, VITB12 #### [facility] [address] [place] [address] Dr. Paige Ovalle Eosinophils/100 WBC (Bld) 3.8 % Normal 0.9-7.0 [facility] Comment on above: Performed By: #### V ITAD, VITB12 #### [facility] [address] [place] [address] Dr. Paige Ovalle Erythrocyte distribution width (RBC) [Ratio] 13.5 % Normal 11.0-15.0 [facility] Comment on above: Performed By: #### V ITAD, VITB12 #### [facility] [address] [place] [address] Dr. Paige Ovalle Hematocrit (Bld) [Volume fraction] 39.4 % Normal 36.0-48.0 [facility] Comment on above: Performed By: #### V ITAD, VITB12 #### [facility] [address] [place] [address] Dr. aPige Ovalle Hemoglobin (Bld) [Mass/Vol] 13.3 g/dL Normal 12.0-16.0 [facility] Comment on above: Performed By: #### V ITAD, VITB12 #### [facility] [address] [place] [address] Dr. Paige Ovalle IG # 0.05 10e3/ul Critically high 0.00-0.03 [facility] Comment on above: Performed By: #### V ITAD, VITB12 #### [facility] [address] [place] [address] Dr. Paige Ovalle IG % 0.5 % Normal 0.0-0.5 [facility] Comment on above: Performed By: #### V ITAD, VITB12 #### [facility] [address] [place] [address] Dr. Paige Ovalle LYMPH # 3.9 103/ul Critically high 1.2-3.8 [facility] Comment on above: Performed By: #### V ITAD, VITB12 #### [facility] [address] [place] [address] Dr. Paige Ovalle Lymphocytes/100 WBC (Bld) 38.7 % Normal 20.5-60.0 [facility] Comment on above: Performed By: #### V ITAD, VITB12 #### [facility] [address] [place] [address] Dr. Paige Ovalle MANUAL DIFF REQ NO Normal [facility] Comment on above: Performed By: #### V ITAD, VITB12 #### [facility] [address] [place] [address] Dr. Paige Ovalle MCH (RBC) [Entitic mass] 29.9 pg Normal 26.7-34.0 [facility] Comment on above: Performed By: #### V ITAD, VITB12 #### [facility] [address] [place] [address] Dr. Paige Ovalle MCHC (RBC) [Mass/Vol] 33.8 g/dL Normal 29.9-35.2 [facility] Comment on above: Performed By: #### V ITAD, VITB12 #### [facility] [address] [place] [address] Dr. Paige Ovalle MCV (RBC) [Entitic vol] 88.5 fL Normal 81.0-99.0 [facility] Comment on above: Performed By: #### V ITAD, VITB12 #### [facility] [address] [place] [address] Dr. Paige Ovalle MONO # 0.7 103/ul Normal 0.3-0.8 [facility] Comment on above: Performed By: #### V ITAD, VITB12 #### [facility] [address] [place] [address] Dr. Paige Ovalle Monocytes/100 WBC (Bld) 6.8 % Normal 1.7-12.0 [facility] Comment on above: Performed By: #### V ITAD, VITB12 #### [facility] [address] [place] [address] Dr. Pagie Ovalle NEUT # 4.9 103/ul Normal 1.4-6.5 [facility] Comment on above: Performed By: #### V ITAD, VITB12 #### [facility] [address] [place] [address] Dr. Paige Ovalle Neutrophils/100 WBC (Bld) 49.4 % Normal 43.0-75.0 [facility] Comment on above: Performed By: #### V ITAD, VITB12 #### [facility] [address] [place] [address] Dr. Paige Ovalle Platelet mean volume (Bld) [Entitic vol] 9.1 fL Critically low 9.5-13.5 [facility] Comment on above: Performed By: #### V ITAD, VITB12 #### [facility] [address] [place] [address] Dr. Paige Ovalle PLT 298 103/ul Normal 150-450 [facility] Comment on above: Performed By: #### V ITAD, VITB12 #### [facility] [address] [place] [address] Dr. Paige Ovalle RBC 4.45 106/ul Normal 4.20-5.40 [facility] Comment on above: Performed By: #### V ITAD, VITB12 #### [facility] [address] [place] [address] Dr. Paige Ovalle WBC 10.0 103/ul Normal 4.0-11.0 [facility] Comment on above: Performed By: #### V ITAD, VITB12 #### [facility] [address] [place] [address] Dr. Paige Ovalle TROPONIN, HIGH SENSITIVITYon 01-17-2023 HSTROP 5.3 pg/mL Normal 4.0-51.3 [facility] Comment on above: Result Comment: CUT- OFF POINTS HAVE BEEN ESTABLISHED BASED ON THE FOURTH UNIVERSAL DEFINITIONS OF MYOCARDIAL INFARCTION. THE UPPER REFERENCE LIMIT (URL) OF TROPONIN, DEFINED THE 99TH PERCENTILE OF cTnI DISTRIBUTION IN A REFERENCE POPULATION, HAS BEEN CONFIRMED THE DECISION THRESHOLD FOR CT DIAGNOSIS. Performed By: #### B TAX ASSOCIATE ATTORNEY, HSTROPN #### [facility] [address] [place] [address] Dr. Paige Ovalle XR pre/post mri xrayon 12-02 XR pre/post mri xray [facility] [place] [address] MRI Report Signed Patient: Naye Guzmán MR#: [id number] 3 : 1970 Acct:[id number] Age/Sex: 52 / F ADM Date: 12/01/22 Loc: Room: Type: [facility] Attending Dr: Antonina Guidry PA-C Copies to: Antonina Guidry PA-C Ordering Provider: Antonina Guidry PA-C Date of Service: 12/01/22 MR/MR lumbar spine wo con: M54.17 ([id number]) XR/XR pre/post mri xray: M54.17 MR lumbar [...] Néstor Gerard M.D.12/02/2022 8:03 AM Dictation Location: [place] [address] Transcribed By: [facility] 12/02/22802 Dictated By: Néstor Gerard II, MD 12/02/22 0727 Signed By: 02/26/23 0803 [facility] Serotonin, Serum 6 ng/mL Critically low 31-207 [facility] Comment on above: Performed By: #### V KIRSTEN KRAUSB12 #### [facility] [address] [place] [address] Dr. Paige Ovalle SEROTONINon 11-19-2022 SEROTONIN 6 ng/mL Critically low 31-207 ng/mL [facility] [employer] Other SEROTONIN see note [employer] Other CBC AUTO DIFFon 11-10-2022 BASO # 0.1 103/ul Normal 0.0-0.1 [facility] Comment on above: Performed By: #### C BC #### [facility] [address] [place] [address] Dr. Paige Ovalle Basophils/100 WBC (Bld) 0.5 % Normal 0.2-2.0 [facility] Comment on above: Performed By: #### C BC #### [facility] [address] [place] [address] Dr. Paige Ovalle EO # 0.1 103/ul Normal 0.0-0.7 [facility] Comment on above: Performed By: #### C BC #### [facility] [address] [place] [address] Dr. Paige Ovalle Eosinophils/100 WBC (Bld) 1.5 % Normal 0.9-7.0 [facility] Comment on above: Performed By: #### C BC #### [facility] [address] [place] [address] Dr. Paige Ovalle Erythrocyte distribution width (RBC) [Ratio] 13.2 % Normal 11.0-15.0 [facility] Comment on above: Performed By: #### C BC #### [facility] [address] [place] [address] Dr. Paige Ovalle Hematocrit (Bld) [Volume fraction] 43.1 % Normal 36.0-48.0 [facility] Comment on above: Performed By: #### C BC #### [facility] [address] [place] [address] Dr. Paige Ovalle Hemoglobin (Bld) [Mass/Vol] 14.0 g/dL Normal 12.0-16.0 [facility] Comment on above: Performed By: #### C BC #### [facility] [address] [place] [address] Dr. Paige Ovalle IG # 0.02 10e3/ul Normal 0.00-0.03 [facility] Comment on above: Performed By: #### C BC #### [facility] [address] [place] [address] Dr. Paige Ovalle IG % 0.2 % Normal 0.0-0.5 [facility] Comment on above: Performed By: #### C BC #### [facility] [address] [place] [address] Dr. Paige Ovalle LYMPH # 2.8 103/ul Normal 1.2-3.8 [facility] Comment on above: Performed By: #### C BC #### [facility] [address] [place] [address] Dr. Paige Ovalle Lymphocytes/100 WBC (Bld) 30.2 % Normal 20.5-60.0 [facility] Comment on above: Performed By: #### C BC #### [facility] [address] [place] [address] Dr. Paige Ovalle MANUAL DIFF REQ NO Normal [facility] Comment on above: Performed By: #### C BC #### [facility] [address] [place] [address] Dr. Paige Ovalle MCH (RBC) [Entitic mass] 30.8 pg Normal 26.7-34.0 [facility] Comment on above: Performed By: #### C BC #### [facility] [address] [place] [address] Dr. Paige Ovalle MCHC (RBC) [Mass/Vol] 32.5 g/dL Normal 29.9-35.2 [facility] Comment on above: Performed By: #### C BC #### [facility] [address] [place] [address] Dr. Paige Ovalle MCV (RBC) [Entitic vol] 94.7 fL Normal 81.0-99.0 [facility] Comment on above: Performed By: #### C BC #### [facility] [address] [place] [address] Dr. Paige Ovalle MONO # 0.6 103/ul Normal 0.3-0.8 [facility] Comment on above: Performed By: #### C BC #### [facility] [address] [place] [address] Dr. Paige Ovalle Monocytes/100 WBC (Bld) 5.9 % Normal 1.7-12.0 [facility] Comment on above: Performed By: #### C BC #### [facility] [address] [place] [address] Dr. Paige Ovalle NEUT # 5.7 103/ul Normal 1.4-6.5 [facility] Comment on above: Performed By: #### C BC #### [facility] [address] [place] [address] Dr. Paige Ovalle Neutrophils/100 WBC (Bld) 61.7 % Normal 43.0-75.0 [facility] Comment on above: Performed By: #### C BC #### [facility] [address] [place] [address] Dr. Paige Ovalle Platelet mean volume (Bld) [Entitic vol] 9.3 fL Critically low 9.5-13.5 [facility] [place] Comment on above: Performed By: #### C BC #### [facility] [address] [place] [address] Dr. Paige Ovalle PLT 275 103/ul Normal 150-450 [facility] Comment on above: Performed By: #### C BC #### [facility] [address] [place] [address] Dr. Paige Ovalle RBC 4.55 106/ul Normal 4.20-5.40 [facility] Comment on above: Performed By: #### C BC #### [facility] [address] [place] [address] Dr. Paige Ovalle WBC 9.3 103/ul Normal 4.0-11.0 [facility] Comment on above: Performed By: #### C BC #### [facility] [address] [place] [address] Dr. Paige Ovalle Covid-19 PCR ([facility])on SARS-CoV-2 (COVID-19) RNA MUNDO+probe Ql (Unsp spec) Not detected Normal NOT DETECTED [facility] Comment on above: Result Comment: When [...] for this test is supported by the Master Fire Control Technician of Health and Human Service's declaration that [...] Performed By: #### V ITAD, VITB12 #### [facility] [address] [place] [address] Dr. Paige Ovalle PROF CHEM 8 (BAS METB)on Anion gap [Moles/Vol] 10.9 mmol/L Normal [facility] [place] Comment on above: Performed By: #### B MP #### [facility] [address] [place] [address] Dr. Paige Ovalle Calcium [Mass/Vol] 9.5 mg/dL Normal 8.5-10.1 [facility] Comment on above: Performed By: #### B MP #### [facility] [address] [place] [address] Dr. Paige Ovalle Chloride [Moles/Vol] 99 mmol/L Normal 98-107 [facility] [place] Comment on above: Performed By: #### B MP #### [facility] [address] [address] [address] Paige Ovalle CO2 [Moles/Vol] 29.7 mmol/L Normal 21.0-32.0 [facility] Comment on above: Performed By: #### B MP #### [facility] [address] [address] [address] Paige Ovalle Creatinine [Mass/Vol] 0.76 mg/dL Normal 0.55-1.02 [facility] [place] Comment on above: Performed By: #### B MP #### [facility] [address] [address] [address] Paige Ovalle EGFR-AF MALTESE >60 Normal >=60 [facility] Comment on above: Performed By: #### B MP #### [facility] [address] [place] [address] Dr. Paige Ovalle EGFR-NON AF MALTESE >60 Normal >=60 [facility] [place] Comment on above: Performed By: #### B MP #### [facility] [address] [address] [address] Paige Ovalle Glucose [Mass/Vol] 130 mg/dL Critically high 74-106 [facility] Comment on above: Performed By: #### B MP #### [facility] [address] [address] [address] Paige Ovalle Potassium [Moles/Vol] 3.6 mmol/L Normal 3.5-5.1 [facility] [place] Comment on above: Performed By: #### B MP #### [facility] [address] [address] [address] Paige Ovalle Sodium [Moles/Vol] 136 mmol/L Normal 136-145 [facility] Comment on above: Performed By: #### B MP #### [facility] [address] [address] [address] Paige Ovalle Urea nitrogen [Mass/Vol] 8.0 mg/dL Normal 7.0-18.0 [facility] [place] Comment on above: Performed By: #### B MP #### [facility] [address] [address] [address] Paieg Ovalle Urea nitrogen/Creatinine [Mass ratio] 10.5 mg/mg Normal [facility] [place] Comment on above: Performed By: #### B MP #### [facility] [address] [place] [address] Dr. Paige Ovalle CALCIUM IONIZEDon 10-17-2022 Calcium, Ionized, Serum 5.5 mg/dL Normal 4.5-5.6 [facility] [place] Comment on above: Performed By: #### C AIONZ #### [facility] [address] [place] [address] Dr. Paige Ovalle PTH INTACTon 10-17-2022 PTH, Intact 18 pg/mL Normal 15-65 [facility] [place] Comment on above: Performed By: #### V KIRSTEN KRAUSB12 #### [facility] [address] [place] [address] Dr. Paige Ovalle CBC AUTO DIFFon 10-16-2022 BASO # 0.1 103/ul Normal 0.0-0.1 [facility] [place] Comment on above: Performed By: #### C BC #### [facility] [address] [place] [address] Dr. Paige Ovalle Basophils/100 WBC (Bld) 0.7 % Normal 0.2-2.0 [facility] [place] Comment on above: Performed By: #### C BC #### [facility] [address] [place] [address] Dr. Paige Ovalle EO # 0.2 103/ul Normal 0.0-0.7 [facility] [place] Comment on above: Performed By: #### C BC #### [facility] [address] [place] [address] Dr. Paige Ovalle Eosinophils/100 WBC (Bld) 2.8 % Normal 0.9-7.0 [facility] [place] Comment on above: Performed By: #### C BC #### [facility] [address] [place] [address] Dr. Paige Ovalle Erythrocyte distribution width (RBC) [Ratio] 13.9 % Normal 11.0-15.0 [facility] [place] Comment on above: Performed By: #### C BC #### [facility] [address] [place] [address] Dr. Paige Ovalle Hematocrit (Bld) [Volume fraction] 41.5 % Normal 36.0-48.0 [facility] [place] Comment on above: Performed By: #### C BC #### [facility] [address] [place] [address] Dr. Paige Ovalle Hemoglobin (Bld) [Mass/Vol] 14.4 g/dL Normal 12.0-16.0 [facility] Comment on above: Performed By: #### C BC #### [facility] [address] [place] [address] Dr. Paige Ovalle IG # 0.03 10e3/ul Normal 0.00-0.03 [facility] [place] Comment on above: Performed By: #### C BC #### [facility] [address] [place] [address] Dr. Paige Ovalle IG % 0.4 % Normal 0.0-0.5 [facility] [place] Comment on above: Performed By: #### C BC #### [facility] [address] [place] [address] Dr. Paige Ovalle LYMPH # 2.4 103/ul Normal 1.2-3.8 [facility] Comment on above: Performed By: #### C BC #### [facility] [address] [place] [address] Dr. Paige Ovalle Lymphocytes/100 WBC (Bld) 32.9 % Normal 20.5-60.0 [facility] [place] Comment on above: Performed By: #### C BC #### [facility] [address] [place] [address] Dr. Paige Ovalle MANUAL DIFF REQ NO Normal [facility] Comment on above: Performed By: #### C BC #### [facility] [address] [place] [address] Dr. Paige Ovalle MCH (RBC) [Entitic mass] 30.7 pg Normal 26.7-34.0 [facility] [place] Comment on above: Performed By: #### C BC #### [facility] [address] [place] [address] Dr. Paige Ovalle MCHC (RBC) [Mass/Vol] 34.7 g/dL Normal 29.9-35.2 [facility] [place] Comment on above: Performed By: #### C BC #### [facility] [address] [address] [address] Paige Ovalle MCV (RBC) [Entitic vol] 88.5 fL Normal 81.0-99.0 [facility] [place] Comment on above: Performed By: #### C BC #### [facility] [address] [address] [address] Paige Ovalle MONO # 0.5 103/ul Normal 0.3-0.8 [facility] [place] Comment on above: Performed By: #### C BC #### [facility] [address] [place] [address] Dr. Paige Ovalle Monocytes/100 WBC (Bld) 7.2 % Normal 1.7-12.0 [facility] [place] Comment on above: Performed By: #### C BC #### [facility] [address] [place] [address] Dr. Paige Ovalle NEUT # 4.1 103/ul Normal 1.4-6.5 [facility] [place] Comment on above: Performed By: #### C BC #### [facility] [address] [place] [address] Dr. Paige Ovalle Neutrophils/100 WBC (Bld) 56.0 % Normal 43.0-75.0 [facility] [place] Comment on above: Performed By: #### C BC #### [facility] [address] [place] [address] Dr. Paige Ovalle Platelet mean volume (Bld) [Entitic vol] 9.0 fL Critically low 9.5-13.5 [facility] Comment on above: Performed By: #### C BC #### [facility] [address] [place] [address] Dr. Paige Ovalle PLT 331 103/ul Normal 150-450 [facility] Comment on above: Performed By: #### C BC #### [facility] [address] [place] [address] Dr. Paige Ovalle RBC 4.69 106/ul Normal 4.20-5.40 [facility] [place] Comment on above: Performed By: #### C BC #### [facility] [address] [place] [address] Dr. Paige Ovalle WBC 7.3 103/ul Normal 4.0-11.0 [facility] [place] Comment on above: Performed By: #### C BC #### [facility] [address] [place] [address] Dr. Paige Ovalle PHOSPHORUSon 10-16-2022 Phosphate [Mass/Vol] 4.2 mg/dL Normal 2.6-4.7 [facility] [place] Comment on above: Performed By: #### V ITAD, VITB12 #### [facility] [address] [place] [address] Dr. Paige Ovalle CBC AUTO DIFFon 09-13-2022 BASO # 0.1 103/ul Normal 0.0-0.1 [facility] [place] Comment on above: Performed By: #### C BC #### [facility] [address] [place] [address] Dr. Paige Ovalle Basophils/100 WBC (Bld) 0.5 % Normal 0.2-2.0 [facility] [place] Comment on above: Performed By: #### C BC #### [facility] [address] [place] [address] Dr. Paige Ovalle EO # 0.2 103/ul Normal 0.0-0.7 [facility] [place] Comment on above: Performed By: #### C BC #### [facility] [address] [place] [address] Dr. Paige Ovalle Eosinophils/100 WBC (Bld) 1.7 % Normal 0.9-7.0 [facility] Comment on above: Performed By: #### C BC #### [facility] [address] [place] [address] Dr. Paige Ovalle Erythrocyte distribution width (RBC) [Ratio] 13.3 % Normal 11.0-15.0 [facility] Comment on above: Performed By: #### C BC #### [facility] [address] [place] [address] Dr. Paige Ovalle Hematocrit (Bld) [Volume fraction] 43.9 % Normal 36.0-48.0 [facility] [place] Comment on above: Performed By: #### C BC #### [facility] [address] [place] [address] Dr. Paige Ovalle Hemoglobin (Bld) [Mass/Vol] 14.9 g/dL Normal 12.0-16.0 [facility] [place] Comment on above: Performed By: #### C BC #### [facility] [address] [place] [address] Dr. Paige Ovalle IG # 0.05 10e3/ul Critically high 0.00-0.03 [facility] Comment on above: Performed By: #### C BC #### [facility] [address] [place] [address] Dr. Paige Ovalle IG % 0.4 % Normal 0.0-0.5 [facility] [place] Comment on above: Performed By: #### C BC #### [facility] [address] [place] [address] Dr. Paige Ovalle LYMPH # 3.2 103/ul Normal 1.2-3.8 [facility] [place] Comment on above: Performed By: #### C BC #### [facility] [address] [place] [address] Dr. Paige Ovalle Lymphocytes/100 WBC (Bld) 27.5 % Normal 20.5-60.0 [facility] [place] Comment on above: Performed By: #### C BC #### [facility] [address] [place] [address] Dr. Paige Ovalle MANUAL DIFF REQ NO Normal [facility] Comment on above: Performed By: #### C BC #### [facility] [address] [place] [address] Dr. Paige Ovalle MCH (RBC) [Entitic mass] 30.9 pg Normal 26.7-34.0 [facility] [place] Comment on above: Performed By: #### C BC #### [facility] [address] [place] [address] Dr. Paige Ovalle MCHC (RBC) [Mass/Vol] 33.9 g/dL Normal 29.9-35.2 [facility] [place] Comment on above: Performed By: #### C BC #### [facility] [address] [place] [address] Dr. Paige Ovalle MCV (RBC) [Entitic vol] 91.1 fL Normal 81.0-99.0 [facility] [place] Comment on above: Performed By: #### C BC #### [facility] [address] [place] [address] Dr. Paige Ovalle MONO # 0.7 103/ul Normal 0.3-0.8 [facility] [place] Comment on above: Performed By: #### C BC #### [facility] [address] [place] [address] Dr. Paige Ovalle Monocytes/100 WBC (Bld) 5.9 % Normal 1.7-12.0 [facility] [place] Comment on above: Performed By: #### C BC #### [facility] [address] [place] [address] Dr. Paige Ovalle NEUT # 7.3 103/ul Critically high 1.4-6.5 [facility] Comment on above: Performed By: #### C BC #### [facility] [address] [place] [address] Dr. Paige Ovalle Neutrophils/100 WBC (Bld) 64.0 % Normal 43.0-75.0 [facility] Comment on above: Performed By: #### C BC #### [facility] [address] [place] [address] Dr. Paige Ovalle Platelet mean volume (Bld) [Entitic vol] 8.8 fL Critically low 9.5-13.5 [facility] Comment on above: Performed By: #### C BC #### [facility] [address] [place] [address] Dr. Paige Ovalle PLT 433 103/ul Normal 150-450 [facility] Comment on above: Performed By: #### C BC #### [facility] [address] [place] [address] Dr. Paige Ovalle RBC 4.82 106/ul Normal 4.20-5.40 [facility] Comment on above: Performed By: #### C BC #### [facility] [address] [place], [place] [address] Dr. Paige Ovalle WBC 11.4 103/ul Critically high 4.0-11.0 [facility] Comment on above: Performed By: #### C BC #### [facility] [address] [place], [place] [address] Dr. Paige Ovalle MG MAMM DX 3D LT CADon 09-13 MG MAMM DX 3D LT CAD Patient: NAYE GUZMÁN Exam Date: 09/13/2022 : 1970 Gender:F Ordering : DR PAULINE ROMERO Admission #: [id number] Family : Order #: [id number] CLICK HERE TO VIEW EXAM RADIOLOGY REPORT [...] Treatments None Family Cancers None LOCATION: [facility] BREAST COMPOSITION: Heterogeneously dense,which may obscure [...] M.D. on 09/13/2022 at 10:53 Normal [facility] PROF 14(COMP METB)on 022 Albumin [Mass/Vol] 4.2 g/dL Normal 3.4-5.0 [facility] Comment on above: Performed By: #### V ITAD, VITB12 #### [facility] [address] [address] [address] Paige Ovalle Albumin/Globulin [Mass ratio] 1.2 {ratio} Normal [facility] [place] Comment on above: Performed By: #### V ITAD, VITB12 #### [facility] [address] [address] [address] Paige Ovalle ALP [Catalytic activity/Vol] 83 U/L Normal 46-116 [facility] [place] Comment on above: Performed By: #### V ITAD, VITB12 #### [facility] [address] [place] [address] Dr. Paige Ovalle ALT [Catalytic activity/Vol] 45 U/L Normal 14-59 [facility] [place] Comment on above: Performed By: #### V ITAD, VITB12 #### [facility] [address] [place] [address] Dr. Paige Ovalle Anion gap [Moles/Vol] 10.0 mmol/L Normal [facility] [place] Comment on above: Performed By: #### V ITAD, VITB12 #### [facility] [address] [place] [address] Dr. Paige Ovalle AST [Catalytic activity/Vol] 42 U/L Critically high 15-37 [facility] [place] Comment on above: Performed By: #### V ITAD, VITB12 #### [facility] [address] [place] [address] Dr. Paige Ovalle Bilirubin [Mass/Vol] 0.2 mg/dL Normal 0.2-1.0 [facility] [place] Comment on above: Performed By: #### V ITAD, VITB12 #### [facility] [address] [place] [address] Dr. Paige Ovalle Calcium [Mass/Vol] 10.2 mg/dL Critically high 8.5-10.1 [facility] Comment on above: Performed By: #### V ITAD, VITB12 #### [facility] [address] [place] [address] Dr. Paige Ovalle Chloride [Moles/Vol] 97 mmol/L Critically low 98-107 [facility] [place] Comment on above: Performed By: #### V ITAD, VITB12 #### [facility] [address] [address] [address] Paige Ovalle CO2 [Moles/Vol] 34.0 mmol/L Critically high 21.0-32.0 [facility] [place] Comment on above: Performed By: #### V ITAD, VITB12 #### [facility] [address] [address] [address] Paige Ovalle Creatinine [Mass/Vol] 0.62 mg/dL Normal 0.55-1.02 [facility] [place] Comment on above: Performed By: #### V ITAD, VITB12 #### [facility] [address] [place] [address] Dr. Paige Ovalle EGFR-AF MALTESE >60 Normal >=60 [facility] Comment on above: Performed By: #### V ITAD, VITB12 #### [facility] [address] [place] [address] Dr. Paige Ovalle EGFR-NON AF MALTESE >60 Normal >=60 [facility] [place] Comment on above: Performed By: #### V ITAD, VITB12 #### [facility] [address] [place] [address] Dr. Paige Ovalle Globulin (S) [Mass/Vol] 3.6 g/dL Normal [facility] [place] Comment on above: Performed By: #### V ITAD, VITB12 #### [facility] [address] [address] [address] Paige Ovalle Glucose [Mass/Vol] 89 mg/dL Normal 74-106 [facility] Comment on above: Performed By: #### V ITAD, VITB12 #### [facility] [address] [address] [address] Paige Ovalle Potassium [Moles/Vol] 4.0 mmol/L Normal 3.5-5.1 [facility] [place] Comment on above: Performed By: #### V ITAD, VITB12 #### [facility] [address] [place] [address] Dr. Paige Ovalle Protein [Mass/Vol] 7.8 g/dL Normal 6.4-8.2 [facility] Comment on above: Performed By: #### V ITAD, VITB12 #### [facility] [address] [place] [address] Dr. Paige Ovalle Sodium [Moles/Vol] 137 mmol/L Normal 136-145 [facility] Comment on above: Performed By: #### V ITAD, VITB12 #### [facility] [address] [place] [address] Dr. Paige Ovalle Urea nitrogen [Mass/Vol] 9.0 mg/dL Normal 7.0-18.0 [facility] [place] Comment on above: Performed By: #### V ITAD, VITB12 #### [facility] [address] [place] [address] Dr. Paige Ovalle Urea nitrogen/Creatinine [Mass ratio] 14.5 mg/mg Normal [facility] [place] Comment on above: Performed By: #### V ITAD, VITB12 #### [facility] [address] [place] [address] Dr. Paige Ovalle TSHon 09-13-2022 TSH 0.857 uIU/mL Normal 0.358-3.740 [facility] Comment on above: Performed By: #### V ITAD, VITB12 #### [facility] [address] [place] [address] Dr. Paige Ovalle VIT B12 AND FOLATEon 022 Cobalamin (Vitamin B12) [Mass/Vol] 779.0 pg/mL Normal 193.0-986.0 [facility] [place] Comment on above: Performed By: #### V ITAD, VITB12 #### [facility] [address] [place] [address] Dr. Paige Ovalle FOLATE 27.10 ng/mL Normal 8.60-58.90 [facility] [place] Comment on above: Performed By: #### V ITAD, VITB12 #### [facility] [address] [place] [address] Dr. Paige Ovalle VITAMIN D 25 OHon 09-13-2022 VIT D 25-OH 58.8 ng/mL Normal [facility] [place] Comment on above: Performed By: #### V ITAD, VITB12 #### [facility] [address] [place], [place] [address] Dr. Paige Ovalle VIT D RANGES SEE BELOW Normal [facility] [place] Comment on above: Result Comment: <20 ng/mL Vit D deficient 20 - <30 ng/mL Vit D insufficient 30 - 100 ng/mL Vit D sufficient >100 ng/mL Potential Toxicity Performed By: #### V ITAD, VITB12 #### [facility] [address] [place], [place] [address] Dr. Paige Ovalle XR ELBOW RT MIN [...] by: NETTIE MARTÍNEZ Date: 2022-06-10 13:00 Normal [facility] XR FOREARM RT 2Von 2 XR FOREARM [...] by: WALTER RAMOS Date: 2022-06-10 12:02 Normal [facility] VIT B12 AND FOLATEon 022 Cobalamin (Vitamin B12) [Mass/Vol] 730.0 pg/mL Normal 193.0-986.0 [facility] [place] Comment on above: Performed By: #### B 12FOL #### [facility] [address] [place] [address] Dr. Paige Ovalle FOLATE 21.80 ng/mL Normal 8.60-58.90 [facility] [place] Comment on above: Performed By: #### B 12FOL #### [facility] [address] [place] [address] Dr. Paige Ovalle FOLATE ([facility])on Folate >20.0 Normal >3.0 [facility] Comment on above: Result Comment: A se rum folate concentration of less than 3.1 ng/mL is considered to represent clinical deficiency. Performed By: #### V ITAD, VITB12 #### [place] [facility] [address] [place] [address] Dr. Paige Ovalle CBC AUTO DIFFon 03-08-2022 BASO # 0.0 103/ul Normal 0.0-0.1 [facility] [place] Comment on above: Performed By: #### V ITAD, VITB12 #### [facility] [address] [place] [address] Dr. Paige Ovalle Basophils/100 WBC (Bld) 0.5 % Normal 0.2-2.0 [facility] [place] Comment on above: Performed By: #### V ITAD, VITB12 #### [facility] [address] [place] [address] Dr. Paige Ovalle EO # 0.2 103/ul Normal 0.0-0.7 [facility] Comment on above: Performed By: #### V ITAD, VITB12 #### [facility] [address] [place] [address] Dr. Paige Ovalle Eosinophils/100 WBC (Bld) 2.1 % Normal 0.9-7.0 [facility] Comment on above: Performed By: #### V ITAD, VITB12 #### [facility] [address] [place] [address] Dr. Paige Ovalle Erythrocyte distribution width (RBC) [Ratio] 13.6 % Normal 11.0-15.0 [facility] [place] Comment on above: Performed By: #### V ITAD, VITB12 #### [facility] [address] [place] [address] Dr. Paige Ovalle Hematocrit (Bld) [Volume fraction] 40.8 % Normal 36.0-48.0 [facility] [place] Comment on above: Performed By: #### V ITAD, VITB12 #### [facility] [address] [place] [address] Dr. Paige Ovalle Hemoglobin (Bld) [Mass/Vol] 13.8 g/dL Normal 12.0-16.0 [facility] [place] Comment on above: Performed By: #### V ITAD, VITB12 #### [facility] [address] [place] [address] Dr. Paige Ovalle IG # 0.04 10e3/ul Critically high 0.00-0.03 [facility] Comment on above: Performed By: #### V ITAD, VITB12 #### [facility] [address] [place] [address] Dr. Paige Ovalle IG % 0.5 % Normal 0.0-0.5 [facility] [place] Comment on above: Performed By: #### V ITAD, VITB12 #### [facility] [address] [place] [address] Dr. Paige Ovalle LYMPH # 2.3 103/ul Normal 1.2-3.8 [facility] [place] Comment on above: Performed By: #### V ITAD, VITB12 #### [facility] [address] [place] [address] Dr. Paige Ovalle Lymphocytes/100 WBC (Bld) 26.6 % Normal 20.5-60.0 [facility] [place] Comment on above: Performed By: #### V ITAD, VITB12 #### [facility] [address] [place] [address] Dr. Paige Ovalle MANUAL DIFF REQ NO Normal [facility] Comment on above: Performed By: #### V ITAD, VITB12 #### [facility] [address] [place] [address] Dr. Paige Ovalle MCH (RBC) [Entitic mass] 31.1 pg Normal 26.7-34.0 [facility] [place] Comment on above: Performed By: #### V ITAD, VITB12 #### [facility] [address] [place] [address] Dr. Paige Ovalle MCHC (RBC) [Mass/Vol] 33.8 g/dL Normal 29.9-35.2 [facility] Comment on above: Performed By: #### V ITAD, VITB12 #### [facility] [address] [place] [address] Dr. Paige Ovalle MCV (RBC) [Entitic vol] 91.9 fL Normal 81.0-99.0 [facility] [place] Comment on above: Performed By: #### V ITAD, VITB12 #### [facility] [address] [place] [address] Dr. Paige Ovalle MONO # 0.5 103/ul Normal 0.3-0.8 [facility] Comment on above: Performed By: #### V ITAD, VITB12 #### [facility] [address] [place] [address] Dr. Paige Ovalle Monocytes/100 WBC (Bld) 5.7 % Normal 1.7-12.0 [facility] [place] Comment on above: Performed By: #### V ITAD, VITB12 #### [facility] [address] [place] [address] Dr. Paige Ovalle NEUT # 5.7 103/ul Normal 1.4-6.5 [facility] Comment on above: Performed By: #### V ITAD, VITB12 #### [facility] [address] [place] [address] Dr. Paige Ovalle Neutrophils/100 WBC (Bld) 64.6 % Normal 43.0-75.0 [facility] Comment on above: Performed By: #### V ITAD, VITB12 #### [facility] [address] [place] [address] Dr. Paige Ovalle Platelet mean volume (Bld) [Entitic vol] 8.4 fL Critically low 9.5-13.5 [facility] [place] Comment on above: Performed By: #### V ITAD, VITB12 #### [facility] [address] [place] [address] Dr. Paige Ovalle PLT 321 103/ul Normal 150-450 [facility] Comment on above: Performed By: #### V ITAD, VITB12 #### [facility] [address] [address] [address] Paige Ovalle RBC 4.44 106/ul Normal 4.20-5.40 [facility] [place] Comment on above: Performed By: #### V ITAD, VITB12 #### [facility] [address] [place] [address] Dr. Paige Ovalle WBC 8.8 103/ul Normal 4.0-11.0 [facility] [place] Comment on above: Performed By: #### V ITAD, VITB12 #### [facility] [address] [place] [address] Dr. Paige Ovalle CULTURE URINEon 03-08-2022 CULTURE URINE Culture Observations: No growth Normal [facility] [place] Comment on above: Performed By: #### V ITAD, VITB12 #### [facility] [address] [place] [address] Dr. Paige Ovalle LIPID PROFILEon 03-08-2022 CHOL-HDL RATIO NORM SEE BELOW Normal [facility] Comment on above: Result Comment: 3.3 - 4.4 LOW RISK 4.4 - 7.1 AVERAGE RISK 7.1 - 11.0 MODERATE RISK >11.0 HIGH RISK Performed By: #### V ITAD, VITB12 #### [facility] [address] [place] [address] Dr. Paige Ovalle Cholesterol [Mass/Vol] 147 mg/dL Normal <=200 [facility] [place] Comment on above: Performed By: #### V ITAD, VITB12 #### [facility] [address] [place] [address] Dr. Paige Ovalle Cholesterol in HDL [Mass/Vol] 97 mg/dL Critically high 40-60 [facility] [place] Comment on above: Performed By: #### V ITAD, VITB12 #### [facility] [address] [address] [address] Paige Ovalle Cholesterol in LDL [Mass/Vol] 42.2 mg/dL Normal [facility] [place] Comment on above: Performed By: #### V ITAD, VITB12 #### [facility] [address] [place] [address] Dr. Paige Ovalle Cholesterol.total/Ch olesterol in HDL [Mass ratio] 1.5 {ratio} Normal [facility] [place] Comment on above: Performed By: #### V ITAD, VITB12 #### [facility] [address] [place] [address] Dr. Paige Ovalle HDL NORMAL > or = 60 mg/dl - LOW CARDIOVASCULAR RISK <40 mg/dl - HIGH CARDIOVASCULAR RISK Normal [facility] [place] Comment on above: Performed By: #### V ITAD, VITB12 #### [facility] [address] [place] [address] Dr. Paige Ovalle LDL CALC NORMAL SEE BELOW Normal [facility] Comment on above: Result Comment: <100 mg/dl OPTIMAL 100 - 129 mg/dl NEAR OR ABOVE OPTIMAL 130 - 159 mg/dl BORDERLINE HIGH 160 - 189 mg/dl HIGH >190 mg/dl VERY HIGH Performed By: #### V ITAD, VITB12 #### [facility] [address] [place] [address] Dr. Paige Ovalle Triglyceride [Mass/Vol] 39 mg/dL Normal <=150 [facility] Comment on above: Performed By: #### V ITAD, VITB12 #### [facility] [address] [place] [address] Dr. Paige Ovalle VLDL CALC 7.8 mg/dL Normal [facility] Comment on above: Performed By: #### V ITAD, VITB12 #### [facility] [address] [place] [address] Dr. Paige Ovalle PROF 14(COMP METB)on 022 Albumin [Mass/Vol] 4.3 g/dL Normal 3.4-5.0 [facility] Comment on above: Performed By: #### V ITAD, VITB12 #### [facility] [address] [place] [address] Dr. Paige Ovalle Albumin/Globulin [Mass ratio] 1.3 {ratio} Normal [facility] [place] Comment on above: Performed By: #### V ITAD, VITB12 #### [facility] [address] [place] [address] Dr. Paige Ovalle ALP [Catalytic activity/Vol] 79 U/L Normal 46-116 [facility] [place] Comment on above: Performed By: #### V ITAD, VITB12 #### [facility] [address] [place] [address] Dr. Paige Ovalle ALT [Catalytic activity/Vol] 89 U/L Critically high 14-59 [facility] [place] Comment on above: Performed By: #### V ITAD, VITB12 #### [facility] [address] [place] [address] Dr. Paige Ovalle Anion gap [Moles/Vol] 12.2 mmol/L Normal [facility] [place] Comment on above: Performed By: #### V ITAD, VITB12 #### [facility] [address] [place] [address] Dr. Paige Ovalle AST [Catalytic activity/Vol] 65 U/L Critically high 15-37 [facility] [place] Comment on above: Performed By: #### V ITAD, VITB12 #### [facility] [address] [place] [address] Dr. Paige Ovalle Bilirubin [Mass/Vol] 0.4 mg/dL Normal 0.2-1.0 [facility] [place] Comment on above: Performed By: #### V ITAD, VITB12 #### [facility] [address] [place] [address] Dr. Paige Ovalle Calcium [Mass/Vol] 9.6 mg/dL Normal 8.5-10.1 [facility] Comment on above: Performed By: #### V ITAD, VITB12 #### [facility] [address] [place] [address] Dr. Paige Ovalle Chloride [Moles/Vol] 96 mmol/L Critically low 98-107 [facility] Comment on above: Performed By: #### V ITAD, VITB12 #### [facility] [address] [address] [address] Paige Ovalle CO2 [Moles/Vol] 30.4 mmol/L Normal 21.0-32.0 [facility] Comment on above: Performed By: #### V ITAD, VITB12 #### [facility] [address] [address] [address] Paige Ovalle Creatinine [Mass/Vol] 0.70 mg/dL Normal 0.55-1.02 [facility] [place] Comment on above: Performed By: #### V ITAD, VITB12 #### [facility] [address] [place] [address] Dr. Paige Ovalle EGFR-AF MALTESE >60 Normal >=60 [facility] Comment on above: Performed By: #### V ITAD, VITB12 #### [facility] [address] [place] [address] Dr. Paige Ovalle EGFR-NON AF MALTESE >60 Normal >=60 [facility] [place] Comment on above: Performed By: #### V ITAD, VITB12 #### [facility] [address] [place] [address] Dr. Paige Ovalle Globulin (S) [Mass/Vol] 3.2 g/dL Normal [facility] [place] Comment on above: Performed By: #### V ITAD, VITB12 #### [facility] [address] [place] [address] Dr. Paige Ovalle Glucose [Mass/Vol] 91 mg/dL Normal 74-106 [facility] Comment on above: Performed By: #### V ITAD, VITB12 #### [facility] [address] [place] [address] Dr. Paige Ovalle Potassium [Moles/Vol] 3.6 mmol/L Normal 3.5-5.1 [facility] [place] Comment on above: Performed By: #### V ITAD, VITB12 #### [facility] [address] [address] [address] Paige Ovalle Protein [Mass/Vol] 7.5 g/dL Normal 6.4-8.2 [facility] Comment on above: Performed By: #### V ITAD, VITB12 #### [facility] [address] [place] [address] Dr. Paige Ovalle Sodium [Moles/Vol] 135 mmol/L Critically low 136-145 [facility] Comment on above: Performed By: #### V ITAD, VITB12 #### [facility] [address] [place] [address] Dr. Paige Ovalle Urea nitrogen [Mass/Vol] 9.0 mg/dL Normal 7.0-18.0 [facility] [place] Comment on above: Performed By: #### V ITAD, VITB12 #### [facility] [address] [place] [address] Dr. Paige Ovalle Urea nitrogen/Creatinine [Mass ratio] 12.9 mg/mg Normal [facility] [place] Comment on above: Performed By: #### V ITAD, VITB12 #### [facility] [address] [place] [address] Dr. Paige Ovalle UA RANDOMon 03-08-2022 Bilirubin Ql (U) Negative Normal NEGATIVE [facility] Comment on above: Performed By: #### U A #### [facility] [address] [place] [address] Dr. Paige Ovalle Clarity (U) CLEAR Normal CLEAR [facility] [place] Comment on above: Performed By: #### U A #### [facility] [address] [place] [address] Dr. Paige Ovalle Color (U) LT. YELLOW Normal YELLOW [facility] [place] Comment on above: Performed By: #### U A #### [facility] [address] [place] [address] Dr. Paige Ovalle Glucose Ql (U) Negative Normal NEGATIVE [facility] Comment on above: Performed By: #### U A #### [facility] [address] [place] [address] Dr. Paige Ovalle Hemoglobin Ql (U) Negative Normal NEGATIVE [facility] Comment on above: Performed By: #### U A #### [facility] [address] [place] [address] Dr. Paige Ovalle Ketones Ql (U) Negative Normal NEGATIVE [facility] Comment on above: Performed By: #### U A #### [facility] [address] [place] [address] Dr. Paige Ovalle LEUKOCYTES Negative Normal NEGATIVE [facility] [place] Comment on above: Performed By: #### U A #### [facility] [address] [place] [address] Dr. Paige Ovalle Nitrite Ql (U) Negative Normal NEGATIVE [facility] Comment on above: Performed By: #### U A #### [facility] [address] [place] [address] Dr. Paige Ovalle pH (U) 6.5 [pH] Normal 5-9 [facility] Comment on above: Performed By: #### U A #### [facility] [address] [place] [address] Dr. Paige Ovalle SPEC GRAVITY <=1.005 Abnormal 1.005-<=1.025 [facility] Comment on above: Performed By: #### U A #### [facility] [address] [place] [address] Dr. Paige Ovalle UA PROTEIN Negative Normal NEGATIVE/ TRACE [facility] Comment on above: Performed By: #### U A #### [facility] [address] [place] [address] Dr. Paige Ovalle Urobilinogen Qn (U) 0.2 {Toy'U}/dL Normal 0.2 - 1. 0 [facility] [place] Comment on above: Performed By: #### U A #### [facility] [address] [place] [address] Dr. Paige Ovalle VITAMIN B12on 03-08-2022 Cobalamin (Vitamin B12) [Mass/Vol] 3521.0 pg/mL Critically high 193.0-986.0 [facility] [place] Comment on above: Performed By: #### V ITAD, VITB12 #### [facility] [address] [address] [address] Paige Ovalle VITAMIN D 25 OHon 03-08-2022 VIT D 25-OH 72.0 ng/mL Normal [facility] [place] Comment on above: Performed By: #### V ITAD, VITB12 #### [facility] [address] [address] [address] Paige Ovalle VIT D RANGES SEE BELOW Normal [facility] Comment on above: Result Comment: <20 ng/mL Vit D deficient 20 - <30 ng/mL Vit D insufficient 30 - 100 ng/mL Vit D sufficient >100 ng/mL Potential Toxicity Performed By: #### V ITAD, VITB12 #### [facility] [address] [address] [address] Paige Ovalle PELVIS 1 OR 2 VWSon 06-03-20 18 PELVIS 1 OR 2 [facility] [address] [place] [id number] Patien t Name: NAYE GUZMÁN : 1970ex: FAge: Race: WhiteMRN: [id number]. Location: 84Patient Status: OVisit #: [id number] Date: 06/03/2018 9:10:00 AMCompleted Date: 06/03/2018 09:14 AMRequesting Provider: JONAH RENTERIA Attending Provider: JONAH RENTERIA Report Copy To: Signs & Symptoms: S32.89XK Fracture of oth parts of pelvis, subs for fx w nonunion [id number]: AthenaComments: , , , Ordering Provider - JONAH RENTERIA PA-C , Exam: PELVIS 1 OR 2 VWSAccession #: [id number] =PELVIS 1 OR 2 VWS 06/03/2018 9:14 AM EDT SIGNS AND SYMPTOMS: S32.89XK Fracture of oth parts of pelvis, subs for fx w nonunion I10 TECHNOLOGIST COMMENTS: pelvic pain QUESTION FOR THE RADIOLOGIST: , , , Ordering Provider - JONAH RENTERIA PA-C , PROTOCOL: AP(PA) view was obtained. COMPARISON: March 04 FINDINGS: There is a healed left hemipelvic fracture with mild elevation of the left pelvic floor. SI joints are symmetrical and unremarkable. Hips are unremarkable. IMPRESSION:Healed left pelvic fracture. No interval change. No evidence of nonunion Electronically signed by:Anurag Anderson. Transcribed by: [email or web address], User Resident: Electronically Signed by: ANURAG ANDERSON @ 06/03/2018 09:19 AM Normal [facility] Comment on above: Order Comment: , , = ========= , Ordering Provider - JONAH RENTERIA PA-C , PELVIS 1 OR 2 VWSon 03-04-20 18 PELVIS 1 OR 2 VWS [facility] [address] [place] [address] Patien t Name: NAYE GUZMÁN : 1970ex: FAge: Race: WhiteMRN: [id number]. 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 COMPARISON: December 23, 2017 FINDINGS: Soft tissues:Unchanged Bones:Continued healing Joints:Unchanged IMPRESSION: Continued healing of left superior and inferior pubic rami superimposed upon osteoporotic bone Electronically signed by:Patrick Tipton. Transcribed by: [email or web address], User Resident: Electronically Signed by: PATRICK TIPTON @ 03/04/2018 03:48 PM Normal [facility] Comment on above: Order Comment: , , = ========= , Ordering Provider - JONAH RENTERIA PA-C , PELVIS 3 VWSon 12-23-2017 PELVIS 3 S [facility] [address] [place] [address] Patien t Name: NAYE UGZMÁN : 1970ex: FAge: Race: WhiteMRN: [id number]. 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 w nonunion [id number]: AthenaComments: , , Views (X-RAY, PELVIS): AP , Weight Bearing?: y , special views standing on each leg , , Ordering Provider - JONAH RENTERIA PA-C , Exam: PELVIS 3 VWSAccession #: [id number] =PELVIS 3 VWS 12/23/2017 12:55 PM EDT SIGNS AND SYMPTOMS: S32.89XK Fracture of oth parts of pelvis, subs for fx w nonunion I10 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 [...] pubis Electronically signed by:Patrick Tipton. Transcribed by: [email or web address], User Resident: Electronically Signed by: PATRICK TIPTON @ 12/23/2017 02:12 PM Normal [facility] Comment on above: Order Comment: , , V iews (X-RAY, PELVIS): AP , Weight Bearing?: y , special views standing on each leg , , Ordering Provider - JONAH RENTERIA PA-C , CALCIUMon 11-11-2017 Calcium mass conc 9.7 mg/dL Normal 8.6-10.[address] [facility] Comment on above: Performed By: #### 4 1000, [id number], [id number] ####[facility] [place] [address], [facility] PHOSPHORUS BLOODon 8 Phosphate mass conc 3.5 mg/dL Normal 2.5-5.0 [facility] Comment on above: Performed By: #### 4 1000, [id number], [id number] ####[facility] [place] [address], [facility] VITAMIN D 25-HYDROXYon 11-11 VITAMIN D 25-OH 31.3 ng/mL Normal 30.0-80.0 [facility] Comment on above: Result Comment: >80. 0 Toxicity possible Performed By: #### 4 1000, [id number], [id number] ####[facility] [place] [address], [facility] Vital Signs Date Time Vital Sign Value Performing Clinician Facility 10-10-2023 12:30-0500 Body height 177.8 cm Pauline Romero Other [facility] Other 10-10-2023 12:30-0500 Body mass index (BMI) [Ratio] 22.96 kg/m2 Pauline Romero Other [facility] Other 10-10-2023 12:30-0500 Body temperature 97.9 [degF] Pauline Romero Other [facility] Other 10-10-2023 12:30-0500 Body weight 72.58 kg Pauline Romero Other [facility] Other 10-10-2023 12:30-0500 Diastolic blood pressure 84 mm[Hg] Pauline Romero Other [facility] Other 10-10-2023 12:30-0500 Respiratory rate 18 /min Pauline Romero Other [facility] Other 10-10-2023 12:30-0500 SaO2% (BldA) [Mass fraction] 98 % Pauline Romero Other [facility] Other 10-10-2023 12:30-0500 Systolic blood pressure 118 mm[Hg] Pauline Romero Other [facility] Other 09-13-2023 12:39-0500 Diastolic blood pressure 90 mm[Hg] [facility] 09-13-2023 12:39-0500 Heart rate 86 /min [facility] 09-13-2023 12:39-0500 Mean blood pressure 106 mm[Hg] [facility] 09-13-2023 12:39-0500 Respiratory rate 16 /min [facility] 09-13-2023 12:39-0500 Systolic blood pressure 139 mm[Hg] [facility] 08-21-2023 15:57-0500 Heart rate 72 /min Devon Garcia [facility] 08-21-2023 15:57-0500 SaO2% (BldA) [Mass fraction] 98 % Devon Garcia [facility] 08-21-2023 15:56-0500 Diastolic blood pressure 92 mm[Hg] Devon Garcia [facility] 08-21-2023 15:56-0500 Mean blood pressure 112 mm[Hg] Devon Garcia [facility] 08-21-2023 15:56-0500 Systolic blood pressure 151 mm[Hg] Devon Garcia [facility] 08-21-2023 15:56-0500 Respiratory rate 16 /min Devon Garcia [facility] 08-21-2023 15:50-0500 Diastolic blood pressure 94 mm[Hg] Devon Garcia [facility] 08-21-2023 15:50-0500 Heart rate 68 /min Devon Garcia [facility] 08-21-2023 15:50-0500 SaO2% (BldA) [Mass fraction] 97 % Devon Garcia [facility] 08-21-2023 15:50-0500 Systolic blood pressure 153 mm[Hg] Devon Garcia [facility] 08-21-2023 14:44-0500 Heart rate 68 /min Devon Garcia [facility] 08-21-2023 14:44-0500 SaO2% (BldA) [Mass fraction] 98 % Devon Garcia [facility] 08-21-2023 14:44-0500 Body temperature 97.52 [degF] Devon Garcia [facility] 08-21-2023 14:44-0500 Diastolic blood pressure 92 mm[Hg] Devon Garcia [facility] 08-21-2023 14:44-0500 Mean blood pressure 109 mm[Hg] Devon Garcia [facility] 08-21-2023 14:44-0500 Systolic blood pressure 141 mm[Hg] Devon Garcia [facility] 08-21-2023 14:43-0500 Respiratory rate 14 /min Devon Garcia [facility] 07-25-2023 13:45-0400 Body height 177.8 cm Elieser Mailcloud II Other [facility] [employer] Other 07-25-2023 13:45-0400 Body mass index (BMI) [Ratio] 22.24 kg/m2 Elieser Mailcloud II Other [facility] Other 07-25-2023 13:45-0400 Body weight 70.31 kg Elieser Medinaisle II Other [facility] Other 07-17-2023 11:10-0400 Body height 177.8 cm Pauline Romero Other [facility] Other 07-17-2023 11:10-0400 Body mass index (BMI) [Ratio] 22.24 kg/m2 Pauline Romero Other [facility] Other 07-17-2023 11:10-0400 Body temperature 98.2 [degF] Pauline Romero Other [facility] Other 07-17-2023 11:10-0400 Body weight 70.31 kg Pauline Romero Other [facility] Other 07-17-2023 11:10-0400 Diastolic blood pressure 98 mm[Hg] Pauline Romero Other [facility] Other 07-17-2023 11:10-0400 Respiratory rate 18 /min Pauline Garciaemily Other [facility] Other 07-17-2023 11:10-0400 SaO2% (BldA) [Mass fraction] 97 % Pauline Garciaemily Other [facility] Other 07-17-2023 11:10-0400 Systolic blood pressure 138 mm[Hg] Pauline Nick Other [facility] Other 07-04-2023 08:23-0400 Diastolic blood pressure 90 mm[Hg] Devon Garcia [facility] 07-04-2023 08:23-0400 Heart rate 86 /min Devon Garcia [facility] 07-04-2023 08:23-0400 Mean blood pressure 102 mm[Hg] Devon Garcia [facility] 07-04-2023 08:23-0400 Respiratory rate 16 /min Devon Garcia [facility] 07-04-2023 08:23-0400 Systolic blood pressure 126 mm[Hg] Devon Garcia [facility] 07-03-2023 13:30-0400 Body height 177.8 cm Tobi Borrego Other [facility] Other 07-03-2023 13:30-0400 Body mass index (BMI) [Ratio] 21.81 kg/m2 Tobi Borrego Other [facility] Other 07-03-2023 13:30-0400 Body temperature 97.4 [degF] Tobi Borrego Other [facility] Other 07-03-2023 13:30-0400 Body weight 68.95 kg Tobi Fraserjavier Other [facility] Other 07-03-2023 13:30-0400 Diastolic blood pressure 78 mm[Hg] Tobi Fraserjavier Other [facility] Other 07-03-2023 13:30-0400 SaO2% (BldA) [Mass fraction] 97 % Tobi Fraserjavier Other [facility] Other 07-03-2023 13:30-0400 Systolic blood pressure 110 mm[Hg] Tobi Fraserjavier Other [facility] Other 06-03-2023 09:50-0400 Body height 177.8 cm Pauline Romero Other [facility] Other 06-03-2023 09:50-0400 Body mass index (BMI) [Ratio] 21.81 kg/m2 Pauline Romero Other [facility] Other 06-03-2023 09:50-0400 Body weight 68.95 kg Pauline Romero Other [facility] Other 06-03-2023 09:50-0400 Diastolic blood pressure 82 mm[Hg] Pauline Romero Other [facility] Other 06-03-2023 09:50-0400 Respiratory rate 16 /min Pauline Romero Other [facility] Other 06-03-2023 09:50-0400 SaO2% (BldA) [Mass fraction] 96 % Pauline Romero Other [facility] Other 06-03-2023 09:50-0400 Systolic blood pressure 118 mm[Hg] Pauline Garciaemily Other [facility] Other 04-15-2023 11:10-0400 Body height 177.8 cm Pauline Garciaemily Other [facility] Other 04-15-2023 11:10-0400 Body mass index (BMI) [Ratio] 21.38 kg/m2 Paulnie Garciaemily Other [facility] Other 04-15-2023 11:10-0400 Body temperature 99.1 [degF] Pauline Romero Other [facility] Other 04-15-2023 11:10-0400 Body weight 67.59 kg Pauline Romero Other [facility] Other 04-15-2023 11:10-0400 Diastolic blood pressure 78 mm[Hg] Pauline Garciaemily Other [facility] Other 04-15-2023 11:10-0400 Respiratory rate 18 /min Pauline Zelayaemily Other [facility] Other 04-15-2023 11:10-0400 SaO2% (BldA) [Mass fraction] 96 % Pauline Romero Other [facility] Other 04-15-2023 11:10-0400 Systolic blood pressure 128 mm[Hg] Pauline Romero Other [facility] Other 03-13-2023 13:30-0400 Body height 177.8 cm Elieser Jack II Other [facility] Other 03-13-2023 13:30-0400 Body mass index (BMI) [Ratio] 21.23 kg/m2 Elieser Martinezle II Other [facility] Other 03-13-2023 13:30-0400 Body weight 67.13 kg Elieser Martinezle II Other [facility] Other 02-04-2023 15:40-0400 Body height 177.8 cm Pauline Romero Other [facility] Other 02-04-2023 15:40-0400 Body mass index (BMI) [Ratio] 21.31 kg/m2 Pauline Romero Other [facility] Other 02-04-2023 15:40-0400 Body temperature Pauline Romero Other [facility] Other 02-04-2023 15:40-0400 Body weight 67.36 kg Pauline Romero Other [facility] Other 02-04-2023 15:40-0400 Diastolic blood pressure 84 mm[Hg] Pauline Romero Other [facility] Other 02-04-2023 15:40-0400 Respiratory rate 18 /min Pauline Romero Other [facility] Other 02-04-2023 15:40-0400 SaO2% (BldA) [Mass fraction] 96 % Pauline Romero Other [facility] Other 02-04-2023 15:40-0400 Systolic blood pressure 118 mm[Hg] Pauline Romero Other [facility] Other 01-31-2023 12:25-0400 Body height 177.8 cm Araceli Joseph Other [facility] Other 01-31-2023 12:25-0400 Body mass index (BMI) [Ratio] 20.8 kg/m2 Araceli Joseph Other [facility] Other 01-31-2023 12:25-0400 Body temperature 97.9 [degF] Araceli Joseph Other [facility] Other 01-31-2023 12:25-0400 Body weight 65.77 kg Araceli Joseph Other [facility] Other 01-31-2023 12:25-0400 Respiratory rate 18 /min Araceli Joseph Other [facility] Other 01-31-2023 12:25-0400 SaO2% (BldA) [Mass fraction] 96 % Araceli Joseph Other [facility] Other 11-19-2022 12:10-0500 Body height 177.8 cm Paluine Romero Other [facility] Other 11-19-2022 12:10-0500 Body mass index (BMI) [Ratio] 20.8 kg/m2 Pauline Romero Other [facility] Other 11-19-2022 12:10-0500 Body temperature 98.2 [degF] Pauline Romero Other [facility] Other 11-19-2022 12:10-0500 Body weight 65.77 kg Pauline Romero Other [facility] Other 11-19-2022 12:10-0500 Diastolic blood pressure 86 mm[Hg] Pauline Romero Other [facility] Other 11-19-2022 12:10-0500 SaO2% (BldA) [Mass fraction] 95 % Pauline Romero Other [facility] Other 11-19-2022 12:10-0500 Systolic blood pressure 122 mm[Hg] Pauline Romero Other [facility] Other 09-07-2022 12:30-0500 Body height 177.8 cm Pauline Romero Other [facility] Other 07-03-2022 12:50-0400 Body height 177.8 cm Lia Darek Other [facility] Other 07-03-2022 12:50-0400 Body mass index (BMI) [Ratio] 20.52 kg/m2 Lia aDrek Other [facility] Other 07-03-2022 12:50-0400 Body temperature 97.8 [degF] Lia Darek Other [facility] Other 07-03-2022 12:50-0400 Body weight 64.86 kg Lia Goodmanault Other [facility] Other 07-03-2022 12:50-0400 Diastolic blood pressure 82 mm[Hg] Lia Darek Other [facility] Other 07-03-2022 12:50-0400 Respiratory rate 18 /min Lia Darek Other [facility] Other 07-03-2022 12:50-0400 SaO2% (BldA) [Mass fraction] 96 % Lia Darek Other [facility] Other 07-03-2022 12:50-0400 Systolic blood pressure 125 mm[Hg] Lia Oswald Other [facility] Other 06-14-2022 11:30-0400 Body height 177.8 cm Pauline Romero Other [facility] Other 06-14-2022 11:30-0400 Body mass index (BMI) [Ratio] 21.09 kg/m2 Pauline Romero Other [facility] Other 06-14-2022 11:30-0400 Body temperature 97.7 [degF] Pauline Romero Other [facility] Other 06-14-2022 11:30-0400 Body weight 66.68 kg Pauline Romero Other [facility] Other 06-14-2022 11:30-0400 Diastolic blood pressure 88 mm[Hg] Pauline Romero Other [facility] Other 06-14-2022 11:30-0400 Respiratory rate 18 /min Pauline Romero Other [facility] Other 06-14-2022 11:30-0400 SaO2% (BldA) [Mass fraction] 98 % Pauline Romero Other [facility] Other 06-14-2022 11:30-0400 Systolic blood pressure 138 mm[Hg] Pauline Romero Other [facility] Other 03-12-2022 11:30-0400 Body height 177.8 cm Pauline Romero Other [facility] Other 03-12-2022 11:30-0400 Body mass index (BMI) [Ratio] 21.09 kg/m2 Pauline Romero Other [facility] Other 03-12-2022 11:30-0400 Body temperature 98.2 [degF] Pauline Romero Other [facility] Other 03-12-2022 11:30-0400 Body weight 66.68 kg Pauline Romero Other [facility] Other 03-12-2022 11:30-0400 Diastolic blood pressure 86 mm[Hg] Pauline Romero Other [facility] Other 03-12-2022 11:30-0400 Respiratory rate 16 /min Pauline Romero Other [facility] Other 03-12-2022 11:30-0400 SaO2% (BldA) [Mass fraction] 95 % Pauline Romero Other [facility] Other 03-12-2022 11:30-0400 Systolic blood pressure 126 mm[Hg] Pauline Romero Other [facility] Other 12-21-2021 12:10-0400 Body height 177.8 cm Pauline Romero Other [facility] Other 12-21-2021 12:10-0400 Body mass index (BMI) [Ratio] 20.66 kg/m2 Pauline Romero Other [facility] Other 12-21-2021 12:10-0400 Body temperature 97.9 [degF] Pauline Nick Other [facility] Other 12-21-2021 12:10-0400 Body weight 65.32 kg Pauline Romero Other [facility] Other 12-21-2021 12:10-0400 Diastolic blood pressure 82 mm[Hg] Pauline Romero Other [facility] Other 12-21-2021 12:10-0400 Respiratory rate 18 /min Pauline Romero Other [facility] Other 12-21-2021 12:10-0400 SaO2% (BldA) [Mass fraction] 99 % Pauline Romero Other [facility] Other 12-21-2021 12:10-0400 Systolic blood pressure 126 mm[Hg] Pauline Romero Other [facility] Other 09-25-2021 14:00-0500 Body height 177.8 cm Pauline Romero Other [facility] Other 09-25-2021 14:00-0500 Body mass index (BMI) [Ratio] 20.37 kg/m2 Pauline Romero Other [facility] Other 09-25-2021 14:00-0500 Body temperature 98.1 [degF] Pauline Romero Other [facility] Other 09-25-2021 14:00-0500 Body weight 64.41 kg Pauline Romero Other [facility] Other 09-25-2021 14:00-0500 Diastolic blood pressure 80 mm[Hg] Pauline Romero Other [facility] Other 09-25-2021 14:00-0500 Respiratory rate 18 /min Pauline Romero Other [facility] Other 09-25-2021 14:00-0500 SaO2% (BldA) [Mass fraction] 98 % Pauline Romero Other [facility] Other 09-25-2021 14:00-0500 Systolic blood pressure 126 mm[Hg] Pauline Romero Other [facility] Other 09-05-2021 11:30-0500 Body height 177.8 cm Pauline Romero Other [facility] Other 09-05-2021 11:30-0500 Body mass index (BMI) [Ratio] 20.23 kg/m2 Pauline Romero Other [facility] Other 09-05-2021 11:30-0500 Body temperature 98.3 [degF] Pauline Romero Other [facility] Other 09-05-2021 11:30-0500 Body weight 63.96 kg Pauline Romero Other [facility] Other 09-05-2021 11:30-0500 Diastolic blood pressure 70 mm[Hg] Pauline Romero Other [facility] Other 09-05-2021 11:30-0500 Respiratory rate 18 /min Pauline Romero Other [facility] Other 09-05-2021 11:30-0500 SaO2% (BldA) [Mass fraction] 97 % Pauline Romero Other [facility] Other 09-05-2021 11:30-0500 Systolic blood pressure 104 mm[Hg] Pauline Romero Other [facility] Other Encounters Encounter Date Encounter Type Care Provider Facility Start: 10-31-2023 End: 10-31-2023 Emergency department patient visit PAULINE ROMERO [facility] Start: 10-25-2023 End: 10-25-2023 ambulatory Pauline Romero Other [facility] Other Start: 10-25-2023 Telephone encounter Pauline Romero [facility] Start: 10-24-2023 End: 10-24-2023 ambulatory Elieser Martinezle II Other [facility] Other Start: 10-24-2023 Office outpatient visit 15 minutes Elieser Martinezle II [facility] Start: 10-11-2023 End: 10-11-2023 ambulatory Pauline Romero Other [facility] Other Start: 10-11-2023 Telephone encounter Pauline Romero [facility] Start: 10-10-2023 End: 10-10-2023 ambulatory Pauline Romero Other [facility] Other Start: 10-10-2023 Office outpatient visit 25 minutes Pauline Romero [facility] Start: 10-08-2023 End: 10-11-2023 ambulatory Chang SERRA [facility] Start: 09-13-2023 End: 09-13-2023 Emergency department patient visit PAULINE ROMERO [facility] Start: 09-13-2023 End: 09-14-2023 ambulatory Mabel Berumen [employer] Other Start: 09-13-2023 Telephone encounter Pauline Romero [facility] Start: 09-13-2023 End: 09-13-2023 Pain Management Mabel Berumen [facility] Start: 08-21-2023 End: 08-22-2023 ambulatory Devon Garcia Facility[place] Start: 08-21-2023 End: 08-21-2023 Pain Management Devon Garcia [facility] Start: 08-14-2023 End: 08-14-2023 ambulatory Princess Sibley Other [facility] Other Start: 08-14-2023 Telephone encounter Princess Sibley [facility] Start: 08-08-2023 End: 08-08-2023 ambulatory Princess Sibley Other [facility] Other Start: 08-08-2023 Office outpatient visit 25 minutes Princess Sibley [facility] Start: 07-25-2023 End: 07-25-2023 ambulatory Elieser Guero II Other [facility] Other Start: 07-25-2023 Office outpatient visit 25 minutes Elieser Martinezle II [facility] Start: 07-17-2023 End: 07-17-2023 ambulatory Pauline Romero Other [facility] Other Start: 07-17-2023 Office outpatient visit 15 minutes Pauline Romero [facility] Start: 07-17-2023 Telephone encounter Pauline Romero [facility] Start: 07-04-2023 End: 07-05-2023 ambulatory Devon Garcia Facility:[facility] Start: 07-04-2023 End: 07-04-2023 Pain Management Devon Garcia [facility] Start: 07-03-2023 End: 07-03-2023 ambulatory Tobi Borrego Other [facility] Other Start: 07-03-2023 Office outpatient ne w 30 minutes Tobi Borrego [facility] Vascular Surgery Start: 07-03-2023 Telephone encounter Tobi negro [facility] [employer] Start: 06-03-2023 End: 06-03-2023 ambulatory Pauline Romero Other [facility] Other Start: 06-03-2023 Office outpatient visit 15 minutes Pauline Romero [facility] Start: 05-30-2023 End: 05-30-2023 ambulatory Pauline Romero Other [facility] Other Start: 05-30-2023 Telephone encounter Pauline Romero [facility] Start: 05-29-2023 End: 05-29-2023 ambulatory Pauline Romero Other [facility] Other Start: 05-29-2023 Telephone encounter Pauline Romero [facility] Start: 04-17-2023 End: 04-17-2023 ambulatory Pauline Romero Other [facility] Other Start: 04-17-2023 Telephone encounter Pauline Romero [facility] Start: 04-15-2023 End: 04-15-2023 ambulatory Pauline Romero Other [facility] Other Start: 04-15-2023 Office outpatient visit 25 minutes Pauline Romero [facility] Start: 04-12-2023 End: 04-12-2023 ambulatory Pauline Romero Other [facility] Other Start: 04-12-2023 Telephone encounter Pauline Romero [facility] Start: 03-28-2023 End: 03-28-2023 ambulatory Pauline Romero Other [facility] Other Start: 03-28-2023 Telephone encounter Pauline Romero [facility] Start: 03-13-2023 End: 03-13-2023 ambulatory Pauline Romero Facility:[facility] Start: 03-13-2023 Office outpatient ne w 45 minutes Elieser Jack II [facility] Start: 03-13-2023 End: 03-13-2023 ambulatory DO Pauline Romero Work Phone: [facility] Work Phone: Start: 03-13-2023 End: 03-13-2023 Patient encounter procedure DO Pauline Nick Work Phone: [facility] Start: 02-08-2023 End: 02-08-2023 ambulatory Pauline Romero Other [facility] Other Start: 02-08-2023 Telephone encounter Pauline Romero [facility] [place] Start: 02-04-2023 End: 02-04-2023 ambulatory Pauline Romero Other [facility] Other Start: 02-04-2023 Office outpatient visit 10 minutes Pauline Romero [facility] [place] Start: 01-31-2023 End: 01-31-2023 ambulatory Pauline Romero Other [facility] Other Start: 01-31-2023 Office outpatient visit 15 minutes Araceli Joseph [facility] Urgent [facility] Start: 01-31-2023 Telephone encounter Pauline Romero [facility] Start: 01-17-2023 End: 01-17-[address] BLAISE MACK Facility:[facility] Start: 01-10-2023 End: 01-10-2023 ambulatory Pauline Romero Other [facility] Other Start: 01-10-2023 Telephone encounter Pauline Romero [facility] Start: 01-01-2023 End: 01-01-2023 ambulatory Pauline Romero Other [facility] Other Start: 01-01-2023 Telephone encounter Pauline Romero [facility] [place] Start: 12-04-2022 End: 12-05-2022 ambulatory PONCE HERNANDEZ . Facility:[facility] Start: 12-01-2022 End: 12-01-2022 ambulatory Antonina Beena Facility:[facility] Start: 12-01-2022 End: 12-01-2022 ambulatory DO Pauline Romero Work Phone: [facility] Work Phone: Start: 12-01-2022 End: 12-01-2022 Patient encounter procedure DO Pauline Romero Work Phone: [facility] [place] Work Phone: Start: 11-30-2022 End: 11-30-2022 ambulatory Pauline Romero Other [facility] Other Start: 11-30-2022 Telephone encounter Pauline Romero [facility] Start: 11-19-2022 End: 11-20-[address] PAULINE ROMERO [facility] Other Start: 11-19-2022 Office outpatient visit 25 minutes Pauline Romero [facility] Start: 11-13-2022 End: 11-13-2022 ambulatory Pauline Romero Other [facility] Other Start: 11-13-2022 Telephone encounter Pauline Romero [facility] Start: 11-10-2022 End: 11-10-2022 ambulatory ELIESER DILLON Facility:[facility] Start: 10-23-2022 End: 10-23-2022 ambulatory Pauline Romero Other [facility] Other Start: 10-23-2022 Telephone encounter Pauline Romero [facility] Start: 10-18-2022 End: 10-18-2022 ambulatory Pauline Romero Other [facility] Other Start: 10-18-2022 Telephone encounter Pauline Romero [facility] Start: 10-16-2022 End: 10-17-[address] PAULINE ROMERO Facility:[facility] Start: 10-12-2022 End: 10-12-2022 ambulatory Pauline Romero Other [facility] Other Start: 10-12-2022 Telephone encounter Pauline Romero [facility] Start: 09-13-2022 End: 09-14-[address] PAULINE ROMERO Facility:[facility] Start: 09-07-2022 End: 09-07-2022 ambulatory Pauline Romero Other [facility] Other Start: 09-07-2022 Telephone encounter Pauline Romero [facility] Start: 07-03-2022 End: 07-03-2022 ambulatory Pauline Romero Other [facility] Other Start: 07-03-2022 Office outpatient visit 15 minutes Lia Oswald [facility] Start: 07-03-2022 Telephone encounter Pauline Romero [facility] Start: 06-14-2022 End: 06-14-2022 ambulatory Pauline Romero Other [facility] Other Start: 06-14-2022 Office outpatient visit 15 minutes Pauline Romero [facility] Start: 06-10-2022 End: 06-10-2022 ambulatory ROBB FOX . Facility:[facility] Start: 06-09-2022 End: 06-10-[address] PAULINE ROMERO Facility:[facility] Start: 03-27-2022 End: 03-27-2022 ambulatory Pauline Romero Other [facility] Other Start: 03-27-2022 Telephone encounter Pauline Romero [facility] Start: 03-12-2022 End: 03-12-2022 ambulatory Pauline Romero Other [facility] Other Start: 03-12-2022 Office outpatient visit 25 minutes Pauline Romero [facility] Start: 03-08-2022 Telephone encounter Pauline Romero [facility] Start: 03-08-2022 End: 03-09-[address] PAULINE ROMERO [facility] Other Start: 01-23-2022 End: 01-23-2022 ambulatory Pauline Romero Other [facility] Other Start: 01-23-2022 Telephone encounter Pauline Romero [facility] Start: 01-18-2022 End: 01-18-2022 ambulatory Pauline Romero Other [facility] Other Start: 01-18-2022 Telephone encounter Pauline Romero [facility] Start: 01-02-2022 End: 01-02-2022 ambulatory Pauline Romero Other [facility] Other Start: 01-02-2022 Telephone encounter Pauline Romero [facility] Start: 12-27-2021 End: 12-27-2021 ambulatory Pauline Romero Other [facility] Other Start: 12-27-2021 Telephone encounter Pauline Romero [facility] Start: 12-21-2021 End: 12-21-2021 ambulatory Pauline Romero Other [facility] Other Start: 12-21-2021 Office outpatient visit 15 minutes Pauline Romero [facility] Start: 12-04-2021 End: 12-04-2021 ambulatory Pauline Romero Other [facility] Other Start: 12-04-2021 Telephone encounter Pauline Romero [facility] Start: 10-30-2021 End: 10-30-2021 ambulatory Pauline Romero Other [facility] Other Start: 10-30-2021 Telephone encounter Pauline Romero [facility] Start: 10-10-2021 End: 10-10-2021 ambulatory Pauline Romero Other [facility] Other Start: 10-10-2021 Telephone encounter Pauline Romero [facility] Start: 10-02-2021 End: 10-02-2021 ambulatory Pauline Romero Other [facility] Other Start: 10-02-2021 Telephone encounter Pauline Romero [facility] Start: 09-25-2021 End: 09-25-2021 ambulatory Pauline Romero Other [facility] Other Start: 09-25-2021 Office outpatient visit 15 minutes Pauline Romero [facility] Start: 09-05-2021 End: 09-05-2021 ambulatory Pauline Romero Other [facility] Other Start: 09-05-2021 Office outpatient visit 25 minutes Pauline Romero [facility] Start: 06-03-2018 End: 06-04-2018 Patient encounter JONAH RENTERIA Facility:[facility] Start: 03-04-2018 End: 03-05-2018 Patient encounter JONAH RENTERIA Facility:[facility] Start: 12-23-2017 End: 12-24-2017 Patient encounter JONAH DEXTER Facility:[facility] Start: 11-11-2017 End: 11-12-2017 Patient encounter HEBERT BHATT Facility:[facility] Start: 11-06-2017 End: 11-07-2017 Patient encounter DEFAULT PHYSICIAN Facility:[facility] Procedures Date Procedure Procedure Detail Performing Clinician Start: 08-21-2023 Local anesthetic sac ral epidural block Mabel Berumen Comment on above: Caudal BETZAIDA- no relie f Start: 03-13-2023 Pelvis X-ray DO Pauline mead Work Phone: Start: 03-13-2023 Radiologic examinati on of knee DO Pauline Garciaemily Work Phone: History of operative procedure on lumbar spinal structure Devon Garcia Comment on above: 2010 Dr. Haque None (qualifier value) Leesa Garcia Plan of Treatment Date Care Activity Detail Author Start: 12-01-2022 MR lumbar spine wo con MR lumb ar spine wo con [facility] Start: 12-01-2022 MR Lumbar spine WO contrast [facility] Start: 12-01-2022 XR pre/post mri xray XR pre/post mri xray [facility] Start: 12-01-2022 [facility] Payers Date Payer Category Payer Medicaid [id number] 2. [id number] 2022 Self-pay [id number] 2018 Unknown [id number] 1970 Unknown [id number] 1970 Unknown [id number] 1970 Unknown [id number] 1970 Unknown [id number] 2.16.84 0.1.475906.3.579.2.593 1970 Unknown [id number] 2.16.84 0.1.212753.3.579.2.593 1970 Unknown [id number] 2.16.84 0.1.246061.3.579.2.593 1970 Unknown [id number] 2.16.84 0.1.457238.3.579.2.593 1970 Unknown [id number] 2.16.84 0.1.903200.3.579.2.593 1970 Unknown [id number] 2.16.84 0.1.720509.3.579.2.593 1970 Unknown [id number] 2.16.8 40.1.119451.3.579.2.727 1970 Unknown [id number] 2.16.8 40.1.577068.3.579.2.727 1970 Unknown [id number] 2.16.8 40.1.625584.3.579.2.727 1970 Unknown [id number] 2.16.8 40.1.584262.3.579.2.173 1970 Unknown [id number] 2.16.8 40.1.986468.3.579.2.754 1970 Unknown [id number] 2.16.8 40.1.951366.3.579.2.754 1959 Unknown [id number] 2.1 6.840.1.329472.19 Unknown Unknown [id number] 2.16.8 40.1.347019.3.579.2.531 Unknown [id number] 2.16.8 40.1.476232.3.579.2.531 Social History Date Type Detail Facility Unknown if ever smoked [facility] Other Sex Assigned At [facility] Start: 1970 Sex Assigned At Female F [facility] Start: 07-04-2023 End: 09-13-2023 Tobacco smoking status Light tobacco smoker (finding) [facility] Functional Status Date Assessment Result Facility 09-13-2023 Functional Status N/A [facility] 08-21-2023 Functional Status N/A [facility] 07-04-2023 Functional Status N/A [facility] Clinical Notes 05-07-2012 to 10-28-2023 Note Date & Type Note Facility 10-28-2023 History general N arrative - Reported Type Medical History Pap; Dr. Ramirez, [place] 05-18 Medical History Mammogram; May 26; [facility] Medical History Pelvic Ultrasound ; Dr. Ramirez Medical History No history of Colono scopy, Stress Test, EKG or CT of the Abdomen or Pelvis at this time Medical History No history of Chicke n Pox, Measles or Mumps Medical History Hard of Hearing [...] 01/2016 Surgical History left hip and greater trochanteric bursda 05/09/17 Surgical History left hip joint ST inj 05/30/17 Surgical History left sacral lat brach L5 7 Surgical History left sacral lateral branch L5 - Dr Anderson 09/05/17 Surgical History left hip and GT Bursa inj Dr Kathy woodruff 09/26/17 Surgical History left lumbar transfor aminal L4 L3 - Dr Anderson 12/04/17 Surgical History pain mgmt procedure DR Anderson 05/08 12/22 Surgical History Hip Inj- 07/2018 Hospitalization History see above surgical histo ry Hospitalization History Pneumonia - [place] 03/07 [facility] Other 01-19-2024 History general Narrative - Reported* Type Description Date Medical History Pap; Dr. Ramirez, [place] 05-18 Medical History Mammogram; May 2012; [facility] Medical History Pelvic Ultrasound 05-18; Dr. Clay [...] surgical histo ry Hospitalization History Pneumonia - [place] 03/07 [facility] Other 01-18-2024 Evaluation note* Encounter Date Diagnosis Assessment Notes Treatment Notes Treatment Clinical Notes Oct, Primary osteoarthritis of left knee (ICD-10 - M17.12) Oct, Internal derangement of left knee (ICD-10 - M23.92) Oct, Other We discussed th at again that her x-rays are not end-stage arthritis but there is certainly some arthritis present. Based on the amount of pain that she is having in her only moderate response to a steroid injection I feel that we may be missing a soft tissue injury that may be more amenable to either further conservative treatment or even surgical intervention with a scope. At this time again to get an MRI of the left knee without contrast to evaluate for medial meniscus tear. I will follow-up with her with those results. [facility] Other 01-05-2024 History general Narrative - Reported* Type Description Date Medical History Pap; Dr. Ramirez [place] 05-18 Medical History Mammogram; May 2012; [facility] Medical History Pelvic Ultrasound 05-18; Dr. Clay [...] ry Hospitalization History Pneumonia - [facility] 03/07 [facility] Other 01-04-2024 Evaluation note* Encounter Date Diagnosis Assessment Notes Treatment Notes Treatment Clinical Notes Oct, Abdominal bloating (ICD-10 - R14.0) She voices that she feels bloated after she eats and she has not eaten much. She denies pain but says that it occurs after she eats. She does no burp or pass gas. The bloating lasts for a few hours. She ate a piece of toast before she came to the appointment today. I did explain to her that backed up stool can cause bloating. I would like her to get an abdominal x-ray to rule out backed up stool. She can call for the results. Oct, Coronary artery disease (ICD-10 - I25.10) I did advise her that the CT scan of the lungs that Dr. Hernandez ordered did show coronary artery calcification. We discussed this in detail today, all questions she has were answered. This can be common for smokers and can cause heart attacks. Calcium shows that this has been there for awhile. I would like to order a coronary calcium score scan to be done to rule out abnormaltiies and check the plaque burden in her arteries. If this shows alot of plaque then we will need to discuss referring her to a roll carrier. I also recommend she get an apolipoprotein b level drawn to check her cholesterol further. She is agreebale to both of these tests and orders were provided. She voices that she does have lack of energy and fatigue. She does not think that she could walk two city blocks because of her energy level. Oct, Hypertension (ICD-10 - I10) Blood pressure is controlled. Continue with above medication daily as directed. Oct, Dysphagia (ICD-10 - R13.10) She voices that she has to take her time eating because she has a difficult time swallowing. She voices that this has been an issue since 2018 when she was in the hospital for pneumonia. I would like to order an esophagram and an upper GI to be done and would like to refer her to an ENT for evaluation. She is going to look for an ENT in her local area and will call for the referral with who she wants to see. She did have a LDCT of the chest done on 10/08/23 which showed that the thyroid and esophagus unremarkable as visualized. Oct, Fatty liver (ICD-10 - K76.0) Discussed cholesterol results with patient today. Total is 162. HDL is 87. LDL is 61. Triglycerides are 72. VLDL is 14.4. I did explain to her that her cholesterol readings are good. Continue to monitor her intake of carbs and sugars. Oct, Vitamin B12 deficiency (ICD-10 - E53.8) Her Vitamin B12 level is 532.0. Folate is 11.30. Continue with supplementation. Oct, Insomnia (ICD-10 - G47.00) She would like to increase her dose of Trazodone but because she is on Venlafaxine I am not comfortable raising the dose. She will continue with the same dose for now. She voices that she does not sleep good because of her pain. Oct, Encounter for long-term (current) use of medications (ICD-10 - Z79.899) Oct, Depression (ICD-10 - F32.9) She would like to increase her dose of Venlafaxine but because she is on Trazodone I am not comfortable raising her dose due to the risk of seratonin syndrome. I did recommend that she see a psychiatrist for evaluation. She has recently moved but will be provided with a local phone number for a psychiatrist. She feels alot of her anxiety/depression is due to trying to get her social security disability. She had her hearing but has not heard anything yet. Oct, COPD (chronic obstructive pulmonary disease) (ICD-10 - J44.9) I did independently review the LDCT scan of the chest that was ordered by Dr. Hernandez and done on 10/08/23 with Naye today. Impression: 2 mm punctate right upper lobe noncalcified nodule. No suspicious nodule demonstrated. I explained to her that this nodule will need to be monitored until it is calcified. Continue to follow with Dr. Hernandez as scheduled. Oct, Vitamin D deficiency (ICD-10 - E55.9) Her Vitamin D level is good at 61.5. Continue with supplementation. Oct, Anxiety (ICD-10 - F41.9) She does continue to use and benefit from the above medication. An [facility] report was printed and reviewed, [...] current substance abuse treatments are being prescribed. Oct, Weight gain (ICD-10 - R63.5) She has gained five pounds since last seen. Her TSH is normal at 1.260. Oct, Hematuria (ICD-10 - R31.9) [facility] Other 12-08-2023 Evaluation + Plan noteExtracted from: Title:Pain Managment Follow up Author:Mabel Hernandez [...] Follow-up as above mentioned GLADYS score: 64% [facility]12-08-2023 Evaluation note* Encounter Date Diagnosis Assessment Notes Treatment Notes Treatment Clinical Notes Sep, Anxiety (ICD-10 - F41.9) [facility] Other 12-08-2023 History general Narrative - Reported* Type Description Date Medical History Pap; Dr. Ramirez [place] 05-18 Medical History Mammogram; May 2012; [facility] Medical History Pelvic Ultrasound 05-18; Dr. Clay [...] ry Hospitalization History Pneumonia - [place] 03/07 [facility] [employer] Other 11-15-2023 Note [id number] NoteDiagnosis: M96.1 Procedure: Caudal epidural [...] procedure, and agrees to continue currently prescribed/recommended therapies.[facility] Comment on above:Result Comment: Electronically Signed By: Devon Garcia DO\.br\Date and Time Signed: 08/21/23 15:54 [id number] Evaluation + Plan note Extracted from: Title:Caudal [...] Date:09/13/2023 12:30:00 PM Scheduled Provider:Mabel Berumen PA-C Location:FT.Pain Mgmt [place] Appointment Type:Pain Management - Follow Up (FT) [facility]11-09-2023 History general Narrative - Reported* Type Description Date Medical History Pap; Alejandro [place] 05-18 Medical History Mammogram; May 2012; [facility] Medical History Pelvic Ultrasound 05-18; Dr. Clay [...] ry Hospitalization History Pneumonia - [place] 03/07 [facility] Other 11-03-2023 History general Narrative - Reported* Type Description Date Medical History Pap; Alejandro [place] 05-18 Medical History Mammogram; May 2012; [facility] Medical History Pelvic Ultrasound 05-18; Dr. Clay [...] ry Hospitalization History Pneumonia - [place] 03/07 [facility] Other 11-02-2023 Evaluation note* Encounter Date Diagnosis Assessment Notes Treatment Notes Treatment Clinical Notes Aug, Other alf (current) drug therapy (ICD-10 - Z79.899) Aug, [...] in 1 year from initiation of treatment. [facility] Other 10-20-2023 History general Narrative - Reported* Type Description Date Medical History Pap; Dr. Ramirez, [place] 05-18 Medical History Mammogram; May 2012; [facility] Medical History Pelvic Ultrasound 05-18; Dr. Clay [...] ry Hospitalization History Pneumonia - [place] 03/07 [facility] Other 10-19-2023 Evaluation note* Encounter Date Diagnosis [...] without contrast to evaluate for meniscal pathology [facility] Other 10-11-2023 Evaluation note* Encounter Date Diagnosis Assessment Notes Treatment Notes Treatment Clinical Notes Jul, Anxiety (ICD-10 - F41.9) [facility] Other 10-11-2023 Evaluation note* Encounter Date Diagnosis [...] colonoscopy. Jul, Other She is seeing Dr. Jack next week for evaluation of her left knee. [facility] Other 10-11-2023 History general Narrative - Reported* Type Description Date Medical History Pap; Dr. Ramirez, [place] 05-18 Medical History Mammogram; May 2012; [facility] Medical History Pelvic Ultrasound 05-18; Dr. Clay [...] surgical histo ry Hospitalization History Pneumonia - [place] 03/07 [facility] Other 09-28-2023 Evaluation + Plan noteExtracted from: [...] with any questions or concerns that arise. [facility]09-27-2023 Evaluation note* Encounter Date Diagnosis Assessment Notes Treatment Notes Treatment Clinical Notes Jun, Foot pain, left (ICD-10 - M79.672) This patient has a normal vascular exam of her feet bilaterally. I do not believe that her symptoms are of a vascular etiology. I will see her as needed in the future. The patient is due to see a neurologist tomorrow for further work-up. [facility] Other 08-28-2023 Evaluation note* Encounter Date Diagnosis [...] recently referred to pain management through the [facility]. If this is nerve related then pain [...] that can be discussed with pain management. [facility] Other 08-24-2023 Evaluation note* Encounter Date Diagnosis Assessment Notes Treatment Notes Treatment Clinical Notes May, Foot pain, left (ICD-10 - M79.672) [facility] Other 08-24-2023 History general Narrative - Reported* Type Description Date Medical History Pap; Dr. Ramirez [place] 05-18 Medical History Mammogram; May 2012; [facility] Medical History Pelvic Ultrasound 05-18; Dr. Clay [...] surgical histo ry Hospitalization History Pneumonia - [place] 03/07 [facility] Other 07-12-2023 History general Narrative - Reported* Type Description Date Medical History Pap; Dr. Ramirez, [place] 05-18 Medical History Mammogram; May 2012; [facility] Medical History Pelvic Ultrasound 05-18; Dr. Clay [...] ry Hospitalization History Pneumonia - [place] 03/07 [facility] Other 07-10-2023 Evaluation note* Encounter Date Diagnosis [...] (ICD-10 - M25.562) She did see Dr. Jack for evaluation of her left knee. Apr, Other At her visit in 3 months we will discuss ordering a mammogram to be done in Sep (2022). [facility] Other 07-07-2023 History general Narrative - Reported* Type Description Date Medical History Pap; Dr. Ramirez [place] 05-18 Medical History Mammogram; May 2012; [facility] Medical History Pelvic Ultrasound 05-18; Dr. Clay [...] ry Hospitalization History Pneumonia - [place] 03/07 [facility] Other 06-23-2023 History general Narrative - Reported* Type Description Date Medical History Pap; Dr. Ramirez [place] 05-18 Medical History Mammogram; May 2012; [facility] Medical History Pelvic Ultrasound 05-18; Dr. Clay [...] ry Hospitalization History Pneumonia - [place] 03/07 [facility] Other 06-22-2023 Evaluation note* Encounter Date Diagnosis Assessment Notes Treatment Notes Treatment Clinical Notes Mar, Anxiety (ICD-10 - F41.9) [facility] Other 06-16-2023 History general Narrative - Reported* Type Description Date Medical History Pap; Dr. Ramirez [place] 05-18 Medical History Mammogram; May 2012; [facility] Medical History Pelvic Ultrasound 05-18; Dr. Clay [...] surgical histo ry Hospitalization History Pneumonia - [place] 03/07 [facility] Other 06-07-2023 Evaluation note* Encounter Date Diagnosis [...] 6. Follow up 2 to 3 months [facility] Other 05-05-2023 Evaluation note* Encounter Date Diagnosis Assessment Notes Treatment Notes Treatment Clinical Notes February, Anxiety (ICD-10 - F41.9) February, Insomnia (ICD-10 - G47.00) [facility] Other 05-05-2023 History general Narrative - Reported* Type Description Date Medical History Pap; Dr. Ramirez, [place] 05-18 Medical History Mammogram; May 2012; [facility] Medical History Pelvic Ultrasound 05-18; Dr. Clay [...] ry Hospitalization History Pneumonia - [place] 03/07 [facility] Other 05-01-2023 Evaluation note* Encounter Date Diagnosis [...] push the wax further into the ear. [facility] Other 04-28-2023 History general Narrative - Reported* Type Description Date Medical History Pap; Dr. Ramirez, [place] 05-18 Medical History Mammogram; May 2012; [facility] Medical History Pelvic Ultrasound 05-18; Dr. Clay [...] ry Hospitalization History Pneumonia - [place] 03/07 [facility] Other 04-27-2023 Evaluation note* Encounter Date Diagnosis [...] Pt understood and agreed to treatment plan. [facility] Other 04-27-2023 History general Narrative - Reported* Type Description Date Medical History Pap; Dr. Ramirez, [place] 05-18 Medical History Mammogram; May 2012; [facility] Medical History Pelvic Ultrasound 05-18; Dr. Clay [...] ry Hospitalization History Pneumonia - [place] 03/07 [facility] Other 04-10-2023 History general Narrative - Reported* Type Description Date Medical History Pap; Dr. Ramirez, [place] 05-18 Medical History Mammogram; May 2012; [facility] Medical History Pelvic Ultrasound 05-18; Dr. Clay [...] surgical histo ry Hospitalization History Pneumonia - [place] 03/07 [facility] Other 04-06-2023 Evaluation note* Encounter Date Diagnosis [...] Jan, Other 9:59 AM - 10:07 AM [facility] Other 03-28-2023 Evaluation note* Encounter Date Diagnosis Assessment Notes Treatment Notes Treatment Clinical Notes Dec, Anxiety (ICD-10 - F41.9) [facility] Other 03-10-2023 History general Narrative - Reported* Type Description Date Medical History Pap; Dr. Ramirez [place] 05-18 Medical History Mammogram; May 2012; [facility] Medical History Pelvic Ultrasound 05-18; Dr. Clay [...] surgical histo ry Hospitalization History Pneumonia - [place] 03/07 [facility] Other 02-24-2023 Evaluation note* Encounter Date Diagnosis Assessment Notes Treatment Notes Treatment Clinical Notes Nov, COPD (chronic obstructive pulmonary disease) (ICD-10 - J44.9) [facility] Other 02-13-2023 Evaluation note* Encounter Date Diagnosis [...] out because of her left leg pain. [facility] Other 02-04-2023 NotePROCEDURE: XR CHEST 1 V, [...] Electronically authenticated by: ELIESER DILLON Date: 2022-11-10 15:02[facility]01[facility] Evaluation note* Encounter Date Diagnosis Assessment Notes Treatment Notes Treatment Clinical Notes Oct, Anxiety (ICD-10 - F41.9) [facility] Other 12-02-2022 Evaluation note* Encounter Date Diagnosis [...] next week. 11:43 AM - 11:48 AM [facility] Other 09-27-2022 Evaluation note* Encounter Date Diagnosis [...] verbalized understanding and agreement with tx plan. [facility] Other 09-13-2022 History general Narrative - Reported* Type Description Date Medical History Pap; Dr. Ramirez, [place] 05-18 Medical History Mammogram; May 2012; [facility] Medical History Pelvic Ultrasound 05-18; Dr. Clay [...] surgical histo ry Hospitalization History Pneumonia - [place] 03/07 [facility] Other 09-08-2022 Evaluation note* Encounter Date Diagnosis [...] her in a cast. She saw her audio visual production specialist and he took the cast off [...] is. She is to continue to monitor. [facility] Other 06-21-2022 Evaluation note* Encounter Date Diagnosis Assessment Notes Treatment Notes Treatment Clinical Notes Mar, Post laminectomy syndrome (ICD-10 - M96.1) Mar, Anxiety (ICD-10 - F41.9) [facility] Other 06-06-2022 Evaluation note* Encounter Date Diagnosis [...] Cymbalta (generic) she has an appointment at [facility] on 03-26-22 and will discuss coming off [...] Continue to follow with specialist as directed. [facility] Other 04-19-2022 Evaluation note* Encounter Date Diagnosis Assessment Notes Treatment Notes Treatment Clinical Notes Jan, Abnormal mammogram (ICD-10 - R92.8) left breast [facility] Other 04-14-2022 Evaluation note* Encounter Date Diagnosis Assessment Notes Treatment Notes Treatment Clinical Notes Jan, Anxiety (ICD-10 - F41.9) [facility] Other 03-29-2022 Evaluation note* Encounter Date Diagnosis Assessment Notes Treatment Notes Treatment Clinical Notes Dec, Abnormal mammogram o f left breast (ICD-10 - R92.8) Dec, Calcification of lef t breast on mammography (ICD-10 - R92.1) [facility] Other 03-23-2022 Evaluation note* Encounter Date Diagnosis Assessment Notes Treatment Notes Treatment Clinical Notes Dec, Abnormal mammogram (ICD-10 - R92.8) left breast [facility] Other 03-17-2022 Evaluation note* Encounter Date Diagnosis [...] in February because she if flying to [place] and has never flown before. I did [...] the supplies and will do this soon. [facility] Other 02-28-2022 Evaluation note* Encounter Date Diagnosis Assessment Notes Treatment Notes Treatment Clinical Notes Nov, Anxiety (ICD-10 - F41.9) Nov, Encounter for screening mammogram for breast cancer (ICD-10 - Z12.31) [facility] Other 01-24-2022 Evaluation note* Encounter Date Diagnosis Assessment Notes Treatment Notes Treatment Clinical Notes Oct, Anxiety (ICD-10 - F41.9) [facility] Other 01-04-2022 Evaluation note* Encounter Date Diagnosis Assessment Notes Treatment Notes Treatment Clinical Notes Oct, Depression (ICD-10 - F32.9) [facility] Other 12-27-2021 Evaluation note* Encounter Date Diagnosis Assessment Notes Treatment Notes Treatment Clinical Notes Sep, Anxiety (ICD-10 - F41.9) [facility] Other 12-20-2021 Evaluation note* Encounter Date Diagnosis [...] today. I did recommend that she contact [facility] about this. Sep, Hypertension (ICD-10 - I10) [...] we will see her back in December. [facility] Other 11-30-2021 Evaluation note* Encounter Date Diagnosis [...] R63.5) Her TSH is normal at 1.497. [facility] Other 08-01-2012 History general Narrative - Reported* Type Description Date Medical History Pap; Dr. Ramirez, [place] 05-18 Medical History Mammogram; May 2012; [facility] Medical History Pelvic Ultrasound 05-18; Dr. Clay [...] ry Hospitalization History Pneumonia - [facility] 03/07 [place] [employer] Other Evaluation noteNo InformationNortMead[facility] Other Evaluation noteNo assessment information available [facility] Work Phone: Hospital course Narrative No data available for this section [facility] instructions No data available for this section [facility] CenterProgress note No data available for this section [facility] CenterReason for visit Narrativereview labs/med refill, discuss multiple issues, see treatment plan for further informationNortMeadville Medical Center [facility] Other Summary Purpose Family History No Family History [...] Medicin e [facility] Referring Provider First Name Pauline Referring Provider Last Name Nick Referring Provider Specialty Family Prac gabby Referred Organization [facility] Referred Provider Dequan Lenz Referred Address [address] [place],[facility] [address],[place], [place],[address] Referred Provider Specialty Vascular Gilda lyn Referral Priority Routine General Notes KatherineNatalih 06/03/2023 05:05:55 PM > referral sent p2p. pt understands she will be contacted to schedule this appt. Additional Source Comments INFORMATION SOURCE (unrecogn ized section and content) DATE CREATED AUTHOR 06/09/2018 [facility] DATE CREATED AUTHOR AUTHOR'S ORGANIZ ATION 02/07/2023 [facility] DATE CREATED AUTHOR AUTHOR'S ORGANIZ ATION 03/19/2023 [facility] DATE CREATED AUTHOR AUTHOR'S ORGANIZ ATION 10/10/2023 [facility] DATE CREATED AUTHOR AUTHOR'S ORGANIZ ATION 10/12/2023 [facility] DATE CREATED AUTHOR AUTHOR'S ORGANIZ ATION 11/01/2023 [facility] REASON FOR VISIT (unrecogniz ed section and content) review labsanxietyREFILLmed dosagerefillclinicalmed refillclinicalclinicalrefillclinicalclinicalNo Informationreview labsClinicalreview labs/med refillNo InformationBEE STING ON RIGHT HANDchest/nasal congestion/cough/fatigueRefillsClinicalfyiClinicalDiscuss STAUFFER, Chest Tightness, Shaky Legs; [facility] 11/10/22ClinicalRefillsmed refillappt request/ear painEAR INFECTION LEFTNo Informationcontinued ear painRefillsCONSULT ANTONINA BEENA LT KNEE PAIN NX PREV FXRefillsClinical / labreview lab/ med refillClinicalClinical Acute IllnessClinicalER f/uVascular surgery office noteReferred by Dr. Romero for left foot pain to rule out vascular sourceRefillsmed refillOP SP LT KNEE PAINCONSULT DR JACK OWN [facility] PT HAVING DEXA SCAN AT [place] 08/01/23, called to have it sent to [facility], report in MERGE. - KKLAB ORDERrefillClinicalupdateRecheck Left Knee Care Teams (unrecognized sec tion and content) Team Status: Inactive Member Role Status Dates Pauline Romero , DO Primary Care Provider Active Antonina Guidry PA-C Attending Provider Active Team Status: Active Member Role Status Dates Pauline Romero , Primary Care Provider Active Team Status: Inactive Member Role Status Leona Romero , Primary Care Provider Active Elieser Jack II, MD Attending Provider Active Goals (unrecognized [...] BE BASED ON THE PRIMARY CLINICAL RECORDS. [facility]. provides no warranty or guarantee of the accuracy or completeness of information in this document.
--- NOTE | 2023-11-04 09:34 | FL_ITS ---
The [address] [address] Patient Name: JOSSY GUZMÁN MRN: [id number] date: 1970 Sex: F Assigned Patient Location: OR Current Patient Location: OR Accession/Order Number: [id number] Exam Date: 11/04/2023 09:46 Report Date: 11/04/2023 10:26 At the request of: PAULINE ROMERO Procedure: FL upper GI w air PROCEDURE: FL upper GI w air, FL cineradiography COMPARISON: None. HISTORY: R13.10 dysphagia TECHNIQUE: An air contrast upper gastrointestinal series was performed in the usual manner. Standard level fluoroscopic mode of operation utilized. FINDINGS: ESOPHAGUS:Normal. No visible obstruction, dilatation, reflux or hernia STOMACH: Normal. No obstruction, mass, or ulceration. Normal motility. DUODENUM:Normal. No ulceration or diverticulum. OTHER: Large amount of stool throughout the colon FL/FL upper GI w air IMPRESSION: Large amount of stool throughout the colon Normal upper GI Electronically authenticated by: PAULINE NEGRETE Date: 11/04/2023 10:26
== END 2023-11-04 09:28 | disposition home or self-care (01) ==
LOC: FL 09:27
PROVIDERS: PCP Family Medicine; Visit Provider Family Medicine
DX: R13.10 Dysphagia, unspecified (principal)
CPT/HCPCS: 74246; 76120

== ENCOUNTER 2024-02-24 07:32 | Outpatient (RCR) | payer MEDICAID, SELFPAY ==
[2024-02-24 11:05] VITALS: BP 132/91; PULSE 86; O2SAT 96
[2024-02-24] MEDS: DENOSUMAB 60 MG/ML SYRINGE SQ (11:30)
--- NOTE | 2024-02-24 11:36 | PC.NURSE ---
Patient is here for prolia injection, vitals obtained and stable. She tolerated injection well and denies any complaints. She was discharged home ambulatory.
== END 2024-03-06 23:59 | disposition home or self-care (01) ==
LOC: INF 07:32
PROVIDERS: PCP Family Medicine
DX: M85.89 Other specified disorders of bone density and structure, multiple sites (principal)
CPT/HCPCS: 96372; J0897

== ENCOUNTER 2024-08-26 12:45 | Outpatient (OUT) | payer MEDICAID, SELFPAY ==
--- NOTE | 2024-08-26 12:50 | MM_ITS ---
Patient Name: JOSSY GUZMÁN MR#: [id number] : 1970 Exam Date: 08/26/2024 Ordering Doctor: DR CHINTAN ROMERO RADIOLOGY REPORT PROCEDURE: MM TOMOSYNTHESIS SCREENING BI COMPARISON: MG MAMM DX 3D LT CAD, 09/13/2022. MM TOMOSYNTHESIS SCREENING BI, 08/06/2023. INDICATIONS: Screening for malignant neoplasm Calculator Name NCI Breast Cancer Risk Assessment Tool 5 Year Breast Cancer Risk 1.90% Lifetime Breast Cancer Risk 13.60% Personal Breast Cancer No Personal Ovarian Cancer No Treatments None Family Cancers None LOCATION: [facility] BREAST COMPOSITION: The breasts are heterogeneously dense,which may obscure small masses. FINDINGS: DIAGNOSTIC CATEGORY 2--BENIGN FINDING. NO CHANGE FROM COMPARISON. Scattered benign-appearing calcifications are present. Scattered benign-appearing lymph nodes are present. RIGHT BREAST: No significant suspicious finding. LEFT BREAST: No significant suspicious finding. Stable micro clip marker upper outer quadrant. RECOMMENDATIONS: ROUTINE MAMMOGRAM AND CLINICAL EVALUATION IN 12 MONTHS. PLEASE NOTE: A NORMAL MAMMOGRAM DOES NOT EXCLUDE THE POSSIBILITY OF BREAST CANCER. A CLINICALLY SUSPICIOUS PALPABLE LUMP SHOULD BE BIOPSIED. Dictated by: Chintan Casanova MD on 08/26/2024 at 14:57 Approved by: Chintan Casanova MD on 08/26/2024 at 14:58
--- OUTSIDE RECORDS SUMMARY | 2024-08-26 13:03 | XMS_ITS | CCD ---
Author Organization [facility] Care Team Providers Care Proteomics Scientist Name Role Phone PHYSICIAN, DEFAULT Unavailable Unavailable [...] DR PAULINE ROMERO Consulting Unavailable NICK, DR CAREPNTER Primary Care Unavailable NICK, DR CARPENTER Admitting Unavailable NICK, DR CARPENTER Attending Unavailable KERRISA ., PONCE Admitting Unavailable SAMSA ., PONCE Attending Unavailable DAVID ., PONCE Consulting Unavailable NICK, DR CARPENTER [...] RAMOS Consulting Unavailable NETTIE MARTÍNEZ Consulting Unavailable MARTINA, DR BLAISE Mohamud Admitting Unavailmisael MACK, DR BLAISE Mohamud Attending Unavailabl e MARTINA, DR BLAISE Mohamud Consulting Unavailabl e GIRVIN, DR CARPENTER Primary Care Unavailable GIRVIN, [...] Pauline Romero Primary Care Provider MD Elieser Jack II Attending Provider Elieser Jack II Unavailable Pauline Romero Primary Care Physician Tobi Borrego Unavailable [phone] Princess S[place] Unavailable Devon Garcia Attending Unavailable Devon Garcia Referring Unavailable DO Devon Garcia Admitting Unavailabl Mabel Dubose Attending Unavailable Pauline Romero Referring Unavailable JOSE Berumen Admitting UnavailDevon Joyner Attending Unavailable DO Devon Garcia Admitting UnavailOSVALDO Cortez Referring Unavailable PONCE HERNANDEZ P Referring Unavailable PAULINE ROMERO Primary Care Unavailable DO Pauline Romero Primary Care Provider [phone] MD Elieser Jack II Attending Provider Elieser Jack II Admitting UnavailElieser De La Rosa II Attending UnavailPauline Kessler Primary Care Unavailable Brea, Antonina Attending Unavailable Pauline Romero Primary Care Unavailable Brea, Antonina Admitting Unavailable Elieser Jack II Admitting UnavailElieser De La Rosa II Attending UnavailPauline Kessler Primary Care Unavailable Pauline Romero DO Primary Care Provider Unavail able DO Pauline Romero Primary Care Provider MD Elieser Jack II Attending Provider PAULINE ROMERO Primary Care Unavailable CHRISS WRIGHT Attending Unavailable CHRISS WRIGHT Admitting Unavailable PAULINE ROMERO Primary Care Unavailable LORRAINE SHINE Referring Unavailable PAULINE ROMERO Primary Care Unavailable LORRAINE SHINE Referring Unavailable PAULINE ROMERO Primary Care Unavailable DIEGO OLVERA Attending Unavailable DIEGO OLVERA Admitting Unavailable PAULINE ROMERO Primary Care Unavailable CHRISS WRIGHT Attending Unavailable CHRISS WRIGHT Admitting Unavailable AYLEEN HARRIS Attending Unavailable PAULINE ROMERO Primary Care Unavailable MARCO A ROMERO Attending Unavailable PAULINE ROMERO Primary Care Unavailable PAULINE ROMERO Primary Care Unavailable LORRAINE SHINE Referring Unavailable PAULINE ROMERO Primary Care Unavailable PAULINE ROMERO Referring Unavailable PAULINE ROMERO Primary Care Unavailable PAULINE ROMERO Referring Unavailable PAULINE ROMERO Primary Care Unavailable PAULINE ROMERO Referring Unavailable PAULINE ROMERO Primary Care Unavailable MARIANA ELLIS Referring Unavailable PAULINE ROMERO Primary Care Unavailable PALUINE ROMERO Referring Unavailable PAULINE ROMERO Primary Care Unavailable [facility] Referring Unavailable JOCELYN KAT Attending Unavailable PAULINE ROMERO Primary Care Unavailable LORI BRIONES Attending Unavailable PAULINE ROMERO Primary Care Unavailable PAULINE ROMERO Primary Care Unavailable CHRISS WRIGHT Attending Unavailable CHRISS WRIGHT Admitting Unavailable PAULINE ROMERO Primary Care Unavailable MARIANA ELLIS Referring Unavailable PAULINE ROMERO Primary Care Unavailable CHRISS WRIGHT Attending Unavailable CHRISS WRIGHT Admitting Unavailable PAULINE ROMERO Primary Care Unavailable PRINCESS SIBLEY Referring Unavailable Allergies Allergy Classification Reported Allergen(s) Allergy Type Date of Onset Reaction(s) Facility (20 sources) Lisinopril Drug Allergy 07-30-2018 [facility] (1 source) Lisinopril Drug Allergy 10-24-2023 [facility] Repository Medications Current Medications Medication Drug [...] Ordered Start: 11-24-2020 take 2 tablets by [facility] three times daily Acetaminophen 500 MG 2 tablets Orally up to three times a day Nov, Active [id number] 200 actuat albuterol 0.09 mg/actuat metered dose inhaler (20 sources) beta2-Adrenergic Agonist Start: 11-18-2023 Albut kandace Sulfate Active INHALATION November 18, 2023 1:00am FreeTextSi inhalations Inhalation every 4 hrs; Note: Source Status: Taking; Provider: Nick Lindsya Start: 11-19-2022 Albuterol Sulf ate HFA 108 (90 Base) MCG/ACT 2 inhalations Inhalation every 4 hrs Nov, Active Start: 11-19-2022 Albuterol Sulf ate HFA 108 (90 Base) MCG/ACT 2 inhalations Inhalation every 4 hrs Nov, Active Start: 11-19-2022 Albuterol Sulf ate HFA 108 (90 Base) MCG/ACT 2 inhalations Inhalation every 4 hrs Nov, Active ascorbic acid 500 mg oral capsule (15 sources) Vitamin C Start: 11-18-2023 End: 01-08-2024 take 1 capsule by mouth once daily Ascorbic Acid (Vitamin C) Active 500 MG PO January 08, 2024 2:44pm FreeTextSi Capsule Once a day; Note: Source Status: Taking; Provider: Nick Carpenter ( ) take 1 capsule by [facility] every twenty-four hours Vitamin C 500 MG 1 Capsule Once a day Active B-12 1000 MCG (20 sources) B-12 1000 MCG 1 tablet under the tongue and allow to dissolve Sublingual Sat, Sat and Saturday Active Calcium (20 sources) Phosphate Binder, Calcium Calcium Active calcium carbonate 1250 mg oral tablet (16 sources) Start: 11-27-2017 Calcium Carbonate (Calcium 500) 500 mg calcium (1,250 mg) Tablet Active 1 TAB PO As Directed November 27, 2017 1:00am take 1 tablet by mouth once tomás y calcium carbonate 600 MG TABS tablet Take 1 tablet by mouth daily Active cholecalciferol 0.025 mg oral capsule (14 sources) Vitamin D Start: 11-18-2023 take 1 capsule by mouth once daily Cholecalciferol (Vitamin D3) Active 25 MCG PO Daily November 18, 2023 1:00am FreeTextSi capsule Orally Once a day; Note: Source Status: Taking; Provider: Nick Carpenter ( ) take 1 capsule by mouth once haris ly Cholecalciferol (VITAMIN D3) 1.25 MG (45789 UT) CAPS Take 1 capsule by mouth daily 1,000 units 1 Active CUSTOM ACL HINGED FUNCTIONAL KNEE BRACE (6 sources) Start: 12-04-2023 CUSTOM ACL HIN GED FUNCTIONAL KNEE BRACE Active 0 .Route .MEDSUPPLY 1 December 04, 2023 4:48pm As directed Laxity of the left anterior cruciate ligament M23.8X2 Primary osteoarthritis of the left knee M17.12 Start: 12-04-2023 End: 12-04-2023 CUSTOM ACL HINGED FUNCTIONAL KNEE BRACE Discontinued 0 .Route .MEDSUPPLY 1 December 04, 2023 1:00am December 04, 2023 4:49pm As directed 1 ml denosumab 60 mg/ml prefilled syringe (19 sources) RANK Ligand Inhibitor Start: 02-18-2024 Denosuma b (Prolia) 60 mg/mL syringe Active 60 MG SUBCUT EVERY 6 MONTHS February 18, 2024 12:00am diclofenac sodium 0.01 mg/mg topical gel (11 sources) Nonsteroidal Anti-inflammatory Drug Start: 07-04-2023 Voltaren Gel 1% G el 1 [place], Topical, QID for pain, 100 [...] mouth every twelve hours Vitamin D (Ergocalciferol) 67813 UNIT 1 capsule Orally twice a day Active take 1 capsule by mo uth every twelve hours Vitamin D (Ergocalciferol) 29823 UNIT 1 capsule Orally twice a day Active 30 actuat fluticasone furoate 0.1 mg/actuat / umeclidinium 0.0625 mg/actuat / vilanterol 0.025 mg/actuat dry powder inhaler (10 sources) Anticholinergic, Corticosteroid, beta2-Adrenergic Agonist take 1 puff(s) by inhalation once daily kkctsuomgak-miakriqin-aizmya (TRELEGY ELLIPTA) 100-62.5-25 MCG/ACT AEPB inhaler Inhale 1 puff into the lungs daily Active Fluticasone-Umec lidin-Vilanter (4 sources) Star t: 11-07 [address]-Pucdun er (Trelegy Ellipta) 200-62.5-25 mcg blister with device Active 1 INH INHALATION Daily November 18, 2023 1:00am Start: 11-18-2023 Fluticasone-Um eclidin-Vilanter (Trelegy Ellipta) 200-62.5-25 mcg blister with device Active 1 INH INHALATION Daily November 18, 2023 12:00am formoterol / glycopyrronium (20 sources) beta2-Adrenergic Agonist Bevespi Active ibuprofen 800 mg oral tablet (20 sources) Nonsteroidal Anti-inflammatory Drug Start: 03-07-20 End: 07-14-20 take 800 mg by mouth twice daily at mealtime Ibuprofen Active 800 MG PO Twice daily July 14, 2024 1:34pm with food Start: 03-07-2023 take 1 tablet by evonne th three times daily as needed for pain ibuprofen (ADVIL;MOTRIN) 800 MG tablet Take 1 tablet by mouth 3 times daily as needed for Pain 20 tablet 03/01/2024 Active irbesartan 300 mg oral tablet (20 sources) Angiotensin 2 Receptor Dona Start: 02-16-2023 take 1 tablet by mouth once daily irbesartan (AVAPRO) 150 MG tablet Take 1 tablet by mouth daily 02/16/2023 Active Start: 05-28-2018 End: 05-14-2024 take 1 tablet by mouth once daily Irbesartan (Avapro) 300 mg tablet Active 300 MG PO Daily May 14, 2024 10:59am linaclotide 0.29 mg oral capsule (12 sources) Guanylate Cyclase-C Agonist Start: 06-16-2024 End: 09-14-2024 take 1 capsule by mouth once daily before breakfast LINZESS 290 MCG CAPS capsule Indications: Constipation, unspecified constipation type TAKE 1 CAPSULE BY MOUTH ONCE DAILY IN THE MORNING BEFORE BREAKFAST 30 capsule 2 06/16/2024 09/14/2024 Active Start: 02-18-2024 End: 04-07-2024 take 1 capsule by mouth once daily Linaclotide (Linzess) 145 mcg capsule Active 290 MCG PO Daily April 07, 2024 1:27pm Start: 02-17-2024 End: 05-17-2024 take 1 capsule by mouth once daily before breakfast linaclotide (LINZESS) 290 MCG CAPS capsule Indications: Constipation, unspecified constipation type Take 1 capsule by mouth every morning (before breakfast) 30 capsule 2 02/17/2024 05/17/2024 Active Start: 01-03-2024 take 1 capsule by mo sdh once daily before breakfast linaclotide (LINZESS) 145 MCG capsule Indications: Abdominal cramping , Constipation, unspecified constipation type , RLQ abdominal pain Take 1 capsule by mouth every morning (before breakfast) 30 capsule 0 01/03/2024 Active Multiple Vitamins-Minerals (MULTIVITAL-M PO) (10 sources) take 1 tablet by mouth once daily Multiple Vitamins-Minerals (MULTIVITAL-M PO) Take 1 tablet by mouth daily Active take 1 tablet by mouth once tomás y Multiple Vitamins-Minerals (MULTIVITAL-M PO) Take 1 tablet by mouth daily 0 Active Elorghkpejah-Azwp-Okyge Acid (Centrum Women) 18-400 mg-mcg Tablet (6 sources) Start: 11-27-2017 take 1 tablet by mouth once daily Ynkzafrviiib-Gicv-Bhsvm Acid (Centrum Women) 18-400 mg-mcg Tablet Active 1 TAB PO Daily November 27, 2017 1:00am Start: 11-27-2017 take 1 tablet by evonne once daily Srvuprfqromi-Opph-Ugszq Acid (Centrum Women) 18-400 mg-mcg Tablet Active 1 TAB PO Daily November 27, 2017 12:00am ofloxacin 3 mg/ml ophthalmic solution (20 sources) Quinolone Antimicrobial Start: 01-31-2023 Ofloxa raiana 0.3 % 10 drops into affected ear [...] tablet (20 sources) Cholinergic Muscarinic Antagonist Start: 07-01-2024 take 1 tablet by mouth once daily Oxybutynin Chloride Active 0 .ROUTE .COMPLEX July 01, 2024 11:40am Take 1 tablet by mouth once daily Start: 11-27-2017 End: 07-01-2024 take 15 mg by mouth once daily Oxybutynin Chloride Dis continued 15 MG PO Daily January 08, 2024 2:46pm July 01, 2024 11:40am pregabalin 225 mg oral capsule (20 sources) Start: 05-06-2024 End: 08-04-2024 take 1 capsule by mouth twice daily pregabalin (LYRICA) 225 MG capsule Indications: Postlaminectomy syndrome, lumbar region Take 1 capsule by mouth 2 times daily for 90 days. Max Daily Amount: 450 mg 60 capsule 2 05/06/2024 08/04/2024 Active Start: 04-01-2024 End: 05-01-2024 take 200 mg by mouth twice daily Pregabalin Active 200 MG PO Twice daily April 07, 2024 1:27pm Start: 02-18-2024 End: 04-07-2024 Pregabalin Discontinued MG P O February 18, 2024 12:00am April 07, 2024 1:28pm Start: 02-17-2024 End: 03-18-2024 take 1 capsule by mouth twice daily pregabalin (LYRICA) 200 MG capsule Indications: Postlaminectomy syndrome, lumbar region Take 1 capsule by mouth 2 times daily for 30 days. Max Daily Amount: 400 mg 60 capsule 0 02/17/2024 03/18/2024 Active Start: 12-18-2023 End: 04-07-2024 take 100 mg by mouth twice daily Pregabalin Discontinued 100 MG PO Twice daily January 08, 2024 12:00am April 07, 2024 1:28pm Start: 09-13-2023 take 1 capsule by [facility] twice daily pregabalin 225 mg oral capsule 225 mg = 1 cap(s), Oral, BID, # 60 cap(s), Refills(s) 1, Pharmacy: [id number], 180, cm, 09/13/23 12:45:00 EST, Height/Length Dosing, 67.1, kg, 09/13/23 12:45:00 EST, Weight Dosing Start Date: 09/13/23 Status: Ordered Start: 02-27-2023 End: 01-02-2024 take 1 capsule by mouth twice daily pregabalin (LYRICA) 150 MG capsule Take 1 capsule by mouth 2 times daily. Max Daily Amount: 300 mg 0 02/27/2023 01/02/2024 Discontinued (Stop Taking at Discharge) take 1 capsule by mo uth every twenty-four hours Pregabalin 150 MG 1 capsule Orally Once a day Not-Taking traZODone hydrochloride 50 mg oral tablet (20 sources) Serotonin Reuptake Inhibitor Start: 01-08-2024 take 50 mg by mouth once daily at bedtime Trazodone Active 50 MG PO Daily at bedtime January 08, 2024 2:47pm Start: 12-20-2023 End: 01-08-2024 take 1 tablet by mouth at bedtime Trazodone Discontinued 0 .ROUTE .COMPLEX December 20, 2023 11:58am January 08, 2024 2:48pm TAKE 1 TABLET BY MOUTH AT BEDTIME Start: 12-03-2023 End: 12-20-2023 take 1 tablet by mouth at bedtime Trazodone Discontinued 0 .ROUTE .COMPLEX December 03, 2023 11:33am December 20, 2023 11:58am TAKE 1 TABLET BY MOUTH AT BEDTIME Start: 07-04-2023 End: 12-03-2023 take 1 tablet by mouth once daily at bedtime Trazodone Discontinued 50 MG PO Daily at bedtime November 18, 2023 1:00am December 03, 2023 11:33am FreeTextSig: take 1 tablet by mouth at bedtime; Note: Source Status: Taking; Provider: Nick Carpenter ( ) Start: 10-12-2022 take 0.5 tablet by m outh once daily at bedtime traZODone HCl 50 MG 1/2 tablet Orally qd hs Oct, Active Trelegy Ellipta (20 sources) Trelegy Ellipta Active Trelegy Ellipta 200 mcg-62.5 mcg-25 mcg/inh inhalation powder (4 sources) Start: 07-04-20 take 1 puff(s) by [...] puff Inhalation Once a day Nov, Active varenicline 1 mg oral tablet (13 sources) Partial Cholinergic Nicotinic Agonist Start: 01-08-20 take 1 mg by mouth once Varenicline Active 1 MG PO Once January 08, 2024 12:00am take 1 tablet by mouth twice haris ly varenicline (CHANTIX) 1 MG tablet Take 1 tablet by mouth 2 times daily Active venlafaxine (20 sources) Serotonin and Norepinephrine Reuptake Inhibitor Start: 05-04-2024 take 1 capsule by mouth once daily at mealtime Venlafaxine Active 0 .ROUTE .COMPLEX 30 May 04, 2024 8:42am TAKE 1 CAPSULE BY MOUTH ONCE DAILY WITH FOOD Start: 07-04-2023 End: 05-04-2024 take 1 capsule by mouth once daily at mealtime Venlafaxine Discontinued 150 MG PO November 18, 2023 1:00am May 04, 2024 8:43am FreeTextSig: take 1 capsule by mouth once daily with food; Note: Source Status: Taking; Provider: Nick Lindsay Start: 11-24-2020 take 1 capsule by [facility] every twenty-four hours Effexor XR 75 MG 1 capsule with food Orally Once a day for 30 day(s) Nov, Active Start: 11-24-2020 take 1 capsule by mo ut every twenty-four hours Effexor XR 37.5 MG 1 capsule with food Orally Once a day Nov, Active Vitamin B-12 5000 mcg sublingual tablet (4 sources) Start: 07-04-2023 take 1 tablet under the tongue once daily Vitamin B-12 5000 mcg sublingual tablet 5,000 mcg = 1 tab(s), SubLingual, Daily, Refills(s) 0 Start Date: 07/04/23 Status: Ordered vitamin b12 0.1 mg oral tablet (20 sources) Vitamin B12 Start: 01-08-2024 Cyanocobalamin (Vitamin B-12) Active 100 MCG PO As Directed January 08, 2024 2:45pm Start: 11-27-2017 End: 01-08-2024 Cyanocobalamin (Vitamin B-12 ) Discontinued 1 TAB PO As Directed November 27, 2017 1:00am January 08, 2024 2:45pm take 1 tablet by evonne th once daily vitamin B-12 (CYANOCOBALAMIN) 1000 MCG tablet Take 1 tablet by mouth daily Active Cyanocobalamin ( VITAMIN B 12) [address] 1 tablet under the tongue daily 0 Active B-12 1000 MCG 1 tablet under the [...] Once a day Active Vitamin D (Ergocalciferol) 68125 UNIT (12 sources) take 1 capsule by mo ut twice daily Vitamin D (Ergocalciferol) 18410 UNIT 1 capsule Orally twice a day [...] Active zinc gluconate 30 mg oral tablet (20 sources) Start: 11-18-2023 take 1 tablet by mouth once daily Zinc Gluconate Active 30 MG PO Daily November 18, 2023 1:00am FreeTextSi tablet Orally Once a day; Note: Source Status: Taking; Qty: 30 Tablet; Provider: Mark Degroot take 1 tablet by mouth once tomás y zinc gluconate 50 MG tablet Take 1 tablet by mouth daily Active take 1 tablet by evonne th every twenty-four hours Zinc 30 MG 1 tablet Orally Once a day fo r 30 day(s) Active Completed/Discontinued Medications Medication Drug Class(es) Dates Sig (Normalized) Sig (Original) acetaminophen 325 mg / HYDROcodone bitartrate 5 mg oral tablet (9 sources) Opioid Agonist Start: 03-01-2024 End: 03-01-2024 HYDROcodone-acetam inophen (NORCO) 5-325 MG per tablet 2 tablet Start: 03-01-2024 End: 03-01-2024 HYDROcodone-acetaminophen (N ORCO) 5-325 MG per tablet 1 tablet Start: 03-01-2024 End: 03-04-2024 HYDROcodone-acetaminophen (N ORCO) 5-325 MG per tablet Indications: Sprain of left ankle, unspecified ligament, initial encounter Take 1 tablet by mouth every 6 hours as needed for Pain for up to 3 days. Intended supply: 3 days. Take lowest dose possible to manage pain Max Daily Amount: 4 tablets 10 tablet 0 03/01/2024 03/04/2024 Active Start: 11-27-2017 End: 01-08-2024 take 1 tablet by mouth twice daily Hydrocodone-Acetaminophen Discontinued 1 TAB PO Twice daily November 27, 2017 1:00am January 08, 2024 2:31pm alendronic acid 70 mg oral tablet (20 sources) Bisphosphonate Start: 11-18-2023 End: 01-08-2024 take 1 tablet by mouth every week Alendronate (Fosamax) 70 mg tablet Discontinued 70 MG PO every week November 18, 2023 1:00am January 08, 2024 2:30pm FreeTextSi tablet Orally once a week; Note: Source Status: Not-Taking\PRN; Refills: 3; Provider: Nick Carpenter ( ) Start: 07-04-2023 take 1 tablet by evonne th once daily alendronate 70 mg oral tablet, effervescent See Instructions, 1 tablet 30 mintues prior to any food, drink or medicine with plain water once a day, Refills(s) 0 Start Date: 07/04/23 Status: Ordered take 1 tablet by evonne th every week as needed Fosamax 70 MG 1 tablet Orally once a week for 28 Not-Taking/PRN ALPRAZolam 0.25 mg oral tablet (20 sources) Benzodiazepine Start: 07-04-2023 take 1 tablet by mouth twice daily alprazolam 0.25 mg Tab 0.25 mg = 1 tab(s), Oral, BID, Refills(s) 0 Start Date: 07/04/23 Status: Ordered Start: 09-25-2021 End: 07-14-2024 take 1 tablet by mouth once daily as needed Alprazolam (Xanax) 0.25 mg tablet Discontinued 0.25 MG PO Daily January 08, 2024 2:55pm February 17, 2024 10:47am 1 tablet Orally every day as needed; Note: Source Status: Taking; Provider: Nick Lindsay amoxicillin 875 mg / clavulanate 125 mg [...] to 1 000 mcg Sep, 1 cc doxycycline hyclate 100 mg oral capsule (2 sources) Tetracycline-class Drug Start: 04-10-2024 End: 07-14-2024 take 100 mg by mouth twice daily Doxycycline Hyclate Discontinued 100 MG PO Twice daily 26 07June 01, 2024 9:48am July 14, 2024 1:15pm gabapentin 600 mg oral tablet (20 sources) Anti-epileptic Agent Start: 11-27-2017 End: 01-08-2024 take 1 capsule by mouth three times daily Gabapentin Discontinued 1 CAP PO Three times daily November 27, 2017 1:00am January 08, 2024 2:31pm take 1 tablet by mouth three alvino es daily Gabapentin 800 MG take 1 tablet by mouth three times a day Active hydroCHLOROthiazide 25 mg / valsartan 320 mg oral tablet (6 sources) Thiazide Diuretic, Angiotensin 2 Receptor Dona Start: 11-27-2017 End: 05-28-2018 Valsartan-Hydrochlorothiazid e Discontinued TABLET November 27, 2017 1:00am May 28, 2018 7:57am Ketorolac (20 sources) Nonsteroidal Anti-inflammator y Drug, Cyclooxygenase Inhibitor Start: 02-11-2014 Toradol per 15 mg February, 14 60 mg lactulose 09056 mg powder for oral solution (6 sources) Osmotic Laxative Start: 11-18-2023 End: 01-08-2024 take 20 g by mouth twice daily Lactulose Discontinued 20 GM PO Twice daily November 18, 2023 1:00am January 08, 2024 2:32pm Start: 11-06-2023 take 30 mL by mouth twice tomás y Lactulose 10 GM/15ML 30 ml Orally bid for 7 days Oct, Active 1 ml medroxyPROGESTERone acetate 150 mg/ml injection (12 sources) Progestin Start: 07-30-2018 End: 01-08-2024 Medroxyprogesterone (Depo-Provera) 150 mg/mL Suspension Discontinued 1 MG IM EVERY 12 WEEKS July 30, 2018 12:00am January 08, 2024 2:33pm Start: 11-27-2017 End: 09-02-2018 Medroxyprogesterone Disconti nued 1 UNIT IM As Directed November 27, 2017 1:00am September 02, 2018 4:45pm meloxicam 7.5 mg oral tablet (6 sources) Nonsteroidal Anti-inflammatory Drug Start: 11-27-2017 End: 01-08-2024 take 1 tablet by mouth once daily Meloxicam Discontinued 1 TAB PO Daily November 27, 2017 1:00am January 08, 2024 2:33pm methylPREDNISolone 4 mg oral tablet (20 sources) [...] Cholinergic Nicotinic Agonist Nicorette Not-Taking Nicorette Active 50 ml sodium chloride 9 mg/ml injection (1 source) Start: 01-02-2024 End: 01-02-2024 sodium chloride 0.9 % bolus 500 mL triamcinolone acetonide 40 mg/ml injectable suspension (11 sources) Corticosteroid Start: 07-25-2023 Kenalog-40 Jul, 120 mg Problems Active Problems Problem Classification Problem Date Documented Da te Episodic/Chronic Abdominal pain (4 sources) Pelvic and [...] Chronic Coronary atherosclerosis and other heart disease (17 sources) Coronary arteriosclerosis; Translations: [Atherosclerotic heart disease of [place] coronary artery without angina pectoris] Chronic Diseases of white blood cells (20 sources) Increased blood leukocyte number; Translations: [Elevated white blood cell count, unspecified] Onset: 10-18-2022 11-18-2023 Chronic Essential hypertension (20 sources) Hypertensive disorder; Translations: [Essential (primary) hypertension] Onset: 09-05-2021 Resolved: 06-14-2022 Chronic Fluid and electrolyte disorders (2 sources) Hypo-osmolality and hyponatremia; Translations: [Hypokalemia] Onset: 09-05-2021 Resolved: 09-05-2021 Episodic Genitourinary symptoms and ill-defined conditions (20 sources) Urinary incontinence; Translations: [Unspecified urinary incontinence] 11-18-2023 Chronic Genitourinary symptoms and ill-defined conditions (7 sources) Frequency of micturition; Translations: [Hematuria, unspecified] Onset: 09-05-2021 Resolved: 06-14-2022 Episodic Headache; including migraine (1 source) Headache; including migraine; Translations: [Headache, unspecified] Onset: 09-13-2023 Hepatitis (20 sources) Nonalcoholic steatohepatitis; Translations: [Nonalcoholic steatohepatitis (GAXIOLA)] Chronic Joint disorders and dislocations; trauma-related (10 sources) Derangement of left knee; Translations: [Unspecified internal derangement of left knee] Chronic Malaise and fatigue (9 sources) Other fatigue; Translations: [Fatigue] Onset: 11-19-2022 Episodic Mood disorders (20 sources) Major depressive disorder, single episode, unspecified; Translations: [Depression] Onset: 09-05-2021 Resolved: 06-14-2022 Chronic Nonspecific chest pain (2 sources) Other chest pain; Translations: [OTHER CHEST PAIN] Onset: 11-23-2022 Episodic Nutritional deficiencies (20 sources) Vitamin D deficiency; Translations: [Vitamin D deficiency, unspecified] Onset: 09-05-2021 Resolved: 03-12-2022 Chronic Nutritional deficiencies (13 sources) Deficiency of other specified B group vitamins; Translations: [Cobalamin deficiency] Onset: 09-05-2021 Resolved: 06-14-2022 Episodic Osteoarthritis (20 sources) Arthropathy of left hip joint; Translations: [Unilateral primary osteoarthritis, left hip] Chronic Osteoporosis (1 source) Age-related osteoporosis without current pathological fracture; Translations: [AGE-RELATED OSTEOPOROSIS W/O CURRENT PATHOLOGICAL FRACTURE] Onset: 12-23-2017 Chronic Other aftercare (11 sources) Other skilled nursing (current) drug therapy; Translations: [Long-term (current) use of other medications] Onset: 09-05-2021 Resolved: 03-12-2022 Episodic Other aftercare (2 sources) Long-term current use of drug therapy; Translations: [Other termite control service representative (current) drug therapy] 02-17-2024 Episodic Other bone disease and musculoskeletal deformities (2 sources) Other specified disorders of bone density and structure, unspecified site; Translations: [Disorder of bone and cartilage, unspecified] Episodic Other bone disease and musculoskeletal deformities (1 source) Other specified disorders of bone density and structure, multiple sites Episodic Other bone disease and musculoskeletal deformities (2 sources) Postmenopausal osteopenia; Translations: [Other specified disorders of bone density and structure, unspecified site] 02-18-2024 Episodic Other connective tissue disease (20 sources) Bursitis of hip; Translations: [Other bursitis of hip, left hip] Episodic Other connective tissue disease (20 sources) Enthesopathy of hip region; Translations: [Trochanteric bursitis, left hip] Episodic Other connective tissue disease (20 sources) Trochanteric bursitis of left hip; Translations: [Trochanteric bursitis, left hip] Episodic Other connective tissue disease (3 sources) Pain in left foot Episodic Other connective tissue disease (8 sources) Trochanteric bursitis; Translations: [Trochanteric bursitis, left hip] 11-18-2023 Episodic Other ear and sense organ disorders (20 sources) Malignant otitis externa; Translations: [Malignant otitis externa, left ear] 11-18-2023 Chronic Other ear and sense organ disorders [...] for closed fracture] Episodic Other gastrointestinal disorders (11 sources) Dysphagia; Translations: [Dysphagia, unspecified] 11-18-2023 Episodic Other gastrointestinal disorders (1 source) Dysphagia, unspecified Episodic Other liver diseases (20 sources) Liver cyst; Translations: [Other specified diseases of liver] 11-18-2023 Chronic Other liver diseases (20 sources) Non-alcoholic fatty liver; Translations: [Fatty (change of) liver, not elsewhere classified] Chronic Other liver diseases (10 sources) Fatty (change of) liver, not elsewhere classified; Translations: [Nonalcoholic fatty liver disease] Onset: 09-05-2021 Resolved: 03-12-2022 Chronic Other liver [...] colon] Onset: 09-05-2021 Resolved: 03-12-2022 Episodic Other skin disorders (1 source) Localized swelling of left foot; Translations: [Localized swelling, mass and lump, left lower limb] 03-10-2024 Episodic Other upper respiratory infections (1 source) Acute sinusitis, unspecified Episodic Poisoning by nonmedicinal substances (1 source) Toxic effect of venom of bees, undetermined, initial encounter Episodic Residual codes; unclassified (20 sources) Insomnia; Translations: [Insomnia, unspecified] 11-18-2023 Episodic Residual codes; unclassified (5 sources) Insomnia, unspecified Episodic Residual codes; unclassified (2 sources) Asymptomatic menopausal state; Translations: [Asymptomatic postmenopausal status (age-related) (natural)] Episodic Residual codes; unclassified (2 sources) Menopause present; Translations: [Asymptomatic menopausal state] 02-17-2024 Episodic Spondylosis; intervertebral disc disorders; other back problems (20 sources) Post-laminectomy syndrome; Translations: [Postlaminectomy syndrome, not elsewhere classified] Onset: 09-05-2021 Resolved: 03-27-2022 Chronic Substance-related disorders (20 sources) Procedure needed; Translations: [Nicotine dependence, unspecified, uncomplicated] Onset: 01-21-2023 07-04-2023 Chronic Comment on above: Added secondary to d ocumentation in Social History. Unclassified (2 sources) Unknown / UNK(Unknown) Onset: 11-11-2017 Unclassified (1 source) CONTACT W/AND (SUSP) EXPOS COVID-19; Translations: [CONTACT W/AND (SUSP) EXPOS COVID-19] Onset: 11-13-2022 Unclassified (1 source) Unspecified internal derangement of left knee; Translations: [Unspecified internal derangement of left knee] Onset: 11-18-2023 Unclassified (1 source) Pain in left knee; Translations: [Pain in left knee] Onset: 03-13-2023 Urinary tract infections (1 source) Cystitis; Translations: [Cystitis, unspecified without hematuria] 04-10-2024 Episodic Past or Other Problems Problem Classification Problem Date Documented Da te Episodic/Chronic Abdominal pain (20 sources) Right lower quadrant pain; Translations: [Right lower quadrant pain] Onset: 10-31-2023 11-29-2023 Episodic E Codes: Fall (1 source) Unspecified fall, [...] FX W NONUNION] Onset: 03-04-2018 Episodic Other gastrointestinal disorders (2 sources) Abdominal distension (gaseous); Translations: [Abdominal distension (gaseous)] Onset: 01-02-2024 Episodic Other gastrointestinal disorders (13 sources) Constipation; Translations: [Constipation, unspecified] Onset: 11-29-2023 11-29-2023 Episodic Other gastrointestinal disorders (11 sources) Abdominal bloating; Translations: [Abdominal distension (gaseous)] Onset: 11-29-2023 11-29-2023 Episodic Other gastrointestinal disorders (2 sources) Constipation, unspecified; Translations: [Constipation, unspecified] Onset: 10-31-2023 Episodic Other non-traumatic joint disorders (3 sources) Pain in right elbow; Translations: [PAIN IN RIGHT ELBOW] Onset: 06-10-2022 Episodic Other skin disorders (1 source) Localized swelling, mass and lump, left lower limb; Translations: [Localized swelling, mass and lump, left lower limb] Onset: 03-10-2024 Episodic Spondylosis; intervertebral disc disorders; other back problems (20 sources) Low back pain; Translations: [Low back pain] Onset: 12-01-2022 07-04-2023 Episodic Sprains and strains (4 sources) Sprain of left ankle; Translations: [Sprain of unspecified ligament of left ankle, initial encounter] Onset: 03-10-2024 03-01-2024 Episodic Unclassified (1 source) Cough R05.9 Results Test Name Value Interpretation Reference Range Facility XR COMPARISON OF OUTSIDE NATHAN MSon 07-22-2024 XR COMPARISON OF OUTSIDE FILMS RADRPT There is no result for this study. This is a placeholder for comparison films only. Final result Normal [facility] XR COMPARISON OF OUTSIDE NATHAN MSon 07-08-2024 XR COMPARISON OF OUTSIDE FILMS RADRPT There is no result for this study. This is a placeholder for comparison films only. Final result Normal [facility] XR COMPARISON OF OUTSIDE NATHAN MSon 06-10-2024 XR COMPARISON OF OUTSIDE FILMS RADRPT There is no result for this study. This is a placeholder for comparison films only. Final result Normal [facility] XR ANKLE LEFT (MIN 3 VIEWS)o n 05-07-2024 XR ANKLE LEFT (MIN 3 VIEWS) RADRPT EXAM: XR ANKLE LEFT (MIN 3 VIEWS) HISTORY: TECH NOTES: Sprain of left ankle, unspecified ligament, initial encounter Sprain of left ankle, unspecified ligament, initial encounter COMPARISON: 03/01/2024 TECHNIQUE: 3 views left ankle FINDINGS: No acute fracture identified. Well-corticated ossific bodies along the inferior margin the medial lateral malleolus suggests prior ligamentous injury. Ankle mortise appears intact. The talar dome appears congruent. Midfoot appears congruent with mild osteoarthritis. Achilles enthesophytes and inferior calcaneal spur are noted. Nonspecific edema about the lower extremity. Report electronically signed by: Dr. Nixon Clark IMPRESSION: No acute fracture. Sprain of left ankle, unspecified ligament, initial encounter Interpreted by: Nixon Clark MD Signed by: Nixon Clark MD 05/11/[address] [facility] Comment on above: Order Comment: Nathan shelley transcribed paper order Culture, Urineon 04-24-2024 NV - SOURCE urine, clean catch Normal [facility] Comment on above: Order Comment: Order ed by PAULINE ROMERO\[id number]\Performed by [facility] [address] [place] [address] Ebwtkce by PAULINE ROMERONWill - Source of Urine Collection? Urine clean catchNV - Current Antibiotic Therapy? No Answer Given Performed By: #### B MPWR, TNI #### [place] [address] Ph. [phone] [place] - URINE CULTURE No significant pathogens isolated. Growth likely represents skin antonia or distal urethral antonia. Abnormal [facility] Comment on above: Order Comment: Order ed by PAULINE ROMERO\[id number]\Performed by [facility] [address] [place] [address] Cgyjzcu by PAULINE ROMERONWill - Source of Urine Collection? Urine clean catchNV - Current Antibiotic Therapy? No Answer Given Performed By: #### B MPWR, TNI #### [address] [address] Ph. [phone] URINE CULTUREon 04-24-2024 Bacteria identified Cx Nom (U) MICROBIOLOGY REPORT [facility], [address] [place] [address], [place], [address] PATIENT: NAYE GUZMÁN LOCATION: [facility] - - : 1970 AGE: 53 SEX: F ADM: 04/24/24 Att. Physician: PHYSICIAN, NON-STAFF Order Id: [id number] Req. Physician: PHYSICIAN, NON-STAFF Source: urine, clean catch Site: Collected: 04/24/24 12:07 Current Antibiotics: not stated Antibiotics comment: C O M M E N T S ---- Ordered by PAULINE ROMERO STATUS OF ORDERED AND REPORTED TESTS URINE CULTURE FINAL 04/26/24 URINE CULTURE FINAL 04/26/24 09:30 04/25/24 No growth-preliminary 04/26/24 No significant pathogens isolated. Growth likely represents skin antonia or distal urethral antonia. Organism 00 Growth of Contaminants Normal [facility] Urinalysis Completeon 2023 BACT None Seen Normal [facility] Comment on above: Order Comment: Order ed by PAULINE ROMERO Performed By: #### B MPWR, TNI #### [address] [address] Ph. [phone] MUCS None Seen Normal [facility] Comment on above: Order Comment: Order ed by PAULINE ROMERO Performed By: #### B MPWR, TNI #### [address] [address] Ph. [phone] SQEPI 1+ #/LPF Normal [facility] Comment on above: Order Comment: Order ed by PAULINE ROMERO Performed By: #### B MPWR, TNI #### [address] [address] Ph. [phone] UBIL Negative Normal Negative [facility] Comment on above: Order Comment: Order ed by PAULINE ROMERO Performed By: #### B MPWR, TNI #### [address] [address] Ph. [phone] UBLO Negative Normal Negative [facility] Comment on above: Order Comment: Order ed by PAULINE ROMERO Performed By: #### B MPWR, TNI #### [address] [address] Ph. [phone] UCLAR Clear Normal [facility] Comment on above: Order Comment: Order ed by PAULINE ROMERO Performed By: #### B MPWR, TNI #### [address] [address] Ph. [phone] UCOL Yellow Normal [facility] Comment on above: Order Comment: Order ed by PAULINE ROMERO Performed By: #### B MPWR, TNI #### [address] [address] Ph. [phone] UGLU Negative Normal Negative [facility] Comment on above: Order Comment: Order ed by PAULINE ROMERO Performed By: #### B MPWR, TNI #### [address] [address] Ph. [phone] UKET Negative Normal Negative [facility] Comment on above: Order Comment: Order ed by PAULINE ROMERO Performed By: #### B MPWR, TNI #### [address] [address] Ph. [phone] ULEU Negative Normal Negative [facility] Comment on above: Order Comment: Order ed by PAULINE ROMERO Performed By: #### B MPWR, TNI #### [address] [address] Ph. [phone] UNIT Negative Normal Negative [facility] Comment on above: Order Comment: Order ed by PAULINE ROMERO Performed By: #### B GINAWR, TNI #### [address] [address] Ph. [phone] UPH 6.0 Normal 5.0-7.0 [facility] Comment on above: Order Comment: Order ed by PAULINE ROMERO Performed By: #### B GINAWR, TNI #### [address] [address] Ph. [phone] UPRO Negative Normal Negative [facility] Comment on above: Order Comment: Order ed by PAULINE ROMERO Performed By: #### B MEGHNA, TNI #### [address] [address] Ph. [phone] URBC None Seen Normal [facility] Comment on above: Order Comment: Order ed by PAULINE ROMERO Performed By: #### B MPWR, TNI #### [address] [address] Ph. [phone] USG 1.015 Normal 1.005-1.030 [facility] Comment on above: Order Comment: Order ed by PAULINE ROMERO Performed By: #### B MPWR, TNI #### [address] [address] Ph. [phone] UURO 0.2 E.U./dL Normal <2.0 [facility] Comment on above: Order Comment: Order ed by PAULINE ROMERO Performed By: #### B MEGHNA, TNI #### [address] [place] [address] Ph. [phone] UWBC Rare Normal [facility] Comment on above: Order Comment: Order ed by PAULINE ROMERO Performed By: #### B MEGHNA, TNI #### [address] [place] [address] Ph. [phone] Urinalysis with Microscopico n 04-24-2024 BACTERIA, URINE None Seen [place] Bilirubin, Urine Negative Negative [place] Blood, Urine Negative Negative [place] Clarity, UA Clear [place] Color, UA Yellow [place] Glucose, Ur Negative Negative mg/dL [place] Ketones Ql (U) Negative Negative mg/dL [place] Leukocyte esterase Test strip Ql (U) Negative Negative [place] MUCUS, URINE None Seen [facility] Nitrate, UA Negative Negative [place] pH (U) 6.0 [pH] 5.0 - 7.0 [place] Protein, Ur (gm/dL) Negative Negative mg/dL [place] RBC, UA None Seen #/HPF [place] Specific [place], UA 1.015 1.005 - 1.030 [place] Squam Epithel, UA 1+ #/LPF [place] Urobilinogen, Urine 0.2 E.U./dL NINF [place] DOT WBC, UA Rare #/HPF [place] Ordered by PAULINE ROMERO [facility] [place] Culture, Urineon 04-06-2024 Bacteria identified Cx Nom (U) [place] count: <10,000 CFU/mL Normal [facility] Comment on above: Order Comment: NV - Source of Urine Collection? Urine clean catch\[id number]\Performed by [facility] [address] [place] [address] \[id number]\Site: clean voidNV - Source of Urine Collection? Urine clean catchNV - Current Antibiotic Therapy? No Answer Given Performed By: #### B MEGHNA, TNI #### [address] [address] Ph. [phone] NV - Organism [address] [facility] Comment on above: Order Comment: NV - Source of Urine Collection? Urine clean catch\[id number]\Performed by [facility] [address] [place] [address] \[id number]\Site: clean voidNV - Source of Urine Collection? Urine clean catchNV - Current Antibiotic Therapy? No Answer Given Performed By: #### B MPWR, TNI #### [address] [address] Ph. [phone] NV - Organism 02 Escherichia coli Abnormal [facility] Comment on above: Order Comment: NV - Source of Urine Collection? Urine clean catch\[id number]\Performed by [facility] [address] [place] [address] \[id number]\Site: clean voidNV - Source of Urine Collection? Urine clean catchNV - Current Antibiotic Therapy? No Answer Given Performed By: #### B MPWR, TNI #### [address] [address] Ph. [phone] NV - Organism [address] [facility] Comment on above: Order Comment: NV - Source of Urine Collection? Urine clean catch\[id number]\Performed by [facility] [address] [place] [address] \[id number]\Site: clean voidNV - Source of Urine Collection? Urine clean catchNV - Current Antibiotic Therapy? No Answer Given Performed By: #### B MPWR, TNI #### [address] [address] Ph. [phone] NV - SOURCE urine, clean catch Normal [facility] Comment on above: Order Comment: NV - Source of Urine Collection? Urine clean catch\X0D0A\Performed by [facility] [address] [place] [address] \[id number]\Site: clean voidNV - Source of Urine Collection? Urine clean catchNV - Current Antibiotic Therapy? No Answer Given Performed By: #### B MPWR, TNI #### [place] [id number] Ph. [phone] NV - URINE CULTURE [place] count: >100,000 CFU/mL Serratia species which may be initially susceptible to third generation cephalosporins may develop resistance within three to four days of initiation of this antimicrobial therapy. Normal [facility] Comment on above: Order Comment: NV - Source of Urine Collection? Urine clean catch\X0D0A\Performed by [facility] [address] [place] [address] \[id number]\Site: clean voidNV - Source of Urine Collection? Urine clean catchNV - Current Antibiotic Therapy? No Answer Given Performed By: #### B MPWR, TNI #### [place] [address] Ph. [phone] NV - URINE CULTURE [place] count: 50,000-90,000 CFU/mL Normal [facility] Comment on above: Order Comment: NV - Source of Urine Collection? Urine clean catch\X0D0A\Performed by [facility] [address] [place] [address] \[id number]\Site: clean voidNV - Source of Urine Collection? Urine clean catchNV - Current Antibiotic Therapy? No Answer Given Performed By: #### B MPWR, TNI #### [place] [address] Ph. [phone] URINE CULTUREon 04-06-2024 Bacteria identified Cx Nom (U) MICROBIOLOGY REPORT [facility], [address] [place] [address], [address] PATIENT: NAYE GUZMÁN LOCATION: [facility] - - : 1970 AGE: 53 SEX: F ADM: 04/06/24 Att. Physician: PHYSICIAN, NON-STAFF Order Id: [id number] Req. Physician: PHYSICIAN, NON-STAFF Source: urine, clean catch Site: clean void Collected: 04/06/24 11:48 Current Antibiotics: not stated Antibiotics comment: C Gricelda M M E N T S ---- NV - Source of Urine Collection? Urine clean catch STATUS OF ORDERED AND REPORTED TESTS URINE CULTURE FINAL 04/09/24 URINE CULTURE FINAL 04/09/24 08:12 Organism 01 Serratia marcescens [place] count: >100,000 CFU/mL Serratia species which may be initially susceptible to third generation cephalosporins may develop resistance within three to four days of initiation of this antimicrobial therapy. Organism 02 Escherichia coli [place] count: 50,000-90,000 CFU/mL Organism 03 Pseudomonas aeruginosa [place] count: <10,000 CFU/mL Organism 01-sermar Antibiotic BELIA Intrp *Adult dosage Pk bld level Pk urine lev. Gentamicin <=1 S IV 1.7mg/kg q 8 h 5-7 >=100 Tobramycin <=1 S IV 2.0mg/kg 3.1-14 322 Ciprofloxacin <=0.25 S PO 750 mg q 12 h 3.6 IV 400 mg q 12 h 4.6 Levofloxacin <=0.12 S IV 250-500mg 12.1 Nitrofurantoin 128 R PO 100mg <1.0 15-46 Trimethoprim/Lucas <=20 S [id number]/800mgSMX q 12h 1-2TMP/98-82T44-60BS P/97SM IV 160mgTMP/800mgSMX q 8 h9TMP/105 SMX Cefepime <=1 S IV 2000mg 164 S=Susceptible I=Intermediate R=Resistant Susceptibility is determined by comparing the BELIA of organism to the achievable blood or urine level of drug. Level at the site of infection should be a minimum of 5-10 times the BELIA. BELIA and blood and urine levels=mcg/ml.*Stand dionne dosages from [employer] Guide to Antimicrobial Therapy and assumes moderate infection in normal adult populations. For pts. with renal or liver disease consult PDR or pharmacist. Organism 02-esccol Antibiotic BELIA Intrp *Adult dosage Pk bld level Pk urine lev. Gentamicin <=1 S IV 1.7mg/kg q 8 h 5-7 >=100 Tobramycin <=1 S IV 2.0mg/kg 3.1-14 322 Ciprofloxacin <=0.25 S PO 750 mg q 12 h 3.6 IV 400 mg q 12 h 4.6 Levofloxacin <=0.12 S IV 250-500mg 12.1 Nitrofurantoin <=16 S PO 100mg <1.0 15-46 Trimethoprim/Lucas <=20 S [id number]/800mgSMX q 12h 1-2TMP/41-87H63-51RD P/97SM IV 160mgTMP/800mgSMX q 8 h9TMP/105 SMX Cefepime <=1 S IV 2000mg 164 Ampicillin 4 S PO 500mg (fasting) 2.5-4.0 IV 2g q 6 h 100 Tetracycline <=1 S PO 250mg 2-4 100 Amoxicillin/CA <=2 S PO 250-500mg/q 8 hrs. 4.4-7.6 Amox/ . 2.3 clavulani Piperacillin/Ta <=4 S IV 3.375gm 242 Cefazolin <=4 S IV 1000mg 188 Cefoxitin <=4 S IV 1000mg 110 Ceftriaxone <=1 S IV 1000mg 150 995 S=Susceptible I=Intermediate R=Resistant Susceptibility is determined by comparing the BELIA of organism to the achievable blood or urine level of drug. Level at the site of infection should be a minimum of 5-10 times the BELIA. BELIA and blood and urine levels=mcg/ml.*Stand dionne dosages from [employer] Guide to Antimicrobial Therapy and assumes moderate infection in normal adult populations. For pts. with renal or liver disease consult PDR or pharmacist. Organism 03-pseaer Antibiotic BELIA Intrp *Adult dosage Pk bld level Pk urine lev. Gentamicin <=1 S IV 1.7mg/kg q 8 h 5-7 >=100 Tobramycin <=1 S IV 2.0mg/kg 3.1-14 322 Ciprofloxacin <=0.25 S PO 750 mg q 12 h 3.6 IV 400 mg q 12 h 4.6 Levofloxacin 0.5 S IV 250-500mg 12.1 Cefepime 2 S IV 2000mg 164 Piperacillin/Ta 16 S IV 3.375gm 242 S=Susceptible I=Intermediate R=Resistant Susceptibility is determined by comparing the BELIA of organism to the achievable blood or urine level of drug. Level at the site of infection should be a minimum of 5-10 times the BELIA. (more content not included)... Normal [facility] Urinalysison 04-06-2024 BACTERIA, URINE 1+ [place] Bilirubin, Urine Negative Negative [place] Blood, Urine Negative Negative [place] Clarity, UA Slightly Cloudy [place] Color, UA Yellow [place] Glucose, Ur Negative Negative mg/dL [place] Ketones Ql (U) Negative Negative mg/dL [place] Leukocyte esterase Test strip Ql (U) Negative Negative [place] MUCUS, URINE None Seen [place] Nitrate, UA Negative Negative [place] pH (U) 7.0 [pH] 5.0 - 7.0 [place] Protein, Ur (gm/dL) Negative Negative mg/dL [place] RBC, UA None Seen #/HPF [place] Specific [place], UA 1.015 1.005 - 1.030 [place] Squam Epithel, UA 2+ #/LPF [place] Urobilinogen, Urine 1.0 E.U./dL NINF [place] DOT WBC, UA Rare #/HPF [place] Urinalysis Completeon 2023 BACT 1+ Normal [facility] Comment on above: Performed By: #### B MPANGE, TNI #### [place] [address] Ph. [phone] MUCS None Seen Normal [facility] Comment on above: Performed By: #### B MPWR, TNI #### [address] [address] Ph. [phone] SQEPI 2+ #/LPF Normal [facility] Comment on above: Performed By: #### B MPWR, TNI #### [address] [address] Ph. [phone] UBIL Negative Normal Negative [facility] Comment on above: Performed By: #### B MPWR, TNI #### [address] [address] Ph. [phone] UBLO Negative Normal Negative [facility] Comment on above: Performed By: #### B MPWR, TNI #### [address] [address] Ph. [phone] UCLAR Slightly Cloudy [facility] Comment on above: Performed By: #### B MPWR, TNI #### [address] [address] Ph. [phone] UCOL Yellow Normal [facility] Comment on above: Performed By: #### B MPWR, TNI #### [address] [address] Ph. [phone] UGLU Negative Normal Negative [facility] Comment on above: Performed By: #### B MPWR, TNI #### [address] [address] Ph. [phone] UKET Negative Normal Negative [facility] Comment on above: Performed By: #### B MPWR, TNI #### [address] [address] Ph. [phone] ULEU Negative Normal Negative [facility] Comment on above: Performed By: #### B MPWR, TNI #### [address] [address] Ph. [phone] UNIT Negative Normal Negative [facility] Comment on above: Performed By: #### B MEGHNA, TNI #### [address] [address] Ph. [phone] UPH 7.0 Normal 5.0-7.0 [facility] Comment on above: Performed By: #### B MEGHNA TNI #### [address] [address] Ph. [phone] UPRO Negative Normal Negative [facility] Comment on above: Performed By: #### B MEGHNA TNI #### [address] [address] Ph. [phone] URBC None Seen Normal [facility] Comment on above: Performed By: #### B MEGHNA TNI #### [address] [address] Ph. [phone] USG 1.015 Normal 1.005-1.030 [facility] Comment on above: Performed By: #### B MEGHNA TNI #### [address] [address] Ph. [phone] UURO 1.0 E.U./dL Normal <2.0 [facility] Comment on above: Performed By: #### B MEGHNA TNI #### [address] [address] Ph. [phone] UWBC Rare Normal [facility] Comment on above: Performed By: #### B MEGHNA, TNI #### [address] [address] Ph. [phone] Complete Blood Count with Au to Diffon 04-03-2024 Basophils (Bld) [#/Vol] 0.1 10*3/uL Normal 0.0-0.1 [facility] Comment on above: Performed By: #### C BCAD #### [place] [id number] Ph. [phone] Basophils/100 WBC (Bld) 1 % Normal 0-1 [facility] Comment on above: Performed By: #### C BCAD #### [place] [address] Ph. [phone] Eosinophils (Bld) [#/Vol] 0.2 10*3/uL Normal 0.0-0.5 [facility] Comment on above: Performed By: #### C BCAD #### [place] [address] Ph. [phone] Eosinophils/100 WBC (Bld) 2 % Normal 0-5 [facility] Comment on above: Performed By: #### C BCAD #### [place] [place] [id number] Ph. [phone] Erythrocyte distribution width (RBC) [Ratio] 13.7 % Normal 11.5-14.5 [facility] Comment on above: Performed By: #### C BCAD #### [place] [address] Ph. [phone] Hematocrit (Bld) [Volume fraction] 43.5 % Normal 36.0-47.0 [facility] Comment on above: Performed By: #### C BCAD #### [place] [id number] Ph. [phone] Hemoglobin (Bld) [Mass/Vol] 14.2 g/dL Normal 12.0-16.0 [facility] Comment on above: Performed By: #### C BCAD #### [place] [address] Ph. [phone] Lymphocytes (Bld) [#/Vol] 2.5 10*3/uL Normal 1.0-4.0 [facility] Comment on above: Performed By: #### C BCAD #### [place] [id number] Ph. [phone] Lymphocytes/100 WBC (Bld) 31 % Normal 20-40 [facility] Comment on above: Performed By: #### C BCAD #### [place] [address] Ph. [phone] MCH (RBC) [Entitic mass] 28.8 pg Normal 27.0-35.0 [facility] Comment on above: Performed By: #### C BCAD #### [place] [address] Ph. [phone] MCHC (RBC) [Mass/Vol] 32.6 g/dL Normal 32.0-36.0 [facility] Comment on above: Performed By: #### C BCAD #### [place] [address] Ph. [phone] MCV (RBC) [Entitic vol] 88.2 fL Normal 80.0-100.0 [facility] Comment on above: Performed By: #### C BCAD #### [place] [id number] Ph. [phone] Monocytes (Bld) [#/Vol] 0.5 10*3/uL Normal 0.3-1.0 [facility] Comment on above: Performed By: #### C BCAD #### [address] [address] Ph. [phone] Monocytes/100 WBC (Bld) 6 % Normal 1-15 [facility] Comment on above: Performed By: #### C BCAD #### [place] [address] Ph. [phone] Neutrophils (Bld) [#/Vol] 4.9 10*3/uL Normal 1.8-7.7 [facility] Comment on above: Performed By: #### C BCAD #### [address] [address] Ph. [phone] Neutrophils/100 WBC (Bld) 60 % Normal 50-70 [facility] Comment on above: Performed By: #### C BCAD #### [address] [address] Ph. [phone] Platelet mean volume (Bld) [Entitic vol] 10.1 fL Normal 9.4-12.3 [facility] Comment on above: Performed By: #### C BCAD #### [address] [address] Ph. [phone] Platelets (Bld) [#/Vol] 269 10*3/uL Normal 150-450 [facility] Comment on above: Performed By: #### C BCAD #### [address] [address] Ph. [phone] RBC (Bld) [#/Vol] 4.93 10*6/uL Normal 4.20-5.40 [facility] Comment on above: Performed By: #### C BCAD #### [address] [address] Ph. [phone] WBC (Bld) [#/Vol] 8.2 10*3/uL Normal 3.7-11.0 [facility] Comment on above: Performed By: #### C BCAD #### [address] [address] Ph. [phone] Comprehensive Metabolic Pane jeannie 04-03-2024 Albumin [Mass/Vol] 4.6 g/dL Normal 3.5-5.0 [facility] Comment on above: Performed By: #### B 12, FOL, CMP, LIPD #### [place] [address] Ph. [phone] ALP [Catalytic activity/Vol] 53 U/L Normal 38-126 [facility] Comment on above: Performed By: #### B 12, FOL, CMP, LIPD #### [place] [id number] Ph. [phone] ALT [Catalytic activity/Vol] 17 U/L Normal 0-35 [facility] Comment on above: Performed By: #### B 12, FOL, CMP, LIPD #### [place] [address] Ph. [phone] AST [Catalytic activity/Vol] 25 U/L Normal 14-36 [facility] Comment on above: Performed By: #### B 12, FOL, CMP, LIPD #### [place] [id number] Ph. [phone] Bilirubin [Mass/Vol] 0.5 mg/dL Normal 0.2-1.3 [facility] Comment on above: Performed By: #### B 12, FOL, CMP, LIPD #### [place] [id number] Ph. [phone] Calcium [Mass/Vol] 9.6 mg/dL Normal 8.4-10.2 [facility] Comment on above: Performed By: #### B 12, FOL, CMP, LIPD #### [place] [id number] Ph. [phone] Chloride [Moles/Vol] 101 mmol/L Normal 98-107 [facility] Comment on above: Performed By: #### B 12, FOL, CMP, LIPD #### [place] [address] Ph. [phone] CO2 [Moles/Vol] 27 mmol/L Normal 22-32 [facility] Comment on above: Performed By: #### B 12, FOL, CMP, LIPD #### [address] [address] Ph. [phone] Creatinine [Mass/Vol] 0.70 mg/dL Normal 0.52-1.04 [facility] Comment on above: Performed By: #### B 12, FOL, CMP, LIPD #### [place] [address] Ph. [phone] GFR/1.73 sq M.predicted among non-blacks MDRD (S/P/Bld) [Vol rate/Area] 103 mL/min/{1.73_m2} Normal >60 [facility] Comment on above: Result Comment: GFR calculated using CKD-EPI (2020) formula.\X0D0A\Stage 1 Kidney damage (e.g., protein in the urine) with normal GFR >=90\X0D0A\Stage 2 Kidney damage with mild decrease in GFR 60-89\X0D0A\Stage 3a Moderate decrease in GFR 45-59\X0D0A\Stage 3b Moderate decrease in GFR 30-44\X0D0A\Stage 4 Severe reduction in GFR 15-29\X0D0A\Stage 5 Kidney failure <15 Performed By: #### B 12, FOL, CMP, LIPD #### [place] [address] Ph. [phone] Glucose [Mass/Vol] 88 mg/dL Normal 65-100 [facility] Comment on above: Performed By: #### B 12, FOL, CMP, LIPD #### [address] [address] Ph. [phone] Potassium [Moles/Vol] 3.8 mmol/L Normal 3.6-5.0 [facility] Comment on above: Performed By: #### B 12, FOL, CMP, LIPD #### [address] [place] [address] Ph. [phone] Protein [Mass/Vol] 6.9 g/dL Normal 6.3-8.2 [facility] Comment on above: Performed By: #### B 12, FOL, CMP, LIPD #### [place] [address] Ph. [phone] Sodium [Moles/Vol] 136 mmol/L Normal 135-145 [facility] Comment on above: Performed By: #### B 12, FOL, CMP, LIPD #### [place] [address] Ph. [phone] Urea nitrogen [Mass/Vol] 12 mg/dL Normal 7-17 [facility] Comment on above: Performed By: #### B 12, FOL, CMP, LIPD #### [place] [address] Ph. [phone] Folateon 04-03-2024 FOL 8.39 ng/mL Normal 2.76-20.00 [facility] Comment on above: Result Comment: The normal range for adults (18-65) is 2.76->20.00 ng/mL.\X0D0A\The normal range for folate deficient patients is 1.04-2.79 ng/mL. Performed By: #### B 12, FOL, CMP, LIPD #### [place] [address] Ph. [phone] Lipid Panelon 04-03-2024 Cholesterol [Mass/Vol] 142 mg/dL Normal 100-200 [facility] Comment on above: Result Comment: <200 mg/dL is recommended cholesterol level. Performed By: #### B 12, FOL, CMP, LIPD #### [place] [address] Ph. [phone] Cholesterol in HDL [Mass/Vol] 70 mg/dL Normal >60 [facility] Comment on above: Performed By: #### B 12, FOL, CMP, LIPD #### [place] [id number] Ph. [phone] Cholesterol in LDL [Mass/Vol] 49 mg/dL Normal 20-100 [facility] Comment on above: Performed By: #### B 12, FOL, CMP, LIPD #### [place] [address] Ph. [phone] Cholesterol.total/Ch olesterol in HDL [Mass ratio] 2 {ratio} Normal 1-5 [facility] Comment on above: Performed By: #### B 12, FOL, CMP, LIPD #### [place] [address] Ph. [phone] Triglyceride [Mass/Vol] 117 mg/dL Normal 10-150 [facility] Comment on above: Performed By: #### B 12, FOL, CMP, LIPD #### [place] [address] Ph. [phone] Vitamin B12on 04-03-2024 Cobalamin (Vitamin B12) [Mass/Vol] 488 pg/mL Normal 239-900 [facility] Comment on above: Performed By: #### B 12, FOL, CMP, LIPD #### [place] [address] Ph. [phone] Vitamin D, 25 Hydroxyon 03-08 VITD 57 ng/mL Normal 30-100 [facility] Comment on above: Result Comment: EXPE CTED VALUES\X0D0A\X0D0A\DEFICIENT: <20 ng/mL\X0D0A\INSUFFICIENT: 20-<30 ng/mL\X0D0A\SUFFICIENT: 30-100 ng/mL\X0D0A\POTENTIAL TOXICITY: >100 ng/mL Performed By: #### B MPWR, TNI #### [place] [address] Ph. [phone] MRI ANKLE LEFT WO CONTRASTon 03-31-2024 MRI ANKLE LEFT WO CONTRAST RADRPT EXAM: MRI ANKLE LEFT WO CONTRAST REASON FOR EXAM: Sprain of left ankle, unspecified ligament, initial encounter. TECHNIQUE: Multiplanar, multisequence imaging of the left ankle was performed without contrast COMPARISON: 03/01/2024. FINDINGS: There is fusiform thickening and intermediate signal the Achilles tendon consistent with tendinosis. Low-grade intrasubstance partial tearing is noted laterally. No high-grade tear identified. The plantar fascia is minimally thickened with a tiny inferior calcaneal spur. No tear. Laterally, the peroneal tendons are thickened with intermediate signal consistent with tendinosis. A definite tear is not evident. Mild tenosynovitis. The superficial peroneal retinaculum is intact. Probable intermediate to high-grade sprain and partial tearing of the ATFL with fluid and edema along the anterior lateral aspect of the ankle. The calcaneofibular ligament is thickened with intermediate signal likely reflecting subacute low to intermediate grade sprain. The remaining lateral ligaments appear intact. Medially, the medial flexor tendons demonstrate normal thickness and signal without tendinosis or tear. Note is made of an os navicularis. The deep deltoid ligament is thickened with intermediate signal likely reflecting a subacute low to intermediate grade sprain. The spring ligament is intact. Lisfranc ligament is intact. Anteriorly, the anterior extensor tendons demonstrate normal thickness and signal without tendinosis or tear. The bone marrow signal is without acute fracture. Mild bone marrow edema involving the distal fibula as well as the medial malleolus, likely posttraumatic. The talar dome is congruent with low to intermediate grade chondrosis. Small joint effusion. The subtalar joint is congruent with a small effusion. The sinus tarsi is mildly edematous. 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 Focal bone marrow edema involving the cuboid bone along the lateral aspect of reflect a bone contusion or impaction fracture. No displaced fracture is evident. The plantar musculature demonstrates normal bulk and signal. Likely posttraumatic subcutaneous edema about the ankle. Report electronically signed by: Dr. Nixon Clark IMPRESSION: 1. Probable subacute intermediate to high-grade sprain and partial tearing of the ATFL. Low to intermediate grade sprains of the calcaneofibular and deep deltoid ligaments. 2. Bone contusion versus nondisplaced impaction fracture involving the lateral cuboid bone. 3. Peroneal tendinosis without tear. 4. Achilles tendinosis with low-grade intrasubstance partial tear. Interpreted by: Nixon Clark MD Signed by: Nixon Clark MD 04/01/[address] [facility] Comment on above: Order Comment: Elect ronically signed by Jazzmine Hernandez on 03/24/2024 at 3:59 PMTranscribed Paper Order XR FOOT LEFT (MIN 3 VIEWS)on 03-10-2024 XR FOOT LEFT (MIN 3 VIEWS) RADRPT EXAM: XR FOOT LEFT (MIN 3 VIEWS) HISTORY: General foot pain and swelling. Patient currently being treated for foot sprain and has been in a boot for 1 week COMPARISON: 06/06/2021 TECHNIQUE: 3 views of the left foot. FINDINGS: Bones: No acute fracture or aggressive appearing bony lesion. Joints: Normal alignment. Small heel spur. Soft tissues: Unremarkable. Report electronically signed by: Dr. Suzan Garay IMPRESSION: No acute processes. General foot pain and swelling. Patient currently being treated for foot sprain and has been in a boot for 1 week Interpreted by: Suzan Garay MD Signed by: Suzan Garay MD 03/10/[address] [facility] XR Foot - left 3 Viewson No acute processes. [facility] EXAM: XR FOOT LEFT (MIN 3 VIEWS) HISTORY: General foot pain and swelling. Patient currently being treated for foot sprain and has been in a boot for 1 week COMPARISON: 06/06/2021 TECHNIQUE: 3 views of the left foot. FINDINGS: Bones: No acute fracture or aggressive appearing bony lesion. Joints: Normal alignment. Small heel spur. Soft tissues: Unremarkable. Report electronically signed by: Dr. Suzan Garay [facility] Suzan Garay MD - 03/10/2024 EXAM: XR FOOT LEFT (MIN 3 VIEWS) HISTORY: General foot pain and swelling. Patient currently being treated for foot sprain and has been in a boot for 1 week COMPARISON: 06/06/2021 TECHNIQUE: 3 views of the left foot. FINDINGS: Bones: No acute fracture or aggressive appearing bony lesion. Joints: Normal alignment. Small heel spur. Soft tissues: Unremarkable. Report electronically signed by: Dr. Suzan Garay IMPRESSION: No acute processes. [facility] Work Phone: Radiology Study observation (narrative) [facility] Work Phone: XR Foot - left 3 ViewsOrdere d By: Suzan Garay on 03-10-2024 [facility] Work Phone: XR ANKLE LEFT (MIN 3 VIEWS)o n 03-01-2024 XR ANKLE LEFT (MIN 3 VIEWS) RADRPT EXAM: XR ANKLE LEFT (MIN 3 VIEWS) , 03/01/2024 HISTORY: TECH NOTES: Left lateral ankle pain and swelling s/p twisting injury ankle injury, swelling, pain COMPARISON: X-rays of the left foot from 05/31/2023 TECHNIQUE: X-rays of the left ankle 3 views FINDINGS: No fracture or dislocation left ankle. The ankle mortise is intact. The bones are well mineralized. Moderate soft tissue swelling. Report electronically signed by: Dr. Tevin George IMPRESSION: No fracture or dislocation left ankle, with moderate soft tissue swelling. Left lateral ankle pain and swelling s/p twisting injury Interpreted by: Tevin George MD Signed by: Tevin George MD 03/01/[address] [facility] XR Ankle - left 3 Viewson No fracture or dislocation left ankle, with moderate soft tissue swelling. [facility] EXAM: XR ANKLE LEFT (MIN 3 VIEWS) , 03/01/2024 HISTORY: TECH NOTES: Left lateral ankle pain and swelling s/p twisting injury ankle injury, swelling, pain COMPARISON: X-rays of the left foot from 05/31/2023 TECHNIQUE: X-rays of the left ankle 3 views FINDINGS: No fracture or dislocation left ankle. The ankle mortise is intact. The bones are well mineralized. Moderate soft tissue swelling. Report electronically signed by: Dr. Tevin George [facility] Tevin George MD - 03/01/2024 EXAM: XR ANKLE LEFT (MIN 3 VIEWS) , 03/01/2024 HISTORY: TECH NOTES: Left lateral ankle pain and swelling s/p twisting injury ankle injury, swelling, pain COMPARISON: X-rays of the left foot from 05/31/2023 TECHNIQUE: X-rays of the left ankle 3 views FINDINGS: No fracture or dislocation left ankle. The ankle mortise is intact. The bones are well mineralized. Moderate soft tissue swelling. Report electronically signed by: Dr. Tevin George IMPRESSION: No fracture or dislocation left ankle, with moderate soft tissue swelling. [employer] Work Phone: Radiology Study observation (narrative) [employer] Phone: XR Ankle - left 3 ViewsOrder ed By: Tevin George on 03-01-2024 [facility] Phone: Calciumon 02-17-2024 Calcium [Mass/Vol] 9.3 mg/dL Normal 8.4-10.2 [facility] Comment on above: Order Comment: Order ed by PRINCESS SIBLEY Performed By: #### C GER Dunn #### [place] [id number] Ph. [phone] Creatinineon 02-17-2024 Creatinine [Mass/Vol] 0.67 mg/dL Normal 0.52-1.04 [facility] Comment on above: Performed By: #### GER Shoemaker #### [address] [address] Ph. [phone] GFR/1.73 sq M.predicted among non-blacks MDRD (S/P/Bld) [Vol rate/Area] 104 mL/min/{1.73_m2} Normal >60 [facility] Comment on above: Result Comment: GFR calculated using CKD-EPI (2020) formula.\X0D0A\Stage 1 Kidney damage (e.g., protein in the urine) with normal GFR >=90\X0D0A\Stage 2 Kidney damage with mild decrease in GFR 60-89\X0D0A\Stage 3a Moderate decrease in GFR 45-59\X0D0A\Stage 3b Moderate decrease in GFR 30-44\X0D0A\Stage 4 Severe reduction in GFR 15-29\X0D0A\Stage 5 Kidney failure <15 Performed By: #### C GER Dunn #### [place] [address] Ph. [phone] XR COMPARISON OF OUTSIDE NATHAN MSon 01-08-2024 XR COMPARISON OF OUTSIDE FILMS RADRPT There is no result for this study. This is a placeholder for comparison films only. Final result Normal [facility] XR Unspecified body region C omparison viewon 01-08-2024 There is no result for this study. This is a placeholder for comparison films only. [facility] RAD XR ABDOMEN (2 VIEWS)on 01-01 XR ABDOMEN (2 VIEWS) RADRPT EXAM: XR ABDOMEN (2 VIEWS) TECHNIQUE: Supine and upright views HISTORY: TECH NOTES: Abdominal pain s/p colonoscopy, r/o any free air abdominal pain post procedure COMPARISON: CT abdomen pelvis: 10/31/2023 __ FINDINGS: There is intermixed air and stool throughout the colon. There is no visualized colonic stool. There is no dilated bowel or pathologic air-fluid level. No evidence for free intraperitoneal air. There are no suspicious calcifications. There is no acute osseous abnormality. There are old left superior and inferior pubic rami fractures. Report electronically signed by: Dr. Julius Owens IMPRESSION: Nonobstructive nonspecific bowel gas pattern. There is no free intraperitoneal air. Abdominal pain s/p colonoscopy, r/o any free air Interpreted by: Julius Owens MD Signed by: Julius Owens MD 01/02/[address] [facility] XR Abdomen 2 Viewson 024 Nonobstructive nonspecific bowel gas pattern. There is no free intraperitoneal air. [facility] EXAM: XR ABDOMEN (2 VIEWS) TECHNIQUE: Supine and upright views HISTORY: TECH NOTES: Abdominal pain s/p colonoscopy, r/o any free air abdominal pain post procedure COMPARISON: CT abdomen pelvis: 10/31/2023 __ FINDINGS: There is intermixed air and stool throughout the colon. There is no visualized colonic stool. There is no dilated bowel or pathologic air-fluid level. No evidence for free intraperitoneal air. There are no suspicious calcifications. There is no acute osseous abnormality. There are old left superior and inferior pubic rami fractures. Report electronically signed by: Dr. Julius Owens [facility] Julius Azul MD - 01/02/2024 EXAM: XR ABDOMEN (2 VIEWS) TECHNIQUE: Supine and upright views HISTORY: TECH NOTES: Abdominal pain s/p colonoscopy, r/o any free air abdominal pain post procedure COMPARISON: CT abdomen pelvis: 10/31/2023 __ FINDINGS: There is intermixed air and stool throughout the colon. There is no visualized colonic stool. There is no dilated bowel or pathologic air-fluid level. No evidence for free intraperitoneal air. There are no suspicious calcifications. There is no acute osseous abnormality. There are old left superior and inferior pubic rami fractures. Report electronically signed by: Dr. Julius Owens IMPRESSION: Nonobstructive nonspecific bowel gas pattern. There is no free intraperitoneal air. [facility] Work Phone: Radiology Study observation (narrative) [employer] [facility] Work Phone: XR Abdomen 2 ViewsOrdered By : Julius Owens on 01-02-2024 [facility] Work Phone: FLEXITEST 1 - [facility] Sendouton 12-30-2023 RESULTS: Flexitest 1 Normal [facility] Comment on above: Order Comment: Quest performed at: [employer], [facility], [address] [place] [address], , [employer] Knife Machine Cutter: Daniel Fong MD PhD\X0D0A\Quest Collection Date/Time: [id number]\X0D0A\[facility] Results Received Date/Time: [id number]\X0D0A\[facility] Reported Date/Time: [id number] by PAULINE Valdovinos - What is the [facility] specimen type/source/volume? SERUM 1ML\X0D0A\ROOM TEMP\X0D0A\X0D0A\Flexitest - What is the [facility] test code and name of test? 5224\X0D0A\APOLIPOPROTEIN B Result Comment: TESTS RESULTS-----UNITS----REF. RANGE----\X0D0A\Flexitest 1\X0D0A\ TESTS RESULTS-----UNITS----REF. RANGE----\X0D0A\Apolipoprotein B 50 mg/dL <90\X0D0A\ \X0D0A\Reference Range: <90\X0D0A\ \X0D0A\Risk Category:\X0D0A\Optimal < 90\X0D0A\Moderate 90 - 119\X0D0A\High > or = 120\X0D0A\ \X0D0A\Cardiovascular event risk category cut points\X0D0A\(optimal, moderate, high) are based on National\X0D0A\Lipid Association recommendations-Lira TA et al.\X0D0A\J Clin Lipid. 2015;9:129-169 and Elissa PS et al.\X0D0A\Endocr Pract. 2017;23(Suppl 2):1-87.\X0D0A\ Performed By: #### B MPWR, TNI #### [place] [address] Ph. [phone] MR knee LT wo conon 11-18-19 MR knee LT wo con [facility] [employer] [address] [place] [address] MRI Report Signed Patient: Naye Guzmán MR#: [id number] 3 : 1970 Acct:[id number] Age/Sex: 53 / F ADM Date: 11/18/23 Loc: MR Room: Type: [facility] Attending Dr: Elieser Jack II, MD Copies to: Elieser Jack MD Ordering Provider: Elieser Jack MD Date of Service: 11/18/23 MR/MR knee LT wo con: Internal derangement of left knee EXAMINATION: MRI OF THE LEFT KNEE CLINICAL DATA: Generalized left knee pain for months. No known injury. COMPARISON: Left knee series 03/13/2023 TECHNIQUE: Multiecho, multiplanar imaging was performed with use of an extremity coil. No contrast was administered. FINDINGS: Joint:Small joint effusion. Chondromalacia involving the patellar cartilage with cartilage defect noted. Mild spurring is seen. No acute fracture. Nonaggressive appearing lesion is seen involving the visualized distal diaphysis of the femur. This is partially visualized on today's study. No bone marrow edema. Soft tissues: Normal Quadriceps/Patellar tendon/retinaculum: Normal Muscles: Normal ACL:Mucoid degeneration. PCL:Normal Medial Meniscus:Normal Lateral Meniscus:Normal MCL:Normal LCL complex: Normal MR/MR knee LT wo con IMPRESSION: SMALL JOINT EFFUSION WITH CHONDROMALACIA INVOLVING THE PATELLA AND MILD JOINT SPURRING.. MUCOID DEGENERATION OF THE ACL. PARTIALLY VISUALIZED NONAGGRESSIVE APPEARING LESION INVOLVING THE DISTAL DIAPHYSIS OF THE FEMUR. GIVEN THE PLAIN FILM FINDINGS, A BONE INFARCT IS SUSPECTED. Impression dictated by: Warren Cabrales Jr., D.O.11/18/2023 12:13 PM Dictation Location: [place] [address] Transcribed By: [facility] 11/18/23 1213 Dictated By: Warren Cabrales Jr, DO 11/18/23 1151 Signed By: 11/18/23 1213 Normal [facility] CT ABDOMEN PELVIS WO CONTRAS Ton 10-31-2023 CT ABDOMEN PELVIS WO CONTRAST RADRPT EXAMINATION: CT ABDOMEN PELVIS WO CONTRAST, 10/31/2023 12:26 PM EST HISTORY: Abdominal Pain COMPARISON: CT abdomen pelvis, Adolfo, 02/11/2019. TECHNIQUE: CT scan of the abdomen [...] Horn Jr., MD 10/31/[address] [facility] Complete Blood Count with Au to Diffon 10-31-2023 BASO# BASO#: 0.0 Normal 0.0-0.1 [facility] Comment on above: Performed By: #### B MEGHNA TNI #### [place] [address] Ph. [phone] BASO% BASO%: 0 Normal 0-1 [facility] Comment on above: Performed By: #### B MEGHNA TNI #### [place] [address] Ph. [phone] Eosinophils (Bld) [#/Vol] 0.2 10*3/uL Normal 0.0-0.5 [facility] Comment on above: Performed By: #### B MEGHNA TNI #### [place] [address] Ph. [phone] Eosinophils/100 WBC (Bld) 3 % Normal 0-5 [facility] Comment on above: Performed By: #### B GINAWR, TNI #### [place] [id number] Ph. [phone] Erythrocyte distribution width (RBC) [Ratio] 13.9 % Normal 11.5-14.5 [facility] Comment on above: Performed By: #### B MEGHNA, TNI #### [address] [address] Ph. [phone] Hematocrit (Bld) [Volume fraction] 41.2 % Normal 36.0-47.0 [facility] Comment on above: Performed By: #### B MEGHNA, MEDI #### [place] [address] Ph. [phone] Hemoglobin (Bld) [Mass/Vol] 13.7 g/dL Normal 12.0-16.0 [facility] Comment on above: Performed By: #### B MEGHNA, TNI #### [place] [address] Ph. [phone] Lymphocytes (Bld) [#/Vol] 2.1 10*3/uL Normal 1.0-4.0 [facility] Comment on above: Performed By: #### B MEGHNA, TNI #### [address] [address] Ph. [phone] Lymphocytes/100 WBC (Bld) 31 % Normal 20-40 [facility] Comment on above: Performed By: #### B MEGHNA, MEDI #### [place] [address] Ph. [phone] MCH (RBC) [Entitic mass] 29.8 pg Normal 27.0-35.0 [facility] Comment on above: Performed By: #### B MEGHNA, TNI #### [address] [address] Ph. [phone] MCHC (RBC) [Mass/Vol] 33.3 g/dL Normal 32.0-36.0 [facility] Comment on above: Performed By: #### B GINAWR, TNI #### [address] [address] Ph. [phone] MCV (RBC) [Entitic vol] 89.8 fL Normal 80.0-100.0 [facility] Comment on above: Performed By: #### B MEGHNA, TNI #### [address] [address] Ph. [phone] Monocytes (Bld) [#/Vol] 0.4 10*3/uL Normal 0.3-1.0 [facility] Comment on above: Performed By: #### B MEGHNA, TNI #### [address] [address] Ph. [phone] Monocytes/100 WBC (Bld) 6 % Normal 1-15 [facility] Comment on above: Performed By: #### B GINAWR, TNI #### [address] [address] Ph. [phone] Neutrophils (Bld) [#/Vol] 4 10*3/uL Normal 1.8-7.7 [facility] Comment on above: Performed By: #### B MEGHNA, TNI #### [address] [address] Ph. [phone] Neutrophils/100 WBC (Bld) 59 % Normal 50-70 [facility] Comment on above: Performed By: #### B MPWR, TNI #### [address] [address] Ph. [phone] Platelet mean volume (Bld) [Entitic vol] 10 fL Normal 9.4-12.3 [facility] Comment on above: Performed By: #### B MPWR, TNI #### [address] [address] Ph. [phone] Platelets (Bld) [#/Vol] 222 10*3/uL Normal 150-450 [facility] Comment on above: Performed By: #### B MPWR, TNI #### [address] [address] Ph. [phone] RBC (Bld) [#/Vol] 4.59 10*6/uL Normal 4.20-5.40 [facility] Comment on above: Performed By: #### B MPWR, TNI #### [address] [address] Ph. [phone] WBC (Bld) [#/Vol] 6.8 10*3/uL Normal 3.7-11.0 [facility] Comment on above: Performed By: #### B MPWR, TNI #### [address] [address] Ph. [phone] Comprehensive Metabolic Pane l w/ Reflex to Mgon 10-31-2023 Albumin [Mass/Vol] 4.0 g/dL Normal 3.5-5.0 [facility] Comment on above: Performed By: #### C MPWR #### [address] [address] Ph. [phone] ALP [Catalytic activity/Vol] 55 U/L Normal 38-126 [facility] Comment on above: Performed By: #### C MPWR #### [address] [address] Ph. [phone] ALT [Catalytic activity/Vol] 23 U/L Normal 0-35 [facility] Comment on above: Performed By: #### C MPWR #### [address] [address] Ph. [phone] AST [Catalytic activity/Vol] 33 U/L Normal 14-36 [facility] Comment on above: Performed By: #### C MPWR #### [address] [address] Ph. [phone] Bilirubin [Mass/Vol] 0.5 mg/dL Normal 0.2-1.3 [facility] Comment on above: Performed By: #### C MPWR #### [address] [address] Ph. [phone] Calcium [Mass/Vol] 9.3 mg/dL Normal 8.4-10.2 [facility] Comment on above: Performed By: #### C MPWR #### [address] [address] Ph. [phone] Chloride [Moles/Vol] 99 mmol/L Normal 98-107 [facility] Comment on above: Performed By: #### C MPWR #### [address] [address] Ph. [phone] CO2 [Moles/Vol] 31 mmol/L Normal 22-32 [facility] Comment on above: Performed By: #### C MPWR #### [address] [address] Ph. [phone] Creatinine [Mass/Vol] 0.67 mg/dL Normal 0.52-1.04 [facility] Comment on above: Performed By: #### C MPWR #### [place] [address] Ph. [phone] GFR/1.73 sq M.predicted among non-blacks MDRD (S/P/Bld) [Vol rate/Area] 104 mL/min/{1.73_m2} Normal >60 [facility] Comment on above: Result Comment: GFR calculated using CKD-EPI (2020) formula.\X0D0A\Stage 1 Kidney damage (e.g., protein in the urine) with normal GFR >=90\X0D0A\Stage 2 Kidney damage with mild decrease in GFR 60-89\X0D0A\Stage 3a Moderate decrease in GFR 45-59\X0D0A\Stage 3b Moderate decrease in GFR 30-44\X0D0A\Stage 4 Severe reduction in GFR 15-29\X0D0A\Stage 5 Kidney failure <15 Performed By: #### C MPWR #### [place] [id number] Ph. [phone] Glucose [Mass/Vol] 81 mg/dL Normal 65-100 [facility] Comment on above: Performed By: #### C MPWR #### [place] [address] Ph. [phone] Potassium [Moles/Vol] 4.0 mmol/L Normal 3.6-5.0 [facility] Comment on above: Performed By: #### C MPWR #### [place] [address] Ph. [phone] Protein [Mass/Vol] 6.6 g/dL Normal 6.3-8.2 [facility] Comment on above: Performed By: #### C MPWR #### [place] [address] Ph. [phone] Sodium [Moles/Vol] 137 mmol/L Normal 135-145 [facility] Comment on above: Performed By: #### C MPWR #### [place] [address] Ph. [phone] Urea nitrogen [Mass/Vol] 11 mg/dL Normal 7-17 [facility] Comment on above: Performed By: #### C MPWR #### [place] [address] Ph. [phone] No Panel Informationon 10-10 Miscellaneous Test COMMENT . [facility] Comment on above: Test Ordered: [id number] Apolipoprotein BApolipoprotein B 60 mg/dL BN Reference Range: <90 Desirable < 90 Borderline High 90 - 99 High 100 - 130 Very High >130 ASCVD RISK THERAPEUTIC TARGET CATEGORY APO B (mg/dL) Very High Risk <80 (if extreme risk <70) High Risk <90 Moderate Risk <90Performed at: [employer] [address] [id number] Director: Ruddy Olivo PhD, Phone: [phone] at: [employer] [address] [id number] Director: Meg Timmons MD, Phone: [phone] CT LUNG SCREENING (INITIAL/A NNUAL)on 10-09-2023 CT [...] like to register your patient with the [facility] Lung Nodule/Lung Cancer Screening Program, please contact the Nurse Navigator at [phone] . Interpreted by: Altaf Arredondo DO Signed by: Altaf Arredondo DO 10/09/23 Final result Normal [facility] Patient Correspondenceon Patient Correspondence [id number] 5#1.00TIFF Normal [facility] Insurance Correspondence Off iceon 10-03-2023 Insurance Correspondence Office [id number] 4#2.00TIFF Normal [facility] Basic Metabolic Panel w/ Ref rory Mgon 09-13-2023 Calcium [Mass/Vol] 9.0 mg/dL Normal 8.4-10.2 [facility] Comment on above: Performed By: #### B MPWR, TNI #### [address] [address] Ph. [phone] Chloride [Moles/Vol] 102 mmol/L Normal 98-107 [facility] Comment on above: Performed By: #### B MPWR, TNI #### [address] [address] Ph. [phone] CO2 [Moles/Vol] 29 mmol/L Normal 22-32 [facility] Comment on above: Performed By: #### B MPWR, TNI #### [address] [address] Ph. [phone] Creatinine [Mass/Vol] 0.55 mg/dL Normal 0.52-1.04 [facility] Comment on above: Performed By: #### B MERE COFFMAN #### [address] [address] Ph. [phone] GFR/1.73 sq M.predicted among non-blacks MDRD (S/P/Bld) [Vol rate/Area] 109 mL/min/{1.73_m2} Normal >60 [facility] Comment on above: Result Comment: GFR calculated using CKD-EPI (2020) formula.\X0D0A\Stage 1 Kidney damage (e.g., protein in the urine) with normal GFR >=90\X0D0A\Stage 2 Kidney damage with mild decrease in GFR 60-89\X0D0A\Stage 3a Moderate decrease in GFR 45-59\X0D0A\Stage 3b Moderate decrease in GFR 30-44\X0D0A\Stage 4 Severe reduction in GFR 15-29\X0D0A\Stage 5 Kidney failure <15 Performed By: #### B MERE COFFMAN #### [place] [address] Ph. [phone] Glucose [Mass/Vol] 83 mg/dL Normal 65-100 [facility] Comment on above: Performed By: #### B MEGHNA TNI #### [place] [address] Ph. [phone] Potassium [Moles/Vol] 3.7 mmol/L Normal 3.6-5.0 [facility] Comment on above: Performed By: #### B MED COFFMANI #### [address] [address] Ph. [phone] Sodium [Moles/Vol] 137 mmol/L Normal 135-145 [facility] Comment on above: Performed By: #### B MED COFFMANI #### [place] [address] Ph. [phone] Urea nitrogen [Mass/Vol] 13 mg/dL Normal 7-17 [facility] Comment on above: Performed By: #### B MERE COFFMAN #### [address] [phone] HEAD WO CONTRASTon 2022 CT HEAD [...] Dudley Muñoz MD 09/13/[address] [facility] Complete Blood Count with Au to Diffon 09-13-2023 Basophils (Bld) [#/Vol] 0.1 10*3/uL Normal 0.0-0.1 [facility] Comment on above: Performed By: #### B MERE COFFMAN #### [place] [address] Ph. [phone] Basophils/100 WBC (Bld) 1 % Normal 0-1 [facility] Comment on above: Performed By: #### B MERE COFFMAN #### [place] [address] Ph. [phone] Eosinophils (Bld) [#/Vol] 0.1 10*3/uL Normal 0.0-0.5 [facility] Comment on above: Performed By: #### B MERE COFFMAN #### [place] [address] Ph. [phone] Eosinophils/100 WBC (Bld) 2 % Normal 0-5 [facility] Comment on above: Performed By: #### B MERE COFFMAN #### [place] [address] Ph. [phone] Erythrocyte distribution width (RBC) [Ratio] 14.3 % Normal 11.5-14.5 [facility] Comment on above: Performed By: #### B MERE COFFMAN #### [place] [address] Ph. [phone] Hematocrit (Bld) [Volume fraction] 42.6 % Normal 36.0-47.0 [facility] Comment on above: Performed By: #### B MERE COFFMAN #### [address] [address] Ph. [phone] Hemoglobin (Bld) [Mass/Vol] 14.3 g/dL Normal 12.0-16.0 [facility] Comment on above: Performed By: #### B MERE COFFMAN #### [place] [address] Ph. [phone] Lymphocytes (Bld) [#/Vol] 3.1 10*3/uL Normal 1.0-4.0 [facility] Comment on above: Performed By: #### B MERE COFFMAN #### [place] [address] Ph. [phone] Lymphocytes/100 WBC (Bld) 45 % High 20-40 [facility] Comment on above: Performed By: #### B MERE COFFMAN #### [address] [place] [address] Ph. [phone] MCH (RBC) [Entitic mass] 29.8 pg Normal 27.0-35.0 [facility] Comment on above: Performed By: #### B MED COFFMANI #### [address] [address] Ph. [phone] MCHC (RBC) [Mass/Vol] 33.6 g/dL Normal 32.0-36.0 [facility] Comment on above: Performed By: #### B MEGHNA, TNI #### [address] [address] Ph. [phone] MCV (RBC) [Entitic vol] 88.8 fL Normal 80.0-100.0 [facility] Comment on above: Performed By: #### B MEGHNA TNI #### [address] [address] Ph. [phone] Monocytes (Bld) [#/Vol] 0.4 10*3/uL Normal 0.3-1.0 [facility] Comment on above: Performed By: #### B MEGHNA TNI #### [address] [address] Ph. [phone] Monocytes/100 WBC (Bld) 6 % Normal 1-15 [facility] Comment on above: Performed By: #### B MEGHNA, TNI #### [address] [address] Ph. [phone] Neutrophils (Bld) [#/Vol] 3.2 10*3/uL Normal 1.8-7.7 [facility] Comment on above: Performed By: #### B MEGHNA, TNI #### [address] [address] Ph. [phone] Neutrophils/100 WBC (Bld) 46 % Low 50-70 [facility] Comment on above: Performed By: #### B GINAWR, TNI #### [address] [address] Ph. [phone] Platelet mean volume (Bld) [Entitic vol] 9.7 fL Normal 9.4-12.3 [facility] Comment on above: Performed By: #### B GINAWR, TNI #### [address] [address] Ph. [phone] Platelets (Bld) [#/Vol] 286 10*3/uL Normal 150-450 [facility] Comment on above: Performed By: #### B MEGHNA, TNI #### [address] [address] Ph. [phone] RBC (Bld) [#/Vol] 4.8 10*6/uL Normal 4.20-5.40 [facility] Comment on above: Performed By: #### B GINAWR, TNI #### [address] [address] Ph. [phone] WBC (Bld) [#/Vol] 6.8 10*3/uL Normal 3.7-11.0 [facility] Comment on above: Performed By: #### B MEGHNA, TNI #### [address] [address] Ph. [phone] Consent for Treatmenton Consent for Treatment [id number] #1.00TIFF Normal [facility] Consultation Noteon [...] day(s), # 60 cap(s), Refills(s) 2, Pharmacy: [facility] #[id number], 180.3, cm, 07/04/23 8:41:00 EDT, Height/Length Dosing, 69, kg, 07/04/23 14:13:00 EDT, Weight Dosing pregabalin 225 mg oral capsule: 225 mg = 1 cap(s), Oral, BID, # 60 cap(s), Refills(s) 1, Pharmacy: [id number], 180, cm, 09/13/23 12:45:00 [...] Degenerative disc disease, lumbar / SNOMED CT 37035250 / Confirmed COPD (chronic obstructive pulmonary disease) / SNOMED CT 46090739 / Confirmed Depression / SNOMED CT 1336151848 / Confirmed Radiculopathy of lumbosacral region / SNOMED CT 7048169 / Confirmed Fatigue / SNOMED CT 753005709 / Confirmed Smoker / SNOMED CT 716698672 / Confirmed Added secondary to documentation in [...] and EHL 5 -/5 Integumentary: Warm, Dry, [place]. Neurologic: Alert, Oriented. Psychiatric: Cooperative, Appropriate mood [...] EST Office/Clinic Note-Physician on 09-13-2023 Office/Clinic Note-Physician [id number] 8#1.00TIFF Normal [facility] Patient Correspondenceon Patient Correspondence [id number] 3#1.00TIFF Normal [facility] Patient Correspondence [id number] 3#1.00TIFF Normal [facility] Patient History Officeon Patient History Office [id number] 8#1.00TIFF Normal [facility] Troponin Ion 09-13-2023 TNI <0.012 Normal 0.000-0.034 [facility] Comment on above: Result Comment: Limi t of Detection: <0.012 ng/mL\X0D0A\At Risk of Myocardial Damage: 0.012-0.034 ng/mL\X0D0A\Probable Myocardial Damage: >0.034 ng/mL Performed By: #### B MPWR, TNI #### [address] [phone] Consent for Procedure/Surger yon 08-21-2023 Consent for Procedure/Surgery [id number] 1#1.00TIFF Normal [facility] Consent for Treatmenton 08-07 Consent for Treatment [id number] 9#1.00TIFF Normal [facility] Discharge Instructionson Discharge Instructions [id number] 6#1.00TIFF Normal [facility] IntraOperative Documentson 10-21-2022 IntraOperative Documents [id number] 6#1.00TIFF Normal [facility] Main OR Intraoperative Recor don 08-21-2023 Main OR Intraoperative Record IntraOp Document Type FTPM Summary Primary Physician: Devon Garcia DO Finalized Date/Time: 08/21/23 15:54:17 Pt. Name: NAYE GUZMÁN/Sex: 1970 Female Med Rec #: [id number] Physician: Devon Garcia DO Financial #: [id number] Pt. Type: P Room/Bed: / Admit/Disch: 08/21/23 [...] Yuki Lindsay Role Performed Surgeon - Primary Belly Dump Driver - Primary Scrub - Primary Time In 08/21/23 15:47:00 08/21/23 15:47:00 08/21/23 15:47:00 Time Out 08/21/23 15:55:00 08/21/23 15:55:00 08/21/23 15:55:00 Procedure CAUDAL EPIDURAL STEROID CAUDAL EPIDURAL STEROID CAUDAL EPIDURAL STEROID INJECTION(.) INJECTION(.) INJECTION(.) Comments Last Modified By: Jean-Claude BRANTLEY, Paradise Bermeo RN, Paradise Quesada RN 08/21/23 15:54:13 08/21/23 15:54:13 08/21/23 15:54:13 Entry 4 Case Attendee Domenica Welch Role Performed Diesel Crane Operator Time In 08/21/23 15:47:00 Time Out [...] X-ray Applicable) PreOp Antibiotic No Time Out Jean-Claude BRANTLEY, Nitesh Vail RN, Yuki Lindsay, Devon Garcia DO, Ott, [...] and tissue Entry 1 Skin Integrity Intact, [place], Warm, and Skin Abnormality No Dry Outcomes [...] NAYE GUZMÁN/Sex: 1970 Female Med Rec #: [id number] Physician: Devon Garcia DO Financial #: [id number] Pt. Type: P Room/Bed: / Admit/Disch: 08/21/23 [...] Signed By: Carla Mena RN 08/21/23 14:45 [facility] Patient Correspondenceon Patient Correspondence [id number] 8#1.00TIFF Normal [facility] Insurance Correspondence Off iceon 07-24-2023 Insurance Correspondence Office [id number] #2.00TIFF Normal [facility] Consent for Treatmenton 06-08 Consent for Treatment [id number] 0#1.00CD:127 Normal [facility] Consultation Noteon [...] been selected or recorded. Procedure history: None ([id number]). History of lumbar spine surgery ([id number]). Comments: 07/04/2023 13:54 ELOISA Bermeo RN, Paradise Harry 2010 Dr. Haque Social History [...] Comment: Elec tronically Signed By: Devon Garcia DO\.br\Date and Time Signed: 07/04/23 14:59 EDT HIPAA Forms Officeon 023 HIPAA Forms Office [id number] #1.00CD:127 [facility] Legal Correspondence Officeo n 07-04-2023 Legal Correspondence Office [id number] #1.00CD:127 [facility] Legal Correspondence Office [id number] #1.00CD:127 [facility] Office/Clinic Note-Physician on 07-04-2023 Office/Clinic Note-Physician [id number] #1.00CD:127 Normal [facility] Patient Correspondenceon Patient Correspondence [id number] #1.00CD:127 Normal [facility] Patient Correspondence [id number] #1.00CD:127 Normal [facility] Patient Correspondence [id number] #1.00CD:127 Normal [facility] Patient Correspondence [id number] #1.00CD:127 Normal [facility] Patient Correspondence [id number] #1.00CD:127 Normal [facility] Patient Correspondence [id number] #1.00CD:127 Normal [facility] Patient History Officeon Patient History Office [id number] #1.00CD:127 Normal [facility] Radiology Outside Office Head Athletic Trainer/Strength Coach yon 07-04-2023 Radiology Outside Office Copy [id number] 0#1.00CD:127 Normal [facility] Outside Records Officeon Outside Records Office [id number] 9#1.00CD:127 Normal [facility] Referrals Officeon Referrals Office [id number] 1#1.00CD:127 Normal [facility] XR knee LT 4V*on 03-13-2023 XR knee LT 4V* [address] [address] XRay Report Signed Patient: Naye Guzmán MR#: [id number] 3 : 1970 Acct:[id number] Age/Sex: 52 / F ADM Date: 03/13/23 Loc: [facility] Room: Type: [facility] Attending Dr: Elieser Jack II, MD Copies to: Elieser Jack MD Ordering Provider: Elieser Jack MD Date of Service: 03/13/23 XR/XR knee LT 4V*: Acute pain of left knee ([id number]) XR/XR pelvis 1-2V: Acute pain of left [...] Nettie Anaya M.D.03/13/2023 5:40 PM Dictation Location: [place] [address] Transcribed By: [facility] 03/13/23 174 Dictated By: Nettie Anaya MD 03/13/23 1735 Signed By: 03/13/23 1740 Normal [facility] XR knee LT 4V* [facility] Other XR knee LT 4V* [facility] [employer] Other XR knee LT 4V* [address] [place] [address] [employer] Other XR knee LT 4V* [place] [address] [facility] [employer] Other XR knee LT 4V* XRay Report [employer] Other XR knee LT 4V* Signed [employer] Other XR knee LT 4V* Patient: Naye Guzmán MR#: [id number] [employer] Other XR knee LT 4V* 3 [employer] Other XR knee LT 4V* : 1970 Acct:[id number] [employer] Other XR knee LT 4V* Age/Sex: 52 / F ADM Date: 03/13/23 [employer] Other XR knee LT 4V* Loc: [facility] Room: Type: [facility] [employer] Other XR knee LT 4V* Attending Dr: Elieser Jack II, MD [employer] Other XR knee LT 4V* Copies to: Elieser Jack MD [employer] Other XR knee LT 4V* Ordering Provider: Elieser Jack MD [employer] Other XR knee LT 4V* Date of Service: 03/13/23 [employer] Other XR knee LT 4V* XR/XR knee LT 4V*: Acute pain of left knee [employer] Other XR knee LT 4V* ([id number]) XR/XR pelvis 1-2V: Acute pain of left knee [employer] Other XR knee LT 4V* CLINICAL DATA: Generalized left knee pain. No injury. [employer] Other XR knee LT 4V* AP WEIGHTBEARING PELVIS [employer] Other XR knee LT 4V* COMPARISON: None [employer] Other XR knee LT 4V* There is subtle deformity at the right pubic rami right could relate to old fracture. No acute [employer] Other XR knee LT 4V* fracture, dislocation or bony destruction is seen. The hip joint spaces are symmetric. There is no [employer] Other XR knee LT 4V* significant arthritic change. The SI joints are intact. There are no soft tissue abnormalities. [employer] Other XR knee LT 4V* XR/XR pelvis 1-2V [place] [employer] Other XR knee LT 4V* IMPRESSION: [facility] [employer] Other XR knee LT 4V* NO DEFINITE ACUTE BONY FINDINGS. [employer] Other XR knee LT 4V* LEFT KNEE - 4 views N [facility] [employer] Other XR knee LT 4V* COMPARISON: 02/11/2014 [employer] Other XR knee LT 4V* Standing AP, lateral, skiers and patellar views were obtained. There is no acute fracture or [employer] Other XR knee LT 4V* dislocation. No patellar subluxation is seen. There is minimal narrowing of the tibiofemoral joint [employer] Other XR knee LT 4V* compartments. There is minor marginal spurring. A tiny enthesophyte is seen at the insertion of [employer] Other XR knee LT 4V* the quadriceps tendon. There is a small knee effusion. No focal soft tissue swelling is noted. [employer] Other XR knee LT 4V* MILD DEGENERATIVE CHANGE. [employer] Other XR knee LT 4V* Impression dictated by: Nettie Anaya M.D.03/13/2023 5:40 PM [employer] Other XR knee LT 4V* Dictation Location: [facility]--14 [employer] Other XR knee LT 4V* Transcribed By: [facility] 03/13/23 1740 [employer] Other XR knee LT 4V* Dictated By: Nettie Anaya MD 03/13/23 1735 [employer] Other XR knee LT 4V* Signed By: [facility] Other XR knee LT 4V* 03/13/23 174 [employer] Other BNPon 01-17-2023 Natriuretic peptide B (Bld) [Mass/Vol] 27.0 pg/mL Normal <=900.0 [facility] Comment on above: Performed By: #### B STORES CLERK, HSTROPN #### [facility] [address] [place] [address] Dr. Paige Ovalle CBC AUTO DIFFon 01-17-2023 BASO # 0.1 103/ul Normal 0.0-0.1 [facility] Comment on above: Performed By: #### V ITAD, VITB12 #### [facility] [address] [place] [address] Dr. Paige Ovalle Basophils/100 WBC (Bld) 0.8 % Normal 0.2-2.0 [facility] Comment on above: Performed By: #### V ITAD, VITB12 #### [facility] [address] [place] [address] Dr. Paige Ovalle EO # 0.4 103/ul Normal 0.0-0.7 [facility] Comment on above: Performed By: #### V ITAD, VITB12 #### [facility] [address] [place] [address] Dr. Paige Ovalle Eosinophils/100 WBC (Bld) 3.8 % Normal 0.9-7.0 [facility] Comment on above: Performed By: #### V ITAD, VITB12 #### [facility] [address] [place] [address] Dr. Paige Ovalle Erythrocyte distribution width (RBC) [Ratio] 13.5 % Normal 11.0-15.0 [facility] Comment on above: Performed By: #### V ITAD, VITB12 #### [facility] [address] [place] [address] Dr. Paige Ovalle Hematocrit (Bld) [Volume fraction] 39.4 % Normal 36.0-48.0 [facility] Comment on above: Performed By: #### V ITAD, VITB12 #### [facility] [address] [place] [address] Dr. Paige Ovalle Hemoglobin (Bld) [Mass/Vol] 13.3 g/dL Normal 12.0-16.0 [facility] Comment on above: Performed By: #### V ITAD, VITB12 #### [facility] [address] [place] [address] Dr. Paige Ovalle IG # 0.05 10e3/ul Critically high 0.00-0.03 [facility] Comment on above: Performed By: #### V ITAD, VITB12 #### [facility] [address] [place] [address] Dr. Paige Ovalle IG % 0.5 % Normal 0.0-0.5 [facility] Comment on above: Performed By: #### V ITAD, VITB12 #### [facility] [address] [place] [address] Dr. Paige Ovalle LYMPH # 3.9 103/ul Critically high 1.2-3.8 [facility] Comment on above: Performed By: #### V ITAD, VITB12 #### [facility] [address] [place] [address] Dr. Paige Ovalle Lymphocytes/100 WBC (Bld) 38.7 % Normal 20.5-60.0 [facility] Comment on above: Performed By: #### V ITAD, VITB12 #### [facility] [facility] [address] [place] [address] Dr. Paige Ovalle MANUAL DIFF REQ NO Normal [facility] Comment on above: Performed By: #### V ITAD, VITB12 #### [facility] [address] [place] [address] Dr. Paige Ovalle MCH (RBC) [Entitic mass] 29.9 pg Normal 26.7-34.0 [facility] Comment on above: Performed By: #### V ITAD, VITB12 #### [facility] [address] [place] [address] Dr. Paige Ovalle MCHC (RBC) [Mass/Vol] 33.8 g/dL Normal 29.9-35.2 [facility] Comment on above: Performed By: #### V ITAD, VITB12 #### [facility] [address] [place] [address] Dr. Paige Ovalle MCV (RBC) [Entitic vol] 88.5 fL Normal 81.0-99.0 [facility] Comment on above: Performed By: #### V ITAD, VITB12 #### [facility] [address] [place] [address] Dr. Paige Ovalle MONO # 0.7 103/ul Normal 0.3-0.8 [facility] Comment on above: Performed By: #### V ITAD, VITB12 #### [facility] [address] [place] [address] Dr. Paige Ovalle Monocytes/100 WBC (Bld) 6.8 % Normal 1.7-12.0 [facility] Comment on above: Performed By: #### V ITAD, VITB12 #### [facility] [address] [place] [address] Dr. Paige Ovalle NEUT # 4.9 103/ul Normal 1.4-6.5 [facility] Comment on above: Performed By: #### V ITAD, VITB12 #### [facility] [address] [place] [address] Dr. Paige Ovalle Neutrophils/100 WBC (Bld) 49.4 % Normal 43.0-75.0 [facility] Comment on above: Performed By: #### V ITAD, VITB12 #### [facility] [address] [place] [address] Dr. Paige Ovalle Platelet mean volume (Bld) [Entitic vol] 9.1 fL Critically low 9.5-13.5 [facility] Comment on above: Performed By: #### V ITAD, VITB12 #### [facility] [address] [place] [address] Dr. Paige Ovalle PLT 298 103/ul Normal 150-450 [facility] Comment on above: Performed By: #### V ITAD, VITB12 #### [facility] [address] [address] [address] Paige Ovalle RBC 4.45 106/ul Normal 4.20-5.40 [facility] Comment on above: Performed By: #### V ITAD, VITB12 #### [facility] [address] [place] [address] Dr. Paige Ovalle WBC 10.0 103/ul Normal 4.0-11.0 [facility] Comment on above: Performed By: #### V ITAD, VITB12 #### [facility] [address] [place] [address] Dr. Paige Ovalle TROPONIN, HIGH SENSITIVITYon 01-17-2023 HSTROP 5.3 pg/mL Normal 4.0-51.3 [facility] Comment on above: Result Comment: CUT- OFF POINTS HAVE BEEN ESTABLISHED BASED ON THE FOURTH UNIVERSAL DEFINITIONS OF MYOCARDIAL INFARCTION. THE UPPER REFERENCE LIMIT (URL) OF TROPONIN, DEFINED THE 99TH PERCENTILE OF cTnI DISTRIBUTION IN A REFERENCE POPULATION, HAS BEEN CONFIRMED THE DECISION THRESHOLD FOR PR DIAGNOSIS. Performed By: #### B STORES CLERK, HSTROPN #### [facility] [address] [place] [address] Dr. Paige Ovalle XR pre/post mri xrayon 12-02 XR pre/post mri xray [facility] [place] [address] MRI Report Signed Patient: Naye Guzmán MR#: [id number] 3 : 1970 Acct:[id number] Age/Sex: 52 / F ADM Date: 12/01/22 Loc: Room: Type: [facility] CLI Attending Dr: Antonina Guidry PA-C Copies to: Antonina Guidry PA-C Ordering Provider: Antonina Guidry PA-C Date of Service: 12/01/22 MR/MR lumbar spine wo con: M54.17 ([id number]) XR/XR pre/post mri xray: M54.17 MR lumbar [...] stenosis. This is unchanged. Impression dictated by: Marco A Gerard M.D.12/02/2022 8:03 AM Dictation Location: [place] [address] Transcribed By: [facility] 12/02/22802 Dictated By: Marco A Gerard II, MD 12/02/22726 Signed By: 12/02/22802 [facility] SEROTONINon 11-29-2022 Serotonin, Serum 6 ng/mL Critically low 31-207 [facility] Comment on above: Performed By: #### V KIRSTEN KRAUSB12 #### [facility] [address] [place] [address] Dr. Paige Ovalle SEROTONINon 11-19-2022 SEROTONIN 6 ng/mL Critically low 31-207 ng/mL [facility] [employer] Other SEROTONIN see note [employer] Other CBC AUTO DIFFon 11-10-2022 BASO # 0.1 103/ul Normal 0.0-0.1 [facility] Comment on above: Performed By: #### C BC #### [facility] [address] [place] [address] Dr. Paige Ovalle Basophils/100 WBC (Bld) 0.5 % Normal 0.2-2.0 [facility] Comment on above: Performed By: #### C BC #### [facility] [address] [place] [address] Dr. Paige Ovalle EO # 0.1 103/ul Normal 0.0-0.7 [facility] Comment on above: Performed By: #### C BC #### [facility] [address] [place] [address] Dr. Paige Ovalle Eosinophils/100 WBC (Bld) 1.5 % Normal 0.9-7.0 [facility] Comment on above: Performed By: #### C BC #### [facility] [address] [place] [address] Dr. Paige Ovalle Erythrocyte distribution width (RBC) [Ratio] 13.2 % Normal 11.0-15.0 [facility] Comment on above: Performed By: #### C BC #### [facility] [address] [place] [address] Dr. Paige Ovalle Hematocrit (Bld) [Volume fraction] 43.1 % Normal 36.0-48.0 [facility] Comment on above: Performed By: #### C BC #### [facility] [address] [place] [address] Dr. Paige Ovalle Hemoglobin (Bld) [Mass/Vol] 14.0 g/dL Normal 12.0-16.0 [facility] Comment on above: Performed By: #### C BC #### [facility] [address] [place] [address] Dr. Paige Ovalle IG # 0.02 10e3/ul Normal 0.00-0.03 [facility] Comment on above: Performed By: #### C BC #### [facility] [address] [place] [address] Dr. Paige Ovalle IG % 0.2 % Normal 0.0-0.5 [facility] Comment on above: Performed By: #### C BC #### [facility] [address] [place] [address] Dr. Paige Ovalle LYMPH # 2.8 103/ul Normal 1.2-3.8 [facility] Comment on above: Performed By: #### C BC #### [facility] [address] [place] [address] Dr. Paige Ovalle Lymphocytes/100 WBC (Bld) 30.2 % Normal 20.5-60.0 [facility] Comment on above: Performed By: #### C BC #### [facility] [address] [place] [address] Dr. Paige Ovalle MANUAL DIFF REQ NO Normal [facility] Comment on above: Performed By: #### C BC #### [facility] [address] [place] [address] Dr. Paige Ovalle MCH (RBC) [Entitic mass] 30.8 pg Normal 26.7-34.0 [facility] Comment on above: Performed By: #### C BC #### [facility] [address] [place] [address] Dr. Paige Ovalle MCHC (RBC) [Mass/Vol] 32.5 g/dL Normal 29.9-35.2 [facility] Comment on above: Performed By: #### C BC #### [facility] [address] [place] [address] Dr. Paige Ovalle MCV (RBC) [Entitic vol] 94.7 fL Normal 81.0-99.0 [facility] Comment on above: Performed By: #### C BC #### [facility] [address] [place] [address] Dr. Paige Ovalle MONO # 0.6 103/ul Normal 0.3-0.8 [facility] Comment on above: Performed By: #### C BC #### [facility] [address] [place] [address] Dr. Paige Ovalle Monocytes/100 WBC (Bld) 5.9 % Normal 1.7-12.0 [facility] Comment on above: Performed By: #### C BC #### [facility] [address] [place] [address] Dr. Paige Ovalle NEUT # 5.7 103/ul Normal 1.4-6.5 [facility] Comment on above: Performed By: #### C BC #### [facility] [address] [place] [address] Dr. Paige Ovalle Neutrophils/100 WBC (Bld) 61.7 % Normal 43.0-75.0 [facility] Comment on above: Performed By: #### C BC #### [facility] [address] [place] [address] Dr. Paige Ovalle Platelet mean volume (Bld) [Entitic vol] 9.3 fL Critically low 9.5-13.5 [facility] Comment on above: Performed By: #### C BC #### [facility] [address] [place] [address] Dr. Paige Ovalle PLT 275 103/ul Normal 150-450 [facility] Comment on above: Performed By: #### C BC #### [facility] [address] [place] [address] Dr. Paige Ovalle RBC 4.55 106/ul Normal 4.20-5.40 [facility] Comment on above: Performed By: #### C BC #### [facility] [address] [place] [address] Dr. Paige Ovalle WBC 9.3 103/ul Normal 4.0-11.0 [facility] Comment on above: Performed By: #### C BC #### [facility] [address] [place] [address] Dr. Paige Ovalle Covid-19 PCR ([facility])on SARS-CoV-2 (COVID-19) RNA MUNDO+probe Ql (Unsp spec) Not detected Normal NOT DETECTED [facility] Comment on above: Result Comment: When diagnostic [...] for this test is supported by the [place] of [employer] and Human Service's declaration that [...] Performed By: #### V ITAD, VITB12 #### [facility] [address] [place] [address] Dr. Paige Ovalle PROF CHEM 8 (BAS METB)on Anion gap [Moles/Vol] 10.9 mmol/L Normal [facility] Comment on above: Performed By: #### B MP #### [facility] [address] [place] [address] Dr. Paige Ovalle Calcium [Mass/Vol] 9.5 mg/dL Normal 8.5-10.1 [facility] Comment on above: Performed By: #### B MP #### [facility] [address] [address] [address] Paige Ovalle Chloride [Moles/Vol] 99 mmol/L Normal 98-107 [facility] Comment on above: Performed By: #### B MP #### [facility] [address] [place] [address] Dr. Paige Ovalle CO2 [Moles/Vol] 29.7 mmol/L Normal 21.0-32.0 [facility] Comment on above: Performed By: #### B MP #### [facility] [address] [place] [address] Dr. Paige Ovalle Creatinine [Mass/Vol] 0.76 mg/dL Normal 0.55-1.02 [facility] Comment on above: Performed By: #### B MP #### [facility] [address] [place] [address] Dr. Paige Ovalle EGFR-AF TUVALUAN >60 Normal >=60 [facility] Comment on above: Performed By: #### B MP #### [facility] [address] [address] [address] Paige Ovalle EGFR-NON AF TUVALUAN >60 Normal >=60 [facility] Comment on above: Performed By: #### B MP #### [facility] [address] [place] [address] Dr. Paige Ovalle Glucose [Mass/Vol] 130 mg/dL Critically high 74-106 [facility] Comment on above: Performed By: #### B MP #### [facility] [address] [address] [address] Paige Ovalle Potassium [Moles/Vol] 3.6 mmol/L Normal 3.5-5.1 [facility] Comment on above: Performed By: #### B MP #### [facility] [address] [place] [address] Dr. Paige Ovalle Sodium [Moles/Vol] 136 mmol/L Normal 136-145 [facility] Comment on above: Performed By: #### B MP #### [facility] [address] [place] [address] Dr. Paige Ovalle Urea nitrogen [Mass/Vol] 8.0 mg/dL Normal 7.0-18.0 [facility] Comment on above: Performed By: #### B MP #### [facility] [address] [place] [address] Dr. Paige Ovalle Urea nitrogen/Creatinine [Mass ratio] 10.5 mg/mg Normal [facility] Comment on above: Performed By: #### B MP #### [facility] [address] [place] [address] Dr. Paige Ovalle CALCIUM IONIZEDon 10-17-2022 Calcium, Ionized, Serum 5.5 mg/dL Normal 4.5-5.6 [facility] Comment on above: Performed By: #### C AIONZ #### [facility] [address] [place] [address] Dr. Paige Ovalle PTH INTACTon 10-17-2022 PTH, Intact 18 pg/mL Normal 15-65 [facility] Comment on above: Performed By: #### V ITAD, VITB12 #### [facility] [address] [place] [address] Dr. Paige Ovalle CBC AUTO DIFFon 10-16-2022 BASO # 0.1 103/ul Normal 0.0-0.1 [facility] Comment on above: Performed By: #### C BC #### [facility] [address] [place] [address] Dr. Paige Ovalle Basophils/100 WBC (Bld) 0.7 % Normal 0.2-2.0 [facility] Comment on above: Performed By: #### C BC #### [facility] [address] [place] [address] Dr. Paige Ovalle EO # 0.2 103/ul Normal 0.0-0.7 [facility] Comment on above: Performed By: #### C BC #### [facility] [address] [place] [address] Dr. Paige Ovalle Eosinophils/100 WBC (Bld) 2.8 % Normal 0.9-7.0 [facility] Comment on above: Performed By: #### C BC #### [facility] [address] [place] [address] Dr. Paige Ovalle Erythrocyte distribution width (RBC) [Ratio] 13.9 % Normal 11.0-15.0 [facility] Comment on above: Performed By: #### C BC #### [facility] [address] [place] [address] Dr. Paige Ovalle Hematocrit (Bld) [Volume fraction] 41.5 % Normal 36.0-48.0 [facility] Comment on above: Performed By: #### C BC #### [facility] [address] [place] [address] Dr. Paige Ovalle Hemoglobin (Bld) [Mass/Vol] 14.4 g/dL Normal 12.0-16.0 [facility] Comment on above: Performed By: #### C BC #### [facility] [address] [place] [address] Dr. Paige Ovalle IG # 0.03 10e3/ul Normal 0.00-0.03 [facility] Comment on above: Performed By: #### C BC #### [facility] [address] [place] [address] Dr. Paige Ovalle IG % 0.4 % Normal 0.0-0.5 [facility] Comment on above: Performed By: #### C BC #### [facility] [address] [place] [address] Dr. Paige Ovalle LYMPH # 2.4 103/ul Normal 1.2-3.8 [facility] Comment on above: Performed By: #### C BC #### [facility] [address] [place] [address] Dr. Paieg Ovalle Lymphocytes/100 WBC (Bld) 32.9 % Normal 20.5-60.0 [facility] Comment on above: Performed By: #### C BC #### [facility] [address] [place] [address] Dr. Paige Ovalle MANUAL DIFF REQ NO Normal [facility] Comment on above: Performed By: #### C BC #### [facility] [address] [place] [address] Dr. Paige Ovalle MCH (RBC) [Entitic mass] 30.7 pg Normal 26.7-34.0 [facility] Comment on above: Performed By: #### C BC #### [facility] [address] [place] [address] Dr. Paige Ovalle MCHC (RBC) [Mass/Vol] 34.7 g/dL Normal 29.9-35.2 [facility] Comment on above: Performed By: #### C BC #### [facility] [address] [place] [address] Dr. Paige Ovalle MCV (RBC) [Entitic vol] 88.5 fL Normal 81.0-99.0 [facility] Comment on above: Performed By: #### C BC #### [facility] [address] [place] [address] Dr. Paige Ovalle MONO # 0.5 103/ul Normal 0.3-0.8 [facility] Comment on above: Performed By: #### C BC #### [facility] [address] [place] [address] Dr. Paige Ovalle Monocytes/100 WBC (Bld) 7.2 % Normal 1.7-12.0 [facility] Comment on above: Performed By: #### C BC #### [facility] [address] [place] [address] Dr. Paige Ovalle NEUT # 4.1 103/ul Normal 1.4-6.5 [facility] Comment on above: Performed By: #### C BC #### [facility] [address] [place] [address] Dr. Paige Ovalle Neutrophils/100 WBC (Bld) 56.0 % Normal 43.0-75.0 [facility] Comment on above: Performed By: #### C BC #### [facility] [address] [place] [address] Dr. Paige Ovalle Platelet mean volume (Bld) [Entitic vol] 9.0 fL Critically low 9.5-13.5 [facility] Comment on above: Performed By: #### C BC #### [facility] [address] [place] [address] Dr. Paige Ovalle PLT 331 103/ul Normal 150-450 [facility] Comment on above: Performed By: #### C BC #### [facility] [address] [place] [address] Dr. Paige Ovalle RBC 4.69 106/ul Normal 4.20-5.40 [facility] Comment on above: Performed By: #### C BC #### [facility] [address] [place] [address] Dr. Paige Ovalle WBC 7.3 103/ul Normal 4.0-11.0 [facility] Comment on above: Performed By: #### C BC #### [facility] [address] [place] [address] Dr. Paige Ovalle PHOSPHORUSon 10-16-2022 Phosphate [Mass/Vol] 4.2 mg/dL Normal 2.6-4.7 [facility] Comment on above: Performed By: #### V ITAD, VITB12 #### [facility] [address] [place] [address] Dr. Paige Ovalle CBC AUTO DIFFon 09-13-2022 BASO # 0.1 103/ul Normal 0.0-0.1 [facility] Comment on above: Performed By: #### C BC #### [facility] [address] [place] [address] Dr. Paige Ovalle Basophils/100 WBC (Bld) 0.5 % Normal 0.2-2.0 [facility] Comment on above: Performed By: #### C BC #### [facility] [address] [place] [address] Dr. Paige Ovalle EO # 0.2 103/ul Normal 0.0-0.7 [facility] Comment on above: Performed By: #### C BC #### [facility] [address] [place] [address] Dr. Paige Ovalle Eosinophils/100 WBC (Bld) 1.7 % Normal 0.9-7.0 [facility] Comment on above: Performed By: #### C BC #### [facility] [address] [place] [address] Dr. Paige Ovalle Erythrocyte distribution width (RBC) [Ratio] 13.3 % Normal 11.0-15.0 [facility] Comment on above: Performed By: #### C BC #### [facility] [address] [place] [address] Dr. Paige Ovalle Hematocrit (Bld) [Volume fraction] 43.9 % Normal 36.0-48.0 [facility] Comment on above: Performed By: #### C BC #### [facility] [address] [place] [address] Dr. Paige Ovalle Hemoglobin (Bld) [Mass/Vol] 14.9 g/dL Normal 12.0-16.0 [facility] Comment on above: Performed By: #### C BC #### [facility] [address] [place] [address] Dr. Paige Ovalle IG # 0.05 10e3/ul Critically high 0.00-0.03 [facility] Comment on above: Performed By: #### C BC #### [facility] [address] [place] [address] Dr. Paige Ovalle IG % 0.4 % Normal 0.0-0.5 [facility] Comment on above: Performed By: #### C BC #### [facility] [address] [place] [address] Dr. Paige Ovalle LYMPH # 3.2 103/ul Normal 1.2-3.8 [facility] Comment on above: Performed By: #### C BC #### [facility] [address] [place] [address] Dr. Paige Ovalle Lymphocytes/100 WBC (Bld) 27.5 % Normal 20.5-60.0 [facility] Comment on above: Performed By: #### C BC #### [facility] [address] [place] [address] Dr. Paige Ovalle MANUAL DIFF REQ NO Normal [facility] Comment on above: Performed By: #### C BC #### [facility] [address] [place] [address] Dr. Paige Ovalle MCH (RBC) [Entitic mass] 30.9 pg Normal 26.7-34.0 [facility] Comment on above: Performed By: #### C BC #### [facility] [address] [place] [address] Dr. Paige Ovalle MCHC (RBC) [Mass/Vol] 33.9 g/dL Normal 29.9-35.2 [facility] Comment on above: Performed By: #### C BC #### [facility] [address] [place] [address] Dr. Paige Ovalle MCV (RBC) [Entitic vol] 91.1 fL Normal 81.0-99.0 [facility] Comment on above: Performed By: #### C BC #### [facility] [address] [place] [address] Dr. Paige Ovalle MONO # 0.7 103/ul Normal 0.3-0.8 [facility] Comment on above: Performed By: #### C BC #### [facility] [address] [place] [address] Dr. Paige Ovalle Monocytes/100 WBC (Bld) 5.9 % Normal 1.7-12.0 [facility] Comment on above: Performed By: #### C BC #### [facility] [address] [place] [address] Dr. Paige Ovalle NEUT # 7.3 103/ul Critically high 1.4-6.5 [facility] Comment on above: Performed By: #### C BC #### [facility] [address] [place] [address] Dr. Paige Ovalle Neutrophils/100 WBC (Bld) 64.0 % Normal 43.0-75.0 [facility] Comment on above: Performed By: #### C BC #### [facility] [address] [address] [address] Paige Ovalle Platelet mean volume (Bld) [Entitic vol] 8.8 fL Critically low 9.5-13.5 [facility] Comment on above: Performed By: #### C BC #### [facility] [address] [address] [address] Paige Ovalle PLT 433 103/ul Normal 150-450 [facility] Comment on above: Performed By: #### C BC #### [facility] [address] [address] [address] Paige Ovalle RBC 4.82 106/ul Normal 4.20-5.40 [facility] Comment on above: Performed By: #### C BC #### [facility] [address] [address] [address] Paige Ovalle WBC 11.4 103/ul Critically high 4.0-11.0 [facility] Comment on above: Performed By: #### C BC #### [facility] [address] [address] [address] Paige Ovalle MG MAMM DX 3D LT CADon 09-13 MG MAMM DX 3D LT CAD Patient: NAYE GUZMÁN Exam Date: 09/13/2022 : 1970 Gender:F Ordering : DR PAULINE ROMERO Admission #: [id number] Family : Order #: [id number] CLICK HERE TO VIEW EXAM RADIOLOGY REPORT [...] Treatments None Family Cancers None LOCATION: [facility] BREAST COMPOSITION: Heterogeneously dense,which may obscure small [...] Huynh M.D. on 09/13/2022 at 10:53 Normal [facility] PROF 14(COMP METB)on 022 Albumin [Mass/Vol] 4.2 g/dL Normal 3.4-5.0 [facility] Comment on above: Performed By: #### V ITAD, VITB12 #### [facility] [address] [address] [address] Paige Ovalle Albumin/Globulin [Mass ratio] 1.2 {ratio} Normal [facility] Comment on above: Performed By: #### V ITAD, VITB12 #### [facility] [address] [address] [address] Paige Ovalle ALP [Catalytic activity/Vol] 83 U/L Normal 46-116 [facility] Comment on above: Performed By: #### V ITAD, VITB12 #### [facility] [address] [address] [address] Paige Ovalle ALT [Catalytic activity/Vol] 45 U/L Normal 14-59 [facility] Comment on above: Performed By: #### V ITAD, VITB12 #### [facility] [address] [address] [address] Paige Ovalle Anion gap [Moles/Vol] 10.0 mmol/L Normal [facility] Comment on above: Performed By: #### V ITAD, VITB12 #### [facility] [address] [address] [address] Paige Ovalle AST [Catalytic activity/Vol] 42 U/L Critically high 15-37 [facility] Comment on above: Performed By: #### V ITAD, VITB12 #### [facility] [address] [place] [address] Dr. Paige Ovalle Bilirubin [Mass/Vol] 0.2 mg/dL Normal 0.2-1.0 [facility] Comment on above: Performed By: #### V ITAD, VITB12 #### [facility] [address] [place] [address] Dr. Paige Ovalle Calcium [Mass/Vol] 10.2 mg/dL Critically high 8.5-10.1 [facility] Comment on above: Performed By: #### V ITAD, VITB12 #### [facility] [address] [place] [address] Dr. Paige Ovalle Chloride [Moles/Vol] 97 mmol/L Critically low 98-107 [facility] Comment on above: Performed By: #### V ITAD, VITB12 #### [facility] [address] [place] [address] Dr. Paige Ovalle CO2 [Moles/Vol] 34.0 mmol/L Critically high 21.0-32.0 [facility] Comment on above: Performed By: #### V ITAD, VITB12 #### [facility] [address] [place] [address] Dr. Paige Ovalle Creatinine [Mass/Vol] 0.62 mg/dL Normal 0.55-1.02 [facility] Comment on above: Performed By: #### V ITAD, VITB12 #### [facility] [address] [place] [address] Dr. Paige Ovalle EGFR-AF TUVALUAN >60 Normal >=60 [facility] Comment on above: Performed By: #### V ITAD, VITB12 #### [facility] [address] [place] [address] Dr. Paige Ovalle EGFR-NON AF TUVALUAN >60 Normal >=60 [facility] Comment on above: Performed By: #### V ITAD, VITB12 #### [facility] [address] [place] [address] Dr. Paige Ovalle Globulin (S) [Mass/Vol] 3.6 g/dL Normal [facility] Comment on above: Performed By: #### V ITAD, VITB12 #### [facility] [address] [place] [address] Dr. Paige Ovalle Glucose [Mass/Vol] 89 mg/dL Normal 74-106 [facility] Comment on above: Performed By: #### V ITAD, VITB12 #### [facility] [address] [place] [address] Dr. Paige Ovalle Potassium [Moles/Vol] 4.0 mmol/L Normal 3.5-5.1 [facility] Comment on above: Performed By: #### V ITAD, VITB12 #### [facility] [address] [place] [address] Dr. Paige Ovalle Protein [Mass/Vol] 7.8 g/dL Normal 6.4-8.2 [facility] Comment on above: Performed By: #### V ITAD, VITB12 #### [facility] [address] [place] [address] Dr. Paige Ovalle Sodium [Moles/Vol] 137 mmol/L Normal 136-145 [facility] Comment on above: Performed By: #### V ITTAMARA, VITB12 #### [facility] [address] [place] [address] Dr. Paige Ovalle Urea nitrogen [Mass/Vol] 9.0 mg/dL Normal 7.0-18.0 [facility] Comment on above: Performed By: #### V ITAD, VITB12 #### [facility] [address] [place] [address] Dr. Paige Ovalle Urea nitrogen/Creatinine [Mass ratio] 14.5 mg/mg Normal [facility] Comment on above: Performed By: #### V ITAD, VITB12 #### [facility] [address] [place] [address] Dr. Paige Ovalle TSHon 09-13-2022 TSH 0.857 uIU/mL Normal 0.358-3.740 [facility] Comment on above: Performed By: #### V ITAD, VITB12 #### [facility] [address] [address] [address] Paige Ovalle VIT B12 AND FOLATEon 022 Cobalamin (Vitamin B12) [Mass/Vol] 779.0 pg/mL Normal 193.0-986.0 [facility] Comment on above: Performed By: #### V ITAD, VITB12 #### [facility] [address] [place] [address] Dr. Paige Ovalle FOLATE 27.10 ng/mL Normal 8.60-58.90 [facility] Comment on above: Performed By: #### V ITAD, VITB12 #### [facility] [address] [place] [address] Dr. Paige Ovalle VITAMIN D 25 OHon 09-13-2022 VIT D 25-OH 58.8 ng/mL Normal [facility] Comment on above: Performed By: #### V ITAD, VITB12 #### [facility] [address] [place] [address] Dr. Paige Ovalle VIT D RANGES SEE BELOW Normal [facility] Comment on above: Result Comment: <20 ng/mL Vit D deficient 20 - <30 ng/mL Vit D insufficient 30 - 100 ng/mL Vit D sufficient >100 ng/mL Potential Toxicity Performed By: #### V ITAD, VITB12 #### [facility] [address] [place] [address] Dr. Paige Ovalle XR ELBOW RT MIN [...] NETTIE MARTÍNEZ Date: 2022-06-10 13:00 Normal [facility] XR FOREARM RT 2Von 2 XR FOREARM [...] WALTER RAMOS Date: 2022-06-10 12:02 Normal [facility] VIT B12 AND FOLATEon 022 Cobalamin (Vitamin B12) [Mass/Vol] 730.0 pg/mL Normal 193.0-986.0 [facility] Comment on above: Performed By: #### B 12FOL #### [facility] [address] [address] [address] Paige Ovalle FOLATE 21.80 ng/mL Normal 8.60-58.90 [facility] Comment on above: Performed By: #### B 12FOL #### [facility] [address] [address] [address] Paige Ovalle FOLATE ([facility])on Folate >20.0 Normal >3.0 [facility] Comment on above: Result Comment: A se rum folate concentration of less than 3.1 ng/mL is considered to represent clinical deficiency. Performed By: #### V ITAD, VITB12 #### [facility] [address] [address] [address] Paige Ovalle CBC AUTO DIFFon 03-08-2022 BASO # 0.0 103/ul Normal 0.0-0.1 [facility] Comment on above: Performed By: #### V ITAD, VITB12 #### [facility] [address] [address] [address] Paige Ovalle Basophils/100 WBC (Bld) 0.5 % Normal 0.2-2.0 [facility] Comment on above: Performed By: #### V ITAD, VITB12 #### [facility] [address] [place] [address] Dr. Paige Ovalle EO # 0.2 103/ul Normal 0.0-0.7 [facility] Comment on above: Performed By: #### V ITAD, VITB12 #### [facility] [address] [place] [address] Dr. Paige Ovalle Eosinophils/100 WBC (Bld) 2.1 % Normal 0.9-7.0 [facility] Comment on above: Performed By: #### V ITAD, VITB12 #### [facility] [address] [place] [address] Dr. Paige Ovalle Erythrocyte distribution width (RBC) [Ratio] 13.6 % Normal 11.0-15.0 [facility] Comment on above: Performed By: #### V ITAD, VITB12 #### [facility] [address] [place] [address] Dr. Paige Ovalle Hematocrit (Bld) [Volume fraction] 40.8 % Normal 36.0-48.0 [facility] Comment on above: Performed By: #### V ITAD, VITB12 #### [facility] [address] [place] [address] Dr. Paige Ovalle Hemoglobin (Bld) [Mass/Vol] 13.8 g/dL Normal 12.0-16.0 [facility] Comment on above: Performed By: #### V ITAD, VITB12 #### [facility] [address] [place] [address] Dr. Paige Ovalle IG # 0.04 10e3/ul Critically high 0.00-0.03 [facility] Comment on above: Performed By: #### V ITAD, VITB12 #### [facility] [address] [place] [address] Dr. Paige Ovalle IG % 0.5 % Normal 0.0-0.5 [facility] Comment on above: Performed By: #### V ITAD, VITB12 #### [facility] [address] [place] [address] Dr. Paige Ovalle LYMPH # 2.3 103/ul Normal 1.2-3.8 [facility] Comment on above: Performed By: #### V ITAD, VITB12 #### [facility] [address] [place] [address] Dr. Paige Ovalle Lymphocytes/100 WBC (Bld) 26.6 % Normal 20.5-60.0 [facility] Comment on above: Performed By: #### V ITAD, VITB12 #### [facility] [address] [place] [address] Dr. Paige Ovalle MANUAL DIFF REQ NO Normal [facility] Comment on above: Performed By: #### V ITAD, VITB12 #### [facility] [address] [place] [address] Dr. Paige Ovalle MCH (RBC) [Entitic mass] 31.1 pg Normal 26.7-34.0 [facility] Comment on above: Performed By: #### V ITAD, VITB12 #### [facility] [address] [place] [address] Dr. Paige Ovalle MCHC (RBC) [Mass/Vol] 33.8 g/dL Normal 29.9-35.2 [facility] Comment on above: Performed By: #### V ITAD, VITB12 #### [facility] [address] [place] [address] Dr. Paige Ovalle MCV (RBC) [Entitic vol] 91.9 fL Normal 81.0-99.0 [facility] Comment on above: Performed By: #### V ITAD, VITB12 #### [facility] [address] [place] [address] Dr. Paige Ovalle MONO # 0.5 103/ul Normal 0.3-0.8 [facility] Comment on above: Performed By: #### V ITAD, VITB12 #### [facility] [address] [place] [address] Dr. Paige Ovalle Monocytes/100 WBC (Bld) 5.7 % Normal 1.7-12.0 [facility] Comment on above: Performed By: #### V ITAD, VITB12 #### [facility] [address] [place] [address] Dr. Paige Ovalle NEUT # 5.7 103/ul Normal 1.4-6.5 [facility] Comment on above: Performed By: #### V ITAD, VITB12 #### [facility] [address] [place] [address] Dr. Paige Ovalle Neutrophils/100 WBC (Bld) 64.6 % Normal 43.0-75.0 [facility] Comment on above: Performed By: #### V ITTAMARA, VITB12 #### [facility] [address] [place] [address] Dr. Paige Ovalle Platelet mean volume (Bld) [Entitic vol] 8.4 fL Critically low 9.5-13.5 [facility] Comment on above: Performed By: #### V ITAD, VITB12 #### [facility] [address] [place] [address] Dr. Paige Ovalle PLT 321 103/ul Normal 150-450 [facility] Comment on above: Performed By: #### V ITTAMARA, VITB12 #### [facility] [address] [place] [address] Dr. Paige Ovalle RBC 4.44 106/ul Normal 4.20-5.40 [facility] Comment on above: Performed By: #### V ITAD, VITB12 #### [facility] [address] [place] [address] Dr. Paige Ovalle WBC 8.8 103/ul Normal 4.0-11.0 [facility] Comment on above: Performed By: #### V ITAD, VITB12 #### [facility] [address] [place] [address] Dr. Paige Ovalle CULTURE URINEon 03-08-2022 CULTURE URINE Culture Observations: No growth Normal [facility] Comment on above: Performed By: #### V ITAD, VITB12 #### [facility] [address] [place] [address] Dr. Paige Ovalle LIPID PROFILEon 03-08-2022 CHOL-HDL RATIO NORM SEE BELOW Normal [facility] Comment on above: Result Comment: 3.3 - 4.4 LOW RISK 4.4 - 7.1 AVERAGE RISK 7.1 - 11.0 MODERATE RISK >11.0 HIGH RISK Performed By: #### V ITAD, VITB12 #### [facility] [address] [address] [address] Paige Ovalle Cholesterol [Mass/Vol] 147 mg/dL Normal <=200 [facility] Comment on above: Performed By: #### V ITAD, VITB12 #### [facility] [address] [place] [address] Dr. Paige Ovalle Cholesterol in HDL [Mass/Vol] 97 mg/dL Critically high 40-60 [facility] Comment on above: Performed By: #### V ITAD, VITB12 #### [facility] [address] [place] [address] Dr. Paige Ovalle Cholesterol in LDL [Mass/Vol] 42.2 mg/dL Normal [facility] Comment on above: Performed By: #### V ITAD, VITB12 #### [facility] [address] [place] [address] Dr. Paige Ovalle Cholesterol.total/Ch olesterol in HDL [Mass ratio] 1.5 {ratio} Normal [facility] Comment on above: Performed By: #### V ITAD, VITB12 #### [facility] [address] [place] [address] Dr. Paige Ovalle HDL NORMAL > or = 60 mg/dl - LOW CARDIOVASCULAR RISK <40 mg/dl - HIGH CARDIOVASCULAR RISK Normal [facility] Comment on above: Performed By: #### V ITAD, VITB12 #### [facility] [address] [place] [address] Dr. Paige Ovalle LDL CALC NORMAL SEE BELOW Normal [facility] Comment on above: Result Comment: <100 mg/dl OPTIMAL 100 - 129 mg/dl NEAR OR ABOVE OPTIMAL 130 - 159 mg/dl BORDERLINE HIGH 160 - 189 mg/dl HIGH >190 mg/dl VERY HIGH Performed By: #### V ITAD, VITB12 #### [facility] [address] [place] [address] Dr. Paige Ovalle Triglyceride [Mass/Vol] 39 mg/dL Normal <=150 [facility] Comment on above: Performed By: #### V ITAD, VITB12 #### [facility] [address] [place] [address] Dr. Paige Ovalle VLDL CALC 7.8 mg/dL Normal [facility] Comment on above: Performed By: #### V ITAD, VITB12 #### [facility] [address] [place] [address] Dr. Paige Ovalle PROF 14(COMP METB)on 022 Albumin [Mass/Vol] 4.3 g/dL Normal 3.4-5.0 [facility] Comment on above: Performed By: #### V ITAD, VITB12 #### [facility] [address] [place] [address] Dr. Paige Ovalle Albumin/Globulin [Mass ratio] 1.3 {ratio} Normal [facility] Comment on above: Performed By: #### V ITAD, VITB12 #### [facility] [address] [place] [address] Dr. Paige Ovalle ALP [Catalytic activity/Vol] 79 U/L Normal 46-116 [facility] Comment on above: Performed By: #### V ITAD, VITB12 #### [facility] [address] [place] [address] Dr. Paige Ovalle ALT [Catalytic activity/Vol] 89 U/L Critically high 14-59 [facility] Comment on above: Performed By: #### V ITAD, VITB12 #### [facility] [address] [place] [address] Dr. Paige Ovalle Anion gap [Moles/Vol] 12.2 mmol/L Normal [facility] Comment on above: Performed By: #### V ITAD, VITB12 #### [facility] [address] [place] [address] Dr. Paige Ovalle AST [Catalytic activity/Vol] 65 U/L Critically high 15-37 [facility] Comment on above: Performed By: #### V ITAD, VITB12 #### [facility] [address] [place] [address] Dr. Paige Ovalle Bilirubin [Mass/Vol] 0.4 mg/dL Normal 0.2-1.0 [facility] Comment on above: Performed By: #### V ITAD, VITB12 #### [facility] [address] [place] [address] Dr. Paige Ovalle Calcium [Mass/Vol] 9.6 mg/dL Normal 8.5-10.1 [facility] Comment on above: Performed By: #### V ITAD, VITB12 #### [facility] [address] [place] [address] Dr. Paige Ovalle Chloride [Moles/Vol] 96 mmol/L Critically low 98-107 [facility] Comment on above: Performed By: #### V ITAD, VITB12 #### [facility] [address] [place] [address] Dr. Paige Ovalle CO2 [Moles/Vol] 30.4 mmol/L Normal 21.0-32.0 [facility] Comment on above: Performed By: #### V ITAD, VITB12 #### [facility] [address] [place] [address] Dr. Paige Ovalle Creatinine [Mass/Vol] 0.70 mg/dL Normal 0.55-1.02 [facility] Comment on above: Performed By: #### V ITAD, VITB12 #### [facility] [address] [place] [address] Dr. Paige Ovalle EGFR-AF TUVALUAN >60 Normal >=60 [facility] Comment on above: Performed By: #### V ITAD, VITB12 #### [facility] [address] [place] [address] Dr. Paige Ovalle EGFR-NON AF TUVALUAN >60 Normal >=60 [facility] Comment on above: Performed By: #### V ITAD, VITB12 #### [facility] [address] [place] [address] Dr. Paige Ovalle Globulin (S) [Mass/Vol] 3.2 g/dL Normal [facility] Comment on above: Performed By: #### V ITAD, VITB12 #### [facility] [address] [place] [address] Dr. Paige Ovalle Glucose [Mass/Vol] 91 mg/dL Normal 74-106 [facility] Comment on above: Performed By: #### V ITAD, VITB12 #### [facility] [address] [place] [address] Dr. Paige Ovalle Potassium [Moles/Vol] 3.6 mmol/L Normal 3.5-5.1 [facility] Comment on above: Performed By: #### V ITAD, VITB12 #### [facility] [address] [place] [address] Dr. Paige Ovalle Protein [Mass/Vol] 7.5 g/dL Normal 6.4-8.2 [facility] Comment on above: Performed By: #### V ITAD, VITB12 #### [facility] [address] [place] [address] Dr. Paige Ovalle Sodium [Moles/Vol] 135 mmol/L Critically low 136-145 [facility] Comment on above: Performed By: #### V ITAD, VITB12 #### [facility] [address] [place] [address] Dr. Paige Ovalle Urea nitrogen [Mass/Vol] 9.0 mg/dL Normal 7.0-18.0 [facility] Comment on above: Performed By: #### V ITAD, VITB12 #### [facility] [address] [place] [address] Dr. Paige Ovalle Urea nitrogen/Creatinine [Mass ratio] 12.9 mg/mg Normal [facility] Comment on above: Performed By: #### V ITAD, VITB12 #### [facility] [address] [place] [address] Dr. Paige Ovalle UA RANDOMon 03-08-2022 Bilirubin Ql (U) Negative Normal NEGATIVE [facility] Comment on above: Performed By: #### U A #### [facility] [address] [place] [address] Dr. Paige Ovalle Clarity (U) CLEAR Normal CLEAR [facility] Comment on above: Performed By: #### U A #### [facility] [address] [place] [address] Dr. Paige Ovalle Color (U) LT. YELLOW Normal YELLOW [facility] Comment on above: Performed By: #### U A #### [facility] [address] [place] [address] Dr. Paige Ovalle Glucose Ql (U) Negative Normal NEGATIVE [facility] Comment on above: Performed By: #### U A #### [facility] [address] [place] [address] Dr. Paige Ovalle Hemoglobin Ql (U) Negative Normal NEGATIVE [facility] Comment on above: Performed By: #### U A #### [facility] [address] [place] [address] Dr. Paige Ovalle Ketones Ql (U) Negative Normal NEGATIVE [facility] Comment on above: Performed By: #### U A #### [facility] [address] [place] [address] Dr. Paige Ovalle LEUKOCYTES Negative Normal NEGATIVE [facility] Comment on above: Performed By: #### U A #### [facility] [address] [place] [address] Dr. Paige Ovalle Nitrite Ql (U) Negative Normal NEGATIVE [facility] Comment on above: Performed By: #### U A #### [facility] [address] [place] [address] Dr. Paige Ovalle pH (U) 6.5 [pH] Normal 5-9 [facility] Comment on above: Performed By: #### U A #### [facility] [address] [place] [address] Dr. Paige Ovalle SPEC GRAVITY <=1.005 Abnormal 1.005-<=1.025 [facility] Comment on above: Performed By: #### U A #### [facility] [address] [place] [address] Dr. Paige Ovalle UA PROTEIN Negative Normal NEGATIVE/ TRACE [facility] Comment on above: Performed By: #### U A #### [facility] [address] [place] [address] Dr. Paige Ovalle Urobilinogen Qn (U) 0.2 {Toy'U}/dL Normal 0.2 - 1. 0 [facility] Comment on above: Performed By: #### U A #### [facility] [address] [place] [address] Dr. Paige Ovalle VITAMIN B12on 03-08-2022 Cobalamin (Vitamin B12) [Mass/Vol] 3521.0 pg/mL Critically high 193.0-986.0 [facility] Comment on above: Performed By: #### V ITAD, VITB12 #### [facility] [address] [place] [address] Dr. Paige Ovalle VITAMIN D 25 OHon 03-08-2022 VIT D 25-OH 72.0 ng/mL Normal [facility] Comment on above: Performed By: #### V ITAD, VITB12 #### [facility] [address] [place] [address] Dr. Paige Ovalle VIT D RANGES SEE BELOW Normal [facility] Comment on above: Result Comment: <20 ng/mL Vit D deficient 20 - <30 ng/mL Vit D insufficient 30 - 100 ng/mL Vit D sufficient >100 ng/mL Potential Toxicity Performed By: #### V ITAD, VITB12 #### [facility] [address] [place] [address] Dr. Paige Ovalle PELVIS 1 OR 2 VWSon 06-03-20 18 PELVIS 1 OR 2 [facility] [address] [place] [id number] Patien t Name: NAYE GUZMÁN : 1970ex: FAge: Race: WhiteMRN: [id number]. 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 Transcribed by: [email or web address], User Resident: Electronically Signed by: ANURAG ANDERSON @ 06/03/2018 09:19 AM Normal [facility] Comment on above: Order Comment: , , = ========= , Ordering Provider - JONAH RENTERIA PA-C , PELVIS 1 OR 2 VWSon 03-04-20 18 PELVIS 1 OR 2 VWS [facility] [address] [place] [address] Patien t Name: NAYE GUZMÁN : 1970ex: FAge: Race: WhiteMRN: [id number]. Location: 84Patient Status: Date: 03/04/2018 10:25:00 AMCompleted Date: 03/04/2018 10:34 AMRequesting Provider: JONAH RENTERIA Attending Provider: Report Copy To: Signs & Symptoms: S32.9XXK Fx unsp parts of lumbosacr spin \EANDE\ pelv, 7thK Z31Gtdrvve: AthenaComments: , , , Ordering Provider - JONAH RENTERIA PA-C , Exam: PELVIS 1 OR 2 VWSAccession #: [id number] =PELVIS 1 OR 2 VWS 03/04/2018 10:34 [...] bone Electronically signed by:Patrick Tipton. Transcribed by: [email or web address], User Resident: Electronically Signed by: PATRICK TIPTON @ 03/04/2018 03:48 PM Normal [facility] Comment on above: Order Comment: , , = ========= , Ordering Provider - JONAH RENTERIA PA-C , PELVIS 3 VWSon 12-23-2017 PELVIS 3 VWS [facility] [address] [place] [address] Patien t Name: NAYE GUZMÁN : 1970ex: FAge: Race: WhiteMRN: [id number]. 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 Transcribed by: [email or web address], User Resident: Electronically Signed by: PATRICK TIPTON @ 12/23/2017 02:12 PM Normal [facility] Comment on above: Order Comment: , , V iews (X-RAY, PELVIS): AP , Weight Bearing?: y , special views standing on each leg , , Ordering Provider - JONAH RENTERIA PA-C , CALCIUMon 11-11-2017 Calcium mass conc 9.7 mg/dL Normal 8.6-10.3 The [facility] Comment on above: Performed By: #### 4 1000, 27945, 29701 ####[facility] [place] [address], [facility] PHOSPHORUS BLOODon 8 Phosphate mass conc 3.5 mg/dL Normal 2.5-5.0 [facility] Comment on above: Performed By: #### 4 1000, 37749, 23653 ####[facility] [place] [address], [facility] VITAMIN D 25-HYDROXYon 11-11 VITAMIN D 25-OH 31.3 ng/mL Normal 30.0-80.0 [facility] Comment on above: Result Comment: >80. 0 Toxicity possible Performed By: #### 4 1000, 00900, 10650 ####[place] [address] [address] Vital Signs Date Time Vital Sign Value Performing Clinician Faci lity 04-07-2024 13:18-0400 Body height 177.8 cm [facility] 04-07-2024 13:18-0400 Body mass index (BMI) [Ratio] 24.5 kg/m2 [facility] 04-07-2024 13:18-0400 Body temperature 97.9 [degF] [facility] 04-07-2024 13:18-0400 Body weight 77.56 kg [facility] 04-07-2024 13:18-0400 Diastolic blood pressure 88 mm[Hg] [facility] 04-07-2024 13:18-0400 Heart rate 82 /min [facility] 04-07-2024 13:18-0400 SaO2% (BldA) [Mass fraction] 95 % [facility] 04-07-2024 13:18-0400 Systolic blood pressure 128 mm[Hg] [facility] 03-10-2024 11:53-0400 Body height 177.8 cm Marco A DanielsnMTailor DO Work Phone: [facility] 03-10-2024 11:53-0400 Body mass index (BMI) [Ratio] 21.52 kg/m2 Marco A Sniadanko DO Work Phone: [facility] 03-10-2024 11:53-0400 Body temperature 97.7 [degF] Marco A Sniadanko DO Work Phone: [facility] 03-10-2024 11:53-0400 Body weight 68.04 kg Marco A Sniadanko DO Work Phone: [facility] 03-10-2024 11:53-0400 Diastolic blood pressure 95 mm[Hg] Marco A Sniadanko DO Work Phone: [employer] 03-10-2024 11:53-0400 Heart rate 79 /min Marco A Sniadanko DO Work Phone: [employer] 03-10-2024 11:53-0400 Respiratory rate 16 /min Marco A Sniadanko DO Work Phone: [employer] [facility] 03-10-2024 11:53-0400 SaO2% (BldA) [Mass fraction] 94 % Marco A Sniadanko DO Work Phone: [employer] [facility] [employer] [facility] 03-10-2024 11:53-0400 Systolic blood pressure 143 mm[Hg] Marco A Sniadanko DO Work Phone: [employer] 03-01-2024 18:12-0400 SaO2% (BldA) [Mass fraction] 96 % Ayleen Harris MD Work Phone: [employer] 03-01-2024 18:02-0400 Diastolic blood pressure 82 mm[Hg] Ayleen Harris MD Work Phone: [employer] 03-01-2024 18:02-0400 Systolic blood pressure 118 mm[Hg] Ayleen Harris MD Work Phone: [employer] 03-01-2024 17:22-0400 Body height 177.8 cm Ayleen Harris MD Work Phone: [employer] 03-01-2024 17:22-0400 Body mass index (BMI) [Ratio] 22.24 kg/m2 yAleen Harris MD Work Phone: [employer] 03-01-2024 17:22-0400 Body weight 70.31 kg Ayleen Harris MD Work Phone: [employer] 03-01-2024 17:21-0400 Body temperature 96.69 [degF] Ayleen Harris MD Work Phone: [employer] 03-01-2024 17:17-0400 Heart rate 86 /min Ayleen Harris MD Work Phone: [facility] 03-01-2024 17:17-0400 Respiratory rate 20 /min Ayleen Harris MD Work Phone: [facility] 01-02-2024 13:10-0400 Diastolic blood pressure 88 mm[Hg] Diego Olvera MD Work Phone: [facility] 01-02-2024 13:10-0400 SaO2% (BldA) [Mass fraction] 96 % Diego Olvera MD Work Phone: [facility] 01-02-2024 13:10-0400 Systolic blood pressure 129 mm[Hg] Diego Olvera MD Work Phone: [facility] 01-02-2024 12:30-0400 Respiratory rate 18 /min Diego Olvera MD Work Phone: [facility] 01-02-2024 11:50-0400 Body temperature 97.3 [degF] Diego Olvera MD Work Phone: [facility] 01-02-2024 10:48-0400 Heart rate 90 /min Diego Olvera MD Work Phone: [facility] 01-02-2024 10:38-0400 Body height 177.8 cm Diego Olvera MD Work Phone: [facility] 01-02-2024 10:38-0400 Body mass index (BMI) [Ratio] 22.67 kg/m2 Diego Olvera MD Work Phone: [facility] 01-02-2024 10:38-0400 Body weight 71.67 kg Diego Olvera MD Work Phone: [facility] 12-04-2023 10:07-0500 Body height 177.8 cm DO Pauline Romero Work Phone: [facility] 12-04-2023 10:07-0500 Body mass index (BMI) [Ratio] 22.9 kg/m2 DO Pauline Romero Work Phone: [facility] 12-04-2023 10:07-0500 Body weight 72.57 kg DO Pauline Romero Work Phone: [facility] 10-10-2023 12:30-0500 Body height 177.8 cm Pauline Romero Other [facility] 10-10-2023 12:30-0500 Body mass index (BMI) [Ratio] 22.96 kg/m2 Pauline Romero Other [facility] Other 10-10-2023 12:30-0500 Body temperature 97.9 [degF] Pauline Garciaemily Other [facility] Other 10-10-2023 12:30-0500 Body weight 72.58 kg Pauline Romero Other [facility] Other 10-10-2023 12:30-0500 Body weight 72.57 kg DO Pauline Romero Work Phone: [facility] 10-10-2023 12:30-0500 Diastolic blood pressure 84 mm[Hg] Pauline Romero Other [facility] 10-10-2023 12:30-0500 Respiratory rate 18 /min Pauline Romero Other [facility] Other 10-10-2023 12:30-0500 SaO2% (BldA) [Mass fraction] 98 % Pauline Romero Other [facility] Other 10-10-2023 12:30-0500 Systolic blood pressure 118 mm[Hg] Pauline Romero Other [facility] 09-13-2023 12:39-0500 Diastolic blood pressure 90 mm[Hg] Mabel XOXO Kitchen [facility] 09-13-2023 12:39-0500 Heart rate 86 /min Mabel XOXO Kitchen [facility] 09-13-2023 12:39-0500 Mean blood pressure 106 mm[Hg] Mabel Berumen [facility] 09-13-2023 12:39-0500 Respiratory rate 16 /min Mabel Berumen [facility] 09-13-2023 12:39-0500 Systolic blood pressure 139 mm[Hg] Mabel Berumen [facility] 08-21-2023 15:57-0500 Heart rate 72 /min Devon Jose [facility] 08-21-2023 15:57-0500 SaO2% (BldA) [Mass fraction] 98 % Devon Garcia [facility] 08-21-2023 15:56-0500 Diastolic blood pressure 92 mm[Hg] Devon Garcia [facility] 08-21-2023 15:56-0500 Mean blood pressure 112 mm[Hg] Devon Garcia [facility] 08-21-2023 15:56-0500 Systolic blood pressure 151 mm[Hg] Devon Garcia [facility] 08-21-2023 15:56-0500 Respiratory rate 16 /min Devon Garcia [facility] 08-21-2023 15:50-0500 Diastolic blood pressure 94 mm[Hg] Devon Garcia [facility] 08-21-2023 15:50-0500 Heart rate 68 /min Devon Garcia [facility] 08-21-2023 15:50-0500 SaO2% (BldA) [Mass fraction] 97 % Devon Garcia [facility] 08-21-2023 15:50-0500 Systolic blood pressure 153 mm[Hg] Devon Garcia [facility] 08-21-2023 14:44-0500 Heart rate 68 /min Devon Garcia [facility] 08-21-2023 14:44-0500 SaO2% (BldA) [Mass fraction] 98 % Devon Garcia [facility] 08-21-2023 14:44-0500 Body temperature 97.52 [degF] Devon Garcia [facility] 08-21-2023 14:44-0500 Diastolic blood pressure 92 mm[Hg] Devon Garcia [facility] 08-21-2023 14:44-0500 Mean blood pressure 109 mm[Hg] Devon Garcia [facility] 08-21-2023 14:44-0500 Systolic blood pressure 141 mm[Hg] Devon Garcia [facility] 08-21-2023 14:43-0500 Respiratory rate 14 /min Devon Garcia [facility] 07-25-2023 13:45-0400 Body height 177.8 cm Elieser Jack II Other [employer] Other 07-25-2023 13:45-0400 Body mass index (BMI) [Ratio] 22.24 kg/m2 Elieser Martinezle II Other [employer] Other 07-25-2023 13:45-0400 Body weight 70.31 kg Elieser Medinaisle II Other [employer] Other 07-17-2023 11:10-0400 Body height 177.8 cm Pauline Romero Other [employer] Other 07-17-2023 11:10-0400 Body mass index (BMI) [Ratio] 22.24 kg/m2 Pauline Romero Other [employer] Other 07-17-2023 11:10-0400 Body temperature 98.2 [degF] Pauline Romero Other [employer] Other 07-17-2023 11:10-0400 Body weight 70.31 kg Pauline Romero Other [employer] Other 07-17-2023 11:10-0400 Diastolic blood pressure 98 mm[Hg] Pauline Garciaemily Other [employer] Other 07-17-2023 11:10-0400 Respiratory rate 18 /min Pauline Romero Other [employer] Other 07-17-2023 11:10-0400 SaO2% (BldA) [Mass fraction] 97 % Pauline Romero Other [employer] Other 07-17-2023 11:10-0400 Systolic blood pressure 138 mm[Hg] Pauline Romero Other [employer] Other 07-04-2023 08:23-0400 Diastolic blood pressure 90 mm[Hg] Devon Garcia [facility] 07-04-2023 08:23-0400 Heart rate 86 /min Devon Garcia [facility] 07-04-2023 08:23-0400 Mean blood pressure 102 mm[Hg] Devon Garcia [facility] 07-04-2023 08:23-0400 Respiratory rate 16 /min Devon Garcia [facility] 07-04-2023 08:23-0400 Systolic blood pressure 126 mm[Hg] Devon Garcia [facility] 07-03-2023 13:30-0400 Body height 177.8 cm Tobi Borrego Other [employer] Other 07-03-2023 13:30-0400 Body mass index (BMI) [Ratio] 21.81 kg/m2 Tobi Borrego Other [employer] Other 07-03-2023 13:30-0400 Body temperature 97.4 [degF] Tobi Borrego Other [employer] Other 07-03-2023 13:30-0400 Body weight 68.95 kg Tobi Borrego Other [employer] Other 07-03-2023 13:30-0400 Diastolic blood pressure 78 mm[Hg] Tobi Borrego Other [employer] Other 07-03-2023 13:30-0400 SaO2% (BldA) [Mass fraction] 97 % Tobijoseph Borrego Other [employer] Other 07-03-2023 13:30-0400 Systolic blood pressure 110 mm[Hg] Tobi Borrego Other [employer] Other 06-03-2023 09:50-0400 Body height 177.8 cm Pauline Romero Other [employer] Other 06-03-2023 09:50-0400 Body mass index (BMI) [Ratio] 21.81 kg/m2 Pauline Romero Other [employer] Other 06-03-2023 09:50-0400 Body weight 68.95 kg Pauline Romero Other [employer] Other 06-03-2023 09:50-0400 Diastolic blood pressure 82 mm[Hg] Pauline Garciaemily Other [employer] Other 06-03-2023 09:50-0400 Respiratory rate 16 /min Pauline Garciaemily Other [employer] Other 06-03-2023 09:50-0400 SaO2% (BldA) [Mass fraction] 96 % Paluine Garciaemily Other [employer] Other 06-03-2023 09:50-0400 Systolic blood pressure 118 mm[Hg] Pauline Romero Other [employer] Other 04-15-2023 11:10-0400 Body height 177.8 cm Pauline Romero Other [employer] Other 04-15-2023 11:10-0400 Body mass index (BMI) [Ratio] 21.38 kg/m2 Pauline Garciaemily Other [employer] Other 04-15-2023 11:10-0400 Body temperature 99.1 [degF] Pauline Romero Other [employer] Other 04-15-2023 11:10-0400 Body weight 67.59 kg Pauline Romero Other [employer] Other 04-15-2023 11:10-0400 Diastolic blood pressure 78 mm[Hg] Pauline Romero Other [employer] Other 04-15-2023 11:10-0400 Respiratory rate 18 /min Pauline Romero Other [employer] Other 04-15-2023 11:10-0400 SaO2% (BldA) [Mass fraction] 96 % Pauline Romero Other [employer] Other 04-15-2023 11:10-0400 Systolic blood pressure 128 mm[Hg] Pauline Garciaemily Other [employer] Other 03-13-2023 13:30-0400 Body height 177.8 cm Elieser Medinaisle II Other [employer] Other 03-13-2023 13:30-0400 Body mass index (BMI) [Ratio] 21.23 kg/m2 Elieser [place] Other [employer] Other 03-13-2023 13:30-0400 Body weight 67.13 kg Elieser Medinaisle II Other [employer] Other 02-04-2023 15:40-0400 Body height 177.8 cm Pauline Garciaemily Other [employer] Other 02-04-2023 15:40-0400 Body mass index (BMI) [Ratio] 21.31 kg/m2 Pauline Garciaemily Other [employer] Other 02-04-2023 15:40-0400 Body temperature Pauline Garciaemily Other [employer] Other 02-04-2023 15:40-0400 Body weight 67.36 kg Pauline Garciaemily Other [employer] Other 02-04-2023 15:40-0400 Diastolic blood pressure 84 mm[Hg] Pauline Romero Other [employer] Other 02-04-2023 15:40-0400 Respiratory rate 18 /min Pauline Romero Other [employer] Other 02-04-2023 15:40-0400 SaO2% (BldA) [Mass fraction] 96 % Pauline Romero Other [employer] Other 02-04-2023 15:40-0400 Systolic blood pressure 118 mm[Hg] Pauline Romero Other [employer] Other 01-31-2023 12:25-0400 Body height 177.8 cm Araceli Joseph Other [employer] Other 01-31-2023 12:25-0400 Body mass index (BMI) [Ratio] 20.8 kg/m2 Araceli Joseph Other [employer] Other 01-31-2023 12:25-0400 Body temperature 97.9 [degF] Araceli Joseph Other [employer] Other 01-31-2023 12:25-0400 Body weight 65.77 kg Araceli Joseph Other [employer] Other 01-31-2023 12:25-0400 Respiratory rate 18 /min Araceli Joseph Other [employer] Other 01-31-2023 12:25-0400 SaO2% (BldA) [Mass fraction] 96 % Araceli Joseph Other [employer] Other 11-19-2022 12:10-0500 Body height 177.8 cm Pauline Romero Other [employer] Other 11-19-2022 12:10-0500 Body mass index (BMI) [Ratio] 20.8 kg/m2 Pauline Romero Other [employer] Other 11-19-2022 12:10-0500 Body temperature 98.2 [degF] Pauline Romero Other [employer] Other 11-19-2022 12:10-0500 Body weight 65.77 kg Pauline Romero Other [employer] Other 11-19-2022 12:10-0500 Diastolic blood pressure 86 mm[Hg] Pauline Romero Other [employer] Other 11-19-2022 12:10-0500 SaO2% (BldA) [Mass fraction] 95 % Pauline Romero Other [employer] Other 11-19-2022 12:10-0500 Systolic blood pressure 122 mm[Hg] Pauline Romero Other [employer] Other 09-07-2022 12:30-0500 Body height 177.8 cm Pauline Romero Other [employer] Other 07-03-2022 12:50-0400 Body height 177.8 cm Lia Oswald Other [employer] Other 07-03-2022 12:50-0400 Body mass index (BMI) [Ratio] 20.52 kg/m2 Lia Oswald Other [employer] Other 07-03-2022 12:50-0400 Body temperature 97.8 [degF] Lia Oswald Other [employer] Other 07-03-2022 12:50-0400 Body weight 64.86 kg Lia Oswald Other [employer] Other 07-03-2022 12:50-0400 Diastolic blood pressure 82 mm[Hg] Lia Oswald Other [employer] Other 07-03-2022 12:50-0400 Respiratory rate 18 /min Lia Oswald Other [employer] Other 07-03-2022 12:50-0400 SaO2% (BldA) [Mass fraction] 96 % Lia Oswald Other [employer] Other 07-03-2022 12:50-0400 Systolic blood pressure 125 mm[Hg] Lia Oswald Other [employer] Other 06-14-2022 11:30-0400 Body height 177.8 cm Pauline Romero Other [employer] Other 06-14-2022 11:30-0400 Body mass index (BMI) [Ratio] 21.09 kg/m2 Pauline Romero Other [employer] Other 06-14-2022 11:30-0400 Body temperature 97.7 [degF] Pauline Romero Other [employer] Other 06-14-2022 11:30-0400 Body weight 66.68 kg Pauline Romero Other [employer] Other 06-14-2022 11:30-0400 Diastolic blood pressure 88 mm[Hg] Pauline Romero Other [employer] Other 06-14-2022 11:30-0400 Respiratory rate 18 /min Pauline Romero Other [employer] Other 06-14-2022 11:30-0400 SaO2% (BldA) [Mass fraction] 98 % Pauline Romero Other [employer] Other 06-14-2022 11:30-0400 Systolic blood pressure 138 mm[Hg] Pauline Romero Other [employer] Other 03-12-2022 11:30-0400 Body height 177.8 cm Pauline Romero Other [employer] Other 03-12-2022 11:30-0400 Body mass index (BMI) [Ratio] 21.09 kg/m2 Pauline Romero Other [employer] Other 03-12-2022 11:30-0400 Body temperature 98.2 [degF] Pauline Romero Other [employer] Other 03-12-2022 11:30-0400 Body weight 66.68 kg Pauline Romero Other [employer] Other 03-12-2022 11:30-0400 Diastolic blood pressure 86 mm[Hg] Pauline Romero Other [employer] Other 03-12-2022 11:30-0400 Respiratory rate 16 /min Pauline Romero Other [employer] Other 03-12-2022 11:30-0400 SaO2% (BldA) [Mass fraction] 95 % Pauline Romero Other [employer] Other 03-12-2022 11:30-0400 Systolic blood pressure 126 mm[Hg] Pauline Romero Other [employer] Other 12-21-2021 12:10-0400 Body height 177.8 cm Pauline Romero Other [employer] Other 03-17-2022 12:10-0400 Body mass index (BMI) [Ratio] 20.66 kg/m2 Pauline Nick Other [employer] Other 12-21-2021 12:10-0400 Body temperature 97.9 [degF] Pauline Nick Other [facility] Other 12-21-2021 12:10-0400 Body weight 65.32 kg Pauline Garciaemily Other [employer] Other 12-21-2021 12:10-0400 Diastolic blood pressure 82 mm[Hg] Pauline Romero Other [facility] Other 12-21-2021 12:10-0400 Respiratory rate 18 /min Pauline Garciaemily Other [employer] Other 12-21-2021 12:10-0400 SaO2% (BldA) [Mass fraction] 99 % Pauline Romero Other [facility] Other 12-21-2021 12:10-0400 Systolic blood pressure 126 mm[Hg] Pauline Nick Other [employer] Other 09-25-2021 14:00-0500 Body height 177.8 cm Pauline Romero Other [employer] Other 09-25-2021 14:00-0500 Body mass index (BMI) [Ratio] 20.37 kg/m2 Pauline Garciaemily Other [employer] Other 09-25-2021 14:00-0500 Body temperature 98.1 [degF] Pauline Romero Other [facility] Other 09-25-2021 14:00-0500 Body weight 64.41 kg Pauline Romero Other [employer] Other 09-25-2021 14:00-0500 Diastolic blood pressure 80 mm[Hg] Pauline Romero Other [employer] Other 09-25-2021 14:00-0500 Respiratory rate 18 /min Pauline Romero Other [employer] Other 09-25-2021 14:00-0500 SaO2% (BldA) [Mass fraction] 98 % Pauline Romero Other [facility] Other 09-25-2021 14:00-0500 Systolic blood pressure 126 mm[Hg] Pauline Romero Other [employer] Other 09-05-2021 11:30-0500 Body height 177.8 cm Pauline Romero Other [employer] Other 09-05-2021 11:30-0500 Body mass index (BMI) [Ratio] 20.23 kg/m2 Pauline Romero Other [employer] Other 09-05-2021 11:30-0500 Body temperature 98.3 [degF] Pauline Romero Other [facility] Other 09-05-2021 11:30-0500 Body weight 63.96 kg Pauline Romero Other [employer] Other 09-05-2021 11:30-0500 Diastolic blood pressure 70 mm[Hg] Pauline Roemro Other [facility] Other 09-05-2021 11:30-0500 Respiratory rate 18 /min Pauline Romero Other [employer] Other 09-05-2021 11:30-0500 SaO2% (BldA) [Mass fraction] 97 % Pauline Romero Other [facility] Other 09-05-2021 11:30-0500 Systolic blood pressure 104 mm[Hg] Pauline Romero Other [employer] Other Encounters Encounter Date Encounter Type Care Provider Facility Start: 07-22-2024 End: 07-22-2024 ambulatory [facility] Start: 07-14-2024 End: 07-14-2024 ambulatory [facility] Work Phone: Start: 07-14-2024 End: 07-14-2024 Patient encounter procedure [facility] Work Phone: Start: 07-08-2024 End: 07-08-2024 ambulatory [facility] Start: 06-25-2024 ambulatory [facility] Start: 06-25-2024 End: 06-25-2024 Subsequent hospital visit by physician Rommel Cooper [facility] Start: 06-22-2024 End: 06-22-2024 Subsequent hospital visit by physician Dianne Griggs PTA [facility] Physical Therapy Start: 06-22-2024 ambulatory [facility] Start: 06-17-2024 End: 06-17-2024 ambulatory [facility] Start: 06-17-2024 End: 06-17-2024 Subsequent hospital visit by physician Rommel Cooper [facility] Physical Therapy Start: 06-10-2024 End: 06-10-2024 ambulatory [facility] Start: 05-07-2024 ambulatory [facility] Start: 05-05-2024 Non-patient / Non-visit [facility] Work Phone: Start: 05-01-2024 [facility] Start: 04-24-2024 ambulatory PAULINE Lindsay [facility] Start: 04-24-2024 End: 04-24-2024 Subsequent hospital visit by physician Pauline Romero DO [facility] Laboratory Start: 04-07-2024 End: 04-07-2024 ambulatory [facility] Work Phone: Start: 04-07-2024 End: 04-07-2024 Patient encounter procedure [facility] Work Phone: Start: 04-06-2024 ambulatory [facility] Start: 04-06-2024 End: 04-06-2024 Subsequent hospital visit by physician Pauline Romero DO [facility] Laboratory Start: 04-03-2024 End: 04-03-2024 ambulatory PAULINE Angélica [facility] Start: 03-31-2024 ambulatory CANNON BALL Angélica [facility] Start: 03-10-2024 End: 03-10-2024 Emergency department patient visit Marco A Romero DO Work Phone: [facility] Emergency Department Comment on above: Sprain of left ankle , unspecified ligament, subsequent encounter (Primary Dx); Localized swelling of left foot Start: 03-01-2024 End: 03-01-2024 Emergency department patient visit Ayleen Harris MD Work Phone: [facility] Emergency Department Comment on above: Sprain of left ankle , unspecified ligament, initial encounter (Primary Dx) Start: 02-18-2024 End: 02-18-2024 Patient encounter procedure [facility] Work Phone: Start: 02-17-2024 ambulatory [facility] Start: 01-08-2024 End: 01-08-2024 ambulatory DO Pauline Romero Work Phone: [facility] Work Phone: Start: 01-08-2024 End: 01-08-2024 Patient encounter procedure DO Pauline Romero Work Phone: [facility] Work Phone: Start: 01-08-2024 End: 01-10-2024 Patient encounter procedure Chriss Wright MD Work Phone: [facility] Work Phone: Start: 01-08-2024 End: 01-10-2024 Subsequent hospital visit by physician Chriss Wright MD Work Phone: [facility] Radiology Comment on above: Examination for norm al comparison for clinical research Start: 01-08-2024 End: 01-08-2024 ambulatory [facility] Start: 01-02-2024 End: 01-02-2024 ambulatory [facility] Start: 01-02-2024 End: 01-02-2024 Subsequent hospital visit by physician Diego Olvera MD Work Phone: [facility] Start: 12-30-2023 End: 12-30-2023 ambulatory PAULINE Angélica [facility] Start: 12-30-2023 End: 12-30-2023 Subsequent hospital visit by physician Pauline Romero DO [facility] Laboratory Start: 12-04-2023 End: 12-04-2023 Patient encounter procedure DO Pauline Romero Work Phone: [facility] Work Phone: Start: 11-18-2023 End: 11-18-2023 ambulatory Elieser Jack II Facility:[facility] Start: 11-18-2023 End: 11-18-2023 ambulatory DO Pauline Romero Work Phone: [facility] Work Phone: Start: 11-18-2023 End: 11-18-2023 Patient encounter procedure DO Pauline Romero Work Phone: [facility] [place] Work Phone: Start: 11-05-2023 End: 11-05-2023 ambulatory Pauline Romero Other [facility] Other Start: 11-05-2023 Telephone encounter Pauline Romero [facility] [place] Start: 11-04-2023 End: 11-04-2023 ambulatory Pauline Romero Other [facility] Other Start: 11-04-2023 Telephone encounter Pauline Romero [facility] [place] Start: 10-31-2023 End: 10-31-2023 Emergency department patient visit JOCELYN [facility] Start: 10-29-2023 End: 10-29-2023 ambulatory Pauline Romero Other [facility] Other Start: 10-29-2023 Telephone encounter Pauline Romero [facility] [place] Start: 10-25-2023 End: 10-25-2023 ambulatory Pauline Romero Other [employer] Other Start: 10-25-2023 Telephone encounter Pauline Romero [facility] [place] Start: 10-24-2023 End: 10-24-2023 ambulatory Elieser [facility] Other [employer] Other Start: 10-24-2023 Office outpatient visit 15 minutes Elieser [facility] Start: 10-24-2023 End: 10-24-2023 Patient encounter procedure DO Pauline Romero Work Phone: [facility]- Start: 10-11-2023 End: 10-11-2023 ambulatory Pauline Romero Other [employer] Other Start: 10-11-2023 Telephone encounter Pauline Romero [facility] [place] Start: 10-10-2023 End: 10-10-2023 ambulatory Pauline Romero Other [employer] Other Start: 10-10-2023 Non-patient / Non-visit DO Pauline Romero Work Phone: [facility] [employer] Work Phone: Start: 10-10-2023 Office outpatient visit 25 minutes Pauline Romero [facility] Start: 10-10-2023 End: 10-10-2023 Patient encounter procedure DO Pauline Romero Work Phone: [facility] Work Phone: Start: 10-09-2023 End: 11-07-2023 Pre-admission assessment Devon Garcia [facility] Start: 10-08-2023 End: 10-11-2023 ambulatory Chang SERRA [facility] Start: 09-13-2023 End: 09-13-2023 Emergency department patient visit [facility] Start: 09-13-2023 End: 09-14-2023 ambulatory Mabel XOXO Kitchen [facility] Other Start: 09-13-2023 Telephone encounter Pauline Romero [facility] Start: 09-13-2023 End: 09-13-2023 Pain Management Mabeljhonny Berumen [facility] Start: 08-21-2023 End: 08-22-2023 ambulatory Devon Garcia Facility:[facility] Start: 08-21-2023 End: 08-21-2023 Pain Management Devon Garcia [facility] Start: 08-14-2023 End: 08-14-2023 ambulatory Princess Sibley Other [employer] Other Start: 08-14-2023 Telephone encounter Princess Sibley [facility] Start: 08-08-2023 End: 08-08-2023 ambulatory Princess Sibley Other [employer] Other Start: 08-08-2023 Office outpatient visit 25 minutes Princess Sibley [facility] Start: 07-25-2023 End: 07-25-2023 ambulatory Elieser Guero [place] Other [employer] Other Start: 07-25-2023 Office outpatient visit 25 minutes Elieser Guero II [facility] Start: 07-17-2023 End: 07-17-2023 ambulatory Pauline Romero Other [employer] Other Start: 07-17-2023 Office outpatient visit 15 minutes Pauline Romero [facility] [place] Start: 07-17-2023 Telephone encounter Pauline Romero [facility] Start: 07-04-2023 End: 07-05-2023 ambulatory Devon Garcia Facility:[facility] Start: 07-04-2023 End: 07-04-2023 Pain Management Devon Garcia [facility] Start: 07-03-2023 End: 07-03-2023 ambulatory Tobi Borrego Other [employer] Other Start: 07-03-2023 Office outpatient ne w 30 minutes Tobi Borrego [facility] V[facility] Start: 07-03-2023 Telephone encounter Tobi Barillas [facility] Start: 06-03-2023 End: 06-03-2023 ambulatory Pauline Romero Other [employer] Other Start: 06-03-2023 Office outpatient visit 15 minutes Pauline Romero [facility] [place] Start: 05-30-2023 End: 05-30-2023 ambulatory Pauline Romero Other [employer] Other Start: 05-30-2023 Telephone encounter Pauline Romero [facility] Start: 05-29-2023 End: 05-29-2023 ambulatory Pauline Romero Other [employer] Other Start: 05-29-2023 Telephone encounter Pauline Romero [facility] [place] Start: 04-17-2023 End: 04-17-2023 ambulatory Pauline Romero Other [employer] Other Start: 04-17-2023 Telephone encounter Pauline Romero [facility] [place] Start: 04-15-2023 End: 04-15-2023 ambulatory Pauline Romero Other [employer] Other Start: 04-15-2023 Office outpatient visit 25 minutes Pauline Romero [facility] [place] Start: 04-12-2023 End: 04-12-2023 ambulatory Pauline Romero Other [employer] Other Start: 04-12-2023 Telephone encounter Pauline Romero [facility] [place] Start: 03-28-2023 End: 03-28-2023 ambulatory Pauline Romero Other [employer] Other Start: 03-28-2023 Telephone encounter Pauline Romero [facility] [place] Start: 03-13-2023 End: 03-13-2023 ambulatory Elieser Jack II Facility:[facility] Start: 03-13-2023 Office outpatient ne w 45 minutes Elieser Jack II [facility] Start: 03-13-2023 End: 03-13-2023 ambulatory DO Pauline Romero Work Phone: [facility] Work Phone: Start: 03-13-2023 End: 03-13-2023 Patient encounter procedure DO Pauline Romero Work Phone: [facility] Start: 02-08-2023 End: 02-08-2023 ambulatory Pauline Romero Other [employer] Other Start: 02-08-2023 Telephone encounter Pauline Romero [facility] [place] Start: 02-04-2023 End: 02-04-2023 ambulatory Pauline Romero Other [employer] Other Start: 02-04-2023 Office outpatient visit 10 minutes Pauline Romero [facility] [place] Start: 01-31-2023 End: 01-31-2023 ambulatory Pauline Romero Other [employer] Other Start: 01-31-2023 Office outpatient visit 15 minutes Araceli Joseph [facility] Start: 01-31-2023 Telephone encounter Pauline Romero [facility] [place] Start: 01-17-2023 End: 01-17-[address] BLAISE MACK Facility:[facility] Start: 01-10-2023 End: 01-10-2023 ambulatory Pauline Romero Other [employer] Other Start: 01-10-2023 Telephone encounter Pauline Romero [facility] [place] Start: 01-01-2023 End: 01-01-2023 ambulatory Pauline Romero Other [employer] Other Start: 01-01-2023 Telephone encounter Pauline Romero [facility] [place] Start: 12-04-2022 End: 12-05-2022 ambulatory PONCEFRANSISCA HERNANDEZ . Facility:[facility] Start: 12-01-2022 End: 12-01-2022 ambulatory Antonina Brea Facility:[facility] Start: 12-01-2022 End: 12-01-2022 ambulatory DO Pauline Romero Work Phone: [facility] Work Phone: Start: 12-01-2022 End: 12-01-2022 Patient encounter procedure DO Pauline Romero Work Phone: [facility] [place] Work Phone: Start: 11-30-2022 End: 11-30-2022 ambulatory Pauline Romero Other [employer] Other Start: 11-30-2022 Telephone encounter Pauline Romero [facility] [place] Start: 11-19-2022 End: 11-20-[address] PAULINE ROMERO [place] [employer] Other Start: 11-19-2022 Office outpatient visit 25 minutes Pauline Romero [facility] [place] Start: 11-13-2022 End: 11-13-2022 ambulatory Pauline Romero Other [employer] Other Start: 11-13-2022 Telephone encounter Pauline Romero [facility] [place] Start: 11-10-2022 End: 11-10-2022 ambulatory ELIESER DILLON Facility:[facility] Start: 10-23-2022 End: 10-23-2022 ambulatory Pauline Romero Other [employer] Other Start: 10-23-2022 Telephone encounter Pauline Romero [facility] [place] Start: 10-18-2022 End: 10-18-2022 ambulatory Pauline Romero Other [employer] Other Start: 10-18-2022 Telephone encounter Pauline Romero [facility] [place] Start: 10-16-2022 End: 10-17-[address] PAULINE ROMERO Facility:[facility] Start: 10-12-2022 End: 10-12-2022 ambulatory Pauline Romero Other [employer] Other Start: 10-12-2022 Telephone encounter Pauline Romero [facility] [place] Start: 09-13-2022 End: 09-14-[address] PAULINE ROMERO Facility:[facility] Start: 09-07-2022 End: 09-07-2022 ambulatory Pauline Romero Other [employer] Other Start: 09-07-2022 Telephone encounter Pauline Romero [facility] [place] Start: 07-03-2022 End: 07-03-2022 ambulatory Pauline Romero Other [employer] Other Start: 07-03-2022 Office outpatient visit 15 minutes Lia Oswald [facility] Start: 07-03-2022 Telephone encounter Pauline Romero [facility] Start: 06-14-2022 End: 06-14-2022 ambulatory Pauline Romero Other [employer] Other Start: 06-14-2022 Office outpatient visit 15 minutes Pauline Romero [facility] Start: 06-10-2022 End: 06-10-2022 ambulatory ROBB FOX . Facility:[facility] Start: 06-09-2022 End: 06-10-[address] PAULINE ROMERO Facility:[facility] Start: 03-27-2022 End: 03-27-2022 ambulatory Pauline Romero Other [employer] Other Start: 03-27-2022 Telephone encounter Pauline Romero [facility] [place] Start: 03-12-2022 End: 03-12-2022 ambulatory Pauline Romero Other [employer] Other Start: 03-12-2022 Office outpatient visit 25 minutes Pauline Romero [facility] [place] Start: 03-08-2022 Telephone encounter Pauline Romero [facility] [place] Start: 03-08-2022 End: 03-09-[address] PAULINE ROMERO [employer] Other Start: 01-23-2022 End: 01-23-2022 ambulatory Pauline Romero Other [employer] Other Start: 01-23-2022 Telephone encounter Pauline Romero [facility] Start: 01-18-2022 End: 01-18-2022 ambulatory Pauline Romero Other [employer] Other Start: 01-18-2022 Telephone encounter Pauline Romero [facility] Start: 01-02-2022 End: 01-02-2022 ambulatory Pauline Romero Other [employer] Other Start: 01-02-2022 Telephone encounter Pauline Romero [facility] Start: 12-27-2021 End: 12-27-2021 ambulatory Pauline Romero Other [employer] Other Start: 12-27-2021 Telephone encounter Pauline Romero [facility] Start: 12-21-2021 End: 12-21-2021 ambulatory Pauline Romero Other [employer] Other Start: 12-21-2021 Office outpatient visit 15 minutes Pauline Romero [facility] Start: 12-04-2021 End: 12-04-2021 ambulatory Pauline Romero Other [employer] Other Start: 12-04-2021 Telephone encounter Pauline Romero [facility] [place] Start: 10-30-2021 End: 10-30-2021 ambulatory Pauline Romero Other [employer] Other Start: 10-30-2021 Telephone encounter Pauline Romero [facility] [place] Start: 10-10-2021 End: 10-10-2021 ambulatory Pauline Romero Other [employer] Other Start: 10-10-2021 Telephone encounter Pauline Romero [facility] [place] Start: 10-02-2021 End: 10-02-2021 ambulatory Pauline Romero Other [employer] Other Start: 10-02-2021 Telephone encounter Pauline Romero [facility] Start: 09-25-2021 End: 09-25-2021 ambulatory Pauline Romero Other [employer] Other Start: 09-25-2021 Office outpatient visit 15 minutes Pauline Romero [facility] Start: 09-05-2021 End: 09-05-2021 ambulatory Pauline Romero Other [employer] Other Start: 09-05-2021 Office outpatient visit 25 minutes Pauline Romero [facility] [place] Start: 06-03-2018 End: 06-04-2018 Patient encounter JONAH RENTERIA Facility:[facility] Start: 03-04-2018 End: 03-05-2018 Patient encounter JONAH RENTERIA Facility:[facility] Start: 12-23-2017 End: 12-24-2017 Patient encounter JONAH RENTERIA Facility:[facility] Start: 11-11-2017 End: 11-12-2017 Patient encounter HEBERT BHATT Facility:[facility] Start: 11-06-2017 End: 11-07-2017 Patient encounter DEFAULT PHYSICIAN Facility:[facility] Procedures Date Procedure Procedure Detail Performing Clinician Start: 04-24-2024 Urnls dip stick/tabl et reagent auto microscopy Unknown Provider Result Start: 04-06-2024 Urnls dip stick/tabl et rgnt auto w/o microscopy Pauline Romero DO Start: 03-10-2024 Radex foot complete minimum 3 views Marco A Romero DO Work Phone: Start: 03-01-2024 Radex ankle complete minimum 3 views Ayleen Harris MD Work Phone: Start: 01-08-2024 XR Unspecified body region Comparison view Chriss Wright MD Work Phone: Start: 01-02-2024 Radiologic exam abdo men 2 views Diego Olvera MD Work Phone: Start: 01-02-2024 Colonoscopy Diego casarez MD Work Phone: Start: 11-18-2023 MRI of left knee DO Sage Romero Work Phone: Start: 08-21-2023 Local anesthetic sac ral epidural [...] Treatment Date Care Activity Detail Author Start: 01-01-2034 [facility]ening for malign ant neoplasm [facility] Start: 04-03-2029 Lipid panel Lipids [facility] Start: 07-24-2024 End: 07-24-2024 Patient encounter procedure 07/24/2024 11:00 AM EDT Office Visit [facility] on [address] [phone] Princess Tan, JAVASCRIPT SOFTWARE ENGINEER - [employer] [address] [place] [address] 6 mo follow up [facility] Comment on above: 6 mo follow up Start: 07-22-2024 End: 07-22-2024 Patient encounter procedure 07/22/2024 11:30 AM EDT Office Visit [facility] on [address] [id number] Taylor Sanches, JAVASCRIPT SOFTWARE ENGINEER - [employer] [address] [place], [place] [phone] post injection [facility] Comment on above: post injection Start: 07-08-2024 End: 07-08-2024 Admission to same day surgery center 07/08/2024 10:30 AM EDT - 07/08/2024 10:45 AM EDT Surgery [facility] Chriss Wright MD [address] [place], [place] [id number] B/L MBB L3,L4,L5 [facility] Comment on above: B/L MBB L3,L4,L5 Start: 07-08-2024 End: 07-08-2024 Njx dx/ther agt pvrt facet jt lmbr/sac 2nd level LUMBAR FACET INJECTION Lumbar spondylosis 07/08/2024 10:[address] [facility] Start: 07-08-2024 Subsequent hospital visit by physician 07/08/2024 10:30 AM EDT Hospital Encounter [facility] Chriss Wright MD [address] [place] [address] [facility] Start: 07-02-2024 End: 07-02-2024 Patient encounter procedure 07/02/2024 11:20 AM EDT Appointment [facility] Physical [facility] [address] [place] [address] Rommel Cooper [facility] Start: 06-29-2024 End: 06-29-2024 Patient encounter procedure 06/29/2024 12:40 PM EDT Appointment [facility] [address] [place] [address] Dianne Griggs PTA [facility] Start: 06-25-2024 End: 06-25-2024 Patient encounter procedure 06/25/2024 11:20 AM EDT Appointment [facility] Physical [facility] [address] [place] [address] Rommel Cooper [facility] Start: 06-22-2024 End: 06-22-2024 Patient encounter procedure 06/22/2024 12:40 PM EDT Appointment [facility] [address] [place] [address] Dianne Griggs PTA [facility] Start: 06-07-2024 COVID-19 Vaccine ( season) COVID-19 Vaccine ( season) [facility] Start: 05-07-2024 Influenza vaccination [facility] Start: 05-06-2024 End: 05-06-2024 Patient encounter procedure 05/06/2024 11:30 AM EDT Office Visit [facility] [address] [place] [address] Taylor Sanches, JAVASCRIPT SOFTWARE ENGINEER - [employer] [address] [place] [address] follow up after injection [facility] Comment on above: follow up after inje ction Start: 03-04-2024 End: 03-04-2024 Patient encounter procedure 03/04/2024 11:30 AM EDT Office Visit [facility] [address] [place] [phone] Taylor Sanches, JAV[employer]CRIPT SOFTWARE ENGINEER - [employer] [address] [place] [phone] follow up after injection [facility] Comment on above: follow up after inje ction Start: 02-26-2024 End: 02-26-2024 Patient encounter procedure 02/26/2024 11:30 AM EDT Office Visit [facility] [address] [place] [phone] Taylor Snaches, JAVASCRIPT SOFTWARE ENGINEER - [employer] [address] [place] [phone] follow up after injection [facility] Comment on above: follow up after inje ction Start: 01-24-2024 End: 01-24-2024 Patient encounter procedure 01/24/2024 11:00 AM EDT Office Visit [facility] [address] [place] [phone] Princess Tan, JAVASCRIPT SOFTWARE ENGINEER - [employer] [address] [place] [address] Follow up s/p scope [facility] Comment on above: Follow up s/p scope Start: 01-08-2024 End: 01-08-2024 Admission to same day surgery center 01/08/2024 11:45 AM EDT - 01/08/2024 12:00 PM EDT Surgery [facility] Chriss Wright MD [address] [place] [address] CAUDAL EPIDURAL STEROID INJECTION [facility] Comment on above: CAUDAL EPIDURAL STER OID INJECTION Start: 01-08-2024 End: 01-08-2024 Njx dx/ther sbst intrlmnr lmbr/sac w/img gdn EPIDURAL STEROID INJECTION Spinal stenosis of lumbar region, unspecified whether neurogenic claudication present 01/08/2024 11:[address] [facility] Start: 01-08-2024 Subsequent hospital visit by physician 01/08/2024 11:45 AM EDT Hospital Encounter [facility] Chriss Wright MD [address] [place] [address] [facility] Start: 01-02-2024 End: 01-02-2024 Admission to same day surgery center 01/02/2024 11:15 AM EDT - 01/02/2024 11:45 AM EDT Surgery [facility] OR [address] [place] [address] Diego Olvera MD [address] [place] [address] COLONOSCOPY DIAGNOSTIC// 2 DAY MIRALAX [facility] OR Comment on above: COLONOSCOPY DIAGNOST IC// 2 DAY MIRALAX Start: 01-02-2024 Subsequent hospital visit by physician 01/02/2024 11:15 AM EDT Hospital Encounter [facility] OR [address] [place] [address] Diego Olvera MD [address] [place] [address] [facility] Start: 01-02-2024 End: 01-02-2024 Colonoscopy flx dx w/collj spec when pfrmd [facility] Start: 05-07-2023 Influenza vaccination Flu vaccine (# 1) [facility] Start: 12-01-2022 MR lumbar spine wo con MR lumbar spi ne wo con [facility] Start: 12-01-2022 MR Lumbar spine WO contrast [facility] Start: 12-01-2022 XR pre/post mri xray XR pre/post mri xray [facility] Start: 12-01-2022 [facility] Start: 11-12-2020 Screening for malign ant neoplasm of breast Breast cancer screen [facility] Start: 2020 Shingles vaccine (1 of 2) Shingles vaccine (1 of 2) [facility] Start: 2015 Screening for malign ant neoplasm of colon [facility] Start: 2010 Lipid panel Lipids [facility] Start: 2000 Screening for malign ant neoplasm of cervix [facility] Start: 1991 Screening for malign ant neoplasm of cervix Pap smear [facility] Start: 1989 DTaP/Tdap/Td vaccine (1 - Tdap) DTaP/Tdap/Td vaccine (1 - Tdap) [facility] Start: 1989 Hepatitis B vaccine (1 of 3 - 19+ 3-dose series) Hepatitis B vaccine (1 of 3 - 19+ 3-dose series) [facility] Start: 1988 Hepatitis C screening Hepatitis C sc reen [facility] Start: 1985 HIV screening HIV screen [facility] Start: 1982 Depression Screen Depression Screen [facility] Start: 1970 COVID-19 Vaccine (#1) COVID-19 Vacci ne (#1) [facility] Start: 1970 Hepatitis B vaccine (1 of 3 - 3-dose series) Hepatitis B vaccine (1 of 3 - 3-dose series) [facility] Comprehensive metabo lic 2000 panel - Serum or Plasma [facility] End: 04-06-2024 Culture, Urine Culture, Urine Microbiology Routine Once for 1 Occurrences starting 04/06/2024 until 04/06/2024 [facility] Comment on above: Once for 1 Occurrenc es starting 04/06/2024 until 04/06/2024 End: 04-24-2024 Culture, Urine Culture, Urine Microbiology Routine Once for 1 Occurrences starting 04/24/2024 until 04/24/2024 [facility] Comment on above: Once for 1 Occurrenc es starting 04/24/2024 until 04/24/2024 MG Breast - bilatera l Screening [facility] End: 12-30-2023 Miscellaneous Sendout Miscellaneous Sendout Lab Routine Once for 1 Occurrences starting 12/30/2023 until 12/30/2023 MAX Comment on above: Once for 1 Occurrenc es starting 12/30/2023 until 12/30/2023 [facility] Payers Date Payer Category Payer Medicaid [id number] 2. [id number] 2022 Self-pay [id number] 2018 Unknown [id number] 1970 Unknown [id number] 2.16.84 0.1.962898.3.579.2.593 1970 Unknown [id number] 2.16.84 0.1.811078.3.579.2.593 1970 Unknown [id number] 2.16.84 0.1.891457.3.579.2.593 1970 Unknown [id number] 2.16.84 0.1.108294.3.579.2.593 1970 Unknown [id number] 2.16.84 0.1.418664.3.579.2.593 1970 Unknown [id number] 2.16.84 0.1.151695.3.579.2.593 1970 Unknown [id number] 2.16.84 0.1.564257.3.579.2.593 1970 Unknown [id number] 2.16.84 0.1.286327.3.579.2.593 1970 Unknown [id number] 2.16.84 0.1.951738.3.579.2.593 1970 Unknown [id number] 2.16.8 40.1.885389.3.579.2.727 1970 Unknown [id number] 2.16.8 40.1.712272.3.579.2.727 1970 Unknown [id number] 2.16.8 40.1.995136.3.579.2.727 1970 Unknown [id number] 2.16.8 40.1.117861.3.579.2.173 1970 Unknown [id number] 2.16.8 40.1.793978.3.579.2.754 1970 Unknown [id number] 2.16.8 40.1.119880.3.579.2. 1970 Unknown [id number] 2.16.8 40.1.192718.3.579.2. 1970 Unknown [id number] 2.16.8 40.1.048899.3.579.2. 1970 Unknown [id number] 2..8 40.1.606879.3.579.2. 1970 Unknown [id number] 2.16.8 40.1.272823.3.579.2. 1970 Unknown [id number] 2.16.8 40.1.359959.3.579.2. 1970 Unknown [id number] 2.16.8 40.1.756779.3.579.2.4 1970 Unknown [id number] 2.16.8 40.1.852393.3.579.2.4 1970 Unknown [id number] 2.16.8 40.1.257092.3.579.2. 1970 Unknown [id number] 2.16.8 40.1.199496.3.579.2.75 1970 Unknown [id number] 2.16.8 40.1.253104.3.579.2. 1970 Unknown [id number] 2.16.8 40.1.527854.3.579.2.754 1970 Unknown [id number] 2.16.8 40.1.880794.3.579.24 1970 Unknown [id number] 2.16.8 40.1.642204.3.579.2.754 1970 Unknown [id number] 2.16.8 40.1.620143.3.579.2.754 1970 Unknown [id number] 2.16.8 40.1.817832.3.579.2.754 1970 Unknown [id number] 2.16.8 40.1.774954.3.579.2.754 1970 Unknown [id number] 2.16.8 40.1.132381.3.579.2.754 1970 Unknown [id number] 2.16.8 40.1.834422.3.579.2.754 1959 Unknown [id number] 2.1 6.840.1.675559.19 Unknown Unknown [id number] 2.16.8 40.1.784823.3.579.2.531 Unknown [id number] 2.16.8 40.1.988507.3.579.2.531 Unknown [id number] 2.16.8 40.1.312211.3.579.2.531 Social History Date Type Detail Facility Unknown if ever smoked [employer] Other Start: 12-18-2023 End: 03-10-2024 Sex Assigned At [facility] Start: 1970 Sex Assigned At Female F [facility] Start: 07-04-2023 End: 09-13-2023 Tobacco smoking status Light tobacco smoker (finding) [facility] Start: 11-14-2018 End: 04-07-2024 Tobacco smoking status GAIS Smoker (finding) [facility] Start: 10-31-2023 Tobacco smoking stat us GAIS Ex-smoker MAX Start: 10-07-2002 History of tobacco use Cigarette Smo ker [employer] Work Phone: Start: 10-31-2023 End: 03-10-2024 Cigarettes smoked current (pack per day) - Reported [employer] Start: 10-31-2023 Tobacco use and exposure Smokeless tobacco non-user [employer] Phone: Start: 12-18-2023 End: 06-11-2024 Alcohol intake Current drinker of alcohol (finding) [employer] Phone: Start: 10-01-2023 Tobacco Comment 10/01/23 UPDAT ED SMOKING HISTORY FROM CT LUNG SCREENING ORDER. [employer] Phone: Start: 09-13-2023 Alcohol Comment occas [employer] Phone: Start: 1970 Sex Assigned At Not on file [facility] [employer] Phone: Start: 01-08-2024 Tobacco smoking stat NHIS Current some day smoker [facility] Read-Only, Retired: Physical Abuse Denies STEVANJANINE Functional Status Date Assessment Result Facility 09-13-2023 Functional Status N/A [facility] 08-21-2023 Functional Status N/A [facility] 07-04-2023 Functional Status N/A [facility] Clinical Notes 05-07-2012 to 06-25-2024 Rommel Cooper - 06/25/2024 11:20 AM EDRommel Berg - 06/17/2024 11:00 AM EDTDischarge InstructionsAttachmentsDischarge InstructionsAttachments Note Date & Type Note Facility 06-25-2024 History of Presen t illness Narrative Images from the original note were not included. [facility] PHYSICAL THERAPY Physical Therapy Outpatient Daily Note Patient: Naye Guzmán (54 y.o. female) Examination Date: 06/25/2024 : 1970 CSN: [id number] Insurance: [facility]or[facility] / Plan: [facility] / Product Type: *No Product type* / - (Medicaid Managed) Secondary Insurance (if applicable): Referring Physician: Mariana Ellis PA* Mariana Ellis PCP: Pauline Romero DO Medical Diagnosis: sprain of left ankle Treatment Diagnosis: L ankle sprain Episode Name: Left ankle sprain SUBJECTIVE EXAMINATION PT VISIT INFORMATION Onset Date: 06/17/24 PT Insurance Information: 30 visits then authorization required Total # of Visits Approved: 10 Total # of Visits to Date: 3 Subjective: Pt presents wearing ASO to L ankle. She reports being fairly sore following last treatment and has been using ice bottle at home rolling foot over the last couple days which has helped with tenderness to the foot. She reports feeling pretty good today with no pain, but minor soreness. Comment: f/u 07/29/24 Pain Screening Patient Currently in Pain: Denies OBJECTIVE EXAMINATION PHYSICAL THERAPY TREATMENT COMPLETED THERAPEUTIC EXERCISE Therapeutic exercise to increase left LE strength and decrease tightness for improved functional strength and mobility. Exercise 2: nustep: L3 x6' Exercise 3: towel gastroc stretch 3 x 20 ; soleus stretch 3x20 with strap Exercise 4: ankle DF/PF x 10 Exercise 5: ankle INV/EV x 10 Exercise 6: ankle circles x 10 Exercise 8: seated rockerboard DF/PF and InV/EVR x15 each ; gastroc stretch on rockerboard 3x20 each Exercise 10: seated BAPS board L2 DF/PF, INV/EVR, CW/CCW x10 each Exercise 11: 4 way ankle x10 OTB Exercise 12: gastroc stretch 3 x 20 Exercise 13: HR/TR x 10 Exercise 14: rocker board x 20 ASSESSMENT Body Structures, Functions, Activity Limitations Requiring Skilled Therapeutic Intervention: Decreased functional mobility ;Decreased strength;Increased pain;Decreased high-level IADLs;Decreased ROM Progressed to standing exercise today with stretching and strengthening. Pt noted mild tenderness along peroneals today with INV/EV exercises and standing HR/TR. Pt requires consistent cues for proper technique of exercises throughout treatment today. GOALS Patient Goals : return to PLOF SHORT TERM GOALS Completed by Time Frame for Short Term Goals: 2 weeks CURRENT STATUS GOAL STATUS Short Term Goal 1: Pt to report decreased L ankle pain to <2/10 to discontinue boot: eval L ankle pain 0-9/10 wearing boot In progress Short Term Goal 2: Pt to improve L ankle AROM to wnl and pain free to improve mobility: eval L ankle AROM DF 10, PF 40, INV 25, EV 15 In progress SENIOR LIVING GOALS Completed by Time Frame for Mcc Goals : 5 weeks CURRENT STATUS GOAL STATUS Mcc Goal 1: Pt to be I and compliant with HEP to improve functional mobility, strength and decrease pain: eval initial HEP instruction provided 06-22-24: Reported compliant with issued HEP In progress Mcc Goal 2: Pt to improve L ankle strength to 4+/5 to walk long distances: eval L ankle strength 4-/5 In progress Residential Field Manager Goal 3: Pt to improve LEFS score to >45/80 to return to PLOF: eval LEFS score 28/80 In progress TREATMENT PLAN Plan Frequency: 2 Plan weeks: 5 Specific Instructions for Next Treatment: Progress L ankle ROM and strength as tolerated, standing exercise as tolerated with ASO on. Manual and modalities as needed to decrease pain. THERAPY TIME/CHARGES Time In 1120 Time Out 1200 Minutes 40 Charges Units Minutes Vasopneumatic Device Manual Therapy Therapeutic Exercise 3 40 Neuro Re-education Electrical Stimulation, Unattended Mechanical Traction Iontophoresis Ultrasound Therapeutic Activity IDN Gait Training Aquatics Moist Hot Pack Cold Pack Warren Cooper DPT, [id number] documented in this encounter [facility] [place] Phone: 06-17-2024 History of Presen t illness Narrative Images from the original note were not included. [facility] PHYSICAL THERAPY Physical Therapy Outpatient Orthopaedic Evaluation Patient: Naye Guzmán (54 y.o. female) Examination Date: 06/17/2024 : 1970 CSN: [id number] Insurance: Payor: [facility] / Plan: [facility] / Product Type: *No Product type* / - (Medicaid Managed) Secondary Insurance (if applicable): Referring Physician: Mariana Ellis PA* Mariana Ellis PCP: Pauline Romero DO MEDICAL DIAGNOSIS: sprain of left ankle TREATMENT DIAGNOSIS: L ankle sprain PERTINENT MEDICAL HISTORY Past Medical History: Diagnosis Date Back pain Constipation COPD (chronic obstructive pulmonary disease) (HCC) Fracture left knee Past Surgical History: Procedure Laterality Date BACK SURGERY 2010 COLONOSCOPY N/A 01/02/2024 COLONOSCOPY DIAGNOSTIC// 2 DAY MIRALAX performed by Diego Olvera MD at [facility] OR PAIN MANAGEMENT PROCEDURE N/A 01/08/2024 CAUDAL EPIDURAL STEROID INJECTION performed by Chriss Wright MD at [facility] PAIN MANAGEMENT PROCEDURE Bilateral 06/10/2024 B/L MBB L3, L4, L5 Local only performed by Chriss Wright MD at [facility] MEDICATIONS Current Outpatient Medications: LINZESS 290 MCG CAPS capsule, TAKE 1 CAPSULE BY MOUTH ONCE DAILY IN THE MORNING BEFORE BREAKFAST, Disp: 30 capsule, Rfl: 2 pregabalin (LYRICA) 225 MG capsule, Take 1 capsule by mouth 2 times daily for 90 days. Max Daily Amount: 450 mg, Disp: 60 capsule, Rfl: 2 ibuprofen (ADVIL;MOTRIN) 800 MG tablet, Take 1 tablet by mouth 3 times daily as needed for Pain, Disp: 20 tablet, Rfl: 0 zinc gluconate 50 MG tablet, Take 1 tablet by mouth daily, Disp: , Rfl: denosumab (PROLIA) 60 MG/ML SOSY SC injection, Inject 1 mL into the skin every 6 months, Disp: , Rfl: varenicline (CHANTIX) 1 MG tablet, Take 1 tablet by mouth 2 times daily, Disp: , Rfl: pwpigznrrbs-uirojcbyb-bbfsxu (TRELEGY ELLIPTA) 100-62.5-25 MCG/ACT AEPB inhaler, Inhale 1 puff into the lungs daily, Disp: , Rfl: Cholecalciferol (VITAMIN D3) 1.25 MG (12457 UT) CAPS, Take 1 capsule by mouth daily 1,000 units 1, Disp: , Rfl: Multiple Vitamins-Minerals (MULTIVITAL-M PO), Take 1 tablet by mouth daily, Disp: , Rfl: vitamin B-12 (CYANOCOBALAMIN) 1000 MCG tablet, Take 1 tablet by mouth daily, Disp: , Rfl: calcium carbonate 600 MG TABS tablet, Take 1 tablet by mouth daily, Disp: , Rfl: venlafaxine (EFFEXOR XR) 150 MG extended release capsule, TAKE 1 CAPSULE BY MOUTH ONCE DAILY WITH FOOD, Disp: , Rfl: oxybutynin (DITROPAN XL) 15 MG extended release tablet, Take 1 tablet by mouth daily, Disp: , Rfl: traZODone (DESYREL) 50 MG tablet, take 1 tablet by mouth at bedtime 30, Disp: , Rfl: ibuprofen (ADVIL;MOTRIN) 800 MG tablet, Take 1 tablet by mouth, Disp: , Rfl: ALPRAZolam (XANAX) 0.25 MG tablet, Take 1 tablet by mouth daily as needed., Disp: , Rfl: irbesartan (AVAPRO) 150 MG tablet, Take 1 tablet by mouth daily, Disp: , Rfl: ALLERGIES Patient has no known allergies. SUBJECTIVE EXAMINATION PT VISIT INFORMATION Onset Date: 06/17/24 Total # of Visits Approved: 10 Total # of Visits to Date: 1 ADDITIONAL PERTINENT HISTORY History obtained from:: Patient Chart Reviewed: Yes Patient Assessed for Rehabilitation Services: Yes DIAGNOSIS sprain of left ankle REFERRING PROVIDER Mariana Ellis SUBJECTIVE Pt presents for ASO brace of L ankle, walks in wearing boot today. She reports she sprained the ankle at the end of february and with MRI showed fracture of the cuboid bone along with high ankle sprain. She has been wearing fracture boot since the end of february and can start wearing ankle brace with tennis shoes. Pain is typically to the lateral ankle and dorsum of foot. She reports having pain along the plantar fascia prior to injury. She has been walking without the boot at home, lives in apartment. She has been working on DF/PF at home without pain but INV/EV is limited due to pain due to feeling tight. She does have history of scaitica of the L side with radicular pain down to the lateral foot. There are times when the entire foot goes numb. She has minor swelling to the lateral ankle but reports overall is not bad. Sometimes with prolonged standing will have increased pain in the ankle, denies any feeling of instability of the ankle. Comment: f/u 07/29/24 Pain Screening Patient Currently in Pain: Yes Pain Assessment: 0-10 Pain Level: 6 Best Pain Level: 0 Worst Pain Level: 9 Pain Type: Chronic pain Pain Location: Ankle Pain Orientation: Left Pain Descriptors: Aching;Burning;Numbness;Tinglin g;Tightness;Sharp OBJECTIVE EXAMINATION RESTRICTIONS Restrictions/Precautions: Weight Bearing Partial Weight Bearing Percentage Or Pounds: Ok to dc boot as tolerated and transition to ASO and shoe FUNCTIONAL STATUS Occupation: Unemployed Leisure & Hobbies: walking AMBULATION Ambulation Surface: Carpet Device: No Device Assistance: Independent Quality of Gait: mild antalgia with ambulation Gait Deviations: Decreased step length FOOT/ANKLE ASSESSMENT AROM Ankle (Degrees) R Ankle Dorsiflexion (0-20): 15 R Ankle Plantar Flexion (0-45): 40 R Ankle Forefoot Inversion (0-40): 35 R Ankle Forefoot Eversion (0-20): 20 L Ankle Dorsiflexion (0-20): 10 L Ankle Plantar Flexion (0-45): 40 L Ankle Forefoot Inversion (0-40): 25 L Ankle Forefoot Eversion (0-20): 15 Ankle Strength Testing (MMT) R Ankle Dorsiflexion: 4+/5 R Ankle Plantar flexion: 4+/5 R Ankle Inversion: 4+/5 R Ankle Eversion: 4+/5 L Ankle Dorsiflexion: 4-/5 L Ankle Plantar Flexion: 4-/5 L Ankle Inversion: 4-/5 L Ankle Eversion: 4-/5 PHYSICAL THERAPY TREATMENT COMPLETED THERAPEUTIC EXERCISE Therapeutic exercise to increase left LE strength and decrease tightness for improved functional strength and mobility. Exercise 1: HEP: towel gastroc stretch, ankle DF/PF, ankle INV/EV, ankle circles, ankle alphabet Exercise 2: nustep -next Exercise 3: towel gastroc stretch 3 x 20 Exercise 4: ankle DF/PF x 10 Exercise 5: ankle INV/EV x 10 Exercise 6: ankle circles x 10 Exercise 7: ankle alphabet x 1 Limitations addressed: Mobility;Strength;Flexibility Therapist provided: Verbal cuing Therapist provided: cues for proper technique ASSESSMENT Conditions Requiring Skilled Therapeutic Intervention Body Structures, Functions, Activity Limitations Requiring Skilled Therapeutic Intervention: Decreased functional mobility ;Decreased strength;Increased pain;Decreased high-level IADLs;Decreased ROM Assessment: Pt is a 54 y.o. female who presents with c/o L ankle sprain in February to wean from boot to ASO and shoe having decreased L ankle ROM, strength and stability. Pt was provided and fitted with ASO brace and educated on proper don/dof, she demonstrated understanding and was able to don/dof independently. Treatment Diagnosis: L ankle sprain Therapy Prognosis: Good Decision Making: Medium Complexity History: Personal Factors and/or Comorbidities Impacting POC: Medium History: COPD, back pain Examination of body system(s) including body structures and functions, activity limitations, and/or participation restrictions: Medium Exam: ankle, gait Clinical Presentation: Medium Clinical Presentation: evolving Clinical Decision Making : Medium Complexity Overall Evaluation : Medium Barriers impacting rehab : None Treatment Initiated : Issued and instructed pt on HEP and completed as listed above to improve L ankle ROM and strength. Pt given verbal cues and demonstration for proper technique to ensure max pt benefit. PT Education: PT Role;Plan of Care;Goals;Home Exercise Program Patient Education: educated on proper wear and use of ASO for L ankle Barriers impacting rehab : None Current home exercise program (HEP): Access Code: [email or web address] STATEMENT OF MEDICAL NECESSITY Physical Therapy is both indicated and medically necessary as outlined in the POC to increase the likelihood of meeting the functionally related goals stated below. Activity Tolerance: Patient tolerated evaluation without incident PATIENT'S REHABILITATION POTENTIAL/PROGNOSIS Good FACTORS WHICH MAY IMPACT REHABILITATION POTENTIAL None GOALS Patient Goals : return to PLOF SHORT TERM GOALS Completed by Time Frame for Short Term Goals: 2 weeks CURRENT STATUS GOAL STATUS Short Term Goal 1: Pt to report decreased L ankle pain to <2/10 to discontinue boot: eval L ankle pain 0-9/10 wearing boot STG Goal 1 Status:: New Short Term Goal 2: Pt to improve L ankle AROM to wnl and pain free to improve mobility: eval L ankle AROM DF 10, PF 40, INV 25, EV 15 STG Goal 2 Status:: New SENIOR LIVING GOALS Completed by Time Frame for Mcc Goals : 5 weeks CURRENT STATUS GOAL STATUS Residential Field Manager Goal 1: Pt to be I and compliant with HEP to improve functional mobility, strength and decrease pain: eval initial HEP instruction provided LTG Goal 1 Status:: New Residential Field Manager Goal 2: Pt to improve L ankle strength to 4+/5 to walk long distances: eval L ankle strength 4-/5 LTG Goal 2 Status:: New Mcc Goal 3: Pt to improve LEFS score to >45/80 to return to PLOF: eval LEFS score 28/80 LTG Goal 3 Status:: New TREATMENT PLAN 2 X 5 Current Treatment Recommendations: Strengthening;ROM;Balance training;Functional mobility training;Transfer training;Neuromuscular re-education;Manual;Stair training;Gait training;Endurance training;Home exercise program;Pain management;Equipment evaluation, education, & procurement;Modalities;Patient/ Caregiver education & training;Safety education & training;Dry needling;Aquatics;Therapeutic activities Modalities: Vasopneumatic Device;Heat/Cold;Contrast Bath;Ultrasound;E-stim - unattended;E-stim - manual Additional Comments: 1-2x/wk for 5 weeks Specific Instructions for Next Treatment Progress L ankle ROM and strength as tolerated, standing exercise as tolerated with ASO on. Manual and modalities as needed to decrease pain. PATIENT ACTIVELY INVOLVED IN ESTABLISHING PLAN OF CARE AND GOALS Yes PATIENT/CAREGIVER EDUCATION AND INSTRUCTION PT Role;Plan of Care;Goals;Home Exercise Program educated on proper wear and use of ASO for L ankle 1-2x/wk for 5 weeks Current home exercise program (HEP): Access Code: [email or web address] TREATMENT MAY INCLUDE ANY COMBINATION OF THE FOLLOWING Strengthening;ROM;Balance training;Functional mobility training;Transfer training;Neuromuscular re-education;Manual;Stair training;Gait training;Endurance training;Home exercise program;Pain management;Equipment evaluation, education, & procurement;Modalities;Patient/ Caregiver education & training;Safety education & training;Dry needling;Aquatics;Therapeutic activities OUTCOME MEASURES LOWER EXTREMITY FUNCTIONAL SCALE Any of your usual work, housework, or school activities: Quite a Bit of Difficulty Your usual hobbies, recreational, or sporting activities: Quite a Bit of Difficulty Getting into or out of the bath: Quite a Bit of Difficulty Walking between rooms: A Little Bit of Difficulty Putting on your shoes or socks: A Little Bit of Difficulty Squatting: Quite a Bit of Difficulty Lifting an object, like a bag of groceries from the floor: Moderate Difficulty Performing light activities around your home: Moderate Difficulty Performing heavy activities around your home: Quite a Bit of Difficulty Getting into or out of a car: A Little Bit of Difficulty Walking 2 blocks: Extreme Difficulty or Unable to Perform Activity Walking a mile: Extreme Difficulty or Unable to Perform Activity Going up or down 10 stairs (about 1 flight of stairs): Quite a Bit of Difficulty Standing for 1 hour: Quite a Bit of Difficulty Sitting for 1 hour: No Difficulty Running on even ground : Extreme Difficulty or Unable to Perform Activity Running on uneven ground : Extreme Difficulty or Unable to Perform Activity Making sharp turns while running fast : Extreme Difficulty or Unable to Perform Activity Hopping: Extreme Difficulty or Unable to Perform Activity Rolling over in bed: No Difficulty LEFS Total Score: 28/80 THERAPY TIME/CHARGES Time In 1105 Time Out 1203 Minutes 58 Charges Units Minutes Low Complexity Evaluation Moderate Complexity Evaluation 1 33 High Complexity Evaluation Vasopneumatic Device Manual Therapy Therapeutic Exercise 2 25 Neuro Re-education Electrical Stimulation, Unattended Mechanical Traction Iontophoresis Ultrasound Therapeutic Activity IDN Gait Training Moist Hot Pack Cold Pack Electronically signed by: Warren Cooper DPT, [id number] If you have any questions or concerns, please don't hesitate to call. Thank you for your referral. Physician Signature: Date: ___ By signing above, therapist's plan is approved by physician documented in this encounter M87 Phone: 03-10-2024 [facility] Discharg e instructions Marco A Romero DO - 03/10/2024 12:28 PM EDT Continue to wear the fracture boot as directed by orthopedics. Follow-up with orthopedics and get the MRI when it can be scheduled. Return to the ER if you develop worsening symptoms, chest pain, difficulty breathing, increased swelling in the leg, or if you have any other concerns. The following attachments cannot be sent through Care Everywhere.Ankle Sprain (Azerbaijani)documented in this encounter M87 Phone: 03-01-2024 [facility] Discharg e instructions Ayleen Harris MD - 03/01/2024 6:12 PM EDT Wear the dameon wrap and walking boot as needed to help with pain You were given 2 tablets of hydrocodone pain medication to take home from the ER. You may take 1 tablet every 6 hours as needed overnight to help with pain and then fill your prescription tomorrow pain medication as needed The following attachments cannot be sent through Care Everywhere.Ankle Sprain (Azerbaijani)RICE: General Info (Azerbaijani)documented in this encounter MAX Work Phone: 01-08-2024 Evaluation note Authored January 08, 2024 2:57 pm The above note written by __ _Mikayla Flores____ acting as human recorder, note dictated by Dr. Parker .I performed the above HPI, ROS, and Examination. I formulated and dictated the treatment plan and was present for entire encounter. Pauline Romero D.O. [facility] Work Phone: 1(216) 276-845903-28-2024 Hospital Discharge instructions* Discharge Instructions* Lilia Garcia, FERCHO - 01/02/2024 1:22 PM EDT You have received medication that make you feel drowsy for the next 12 hours. Go home and rest. Do not drive the rest of today. It is best that you go directly home when you leave here. Do not go out to eat. You had a gastroscopy today. You may feel bloated for a short time following the procedure. If your throat is no longer numb when you get home, you may try a drink of water. If you can swallow it without choking, you may take other fluids and food. If you choke on the water, wait 30 minutesand try again. You may have a sore throat for a day or two following the procedure, gargle with salt water and usethroat lozenges as needed. If you had a biopsy the following will help minimize the risk of bleeding from the biopsy site: Eat a bland diet for the next 2 days (no fresh fruit, vegetables, nuts or popcorn) No aspirin or aspirin like drugs as directed by your doctor. Avoid alcohol for the next 3 days No vigorous exercise/activity ( such as running or lifting) for the next 3 days. Come to the Emergency Department If you pass a large amount of blood in the stool; or have a sudden, severe abdominal pain, or fever. Some spotting of blood may be normal if you have had a biopsy or a polyp removed. You will be contacted by the GI Team in 14 business days with your results and follow-up instructions. If you do not hear anything after 14 business days, please call the GI clinic in [facility] at [phone]. documented in this encounterWYANDOT Work Phone: 1(819) 237-859303-28-2024 History of Present illness Narrative* Lilia Garcia RN - 01/02/2024 12:25 PM EDT Patient voices pain in abdomen, Dr. Olvera made aware, new order for xray of abdomen. * Remedios Barron RN - 01/02/2024 10:34 AM EDT Refused test. * Usha Ramírez RN - 01/01/2024 8:54 AM EDT Patient contacted via telephone regarding 1030 admission time. Patient acknowledged understanding. 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 Questions invited and answered. documented in this encounterWYANDOT Work Phone: [phone]) 818-784801-30-2024 Evaluation note* Encounter Date Diagnosis Assessment Notes Treatment Notes Treatment Clinical Notes Oct, Lumbar degenerative disc disease (ICD-10 - M51.36) [facility] Other 01-22-2024 History general Narrative - Reported* Type Description Date Medical History Pap; [place] [place] [facility] Medical History Mammogram; May 2012; [facility] Medical History Pelvic Ultrasound 05-18; Dr. Clay [...] ry Hospitalization History Pneumonia - [place] 03/07 [facility] Other 01-19-2024 History general Narrative - Reported* Type Description Date Medical History Pap; Dr. Ramirez, Loop 05-18 Medical History Mammogram; May 2012; [facility] Medical History Pelvic Ultrasound 05-18; Dr. Clay [...] ry Hospitalization History Pneumonia - [place] 03/07 [facility] Other 01-18-2024 Evaluation note* Encounter Date Diagnosis [...] will follow-up with her with those results. [facility] Other 01-05-2024 History general Narrative - Reported* Type Description Date Medical History Pap; Dr. Ramirez, Loop 05-18 Medical History Mammogram; May 2012; [facility] Medical History Pelvic Ultrasound 05-18; Dr. Clay [...] Surgical History left sacral lat brach L5 11/9/1 7 Surgical History left sacral lateral branch L5 - Dr Anderson 09/05/17 Surgical History left hip and GT Bursa inj Dr Kathy woodruff 09/26/17 Surgical History left lumbar transforaminal L4 L 3 - Dr Anderson 12/04/17 Surgical History pain mgmt procedure DR Anderson 05/08 12/22 Surgical History Hip Inj- 07/2018 Hospitalization History see above surgical histo ry Hospitalization History Pneumonia - [place] 03/07 [facility] Other 01-04-2024 Evaluation note* Encounter Date Diagnosis [...] need to discuss referring her to a operations developer. I also recommend she get an apolipoprotein [...] that this has been an issue since 2019 when she was in the hospital for [...] at 1.260. Oct, Hematuria (ICD-10 - R31.9) [facility] Other 12-08-2023 Evaluation + Plan noteExtracted from: [...] Follow-up as above mentioned GLADYS score: 64% [facility]12-08-2023 Evaluation note* Encounter Date Diagnosis Assessment Notes Treatment Notes Treatment Clinical Notes Sep, Anxiety (ICD-10 - F41.9) [facility] Other 12-08-2023 History general Narrative - Reported* Type Description Date Medical History Pap; Dr. Ramirez Loop 05-18 Medical History Mammogram; May 2012; [facility] Medical History Pelvic Ultrasound 05-18; Dr. Clay [...] ry Hospitalization History Pneumonia - [place] 03/07 [facility] Other 11-15-2023 Note [id number] [facility] 08-21-2023 NoteDiagnosis: M96.1 Procedure: Caudal epidural steroid [...] Garcia DO\.br\Date and Time Signed: 08/21/23 15:54 [id number] Evaluation + Plan note Extracted from: Title:Caudal [...] Date:09/13/2023 12:30:00 PM Scheduled Provider:Mabel Berumen PA-C Location[facility] Appointment Type:Pain Management - Follow Up (FT) [facility]11-09-2023 History general Narrative - Reported* Type Description Date Medical History Pap; Dr. Ramirez Loop 05-18 Medical History Mammogram; May 2012; [facility] Medical History Pelvic Ultrasound 05-18; Dr. Clay [...] surgical histo ry Hospitalization History Pneumonia - [place] 03/07 [facility] Other 11-03-2023 History general Narrative - Reported* Type Description Date Medical History Pap; [facility] [place] 05-18 Medical History Mammogram; May 2012; [facility] Medical History Pelvic Ultrasound 05-18; Dr. 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 [facility] Other 10-20-2023 History general Narrative - Reported* Type Description Date Medical History Pap; Dr. Ramirez Loop 05-18 Medical History Mammogram; May 2012; [facility] Medical History Pelvic Ultrasound 05-18; Dr. Clay [...] ry Hospitalization History Pneumonia - [place] 03/07 [facility] Other 10-19-2023 Evaluation note* Encounter Date Diagnosis [...] without contrast to evaluate for meniscal pathology [facility] Other 10-11-2023 Evaluation note* Encounter Date Diagnosis Assessment Notes Treatment Notes Treatment Clinical Notes Jul, Anxiety (ICD-10 - F41.9) [facility] Other 10-11-2023 Evaluation note* Encounter Date Diagnosis [...] week for evaluation of her left knee. [facility] Other 10-11-2023 History general Narrative - Reported* Type Description Date Medical History Pap; Dr. Ramirez Loop 05-18 Medical History Mammogram; May 2012; [facility] Medical History Pelvic Ultrasound 05-18; Dr. Clay [...] ry Hospitalization History Pneumonia - [place] 03/07 [facility] Other 09-28-2023 Evaluation + Plan noteExtracted from: [...] with any questions or concerns that arise. [facility]09-27-2023 Evaluation note* Encounter Date Diagnosis Assessment Notes Treatment Notes Treatment Clinical Notes Jun, Foot pain, left (ICD-10 - M79.672) This patient has a normal vascular exam of her feet bilaterally. I do not believe that her symptoms are of a vascular etiology. I will see her as needed in the future. The patient is due to see a neurologist tomorrow for further work-up. [facility] Other 08-28-2023 Evaluation note* Encounter Date Diagnosis [...] recently referred to pain management through the [facility]. If this is nerve related then [...] that can be discussed with pain management. [facility] Other 08-24-2023 Evaluation note* Encounter Date Diagnosis Assessment Notes Treatment Notes Treatment Clinical Notes May, Foot pain, left (ICD-10 - M79.672) [facility] Other 08-24-2023 History general Narrative - Reported* Type Description Date Medical History Pap; Dr. Ramirez Loop 05-18 Medical History Mammogram; May 2012; [facility] Medical History Pelvic Ultrasound 05-18; Dr. Clay [...] surgical histo ry Hospitalization History Pneumonia - [place] 03/07 [facility] Other 07-12-2023 History general Narrative - Reported* Type Description Date Medical History Pap; Dr. Ramirez, Loop 05-18 Medical History Mammogram; May 2012; [facility] Medical History Pelvic Ultrasound 05-18; Dr. Clay [...] surgical histo ry Hospitalization History Pneumonia - [place] 03/07 [facility] Other 07-10-2023 Evaluation note* Encounter Date Diagnosis [...] mammogram to be done in Sep (2022). [facility] Other 07-07-2023 History general Narrative - Reported* Type Description Date Medical History Pap; Dr. Ramirez Loop 05-18 Medical History Mammogram; May 2012; [facility] Medical History Pelvic Ultrasound 05-18; Dr. Clay [...] surgical histo ry Hospitalization History Pneumonia - [place] 03/07 [facility] Other 06-23-2023 History general Narrative - Reported* Type Description Date Medical History Pap; Dr. Ramirez, Loop 05-18 Medical History Mammogram; May 2012; [facility] Medical History Pelvic Ultrasound 05-18; Dr. Clay [...] surgical histo ry Hospitalization History Pneumonia - [place] 03/07 [facility] Other 06-22-2023 Evaluation note* Encounter Date Diagnosis Assessment Notes Treatment Notes Treatment Clinical Notes Mar, Anxiety (ICD-10 - F41.9) [facility] Other 06-16-2023 History general Narrative - Reported* Type Description Date Medical History Pap; Dr. Ramirez, Loop 05-18 Medical History Mammogram; May 2012; [facility] Medical History Pelvic Ultrasound 05-18; Dr. Clay [...] ry Hospitalization History Pneumonia - [place] 03/07 [facility] Other 06-07-2023 Evaluation note* Encounter Date Diagnosis [...] 6. Follow up 2 to 3 months [facility] Other 05-05-2023 Evaluation note* Encounter Date Diagnosis Assessment Notes Treatment Notes Treatment Clinical Notes February, Anxiety (ICD-10 - F41.9) February, Insomnia (ICD-10 - G47.00) [facility] Other 05-05-2023 History general Narrative - Reported* Type Description Date Medical History Pap; Dr. Ramirez Loop 05-18 Medical History Mammogram; May 2012; [facility] Medical History Pelvic Ultrasound 05-18; Dr. Clay [...] ry Hospitalization History Pneumonia - [place] 03/07 [facility] Other 05-01-2023 Evaluation note* Encounter Date Diagnosis [...] push the wax further into the ear. [facility] Other 04-28-2023 History general Narrative - Reported* Type Description Date Medical History Pap; Dr. Ramirez Loop 05-18 Medical History Mammogram; May 2012; [facility] Medical History Pelvic Ultrasound 05-18; Dr. Clay [...] surgical histo ry Hospitalization History Pneumonia - [place] 03/07 [facility] Other 04-27-2023 Evaluation note* Encounter Date Diagnosis [...] Pt understood and agreed to treatment plan. [facility] Other 04-27-2023 History general Narrative - Reported* Type Description Date Medical History Pap; Dr. Ramirez Loop 05-18 Medical History Mammogram; May 2012; [facility] Medical History Pelvic Ultrasound 05-18; Dr. Clay [...] ry Hospitalization History Pneumonia - [place] 03/07 [facility] Other 04-10-2023 History general Narrative - Reported* Type Description Date Medical History Pap; Dr. Ramirez Loop 05-18 Medical History Mammogram; May 2012; [facility] Medical History Pelvic Ultrasound 05-18; Dr. Clay [...] surgical histo ry Hospitalization History Pneumonia - [place] 03/07 [facility] Other 04-06-2023 Evaluation note* Encounter Date Diagnosis [...] Jan, Other 9:59 AM - 10:07 AM [facility] Other 03-28-2023 Evaluation note* Encounter Date Diagnosis Assessment Notes Treatment Notes Treatment Clinical Notes Dec, Anxiety (ICD-10 - F41.9) [facility] Other 03-10-2023 History general Narrative - Reported* Type Description Date Medical History Pap; Dr. Ramirez, Loop 05-18 Medical History Mammogram; May 2012; [facility] Medical History Pelvic Ultrasound 05-18; Dr. Clay [...] surgical histo ry Hospitalization History Pneumonia - [place] 03/07 [facility] Other 02-24-2023 Evaluation note* Encounter Date Diagnosis Assessment Notes Treatment Notes Treatment Clinical Notes Nov, COPD (chronic obstructive pulmonary disease) (ICD-10 - J44.9) [facility] Other 02-13-2023 Evaluation note* Encounter Date Diagnosis [...] out because of her left leg pain. [facility] Other 02-04-2023 NotePROCEDURE: XR CHEST 1 V, [...] Electronically authenticated by: ELIESER DILLON Date: 2022-11-10 15:02[facility]01-06-2023 Evaluation note* Encounter Date Diagnosis Assessment Notes Treatment Notes Treatment Clinical Notes Oct, Anxiety (ICD-10 - F41.9) [facility] Other 12-02-2022 Evaluation note* Encounter Date Diagnosis [...] next week. 11:43 AM - 11:48 AM [facility] Other 09-27-2022 Evaluation note* Encounter Date Diagnosis [...] verbalized understanding and agreement with tx plan. [facility] Other 09-13-2022 History general Narrative - Reported* Type Description Date Medical History Pap; Dr. Ramirez, Loop 05-18 Medical History Mammogram; May 2012; [facility] Medical History Pelvic Ultrasound 05-18; Dr. Clay [...] surgical histo ry Hospitalization History Pneumonia - [place] 03/07 [facility] Other 09-08-2022 Evaluation note* Encounter Date Diagnosis [...] her in a cast. She saw her product support specialist and he took the cast off [...] is. She is to continue to monitor. [facility] Other 06-21-2022 Evaluation note* Encounter Date Diagnosis Assessment Notes Treatment Notes Treatment Clinical Notes Mar, Post laminectomy syndrome (ICD-10 - M96.1) Mar, Anxiety (ICD-10 - F41.9) [facility] Other 06-06-2022 Evaluation note* Encounter Date Diagnosis [...] Cymbalta (generic) she has an appointment at [facility] on 03-26-22 and will discuss coming [...] Continue to follow with specialist as directed. [facility] Other 04-19-2022 Evaluation note* Encounter Date Diagnosis Assessment Notes Treatment Notes Treatment Clinical Notes Jan, Abnormal mammogram (ICD-10 - R92.8) left breast [facility] Other 04-14-2022 Evaluation note* Encounter Date Diagnosis Assessment Notes Treatment Notes Treatment Clinical Notes Jan, Anxiety (ICD-10 - F41.9) [facility] Other 03-29-2022 Evaluation note* Encounter Date Diagnosis Assessment Notes Treatment Notes Treatment Clinical Notes Dec, Abnormal mammogram o f left breast (ICD-10 - R92.8) Dec, Calcification of lef t breast on mammography (ICD-10 - R92.1) [facility] Other 03-23-2022 Evaluation note* Encounter Date Diagnosis Assessment Notes Treatment Notes Treatment Clinical Notes Dec, Abnormal mammogram (ICD-10 - R92.8) left breast [facility] Other 03-17-2022 Evaluation note* Encounter Date Diagnosis [...] in February because she if flying to [place] and has never flown before. I did [...] the supplies and will do this soon. [facility] Other 02-28-2022 Evaluation note* Encounter Date Diagnosis Assessment Notes Treatment Notes Treatment Clinical Notes Nov, Anxiety (ICD-10 - F41.9) Nov, Encounter for screening mammogram for breast cancer (ICD-10 - Z12.31) [facility] Other 01-24-2022 Evaluation note* Encounter Date Diagnosis Assessment Notes Treatment Notes Treatment Clinical Notes Oct, Anxiety (ICD-10 - F41.9) [facility] Other 01-04-2022 Evaluation note* Encounter Date Diagnosis Assessment Notes Treatment Notes Treatment Clinical Notes Oct, Depression (ICD-10 - F32.9) [facility] Other 12-27-2021 Evaluation note* Encounter Date Diagnosis Assessment Notes Treatment Notes Treatment Clinical Notes Sep, Anxiety (ICD-10 - F41.9) [facility] Other 12-20-2021 Evaluation note* Encounter Date Diagnosis [...] I did recommend that she contact [facility] about this. Sep, Hypertension (ICD-10 - [...] we will see her back in December. [facility] Other 11-30-2021 Evaluation note* Encounter Date Diagnosis [...] R63.5) Her TSH is normal at 1.497. [facility] Other 08-01-2012 History general Narrative - Reported* Type Description Date Medical History Pap; Dr. Ramirez, Loop 05-18 Medical History Mammogram; May 2012; [facility] Medical History Pelvic Ultrasound 05-18; Dr. Clay [...] surgical histo ry Hospitalization History Pneumonia - [place] 03/07 [facility] Other Evaluation [facility]No [facility] Other Evaluation noteNo assessment information available [facility] Work Phone: Evaluation note* Diagnosis RLQ abdominal pain Abdominal pain, right lower quadrant Abdominal bloating Flatulence, eructation, and gas pain Abdominal cramping Abdominal pain, unspecified site Constipation Unspecified constipation Spinal stenosis of lumbar region, unspecified whether neurogenic claudication present documented in this encounter [facility] Work Phone: evaluation note* Author Pauline Romero [facility] Authored January 08, 2024 2:57 pm The above note written by __ _Mikayla Flores____ acting as human recorder, note dictated by Dr. Parker .I performed the above HPI, ROS, and Examination. I formulated and dictated the treatment plan and was present for entire encounter. Pauline Romero D.O. [facility] Work Phone: Evaluation note* Diagnosis Examination for normal comparison for clinical research Examination of participant in clinical trial documented in this encounter [employer] Phone: evalpecwyt note* Diagnosis Sprain of left ankle, unspecified ligament, initial encounter- Primary documented in this encounter [employer] Work Phone: evalmwxois note* Diagnosis Sprain of left ankle, unspecified ligament, subsequent encounter- Primary Localized swelling of left foot documented in this encounter [employer] Work Phone: evalxynhfs note* Diagnosis Onset Date Resolution Status Anxiety acute [facility] Work Phone: Hospital course Narrative No data available for this section [facility] No data available for this section [facility] No data available for this section [facility] for visit Narrativereview labs/med refill, discuss multiple issues, see treatment plan [place] [facility] Other Summary Purpose Family History No Family History Records Found Relationship Condition Age at Onset Recorded Date/T jenae father Unknown grandparent Unknown Not Specified Hypertension Unknown Relationship Condition Age at Onset Recorded Date/T jenae father Unknown grandparent Unknown mother Hypertension Unknown Advance Directives No Advanced Directives Records Found Advance Directive Response Recorded Date/ Time Advance Directives No August 13, 2017 10:22am Advance Directive Response Recorded Date/ Time Advance Directives No August 13, 2017 11:22am Latest Code Status on File Code Status Date Activated Date Inactivated Comments Full Code 01/02/2024 10:35 AM Latest Code Status on File Code Status Date Activated Date Inactivated Comments Full Code 01/08/2024 10:44 AM 01/08/2024 1:36 PM Code Status History Code Status Date Activated Date Inactivated Comments Full Code 01/02/2024 10:35 AM 01/02/2024 3:32 PM Latest Code Status on File Code Status Date Activated Date Inactivated Comments Full Code 01/08/2024 10:44 AM 01/08/2024 1:36 PM Code Status History Code Status Date Activated Date Inactivated Comments Full Code 01/02/2024 10:35 AM 01/02/2024 3:32 PM Date Activated Date Inactivated Comments 01/08/2024 10:44 AM 01/08/2024 1:36 PM Date Activated Date Inactivated Comments 01/02/2024 10:35 AM 01/02/2024 3:32 PM Date Activated Date Inactivated Comments 01/08/2024 10:44 AM 01/08/2024 1:36 PM Date Activated Date Inactivated Comments 01/02/2024 10:35 AM 01/02/2024 3:32 PM Chief Complaint and Reason for Visit Chief Complaint m54.17 Chief Complaint Review Labs/Med Refi ll 3 Months M23.92 Chief Complaint 3 Months M23.92 MRI RESULTS telephone/med refill Reason for Visit ACL laxity Primary osteoarthritis of left knee Anxiety Coronary artery disease Chief Complaint telephone/med refill 6 MONTHS med refill/ review lab Reason for Visit Anxiety Asymptomatic menopausal state Osteopenia after menopause Other skilled nursing (current) drug therapy Anxiety COPD (chronic obstructive pulmonary disease) Coronary artery disease Depression Hypertension Lumbosacral spondylosis Non-alcoholic fatty liver disease Vitamin B12 deficiency Vitamin D deficiency Chief Complaint Amb Documentation Amb Documentation phone/med refill Reason for Visit Anxiety Reason for Referral Specialty Diagnoses / Procedures Referred By Rodrigo curry Referred To Contact Orthopedic Surgery Diagnoses Sprain of left ankle, unspecified ligament, initial encounter Ayleen Harris MD [address] [place] [address] Lorraine Shine MD [address] [place] [address] Referral ID Status Reason Start Date Expiration Date V isits Requested Visits Authorized [id number] Open Specialty Services Required 03/01/2024 08/28/2024 1 1 Scheduling Instructions Orthopaedic [facility] Question Answer Reason For External Referral? Location Comments The patient can be scheduled with any member of the group, including the provider with the first available appointments. Specialty Diagnoses / Procedures Referred By Rodrigo curry Referred To Contact Radiology Diagnoses Examination for normal comparison for clinical research Procedures XR COMPARISON OF OUTSIDE FILMS Chriss Wright MD [address] [place] [address] Referral ID Status Reason Start Date Expiration Date Visits Re quested Visits Authorized [id number] Closed 01/08/2024 01/07/2025 1 1 Reason appt consult for p ain management Diagnosis 1 Lumbar degenerative disc disease (M51.36) Diagnosis 2 Post laminectomy syn drome (M96.1) Diagnosis 3 Other chronic pain ( G89.29) Referral Organization [facility] [place] Referring Provider First Name Pauline Referring Provider Last Name Nick Referring Provider Specialty Family Prac gabby Referred Organization Unknown Facility Referred Provider Specialty Pain Medicin e Referral Priority Routine General Notes Frances Murphy 11/06/2023 08:32:47 AM > referral faxed thru [facility] to [facility] at [phone] with TE message, last visit note, FT pain management note and insurance card. pt can contact them if she does not hear about an appt. Frances Murphy 11/06/2023 10:27:52 AM > this referral was sent to the incorrect fax number, should have been [phone] instead. refaxed to correct fax number. Reason appt consult for e jocelynn and treatment of constipation/pt was seen in [facility] ER on 10/31/23 Diagnosis 1 Constipation (K59.00 ) Referral Organization [facility] [place] Referring Provider First Name Pauline Referring Provider Last Name Nick Referring Provider Specialty Family Prac gabby Referred Organization Unknown Facility Referred Provider Reji Queen Referred Provider Specialty Gastroentero logy Referral Priority Routine General Notes Frances Murphy 11/06/2023 03:29:28 PM > referral faxed with last several TE messages, last visit note, insurance card and note that pt was seen in [facility] ER. pt understands she will be contacted to schedule this appt. Reason appt pt needs cons ult to evaluate left foot, rule out vascular issue Diagnosis 1 Foot pain, left (M79 .672) Referral Organization [facility] [place] Referring Provider First Name Pauline Referring Provider Last Name Nick Referring Provider Specialty Family Prac gabby Referred Organization [facility] Vascular Surge ry Referred Provider Dequan Lenz Referred Address [address] [place] [address],[address],[place], [place],[address] Referred Provider Specialty Vascular Gilda eboni Referral Priority Routine General Notes Frances Murphy 06/03/2023 05:05:55 PM > referral sent p2p. pt understands she will be contacted to schedule this appt. Additional Source Comments INFORMATION SOURCE (unrecogn ized section and content) DATE CREATED AUTHOR 06/09/2018 [facility] DATE CREATED AUTHOR AUTHOR'S ORGANIZ ATION 02/07/2023 [facility] DATE CREATED AUTHOR AUTHOR'S ORGANIZ ATION 10/10/2023 [facility] DATE CREATED AUTHOR AUTHOR'S ORGANIZ ATION 10/12/2023 [facility] DATE CREATED AUTHOR AUTHOR'S ORGANIZ ATION 11/19/2023 [facility] DATE CREATED AUTHOR AUTHOR'S ORGANIZ ATION 04/28/2024 [facility] DATE CREATED AUTHOR AUTHOR'S ORGANIZ ATION 08/23/2024 [facility] REASON FOR VISIT (unrecogniz ed section and content) Specialty Diagnoses / Procedures Referred By Contac t Referred To Contact Diagnoses Constipation RLQ abdominal pain Abdominal bloating Abdominal cramping Constipation [K59.00] RLQ abdominal pain [R10.31] Abdominal bloating [R14.0] Abdominal cramping [R10.9] Procedures ND COLONOSCOPY FLX DX W/COLLJ SPEC WHEN PFRMD COLONOSCOPY DIAGNOSTIC// 2 DAY MIRALAX Diego Olvera MD [address] [place] [address] [facility] Phone: [phone] Referral ID Status Reason Start Date Expiration Date Visits Re quested Visits Authorized [id number] 1 1 Specialty Diagnoses / Procedures Referred By Contac t Referred To Contact Radiology Diagnoses Examination for normal comparison for clinical research Procedures XR COMPARISON OF OUTSIDE FILMS Chriss Wright MD [address] [place] [address] Referral ID Status Reason Start Date Expiration Date Visits Re quested Visits Authorized [id number] Closed 01/08/2024 01/07/2025 1 1 Reason Comments Ankle Pain Leg Pain Reason Comments Foot Swelling Joint Swelling Specialty Diagnoses / Procedures Referred By Contac t Referred To Contact Physical Therapy Diagnoses Sprain of unspecified ligament of left ankle, subsequent encounter Procedures PT EVAL AND TREAT Mariana Ellis PA-C [address] [place] [address] Rommel Cooper Referral ID Status Reason Start Date Expiration Date Visits Re quested Visits Authorized [id number] Open 06/17/2024 07/17/2024 1 1 Care Teams (unrecognized sec tion and content) Team Status: Active Member Role Status Leona Romero DO Primary Care Provider Active Team Status: Active Member Role Status Leona Romero DO Primary Care Provider Active S tart: May 01, 2024 RIYA Harris Attending Provider Active S tart: May 01, 2024 Team Status: Active Member Role Status Leona Romero DO Primary Care Provider Active S tart: May 05, 2024 Mikayla Flores LPN Attending Provider Active St art: May 05, 2024 Team Status: Inactive Member Role Status Leona Romero DO Primary Care Provide r, Attending Provider Active Start: July 14, 2024 End: July 14, 2024 Team Status: Inactive Member Role Status Leona Romero DO Primary Care Provide r, Attending Provider Active Start: January 08, 2024 End: January 08, 2024 Team Status: Inactive Member Role Status Leona Romero DO Primary Care Provider Active S tart: February 18, 2024 End: February 18, 2024 STELLA Johnson Attending Provider Active Start: February 18, 2024 End: February 18, 2024 Team Status: Inactive Member Role Status Leona Romero DO Primary Care Provide r, Attending Provider Active Start: April 07, 2024 End: April 07, 2024 Team Status: Active Member Role Status Leona Romero DO Primary Care Provide r, Attending Provider Active Start: October 10, 2023 Team Status: Inactive Member Role Status Dates Elieser Jack II, MD Attending Provider Active Start: October 24, 2023 End: October 24, 2023 Team Status: Inactive Member Role Status Leona Romero DO Primary Care Provider Active S tart: November 18, 2023 End: November 18, 2023 Elieser Jack II, MD Attending Provider Active Start: November 18, 2023 End: November 18, 2023 Team Status: Inactive Member Role Status Leona Romero DO Primary Care Provider Active S tart: December 04, 2023 End: December 04, 2023 Elieser Jack II, MD Attending Provider Active Start: December 04, 2023 End: December 04, 2023 Team Status: Inactive Member Role Status Dates Pauline Romero DO Primary Care Provider Active Antonina Guidry PA-C Attending Provider Active Team Status: Inactive Member Role Status Dates Pauline Romero DO Primary Care Provider Active Elieser Jack II, MD Attending Provider Active Team Status: Inactive Member Role Status Dates Pauline Romero DO Attending Provider Active Star t: October 10, 2023 End: October 10, 2023 Proteomics Scientist Relationship Specialty Start Date End Date Pauline Romero DO [address] [place] [place] [address] PCP - General Family Medicine 09/13/23 Proteomics Scientist Relationship Specialty Start Date End Date Pauline Romero DO [address] [place] [address] PCP - General Family Medicine 09/13/23 Proteomics Scientist Relationship Specialty Start Date End Date Pauline Romero DO [address] [place] [place] [address] PCP - General Family Medicine 09/13/23 Proteomics Scientist Relationship Specialty Start Date End Date Pauline Romero DO [address] [place] [place] [address] PCP - General Family Medicine 09/13/23 Proteomics Scientist Relationship Specialty Start Date End Date Pauline Romero DO [address] [place] [place] [address] PCP - General Family Medicine 09/13/23 Proteomics Scientist Relationship Specialty Start Date End Date Pauline Romero DO [address] [place] [place] [address] PCP - General Family Medicine 09/13/23 Proteomics Scientist Relationship Specialty Start Date End Date Pauline Romero DO [address] [place] [place] [address] PCP - General Family Medicine 09/13/23 Prote[employer] Scientist Relationship Specialty Start Date End Date Pauline Romero DO [address] [place] [address] PCP - General Family Medicine 09/13/23 Goals (unrecognized section and content) Goals may be documented in a n alternate section Scheduled Active and Recently Administ ered Medications (unrecognized section and content) Medication Order 12/31/2023 01/01/2024 01/02/2024 sodium chloride 0.9 % bolus 500 mL (COMPLETED) 500 mL (6.97 mL/kg), IntraVENous, at 247.9 mL/hr, Administer over 121 Minutes, ONCE, On Denise 01/02/24 at 1100, For 1 dose, Pre-procedure(GI) 1047 (New Bag - Prov ider: Remedios Barron RN)[phone] (Given - Provider: Margo Pearson APRN - [employer]EL[employer])1149 (Given - Provider: NICOLÁS Katz CRNA)1323 (Stopped - Provider: Lilia Garcia RN) Scheduled Medication Order 02/28/2024 02/29/2024 03/01/2024 HYDROcodone-acetaminophen (NORCO) 5-325 MG per tablet 1 tablet (COMPLETED) 1 tablet, Oral, ONCE, 1 dose, On 03/01/24 at 1745, Maximum dose of acetaminophen is 4000 mg from all sources in 24 hours. 1740 (Given - Provid er: Chantal Field RN) HYDROcodone-acetaminophen (NORCO) 5-325 MG per tablet 2 tablet (COMPLETED) 2 tablet, Oral, ONCE, 1 dose, On 03/01/24 at 1815, Maximum dose of acetaminophen is 4000 mg from all sources in 24 hours., Take 1 tablet every 6 hours as needed for pain, two tablets to take home 181 (Given - Provid er: Chantal Field RN - Comment: sent home with pt per Dr harris) ibuprofen (ADVIL;MOTRIN) tablet 800 mg (COMPLETED) 800 mg, Oral, ONCE, 1 dose, On 03/01/24 at 1800 1800 (Given - Provid er: Chantal Field RN) Ordered Prescriptions (unrec ognized section and content) Prescription Sig Dispensed Refills Start Date End Da te HYDROcodone-acetaminophe n (NORCO) 5-325 MG per tabletIndications:Sprain of left ankle, unspecified ligament, initial encounter Take 1 tablet by mouth every 6 hours as needed for Pain for up to 3 days. Intended supply: 3 days. Take lowest dose possible to manage pain Max Daily Amount: 4 tablets 10 tablet 0 03/01/2024 03/04/2024 ibuprofen (ADVIL;MOTRIN) 800 MG tablet Take 1 tablet by mouth 3 times daily as needed for Pain 20 tablet 0 03/01/2024 FOR RECORDS PERTAINING TO PATIENTS WHO ARE [...] BE BASED ON THE PRIMARY CLINICAL RECORDS. [employer] [facility]. provides no warranty or guarantee of the accuracy or completeness of information in this document.
== END 2024-08-26 12:46 | disposition home or self-care (01) ==
LOC: MAMMO 12:45
PROVIDERS: PCP Family Medicine; Visit Provider Family Medicine
DX: Z12.31 Encounter for screening mammogram for malignant neoplasm of breast (principal)
CPT/HCPCS: 77063; 77067